=== PATIENT | female | born 1930 | race Caucasian/White ===

== ENCOUNTER 2017-01-18 14:59 | Inpatient (IN) | payer MEDICARE, OTHER ==
[~2017-01-18] VITALS: Ht 157.5 cm; Wt 79.3 kg
[~2017-01-18 14:59] MED LIST: BISA5TAB6 PO; D-ME473S2 PO; DOCU-144 PO; FAMO20TA18 PO; FLUT16SP17 NASAL; FURO-110 PO; GABA300C16 PO; HYDR-3498 PO; IBUP400T22 PO; LINA290C PO; LORA10TA3 PO; MONT10TA24 PO; NA P133E3 PR; Promethazine/Codeine Syp PO; ZOLP5TAB PO
[2017-01-18] MEDS ORDERED: ALBUTEROL 0.083% (NEB) 2.5 MG/3 ML AMP HHN STA (23:34)
[2017-01-19] VITALS (8 sets, daily range): BP systolic 102–131; BP diastolic 52–60; PULSE 97–127; RESP 20–24; TEMP 100.2; Ht 157.5 cm; Wt 79.3 kg
[2017-01-19] MEDS ORDERED: IPRATROPIUM (NEB) 0.5 MG/2.5 ML AMP INH ONE
[2017-01-19 00:19] LABS: ADD SCAN DIFF NO
[2017-01-19 00:20] LABS: ABNORMAL IP MESSAGE 1; BASOPHILS % 0.2 % (0.0-2.0); EOSINOPHILS # 0.2 10^3/ul (0.0-0.5); EOSINOPHILS % 3.2 % (0.0-7.0); HEMATOCRIT 32.6 % (37.0-47.0); HEMOGLOBIN 10.9 g/dl (12.0-16.0); LYMPHOCYTES # 0.4 10^3/ul (0.8-2.9); LYMPHOCYTES % 8.1 % (15.0-51.0); MEAN CORPUSCULAR HGB CONC 33.4 g/dl (32.0-37.0); MEAN CORPUSCULAR VOLUME 92.6 fl (82.0-101.0); MEAN PLATELET VOLUME 9.1 fl (7.4-10.4); MONOCYTE # 0.4 10^3/ul (0.3-0.9); MONOCYTES % 9.4 % (0.0-11.0); NEUTROPHIL # 3.7 10^3/ul (1.6-7.5); NEUTROPHILS % 78.5 % (39.0-77.0); PLATELET COUNT 210 10^3/UL (140-415); RED BLOOD COUNT 3.52 10^6/ul (4.20-5.40); RED CELL DISTRIBUTION WIDTH 16.6 % (11.5-14.5); WHITE BLOOD COUNT 4.7 10^3/ul (4.8-10.8)
[2017-01-19 00:52] LABS: B-TYPE NATRIURETIC PEPTIDE 1000 PG/ML (0-450)
[2017-01-19 01:02] LABS: TROPONIN-I < 0.012 ng/ml (0.00-0.12)
--- NOTE | 2017-01-19 01:02 | RADRPT ---
PROCEDURE: Portable chest x-ray. CLINICAL INDICATION: Shortness of breath. TECHNIQUE: Portable AP view of the chest. COMPARISON: 09/16/2016. FINDINGS: There are prominent interstitial lung markings, increased since the prior examination. No pulmonary edema or conolidation is identified. The cardiac silhouette is enlarged. There are aortic calcifica tions. No pleural effusion is seen. There is no pneumothorax. IMPRESSION: 1. Prominent interstitial lung markings, increased since the prior examination. These are nonspecif ic but could represent interstitial edema or a viral chest infection, possibly superimposed upon chr onic lung changes. 2. Enlarged cardiac silhouette and aortic atherosclerosis. RPTAT: HTAR .Jasen Zhu MD, MD Date Time Electronically viewed and signed by .Jasen Zhu MD, on 01/19/2017 01:01 .R/
[2017-01-19] MEDS ORDERED: HYDROCODONE/HOMATROPINE 5ML CUP PO ONE (03:00)
--- NOTE | 2017-01-19 04:06 | ERA ---
ER Documentation Chief Complaint Date/Time DATE: 01/19/17 TIME: 04:04 Chief Complaint bib family for cough HPI This is an 86-year-old female brought in by family for cough. She has been coughing a lot over the past 2-3 days. No nausea no vomiting no chills. No other current complaints. Cough has been mildly productive with whitish sputum. Denies any other current problems. No chest pain. No other current problems ROS All systems reviewed and are negative except as per history of present illness. Medications Home Meds Active Scripts Zolpidem Tartrate (Ambien [place]) 5 Mg Tablet, 2.5 MG PO QHS Y for SLEEP for 10 Days, TAB Prov:LEILA SPARKS MD 10/01/16 [Promethazine/Codeine Syp] 5 ML SYRUP No Conflict Check, 10 ML PO Q6 Y for cough for 7 Days Prov:LEILA SPARKS MD 10/01/16 Na Phos,M-B/Na Phos,Di-Ba ([place] Ready To Use Enema) 133 Ml Enema, 133 ML [place] DAILY Y for CONSTIPATION for 7 Days, ENEMA Prov:LEILA SPARKS MD 10/01/16 Hydrocodone Bit-Acetaminophen (Hydrocodone Bit-APAP) 5-325MG Tablet, 1 TAB PO Q6H Y for MODERATE PAIN LEVEL 4-6 for 14 Days, TAB Prov:LEILA SPARKS MD 10/01/16 Ibuprofen* (Ibuprofen*) 400 Mg Tablet, 400 MG PO Q6H Y for FEver for 10 Days, TAB Prov:LEILA SPARKS MD 10/01/16 Famotidine* (Famotidine*) 20 Mg Tablet, 20 MG PO DAILY for 10 Days, TAB Prov:LEILA SPARKS MD 10/01/16 Docusate Sodium* (Colace*) 100 Mg Capsule, 100 MG PO Q12H Y for CONSTIPATION for 10 Days, CAP Prov:LEILA SPARKS MD 10/01/16 Bisacodyl* (Bisacodyl*) 5 Mg Tablet.dr, 5 MG PO DAILY Y for CONSTIPATION for 10 Days Prov:LEILA SPARKS MD 10/01/16 Reported Medications Fluticasone Propionate* (Fluticasone Propionate* Nasal) 50 Mcg/[place] - 16 Gm [place].susp, 1 SPRAY NASAL BID, #1 BOTTLE TO EACH NOSTRIL 09/16/16 Dextromethorphan Hb-Promethazine Hcl* (Promethazine DM* Syrup) 473 Ml Syrup, 5 ML PO Q6 Y for COUGH, ML 09/16/16 Loratadine* (Loratadine*) 10 Mg Tablet, 10 MG PO DAILY, #30 TAB 09/16/16 Linaclotide (LINZESS) 290 Mcg Capsule, 290 MCG PO DAILY, #30 CAP 04/22/16 Montelukast Sodium* (Montelukast Sodium*) 10 Mg Tablet, 10 MG PO QHS, #30 TAB 04/22/16 Furosemide* (Lasix*) 20 Mg Tablet, 20 MG PO BID, TAB 11/07/14 Gabapentin* (Gabapentin*) 300 Mg Capsule, 300 MG PO TID, CAP 11/07/14 Allergies Allergies: Coded Allergies: No Known Allergy (Unverified , 09/16/16) PMhx/Soc History of Surgery: No Anesthesia Reaction: No Hx 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 Disorder: No Hx Respiratory Disorders: Yes (LUNG DIEASE,PNEUMONIA, BRONCHITIS) Hx Cardiac Disorders: Yes (HTN) Hx Psychiatric Problems: No Hx Miscellaneous Medical Probl: Yes (DM, HTN, bronchitis, CHF, chronic anemia. ) Hx Alcohol Use: No Hx Substance Use: No Hx Tobacco Use: No Physical Exam Vitals Vital Signs Date Time Temp Pulse Resp B/P Pulse Ox O2 Delivery O2 Flow Rate FiO2 01/19/17 01:18 Nasal Cannula 2.0 01/19/17 01:00 125 23 126/60 97 Nasal Cannula 2.0 01/19/17 00:18 Nasal Cannula 2 01/19/17 00:00 111 35 116/70 100 Nasal Cannula 2.0 01/18/17 23:54 96 2.0 01/18/17 23:54 113 35 96 Nasal Cannula 2.0 01/18/17 23:45 22 129/101 96 Nasal Cannula 2.0 01/18/17 20:14 101.6 01/18/17 15:00 99.4 106 18 142/87 95 Physical Exam Const: [] Head: Atraumatic Eyes: Normal Conjunctiva ENT: Normal External Ears, Nose and Mouth. Neck: Full range of motion..~ No meningismus. Resp: Clear to auscultation bilaterally Cardio: Regular rate and rhythm, no murmurs Abd: Soft, non tender, non distended. Normal bowel sounds Skin: No petechiae or rashes Back: No midline or flank tenderness Ext: No cyanosis, or edema Neur: Awake and alert Psych: Normal Mood and Affect Result Diagram: 01/19/17 0005 Results 24 hrs Laboratory Tests Test 01/19/17 00:05 01/19/17 01:50 White Blood Count 4.710^3/ul Red Blood Count 3.5210^6/ul Hemoglobin 10.9g/dl Hematocrit 32.6% Mean Corpuscular Volume 92.6fl Mean Corpuscular Hemoglobin 31.0pg Mean Corpuscular Hemoglobin Concent 33.4g/dl Red Cell Distribution Width 16.6% Platelet Count 40595^3/UL Mean Platelet Volume 9.1fl Neutrophils % 78.5% Lymphocytes % 8.1% Monocytes % 9.4% Eosinophils % 3.2% Basophils % 0.2% Nucleated Red Blood Cells % 0.0/100WBC Neutrophils # 3.710^3/ul Lymphocytes # 0.410^3/ul Monocytes # 0.410^3/ul Eosinophils # 0.210^3/ul Basophils # 0.010^3/ul Nucleated Red Blood Cells # 0.010^3/ul Lactic Acid Level 1.2mmol/L 0.9mmol/L Troponin I < 0.012ng/ml B-Type Natriuretic Peptide 1000PG/ML Current Medications Medications (Trade) Dose Ordered Sig/Fina Route PRN Reason Start Time Stop Time Status Last Admin Dose Admin Albuterol (Proventil 0.083% (Neb)) 5 mg ONCE STAT HHN 01/18/17 23:34 01/18/17 23:35 DC 01/18/17 23:53 Ipratropium [place] (Atrovent 0.02% (Neb)) 0.5 mg ONCE ONCE INH 01/19/17 00:00 01/19/17 00:01 DC 01/18/17 23:54 Hydrocodone Bit/ Homatropine Methylb (Hycodan Liquid) 10 ml ONCE ONCE PO 01/19/17 03:00 01/19/17 03:01 DC 01/19/17 02:42 Procedures/MDM EKG: Rate/Rhythm: [Normal Sinus Rhythm] QRS, ST, T-waves: [No changes consistent w/ acute ischemia] Impression: [No evidence of ischemia or arrhythmia] Chest X-ray 1V Interpreted by me: Soft Tissue: No acute abnormalities Bones: No acute abnormalities Mediastinum/Cardiac Silhouette/Lungs: Increased interstitial fluid markings. Impression: CHF Patient's heart failure symptoms is concerning for acute decompensation and will require inpatient workup and monitoring. Further w/u for ischemia, arrhythmia, PE or dissection will be deferred to the inpatient team. Accepting Care Team: Current data and ongoing care discussed. Time: 3 AM Primary Provider: Dr. Sparks Consulting: [XOXOX[place]] Outstanding Data: none Departure Diagnosis: Primary Impression: CHF (congestive heart failure) Qualified Code: I50.9 - Congestive heart failure, unspecified congestive heart failure chronicity, unspecified congestive heart failure type Condition: Serious RICCO COX Jan 19, 2017 04:05
[2017-01-19] MEDS ORDERED: BENZONATATE 100 MG CAP PO ONE (07:30)
--- NOTE | 2017-01-19 11:50 | QN ---
Documentation Comment Observation Note: Time: 4 hours Family Hx: Negative for diabetes Evaluation: Multiple exams showed improving symptoms and no evidence of clinical decompensation. CRISTINA CERON MD Jan 19, 2017 11:50
[2017-01-19] MEDS ORDERED: DOCUSATE SODIUM 100 MG CAP PO PRN (15:30)
[2017-01-19] MEDS ORDERED: HYDROCODONE/APAP (5/325) TAB PO PRN (15:30)
[2017-01-19] MEDS ORDERED: ZOLPIDEM 5 MG TAB PO PRN (15:30)
[2017-01-19] MEDS ORDERED: NA PHOSPHATE/BIPHOS 133 ML ENEMA PR PRN (15:30)
[2017-01-19] MEDS: FUROSEMIDE 40 MG INJ IV SCH (16:44)
[2017-01-19] MEDS: CEFTRIAXONE 1 GM/50 ML (PMX) 50 ML IVPB SCH (17:00)
--- NOTE | 2017-01-19 18:25 | CONS ---
DATE OF ADMISSION: 01/19/2017 DATE OF CONSULTATION: 01/19/2017 TYPE OF CONSULTATION: Cardiology REASON FOR EVALUATION: Shortness of breath, tachycardia, cough. HISTORY OF PRESENT ILLNESS: Ms. Anastacia Carrasco is an 86-year-old woman with history of hypertension, dyslipidemia, history of bladder cancer, history of urinary tract infection, history of prior admis sions last in 09/2016, who comes to the hospital now for evaluation of shortness of breath with prod uctive cough. The patient is likely suffering with bronchitis. She also shows some signs of heart failure and I have been asked to see patient in consultation for further risk stratification. The p atient does not elicit any chest pain at this moment. It does not appear that she ruled in for acut e myocardial infarction. The patient is in sinus rhythm now . She has a productive cough and likely pneumonia. At this point, conservative therapy is indicated. We are going to optimize her f luid status as necessary. Based on her chest x-ray, she has increased heart failure. We will fluid restrict and continue diuresis. ALLERGIES: NO KNOWN DRUG ALLERGIES. SOCIAL HISTORY: The patient does not smoke, does not drink, does not use any drugs. FAMILY HISTORY: Negative for sudden cardiac or premature coronary artery disease. MEDICATIONS: The patient is on: 1. Pepcid 20 mg once daily. 2. Loratadine. 3. Gabapentin. 4. Montelukast. 5. Bisacodyl. 6. Docusate sodium. 7. . 8. Lasix 40 mg IV. REVIEW OF SYSTEMS: CONSTITUTIONAL: No fevers, no chills. Shortness of breath. HEENT: No changes in vision or hearing. CARDIAC: Tachycardia as reported, congestive heart failure. RESPIRATORY: Shortness of breath, acute on chronic. GASTROINTESTINAL: No nausea, vomiting, diarrhea, constipation. GENITOURINARY: No dysuria, hematuria. NEUROLOGIC: No focal deficits. HEMATOLOGIC: Easy bruising. PSYCHIATRIC: No history of psychiatric disease. PHYSICAL EXAMINATION: VITAL SIGNS: Temperature was 100.2 on admission, now 98.2, heart rate is 97, blood pressure 102/52. GENERAL: She is a well-nourished woman in no acute distress, alert and oriented x3, speaking Spanis h, aware of her condition. HEAD: Normocephalic, atraumatic. Eyes anicteric. NECK: Supple. JVD 6 to 7 cm. There is no lymphadenopathy, no thyromegaly. HEART: Regular with soft holosystolic murmur mid chest. The patient PMI is minimally nondisplaced. There is no S3. LUNGS: Coarse at the bases. There is no wheezing. ABDOMEN: Distended, bowel sounds are present. There is no hepatosplenomegaly. GENITOURINARY: Grossly intact. EXTREMITIES: No clubbing or cyanosis. There is trace edema. DIAGNOSTIC DATA: No ECG is available for my review now, and we will order an EKG shortly. The devante ent appears to be in sinus tachycardia on evaluation LABORATORY DATA: White blood cell count 4.7, hemoglobin is 10.9, platelets 217. Her INR is 1.0. Creatinine is 0.7. Troponin is negative at 0.015. ASSESSMENT AND PLAN: 1. Shortness of breath, likely multifactorial with combination of pneumonia/bronchitis and congesti ve heart failure exacerbation. Continue gentle diuresis now. We will fluid restrict. The patient is on IV Lasix. We will also add a small dose of beta elvis to see if she can tolerate it. 2. Cough. The patient has a productive cough. Continue antibiotics per primary team. 3. Chest pain. The patient did not rule in for ischemia, troponins are negative. No further cardi ac risk stratification is warranted at this point. 4. History of hypertension. Continue to optimize, status appears to be fairly euvolemic. 5. History of diabetes. Continue diabetic stabilization and care. 6. Coronary artery disease, no chest pain now, ruled out for acute myocardial infarction at this po int with several sets of troponins. I would like to thank, Dr. Lilly, for referring this patient for my evaluation. Dictated By: AURELIANO ORTEGA MD ML/NTS Conf#: [id number] DID#: [id number]
[2017-01-19] MEDS: ALBUTEROL/IPRATROPIUM (NEB) 3 ML AMP HHN SCH (20:35)
--- NOTE | 2017-01-19 20:57 | QN ---
Documentation Comment [id number] LEILA SPARKS MD Jan 19, 2017 20:57
[2017-01-19] MEDS: FLUTICASONE 0.05% 16 GM NAS SPRAY NASAL SCH (21:00)
[2017-01-19] MEDS: MONTELUKAST 10 MG TAB PO SCH (21:11)
[2017-01-19] MEDS: GABAPENTIN 300 MG CAP PO SCH (21:11)
[2017-01-19] MEDS: METHYLPREDNISOLONE 125 MG INJ IV SCH (21:12)
--- NOTE | 2017-01-19 21:43 | HP ---
DATE OF ADMISSION: 01/19/2017 HISTORY OF PRESENT ILLNESS: The patient is an 86-year-old female who is a resident of [facility], recently discharged from this hospital with diagnosis of systemic inflammatory response syndrome, community-acquired pneumonia, hypertension, dyslipidemia, congestive heart failure, UTI, hematuria , anemia of chronic disease, bladder tumor, status post cystoscopy and removal of bladder tumor. The patient also has underlying CKD and anemia, undergoing outpatient radiation treatment. The patient in the past, presented to this hospital with shortness of breath and is being admitted for further management. PAST MEDICAL HISTORY: Pneumonia, hypertension, dyslipidemia, CHF, UTI, hematuria, anemia of chronic disease. Bladder tumor, status post cystoscopy and removal of bladder tumor. CKD and anemia. ALLERGY HISTORY: NEGATIVE. FAMILY HISTORY: Negative. SOCIAL HISTORY: Negative. MEDICATION HISTORY: The patient listed as: 1. Hydrocodone. 2. Bisacodyl. 3. Docusate sodium. 4. Pepcid. 5. Fluticasone. 6. Furosemide. 7. Gabapentin. 8. Ibuprofen. 9. Linzess. 10. Loratadine. 11. Singulair. 12. Neutra-Phos. 13. Promethazine. 14. Ambien. REVIEW OF SYSTEMS: HEENT: Unremarkable. RESPIRATORY: Short of breath, cough. CARDIOVASCULAR: No chest pain, no palpitation ____. ABDOMEN: No dyspepsia. EXTREMITIES: No swelling. PHYSICAL EXAMINATION: GENERAL: The patient is awake, alert, mildly short of breath. VITAL SIGNS: Pulse 110, blood pressure 122/58. HEAD: Atraumatic, normocephalic. EYES: Pupils equal, reactive to light. NECK: Supple. No JVD. LUNGS: Rhonchi and crepitation noted bilaterally, decreased in both bases. CARDIOVASCULAR: S1, S2 normal. Systolic murmur noted. ABDOMEN: Soft, nontender. Bowel sounds plus. No palpable mass. EXTREMITIES: No cyanosis, clubbing, edema. CENTRAL NERVOUS SYSTEM: The patient is awake, alert. No deficit. LABORATORY DATA: WBC 4.7, hematocrit 32.6, platelet count of 210. Troponin is negative. BNP 1000. IMAGING: The patient has a chest x-ray, shows patient has prominent interstitial lung markings increased since the prior examination, is nonspecific but could represent interstitial edema or a viral infection. Enlarged cardiac silhouette and aortic atherosclerosis. IMPRESSION: 1. Incomplete database. 2. Short of breath. 3. The patient has acute exacerbation of possible bronchitis. 4. Rule out pneumonia. 4. Rule out underlying pulmonary edema. 5. Rule out ischemic heart disease. 6. Chronic kidney disease history. 7. Hypertension. 8. History of bladder tumor and surgery. PLAN: At this point is to continue home medication, oxygen, bronchodilator, antibiotic. Cardiology consultation. The patient was seen by Dr. Lares. The patient's EKG is not available for review at this point. On the monitor, the patient has sinus rhythm. Cardiology workup will be left up to landfill grader. Dictated By: LEILA SPARKS MD BS/LEONARD Conf#: [id number] DID#: [id number] MTDD
[2017-01-20] VITALS (12 sets, daily range): BP systolic 100–136; BP diastolic 52–69; PULSE 76–102; RESP 18–21
[2017-01-20] MEDS: ALBUTEROL/IPRATROPIUM (NEB) 3 ML AMP HHN SCH ×4 (01:56→20:11)
[2017-01-20] MEDS: PROMETHAZINE/DM (CUP) PO PRN ×3 (04:48→21:46)
[2017-01-20] MEDS: METHYLPREDNISOLONE 125 MG INJ IV SCH ×3 (06:11→21:03)
[2017-01-20 08:25] LABS: ADD SCAN DIFF NO
[2017-01-20 08:39] LABS: ABNORMAL IP MESSAGE 1; HEMATOCRIT 31.8 % (37.0-47.0); HEMOGLOBIN 10.6 g/dl (12.0-16.0); MEAN CORPUSCULAR HEMOGLOBIN 30.8 pg (29.0-33.0); MEAN CORPUSCULAR HGB CONC 33.3 g/dl (32.0-37.0); MEAN CORPUSCULAR VOLUME 92.4 fl (82.0-101.0); PLATELET COUNT 208 10^3/UL (140-415); RED BLOOD COUNT 3.44 10^6/ul (4.20-5.40); RED CELL DISTRIBUTION WIDTH 15.9 % (11.5-14.5); WHITE BLOOD COUNT 3.5 10^3/ul (4.8-10.8)
[2017-01-20] MEDS: FUROSEMIDE 40 MG INJ IV SCH (08:42)
[2017-01-20] MEDS: FAMOTIDINE 20 MG TAB PO SCH (08:43)
[2017-01-20] MEDS: LORATADINE 10 MG TAB PO SCH (08:43)
[2017-01-20] MEDS: GABAPENTIN 300 MG CAP PO SCH ×3 (08:43→21:03)
[2017-01-20] MEDS: FLUTICASONE 0.05% 16 GM NAS SPRAY NASAL SCH ×2 (08:43→21:06)
[2017-01-20 08:59] LABS: ALBUMIN 3.3 g/dl (3.3-4.9)
[2017-01-20 09:02] LABS: ALBUMIN/GLOBULIN RATIO 1.13; BILIRUBIN,INDIRECT 0.1 mg/dl (0-1.1); BILIRUBIN,TOTAL 0.1 mg/dl (0.2-1.3); CREATININE 0.77 mg/dl (0.44-1.00); TOTAL PROTEIN 6.2 g/dl (6.1-8.1)
[2017-01-20 09:03] LABS: CALCIUM 8.4 mg/dl (8.4-10.2)
--- NOTE | 2017-01-20 10:27 | CONS ---
Date/Time of Note Date/Time of Note DATE: 01/20/17 TIME: 10:23 Assessment/Plan Assessment/Plan Chief Complaint/Hosp Course The patient is an 86 year old woman with bladder cancer s/p TURBT 09/29/16, receiving chemoradiation with 5FU/mitomycin (completed) with radiation (ongoing) , now admitted for SOB/cough. - Appreciate cardiology/medicine recs, continue antibiotics, steroids, gentle diuresis for pneumonia/bronchitis, CHF exacerbation - Radiation on hold for now per Dr. Cummings given acute CHF exacerbation/ pulmonary complaints - Per Dr. Cummings, would like to see response first prior to proceeding with further radiation with dose escalation. Per patient, she had seen Dr. Morfin on Wednesday, will f/u results. Problems: Consultation Date/Type/Reason Admit Date/Time Jan 19, 2017 at 09:44 Date of Consultation: Jan 20, 2017 Type of Consultation: Oncology Reason for Consultation Bladder cancer Hx of Present Illness The patient is an 86 year old female with DM, CHF, HTN who had presented with hematuria s/p cystoscopy and TURBT 09/29/16 consistent with high grade invasive urothelial carcinoma, receiving chemoradiation with 5FU/mitomycin (begun 12/14/16 ) with 20% dose reduction due to age (completed 01/05/17), currently receiving radiation. The patient has had a worsening cough. Outpatient CXR 12/25/16 had shown chronic obstructive pulmonary disease with chronic type changes int he left lower lobe. Prior CT chest had shown pulmonary fibrosis from 09/2016. Most recent CXR 01/18/17 during this hospitalization demonstrates prominent interstitial lung markings, interstitial edema vs. viral infection possibly superimposed on chronic lung changes. She states that she had a fever two days ago and had worsening cough and new onset SOB. +orthopnea. She currently states that her shortness of breath has improved. Past Medical History CHF, DM, HTN, bladder cancer Family History Significant Family History: no pertinent family hx Social History Alcohol Use: none Smoking Status: Never smoker Exam/Review of Systems Vital Signs Vitals Vital Signs Date Time Temp Pulse Resp B/P Pulse Ox O2 Delivery O2 Flow Rate FiO2 01/20/17 10:08 Nasal Cannula 2.0 01/20/17 08:24 72 18 97 01/20/17 07:49 97.4 112/69 Intake and Output 4/401/19/17 01/20/17 15:00 23:00 07:00 Intake Total 750 ml Balance 750 ml Exam Constitutional: alert, oriented Head: atraumatic, normocephalic Neck: supple Respiratory: wheezing Cardiovascular: regular rate and rhythm Gastrointestinal: non-tender, soft Musculoskeletal: swelling 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: LOCKSTITCH WAISTLINE JOINER II-XII intact Results Result Diagram: 01/20/17 0715 01/20/17 0715 Results 24 hrs Laboratory Tests Test 01/19/17 14:05 01/19/17 19:20 01/20/17 00:42 01/20/17 07:15 Troponin I 0.015 0.011 0.017 0.014 White Blood Count 3.5 #L Red Blood Count 3.44 L Hemoglobin 10.6 L Hematocrit 31.8 L Mean Corpuscular Volume 92.4 Mean Corpuscular Hemoglobin 30.8 Mean Corpuscular Hemoglobin Concent 33.3 Red Cell Distribution Width 15.9 H Platelet Count 208 Mean Platelet Volume 9.0 Neutrophils % Lymphocytes % Monocytes % Eosinophils % Neutrophils # Lymphocytes # Monocytes # Eosinophils # Sodium Level 131 L Potassium Level 5.0 Chloride Level 96 L Carbon Dioxide Level 26 Anion Gap 14 Blood Urea Nitrogen 19 Creatinine 0.77 Glucose Level 190 Calcium Level 8.4 Total Bilirubin 0.1 L Direct Bilirubin 0.00 Indirect Bilirubin 0.1 Aspartate Amino Transf (AST/SGOT) 31 Alanine Aminotransferase (ALT/SGPT) 27 Alkaline Phosphatase 91 Total Protein 6.2 Albumin 3.3 Globulin 2.90 Albumin/Globulin Ratio 1.13 Medications Medications Current Medications Furosemide (Lasix) 40 mg DAILY IV Last administered on 01/20/17 08:42; Admin Dose 40 MG; Start 01/19/17 at 12:00 Bisacodyl (Dulcolax) 5 mg DAILY PRN PO CONSTIPATION; Start 01/19/17 at 15:30 Promethazine HCl/ Dextromethorphan (Phenergan-Dm) 5 ml Q6H PRN PO COUGH Last administered on 01/20/17 04:48; Admin Dose 5 ML; Start 01/19/17 at 15:30 Docusate Sodium (Colace) 100 mg Q12H PRN PO CONSTIPATION; Start 01/19/17 at 15: 30 Famotidine (Pepcid) 20 mg DAILY PO Last administered on 01/20/17 08:43; Admin Dose 20 MG; Start 01/20/17 at 09:00 Fluticasone Propionate (Flonase 0.05% Nasal) 1 spray BID NASAL Last administered on 01/20/17 08:43; Admin Dose 1 SPRAY; Start 01/19/17 at 21:00 Gabapentin (Neurontin) 300 mg TID PO Last administered on 01/20/17 08:43; Admin Dose 300 MG; Start 01/19/17 at 21:00 Acetaminophen/ Hydrocodone Bitart ([place] (5/325)) 1 tab Q6H PRN PO MODERATE PAIN LEVEL 4-6; Start 01/19/17 at 15:30 Loratadine (Claritin) 10 mg DAILY PO Last administered on 01/20/17 08:43; Admin Dose 10 MG; Start 01/20/17 at 09:00 Montelukast Sodium (Singulair) 10 mg QHS PO Last administered on 01/19/17 21:11 ; Admin Dose 10 MG; Start 01/19/17 at 21:00 Sodium Biphosphate/ Sodium Phosphate (Fleet Enema) 133 ml DAILY PRN [place] CONSTIPATION; Start 01/19/17 at 15:30 Zolpidem Tartrate (Ambien) 2.5 mg QHS PRN PO SLEEP Last administered on 23:49; Admin Dose 2.5 MG; Start 01/19/17 at 15:30 Carvedilol 6.25 mg 6.25 mg BID PO Last administered on 01/20/17 08:42; Admin Dose 6.25 MG; Start 01/19/17 at 21:00 Ceftriaxone Sodium (Rocephin) 50 ml @ 100 mls/hr Q24H IVPB Last administered on 01/19/17 17:00; Admin Dose 100 MLS/HR; Start 01/19/17 at 17:00 Methylprednisolone Sodium Succinate (Solu-Medrol) 60 mg Q8 IV Last administered on 01/20/17 06:11; Admin Dose 60 MG; Start 01/19/17 at 22:00 TOLILLIANA MD Jan 20, 2017 10:27
--- NOTE | 2017-01-20 13:35 | CONS ---
Date/Time of Note Date/Time of Note DATE: 01/20/17 TIME: 13:27 Assessment/Plan Assessment/Plan Chief Complaint/Hosp Course IMp: 1.CHF 2.HTN 3.cad 4. Hyponatremia Recc: -Tele -serial ecg's -Continue coreg -Continue steroids/abx's/bronchodilators -Gentle lasix diuresis Problems: Consultation Date/Type/Reason Admit Date/Time Jan 19, 2017 at 09:44 Initial Consult Date 01/20/17 Type of Consultation: Cardiology Reason for Consultation CHF Referring Provider: LEILA SPARKS MD Exam/Review of Systems Vital Signs Vitals Vital Signs Date Time Temp Pulse Resp B/P Pulse Ox O2 Delivery O2 Flow Rate FiO2 01/20/17 12:10 83 01/20/17 11:43 97.5 18 100/52 95 01/20/17 10:08 Nasal Cannula 2.0 Intake and Output 01/19/17 01/19/17 01/20/17 15:00 23:00 07:00 Intake Total 750 ml Balance 750 ml Exam Review of Systems: CONSTITUTIONAL: No fevers, chills. PULMONARY: No sob CARDIOVASCULAR: No chest pain/palpitations GASTROINTESTINAL: No nausea/vomiting. GENITOURINARY: No hematuria/dysuria. MUSCULOSKELETAL: No myagias/arthalgias. PSYCHIATRIC: The patient denies depression. NEUROLOGIC: No weakness Constitutional: alert Psych: no complaints Head: normocephalic ENMT: mucosa pink and moist Neck: jvd (9 cm water), supple Respiratory: diminished breath sounds Cardiovascular: regular rate and rhythm Gastrointestinal: non-tender, soft Musculoskeletal: muscle tone (normal) Extremities: edema (none) 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: other (No focal deficits) Results Result Diagram: 01/20/17 0715 01/20/17 0715 Results 24 hrs Laboratory Tests Test 01/19/17 14:05 01/19/17 19:20 01/20/17 00:42 01/20/17 07:15 Troponin I 0.015 0.011 0.017 0.014 White Blood Count 3.5 #L Red Blood Count 3.44 L Hemoglobin 10.6 L Hematocrit 31.8 L Mean Corpuscular Volume 92.4 Mean Corpuscular Hemoglobin 30.8 Mean Corpuscular Hemoglobin Concent 33.3 Red Cell Distribution Width 15.9 H Platelet Count 208 Mean Platelet Volume 9.0 Neutrophils % Lymphocytes % Monocytes % Eosinophils % Neutrophils # Lymphocytes # Monocytes # Eosinophils # Sodium Level 131 L Potassium Level 5.0 Chloride Level 96 L Carbon Dioxide Level 26 Anion Gap 14 Blood Urea Nitrogen 19 Creatinine 0.77 Glucose Level 190 Calcium Level 8.4 Total Bilirubin 0.1 L Direct Bilirubin 0.00 Indirect Bilirubin 0.1 Aspartate Amino Transf (AST/SGOT) 31 Alanine Aminotransferase (ALT/SGPT) 27 Alkaline Phosphatase 91 Total Protein 6.2 Albumin 3.3 Globulin 2.90 Albumin/Globulin Ratio 1.13 Medications Medications Current Medications Furosemide (Lasix) 40 mg DAILY IV Last administered on 01/20/17 08:42; Admin Dose 40 MG; Start 01/19/17 at 12:00 Bisacodyl (Dulcolax) 5 mg DAILY PRN PO CONSTIPATION; Start 01/19/17 at 15:30 Promethazine HCl/ Dextromethorphan (Phenergan-Dm) 5 ml Q6H PRN PO COUGH Last administered on 01/20/17 12:36; Admin Dose 5 ML; Start 01/19/17 at 15:30 Docusate Sodium (Colace) 100 mg Q12H PRN PO CONSTIPATION; Start 01/19/17 at 15: 30 Famotidine (Pepcid) 20 mg DAILY PO Last administered on 01/20/17 08:43; Admin Dose 20 MG; Start 01/20/17 at 09:00 Fluticasone Propionate (Flonase 0.05% Nasal) 1 spray BID NASAL Last administered on 01/20/17 08:43; Admin Dose 1 SPRAY; Start 01/19/17 at 21:00 Gabapentin (Neurontin) 300 mg TID PO Last administered on 01/20/17 12:36; Admin Dose 300 MG; Start 01/19/17 at 21:00 Acetaminophen/ Hydrocodone Bitart ([place] (5/325)) 1 tab Q6H PRN PO MODERATE PAIN LEVEL 4-6; Start 01/19/17 at 15:30 Loratadine (Claritin) 10 mg DAILY PO Last administered on 01/20/17 08:43; Admin Dose 10 MG; Start 01/20/17 at 09:00 Montelukast Sodium (Singulair) 10 mg QHS PO Last administered on 01/19/17 21:11 ; Admin Dose 10 MG; Start 01/19/17 at 21:00 Sodium Biphosphate/ Sodium Phosphate (Fleet Enema) 133 ml DAILY PRN [place] CONSTIPATION; Start 01/19/17 at 15:30 Zolpidem Tartrate (Ambien) 2.5 mg QHS PRN PO SLEEP Last administered on 23:49; Admin Dose 2.5 MG; Start 01/19/17 at 15:30 Carvedilol 6.25 mg 6.25 mg BID PO Last administered on 01/20/17 08:42; Admin Dose 6.25 MG; Start 01/19/17 at 21:00 Ceftriaxone Sodium (Rocephin) 50 ml @ 100 mls/hr Q24H IVPB Last administered on 01/19/17 17:00; Admin Dose 100 MLS/HR; Start 01/19/17 at 17:00 Methylprednisolone Sodium Succinate (Solu-Medrol) 60 mg Q8 IV Last administered on 01/20/17 06:11; Admin Dose 60 MG; Start 01/19/17 at 22:00 THOMAS DERAS Jan 20, 2017 13:35
[2017-01-20 14:07] LABS: LYMPHOCYTES # 0.1 10^3/ul (0.8-2.9); NEUTROPHIL # 2.9 10^3/ul (1.6-7.5)
[2017-01-20] MEDS: CEFTRIAXONE 1 GM/50 ML (PMX) 50 ML IVPB SCH (16:05)
--- NOTE | 2017-01-20 19:51 | PN ---
Date/Time of Note Date/Time of Note DATE: 01/20/17 TIME: 19:50 Assessment/Plan VTE Prophylaxis VTE Prophylaxis Intervention: other Lines/Catheters IV [facility] Type [facility]from [facility] Urinary Cath still in place: No Assessment/Plan Chief Complaint/Hosp Course IMPRESSION: 1. Incomplete database. 2. Short of breath. 3. The patient has acute exacerbation of possible bronchitis. 4. Rule out pneumonia. 4. Rule out underlying pulmonary edema. 5. Rule out ischemic heart disease. 6. Chronic kidney disease history. 7. Hypertension. 8. History of bladder tumor and surgery. plan oncology to see Problems: Subjective 24 Hr Interval Summary Respiratory: shortness of breath (better) Exam/Review of Systems Vital Signs Vitals Vital Signs Date Time Temp Pulse Resp B/P Pulse Ox O2 Delivery O2 Flow Rate FiO2 01/20/17 19:41 97.7 77 20 136/63 98 01/20/17 18:00 2.0 01/20/17 14:12 Nasal Cannula Intake and Output 01/19/17 01/19/17 01/20/17 15:00 23:00 07:00 Intake Total 750 ml Balance 750 ml Exam Respiratory: clear to auscultation Cardiovascular: regular rate and rhythm Gastrointestinal: soft Musculoskeletal: nl extremities to inspection Extremities: normal pulses Results Result Diagram: 01/20/17 0715 01/20/17 0715 Results 24 hrs Laboratory Tests Test 01/20/17 00:42 01/20/17 07:15 01/20/17 12:35 01/20/17 17:45 Troponin I 0.017 0.014 < 0.012 < 0.012 White Blood Count 3.5 #L Red Blood Count 3.44 L Hemoglobin 10.6 L Hematocrit 31.8 L Mean Corpuscular Volume 92.4 Mean Corpuscular Hemoglobin 30.8 Mean Corpuscular Hemoglobin Concent 33.3 Red Cell Distribution Width 15.9 H Platelet Count 208 Mean Platelet Volume 9.0 Neutrophils % 84.0 H Band Neutrophils % 11.0 H Lymphocytes % 3.0 L Monocytes % 1.0 Eosinophils % Myelocytes % 1.0 H Neutrophils # 2.9 Lymphocytes # 0.1 L Monocytes # 0.0 L Eosinophils # Myelocytes # 0.0 Differential Comment MANUAL DIFF Giant Platelets OCCASIONAL Sodium Level 131 L Potassium Level 5.0 Chloride Level 96 L Carbon Dioxide Level 26 Anion Gap 14 Blood Urea Nitrogen 19 Creatinine 0.77 Glucose Level 190 Calcium Level 8.4 Total Bilirubin 0.1 L Direct Bilirubin 0.00 Indirect Bilirubin 0.1 Aspartate Amino Transf (AST/SGOT) 31 Alanine Aminotransferase (ALT/SGPT) 27 Alkaline Phosphatase 91 Total Protein 6.2 Albumin 3.3 Globulin 2.90 Albumin/Globulin Ratio 1.13 Medications Medications Current Medications Bisacodyl (Dulcolax) 5 mg DAILY PRN PO CONSTIPATION; Start 01/19/17 at 15:30 Promethazine HCl/ Dextromethorphan (Phenergan-Dm) 5 ml Q6H PRN PO COUGH Last administered on 01/20/17 12:36; Admin Dose 5 ML; Start 01/19/17 at 15:30 Docusate Sodium (Colace) 100 mg Q12H PRN PO CONSTIPATION; Start 01/19/17 at 15: 30 Famotidine (Pepcid) 20 mg DAILY PO Last administered on 01/20/17 08:43; Admin Dose 20 MG; Start 01/20/17 at 09:00 Fluticasone Propionate (Flonase 0.05% Nasal) 1 spray BID NASAL Last administered on 01/20/17 08:43; Admin Dose 1 SPRAY; Start 01/19/17 at 21:00 Gabapentin (Neurontin) 300 mg TID PO Last administered on 01/20/17 12:36; Admin Dose 300 MG; Start 01/19/17 at 21:00 Acetaminophen/ Hydrocodone Bitart ([place] (5/325)) 1 tab Q6H PRN PO MODERATE PAIN LEVEL 4-6; Start 01/19/17 at 15:30 Loratadine (Claritin) 10 mg DAILY PO Last administered on 01/20/17 08:43; Admin Dose 10 MG; Start 01/20/17 at 09:00 Montelukast Sodium (Singulair) 10 mg QHS PO Last administered on 01/19/17 21:11 ; Admin Dose 10 MG; Start 01/19/17 at 21:00 Sodium Biphosphate/ Sodium Phosphate (Fleet Enema) 133 ml DAILY PRN [place] CONSTIPATION; Start 01/19/17 at 15:30 Zolpidem Tartrate (Ambien) 2.5 mg QHS PRN PO SLEEP Last administered on 23:49; Admin Dose 2.5 MG; Start 01/19/17 at 15:30 Carvedilol 6.25 mg 6.25 mg BID PO Last administered on 01/20/17 08:42; Admin Dose 6.25 MG; Start 01/19/17 at 21:00 Ceftriaxone Sodium (Rocephin) 50 ml @ 100 mls/hr Q24H IVPB Last administered on 01/20/17 16:05; Admin Dose 100 MLS/HR; Start 01/19/17 at 17:00 Methylprednisolone Sodium Succinate (Solu-Medrol) 60 mg Q8 IV Last administered on 01/20/17 14:24; Admin Dose 60 MG; Start 01/19/17 at 22:00 Furosemide (Lasix) 20 mg DAILY IV ; Start 01/21/17 at 09:00 LEILA SPARKS MD Jan 20, 2017 19:50
[2017-01-20] MEDS: MONTELUKAST 10 MG TAB PO SCH (21:04)
[2017-01-21] VITALS (12 sets, daily range): BP systolic 114–153; BP diastolic 56–71; PULSE 73–88; RESP 18–20
[2017-01-21] MEDS: ALBUTEROL/IPRATROPIUM (NEB) 3 ML AMP HHN SCH ×4 (02:12→20:25)
[2017-01-21] MEDS: PROMETHAZINE/DM (CUP) PO PRN ×3 (06:26→21:18)
[2017-01-21] MEDS: METHYLPREDNISOLONE 125 MG INJ IV SCH ×3 (06:26→21:18)
[2017-01-21] MEDS: FLUTICASONE 0.05% 16 GM NAS SPRAY NASAL SCH ×2 (08:44→21:13)
[2017-01-21] MEDS: FAMOTIDINE 20 MG TAB PO SCH (08:44)
[2017-01-21] MEDS: LORATADINE 10 MG TAB PO SCH (08:44)
[2017-01-21] MEDS: GABAPENTIN 300 MG CAP PO SCH ×3 (08:44→21:13)
[2017-01-21] MEDS: FUROSEMIDE 20 MG INJ IV SCH (08:45)
[2017-01-21] MEDS: BISACODYL (EC) 5 MG TAB PO PRN (08:55)
--- NOTE | 2017-01-21 12:29 | CONS ---
Date/Time of Note Date/Time of Note DATE: 01/21/17 TIME: 12:25 Assessment/Plan Assessment/Plan Chief Complaint/Hosp Course IMp: 1.CHF-diastolic acute on chronic 2.HTN 3.cad 4. Hyponatremia 5. H/O Bladder ca Recc: -Tele -serial ecg's -Change coreg to B1 selective BB to prevent possible bronchospasm -Continue steroids/abx's/bronchodilators -Gentle lasix diuresis -ongoing onc eval Problems: Consultation Date/Type/Reason Admit Date/Time Jan 19, 2017 at 09:44 Initial Consult Date 01/20/17 Type of Consultation: Cardiology Reason for Consultation CHF Referring Provider: LEILA SPARKS MD Exam/Review of Systems Vital Signs Vitals Vital Signs Date Time Temp Pulse Resp B/P Pulse Ox O2 Delivery O2 Flow Rate FiO2 01/21/17 12:21 82 01/21/17 11:38 98.4 20 128/71 94 01/21/17 08:45 Nasal Cannula 2.0 Intake and Output 01/20/17 01/20/17 01/21/17 15:00 23:00 07:00 Intake Total 900 ml Output Total 550 ml Balance 350 ml Exam Review of Systems: CONSTITUTIONAL: No fevers, chills. PULMONARY: Positive cough CARDIOVASCULAR: No chest pain/palpitations GASTROINTESTINAL: No nausea/vomiting. GENITOURINARY: No hematuria/dysuria. MUSCULOSKELETAL: No myagias/arthalgias. PSYCHIATRIC: The patient denies depression. NEUROLOGIC: No weakness Constitutional: alert Psych: no complaints Head: normocephalic ENMT: mucosa pink and moist Neck: jvd (8 cm water), supple Respiratory: diminished breath sounds (at bases/B) Cardiovascular: regular rate and rhythm Gastrointestinal: non-tender, soft Musculoskeletal: muscle tone (normal) Extremities: edema (none) 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: other (No focal deficits) Results Result Diagram: 01/20/17 0715 01/20/17 0715 Results 24 hrs Laboratory Tests Test 01/20/17 12:35 01/20/17 17:45 Troponin I < 0.012 < 0.012 Medications Medications Current Medications Bisacodyl (Dulcolax) 5 mg DAILY PRN PO CONSTIPATION Last administered on t 08:55; Admin Dose 5 MG; Start 01/19/17 at 15:30 Promethazine HCl/ Dextromethorphan (Phenergan-Dm) 5 ml Q6H PRN PO COUGH Last administered on 01/21/17 06:26; Admin Dose 5 ML; Start 01/19/17 at 15:30 Docusate Sodium (Colace) 100 mg Q12H PRN PO CONSTIPATION; Start 01/19/17 at 15: 30 Famotidine (Pepcid) 20 mg DAILY PO Last administered on 01/21/17 08:44; Admin Dose 20 MG; Start 01/20/17 at 09:00 Fluticasone Propionate (Flonase 0.05% Nasal) 1 spray BID NASAL Last administered on 01/21/17 08:44; Admin Dose 1 SPRAY; Start 01/19/17 at 21:00 Gabapentin (Neurontin) 300 mg TID PO Last administered on 01/21/17 08:44; Admin Dose 300 MG; Start 01/19/17 at 21:00 Acetaminophen/ Hydrocodone Bitart ([place] (5/325)) 1 tab Q6H PRN PO MODERATE PAIN LEVEL 4-6; Start 01/19/17 at 15:30 Loratadine (Claritin) 10 mg DAILY PO Last administered on 01/21/17 08:44; Admin Dose 10 MG; Start 01/20/17 at 09:00 Montelukast Sodium (Singulair) 10 mg QHS PO Last administered on 01/20/17 21:04 ; Admin Dose 10 MG; Start 01/19/17 at 21:00 Sodium Biphosphate/ Sodium Phosphate (Fleet Enema) 133 ml DAILY PRN [place] CONSTIPATION; Start 01/19/17 at 15:30 Zolpidem Tartrate (Ambien) 2.5 mg QHS PRN PO SLEEP Last administered on 23:49; Admin Dose 2.5 MG; Start 01/19/17 at 15:30 Carvedilol 6.25 mg 6.25 mg BID PO Last administered on 01/21/17 08:44; Admin Dose 6.25 MG; Start 01/19/17 at 21:00 Ceftriaxone Sodium (Rocephin) 50 ml @ 100 mls/hr Q24H IVPB Last administered on 01/20/17 16:05; Admin Dose 100 MLS/HR; Start 4/4/17 at 17:00 Methylprednisolone Sodium Succinate (Solu-Medrol) 60 mg Q8 IV Last administered on 01/21/17 06:26; Admin Dose 60 MG; Start 01/19/17 at 22:00 Furosemide (Lasix) 20 mg DAILY IV Last administered on 01/21/17 08:45; Admin Dose 20 MG; Start 01/21/17 at 09:00 THOMAS DERAS Jan 21, 2017 12:29
--- NOTE | 2017-01-21 13:04 | CONS ---
Date/Time of Note Date/Time of Note DATE: 01/21/17 TIME: 13:03 Assessment/Plan Assessment/Plan Chief Complaint/Hosp Course The patient is an 86 year old woman with bladder cancer s/p TURBT 09/29/16, receiving chemoradiation with 5FU/mitomycin (completed) with radiation (ongoing) , now admitted for SOB/cough. - Appreciate cardiology/medicine recs, continue antibiotics, steroids, gentle diuresis for pneumonia/bronchitis, CHF exacerbation - Radiation on hold for now per Dr. Cummings given acute CHF exacerbation/ pulmonary complaints - Per Dr. Cummings, would like to see response first prior to proceeding with further radiation with dose escalation. Per patient, she had seen Dr. Morfin on Wednesday, will f/u results. Problems: Consultation Date/Type/Reason Admit Date/Time Jan 19, 2017 at 09:44 Initial Consult Date 01/20/17 Type of Consultation: Oncology Referring Provider: LEILA SPARKS MD 24 HR Interval Summary Free Text/Dictation Patient doing well, states still has a cough but overall improved and SOB has improved. 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 Results Result Diagram: 01/20/17 0715 01/20/17 0715 Results 24 hrs Laboratory Tests Test 01/20/17 17:45 Troponin I < 0.012 Medications Medications Current Medications Bisacodyl (Dulcolax) 5 mg DAILY PRN PO CONSTIPATION Last administered on t 08:55; Admin Dose 5 MG; Start 01/19/17 at 15:30 Promethazine HCl/ Dextromethorphan (Phenergan-Dm) 5 ml Q6H PRN PO COUGH Last administered on 01/21/17 06:26; Admin Dose 5 ML; Start 01/19/17 at 15:30 Docusate Sodium (Colace) 100 mg Q12H PRN PO CONSTIPATION; Start 01/19/17 at 15: 30 Famotidine (Pepcid) 20 mg DAILY PO Last administered on 01/21/17 08:44; Admin Dose 20 MG; Start 01/20/17 at 09:00 Fluticasone Propionate (Flonase 0.05% Nasal) 1 spray BID NASAL Last administered on 01/21/17 08:44; Admin Dose 1 SPRAY; Start 01/19/17 at 21:00 Gabapentin (Neurontin) 300 mg TID PO Last administered on 01/21/17 08:44; Admin Dose 300 MG; Start 01/19/17 at 21:00 Acetaminophen/ Hydrocodone Bitart ([place] (5/325)) 1 tab Q6H PRN PO MODERATE PAIN LEVEL 4-6; Start 01/19/17 at 15:30 Loratadine (Claritin) 10 mg DAILY PO Last administered on 01/21/17 08:44; Admin Dose 10 MG; Start 01/20/17 at 09:00 Montelukast Sodium (Singulair) 10 mg QHS PO Last administered on 01/20/17 21:04 ; Admin Dose 10 MG; Start 01/19/17 at 21:00 Sodium Biphosphate/ Sodium Phosphate (Fleet Enema) 133 ml DAILY PRN [place] CONSTIPATION; Start 01/19/17 at 15:30 Zolpidem Tartrate 2.5 mg 2.5 mg QHS PRN PO SLEEP Last administered on 01/19/17 23:49; Admin Dose 2.5 MG; Start 01/19/17 at 15:30 Ceftriaxone Sodium (Rocephin) 50 ml @ 100 mls/hr Q24H IVPB Last administered on 01/20/17 16:05; Admin Dose 100 MLS/HR; Start 01/19/17 at 17:00 Methylprednisolone Sodium Succinate (Solu-Medrol) 60 mg Q8 IV Last administered on 01/21/17 06:26; Admin Dose 60 MG; Start 01/19/17 at 22:00 Furosemide (Lasix) 20 mg DAILY IV Last administered on 01/21/17 08:45; Admin Dose 20 MG; Start 01/21/17 at 09:00 Metoprolol Tartrate (Lopressor) 25 mg BID PO ; Start 01/21/17 at 21:00 LILLIANA DSOUZA MD Jan 21, 2017 13:04
[2017-01-21] MEDS: HYDROCODONE/HOMATROPINE 5ML CUP PO PRN (18:00)
[2017-01-21] MEDS: CEFTRIAXONE 1 GM/50 ML (PMX) 50 ML IVPB SCH (18:00)
--- NOTE | 2017-01-21 20:14 | CONS ---
DATE OF ADMISSION: 01/21/2017 DATE OF CONSULTATION: 01/21/2017 HISTORY OF PRESENT ILLNESS: An 86-year-old female, who is known to have a history of bladder cancer , high-grade with muscle invasion that was diagnosed in 09/2016. The patient then received chemothe rapy and is still getting radiation therapy. The chemotherapy was 5-FU and mitomycin. She did have radiation, but still has about [address] Cummings has talked with me, and the plan was to continue the patient on the radiation for the remaining 2 weeks, and then in about a month I will do a cystoscopy on her. She wanted to see if there is any response at the present; however, l ooking inside the bladder now, the bladder is noted to be all red, and then we have to do a biopsy, and that means the patient has to have anesthesia. So it was decided to continue the patient on the radiation therapy; however, the patient the following day, came and presented to the emergency room because of shortness of breath, and was admitted with question of pneumonia. The patient presently is comfortable, and she denies having any pain. Her main concern is that she has been urinating fr equently, she cannot hold her urine, and she has been using diapers and urinating in the diapers. H owever, the urine is clear. PAST MEDICAL HISTORY: Well delineated on the prior consultation. PHYSICAL EXAMINATION GENERAL: The patient weighs about 79 kilograms. She is 62 inches tall. VITAL SIGNS: Her temperature is 97.5, the blood pressure 114/56, pulse is 79, respirations 20. ABDOMEN: A little obese, and there is no abdominal mass palpable, and no tenderness. PELVIC: Reveals some redness in the area, and also she does have vaginal atrophy. LABORATORY DATA: Her CBC shows a white count of 3.5, hemoglobin 10.6, hematocrit 31.8. BUN is 19, creatinine 0.77. Sodium 131, potassium 5, chloride 96, CO2 26. IMPRESSION: The patient has a high-grade bladder tumor with invasion into the muscle, but because o f her age of 86, discussion has been made, and she received chemotherapy, and also was receiving rad iation therapy. She was admitted to the hospital because of shortness of breath and a question of a pulmonary infiltrate. Therefore, the recommendation at the present would be to make sure that ther e is no lung mets, and therefore, I will order a CT scan of the chest. Also have the nurses do a st raight catheterization on her, and send the urine for culture and sensitivity as well as for cytolog y. Dictated By: FLORIN PATEL/LEONARD Conf#: [id number] DID#: [id number]
[2017-01-21] MEDS: MONTELUKAST 10 MG TAB PO SCH (21:12)
[2017-01-21] MEDS: METOPROLOL 25 MG TAB PO SCH (21:14)
--- NOTE | 2017-01-21 21:23 | PN ---
Date/Time of Note Date/Time of Note DATE: 01/21/17 TIME: 21:22 Assessment/Plan VTE Prophylaxis VTE Prophylaxis Intervention: other Lines/Catheters IV [facility] Type (from [facility]): Sal[facility] Lock Urinary Cath still in place: No Assessment/Plan Chief Complaint/Hosp Course IMPRESSION: 1. Incomplete database. 2. Short of breath. 3. The patient has acute exacerbation of possible bronchitis. 4. Rule out pneumonia. 4. Rule out underlying pulmonary edema. 5. Rule out ischemic heart disease. 6. Chronic kidney disease history. 7. Hypertension. 8. History of bladder tumor and surgery. plan oncology to see [facility] dr hammond to see Problems: Subjective 24 Hr Interval Summary Subjective hx not possible: other (sob less) Exam/Review of Systems Vital Signs Vitals Vital Signs Date Time Temp Pulse Resp B/P Pulse Ox O2 Delivery O2 Flow Rate FiO2 01/21/17 20:26 64 18 99 Nasal Cannula 2.0 01/21/17 19:35 98.2 132/65 Intake and Output 01/20/17 01/20/17 01/21/17 15:00 23:00 07:00 Intake Total 900 ml Output Total 550 ml Balance 350 ml Exam Neck: supple Respiratory: clear to auscultation, diminished breath sounds Cardiovascular: regular rate and rhythm Gastrointestinal: soft Musculoskeletal: nl extremities to inspection Results Result Diagram: 01/20/17 0715 01/20/17 0715 Medications Medications Current Medications Bisacodyl (Dulcolax) 5 mg DAILY PRN PO CONSTIPATION Last administered on 08:55; Admin Dose 5 MG; Start 01/19/17 at 15:30 Promethazine HCl/ Dextromethorphan (Phenergan-Dm) 5 ml Q6H PRN PO COUGH Last administered on 01/21/17 21:18; Admin Dose 5 ML; Start 01/19/17 at 15:30 Docusate Sodium (Colace) 100 mg Q12H PRN PO CONSTIPATION; Start 01/19/17 at 15: 30 Famotidine (Pepcid) 20 mg DAILY PO Last administered on 01/21/17 08:44; Admin Dose 20 MG; Start 01/20/17 at 09:00 Fluticasone Propionate (Flonase 0.05% Nasal) 1 spray BID NASAL Last administered on 01/21/17 21:13; Admin Dose 1 SPRAY; Start 01/19/17 at 21:00 Gabapentin (Neurontin) 300 mg TID PO Last administered on 01/21/17 21:13; Admin Dose 300 MG; Start 01/19/17 at 21:00 Acetaminophen/ Hydrocodone Bitart ([place] (5/325)) 1 tab Q6H PRN PO MODERATE PAIN LEVEL 4-6; Start 01/19/17 at 15:30 Loratadine (Claritin) 10 mg DAILY PO Last administered on 01/21/17 08:44; Admin Dose 10 MG; Start 01/20/17 at 09:00 Montelukast Sodium (Singulair) 10 mg QHS PO Last administered on 01/21/17 21:12 ; Admin Dose 10 MG; Start 01/19/17 at 21:00 Sodium Biphosphate/ Sodium Phosphate (Fleet Enema) 133 ml DAILY PRN [place] CONSTIPATION; Start 01/19/17 at 15:30 Zolpidem Tartrate 2.5 mg 2.5 mg QHS PRN PO SLEEP Last administered on 01/19/17 23:49; Admin Dose 2.5 MG; Start 01/19/17 at 15:30 Ceftriaxone Sodium (Rocephin) 50 ml @ 100 mls/hr Q24H IVPB Last administered on 01/21/17 18:00; Admin Dose 100 MLS/HR; Start 01/19/17 at 17:00 Methylprednisolone Sodium Succinate (Solu-Medrol) 60 mg Q8 IV Last administered on 01/21/17 21:18; Admin Dose 60 MG; Start 01/19/17 at 22:00 Furosemide (Lasix) 20 mg DAILY IV Last administered on 01/21/17 08:45; Admin Dose 20 MG; Start 01/21/17 at 09:00 Metoprolol Tartrate (Lopressor) 25 mg BID PO Last administered on 01/21/17 21: 14; Admin Dose 25 MG; Start 01/21/17 at 21:00 Hydrocodone Bit/ Homatropine Methylb (Hycodan Liquid) 5 ml TID PRN PO COUGH Last administered on 01/21/17 18:00; Admin Dose 5 ML; Start 01/21/17 at 15:00 LEILA SPARKS MD Jan 21, 2017 21:22
[2017-01-22] VITALS (11 sets, daily range): BP systolic 110–142; BP diastolic 54–72; PULSE 57–70; RESP 18–20
[2017-01-22] MEDS: ALBUTEROL/IPRATROPIUM (NEB) 3 ML AMP HHN SCH ×4 (02:28→19:35)
[2017-01-22] MEDS: METHYLPREDNISOLONE 125 MG INJ IV SCH ×3 (06:19→21:36)
[2017-01-22 07:11] LABS: ADD SCAN DIFF NO
[2017-01-22 07:15] LABS: ABNORMAL IP MESSAGE 1; BASOPHILS % 0.2 % (0.0-2.0); HEMATOCRIT 31.4 % (37.0-47.0); HEMOGLOBIN 10.2 g/dl (12.0-16.0); LYMPHOCYTES # 0.2 10^3/ul (0.8-2.9); LYMPHOCYTES % 3.6 % (15.0-51.0); MEAN CORPUSCULAR HGB CONC 32.5 g/dl (32.0-37.0); MEAN CORPUSCULAR VOLUME 92.4 fl (82.0-101.0); MEAN PLATELET VOLUME 9.5 fl (7.4-10.4); MONOCYTE # 0.3 10^3/ul (0.3-0.9); MONOCYTES % 4.6 % (0.0-11.0); NEUTROPHIL # 5.3 10^3/ul (1.6-7.5); NEUTROPHILS % 90.7 % (39.0-77.0); PLATELET COUNT 228 10^3/UL (140-415); RED CELL DISTRIBUTION WIDTH 15.6 % (11.5-14.5); WHITE BLOOD COUNT 5.9 10^3/ul (4.8-10.8)
[2017-01-22 07:49] LABS: ALBUMIN 3.2 g/dl (3.3-4.9); ALBUMIN/GLOBULIN RATIO 1.03; CALCIUM 8.5 mg/dl (8.4-10.2); CREATININE 0.99 mg/dl (0.44-1.00); POTASSIUM 4.6 mmol/L (3.5-5.1); TOTAL PROTEIN 6.3 g/dl (6.1-8.1)
[2017-01-22] MEDS: GABAPENTIN 300 MG CAP PO SCH ×3 (08:14→21:35)
[2017-01-22] MEDS: LORATADINE 10 MG TAB PO SCH (08:14)
[2017-01-22] MEDS: METOPROLOL 25 MG TAB PO SCH ×2 (08:15→21:35)
[2017-01-22] MEDS: FAMOTIDINE 20 MG TAB PO SCH (08:15)
[2017-01-22] MEDS: FUROSEMIDE 20 MG INJ IV SCH (08:15)
[2017-01-22] MEDS: FLUTICASONE 0.05% 16 GM NAS SPRAY NASAL SCH ×2 (08:16→21:35)
[2017-01-22] MEDS: HYDROCODONE/HOMATROPINE 5ML CUP PO PRN ×3 (08:20→22:36)
[2017-01-22] MEDS: BISACODYL (EC) 5 MG TAB PO PRN (08:27)
--- NOTE | 2017-01-22 11:57 | CONS ---
Date/Time of Note Date/Time of Note DATE: 01/22/17 TIME: 11:54 Assessment/Plan Assessment/Plan Chief Complaint/Hosp Course The patient is an 86 year old woman with bladder cancer s/p TURBT 09/29/16, receiving chemoradiation with 5FU/mitomycin (completed) with radiation (ongoing) , now admitted for SOB/cough. - Appreciate cardiology/medicine recs, continue antibiotics, steroids, gentle diuresis for pneumonia/bronchitis, CHF exacerbation - Plan for CT chest to r/o lung mets - Radiation on hold for now per Dr. Cummings given acute CHF exacerbation/ pulmonary complaints - if pulmonary symptoms improved, plan to restart radiation on Wednesday per Dr. Cummings. Please arrange for transport to radiation on Wednesday if patient still in house. - Patient seen by Dr. Morfin on 01/18/17, plan to finish two more weeks of radiation with plan for cystocopy in one month on 03/03/17 - Increase in BUN/Cr noted, management per primary team Problems: Consultation Date/Type/Reason Admit Date/Time Jan 21, 2017 at 18:47 Initial Consult Date 01/20/17 Type of Consultation: Oncology Referring Provider: LEILA SPARKS MD 24 HR Interval Summary Free Text/Dictation The patient states that her breathing is better, still has a cough, denies chest pain. Exam/Review of Systems Vital Signs Vitals Vital Signs Date Time Temp Pulse Resp B/P Pulse Ox O2 Delivery O2 Flow Rate FiO2 01/22/17 11:35 97.9 76 20 110/54 96 01/22/17 08:08 Nasal Cannula 2.0 Intake and Output 01/21/17 01/21/17 01/22/17 15:00 23:00 07:00 Intake Total 770 ml 480 ml Balance 770 ml 480 ml Exam Constitutional: alert, oriented Head: atraumatic, normocephalic Neck: supple Respiratory: bibasilar crackles Cardiovascular: regular rate and rhythm Gastrointestinal: non-tender, soft Musculoskeletal: swelling 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: BUSINESS SYSTEMS CONSULTANT II-XII intact Results Result Diagram: 01/22/17 0611 01/22/17 0611 Results 24 hrs Laboratory Tests Test 01/22/17 06:11 White Blood Count 5.9 # Red Blood Count 3.40 L Hemoglobin 10.2 L Hematocrit 31.4 L Mean Corpuscular Volume 92.4 Mean Corpuscular Hemoglobin 30.0 Mean Corpuscular Hemoglobin Concent 32.5 Red Cell Distribution Width 15.6 H Platelet Count 228 Mean Platelet Volume 9.5 Neutrophils % 90.7 H Lymphocytes % 3.6 L Monocytes % 4.6 Eosinophils % 0.0 Basophils % 0.2 Nucleated Red Blood Cells % 0.0 Neutrophils # 5.3 Lymphocytes # 0.2 L Monocytes # 0.3 Eosinophils # 0.0 Basophils # 0.0 Nucleated Red Blood Cells # 0.0 Sodium Level 129 L Potassium Level 4.6 Chloride Level 94 L Carbon Dioxide Level 27 Anion Gap 13 Blood Urea Nitrogen 42 #H Creatinine 0.99 Glucose Level 167 Calcium Level 8.5 Total Bilirubin 0.0 L Direct Bilirubin 0.00 Indirect Bilirubin 0.0 Aspartate Amino Transf (AST/SGOT) 23 Alanine Aminotransferase (ALT/SGPT) 30 Alkaline Phosphatase 80 Total Protein 6.3 Albumin 3.2 L Globulin 3.10 Albumin/Globulin Ratio 1.03 Medications Medications Current Medications Bisacodyl (Dulcolax) 5 mg DAILY PRN PO CONSTIPATION Last administered on 08:27; Admin Dose 5 MG; Start 01/19/17 at 15:30 Promethazine HCl/ Dextromethorphan (Phenergan-Dm) 5 ml Q6H PRN PO COUGH Last administered on 01/21/17 21:18; Admin Dose 5 ML; Start 01/19/17 at 15:30 Docusate Sodium (Colace) 100 mg Q12H PRN PO CONSTIPATION; Start 01/19/17 at 15: 30 Famotidine (Pepcid) 20 mg DAILY PO Last administered on 01/22/17 08:15; Admin Dose 20 MG; Start 01/20/17 at 09:00 Fluticasone Propionate (Flonase 0.05% Nasal) 1 spray BID NASAL Last administered on 01/22/17 08:16; Admin Dose 1 SPRAY; Start 01/19/17 at 21:00 Gabapentin (Neurontin) 300 mg TID PO Last administered on 01/22/17 08:14; Admin Dose 300 MG; Start 01/19/17 at 21:00 Acetaminophen/ Hydrocodone Bitart ([place] (5/325)) 1 tab Q6H PRN PO MODERATE PAIN LEVEL 4-6; Start 01/19/17 at 15:30 Loratadine (Claritin) 10 mg DAILY PO Last administered on 01/22/17 08:14; Admin Dose 10 MG; Start 01/20/17 at 09:00 Montelukast Sodium (Singulair) 10 mg QHS PO Last administered on 01/21/17 21:12 ; Admin Dose 10 MG; Start 01/19/17 at 21:00 Sodium Biphosphate/ Sodium Phosphate (Fleet Enema) [address] CONSTIPATION; Start 01/19/17 at 15:30 Zolpidem Tartrate 2.5 mg 2.5 mg QHS PRN PO SLEEP Last administered on 01/19/17 23:49; Admin Dose 2.5 MG; Start 01/19/17 at 15:30 Ceftriaxone Sodium (Rocephin) 50 ml @ 100 mls/hr Q24H IVPB Last administered on 01/21/17 18:00; Admin Dose 100 MLS/HR; Start 01/19/17 at 17:00 Methylprednisolone Sodium Succinate (Solu-Medrol) 60 mg Q8 IV Last administered on 01/22/17 06:19; Admin Dose 60 MG; Start 01/19/17 at 22:00 Furosemide (Lasix) 20 mg DAILY IV Last administered on 01/22/17 08:15; Admin Dose 20 MG; Start 01/21/17 at 09:00 Metoprolol Tartrate (Lopressor) 25 mg BID PO Last administered on 01/22/17 08: 15; Admin Dose 25 MG; Start 01/21/17 at 21:00 Hydrocodone Bit/ Homatropine Methylb (Hycodan Liquid) 5 ml TID PRN PO COUGH Last administered on 01/22/17 08:20; Admin Dose 5 ML; Start 01/21/17 at 15:00 LILLIANA DSOUZA MD Jan 22, 2017 11:57
--- NOTE | 2017-01-22 13:27 | CONS ---
Date/Time of Note Date/Time of Note DATE: 01/22/17 TIME: 13:23 Assessment/Plan Assessment/Plan Chief Complaint/Hosp Course IMp: 1.CHF-diastolic acute on chronic 2.HTN 3.cad 4. Hyponatremia 5. H/O Bladder ca Recc: -Tele -serial ecg's -Continue BB -Continue steroids/abx's/bronchodilators -Gentle lasix diuresis -ongoing onc eval Problems: Consultation Date/Type/Reason Admit Date/Time Jan 21, 2017 at 18:47 Initial Consult Date 01/20/17 Type of Consultation: Cardiology Reason for Consultation CHF Referring Provider: LEILA SPARKS MD Exam/Review of Systems Vital Signs Vitals Vital Signs Date Time Temp Pulse Resp B/P Pulse Ox O2 Delivery O2 Flow Rate FiO2 01/22/17 12:32 57 01/22/17 11:35 97.9 20 110/54 96 01/22/17 08:08 Nasal Cannula 2.0 Intake and Output 01/21/17 01/21/17 01/22/17 15:00 23:00 07:00 Intake Total 770 ml 480 ml Balance 770 ml 480 ml Exam Review of Systems: CONSTITUTIONAL: No fevers, chills. PULMONARY: positive cough CARDIOVASCULAR: No chest pain/palpitations GASTROINTESTINAL: No nausea/vomiting. GENITOURINARY: No hematuria/dysuria. MUSCULOSKELETAL: No myagias/arthalgias. PSYCHIATRIC: The patient denies depression. NEUROLOGIC: No weakness Constitutional: alert, oriented Psych: no complaints Head: normocephalic ENMT: mucosa pink and moist Neck: jvd (8-9 cm water), supple Respiratory: diminished breath sounds (at bases/B) Cardiovascular: regular rate and rhythm Gastrointestinal: non-tender, soft Musculoskeletal: muscle tone Extremities: normal pulses 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: other (No focal deficits) Results Result Diagram: 01/22/17 0611 01/22/17 0611 Results 24 hrs Laboratory Tests Test 01/22/17 06:11 White Blood Count 5.9 # Red Blood Count 3.40 L Hemoglobin 10.2 L Hematocrit 31.4 L Mean Corpuscular Volume 92.4 Mean Corpuscular Hemoglobin 30.0 Mean Corpuscular Hemoglobin Concent 32.5 Red Cell Distribution Width 15.6 H Platelet Count 228 Mean Platelet Volume 9.5 Neutrophils % 90.7 H Lymphocytes % 3.6 L Monocytes % 4.6 Eosinophils % 0.0 Basophils % 0.2 Nucleated Red Blood Cells % 0.0 Neutrophils # 5.3 Lymphocytes # 0.2 L Monocytes # 0.3 Eosinophils # 0.0 Basophils # 0.0 Nucleated Red Blood Cells # 0.0 Sodium Level 129 L Potassium Level 4.6 Chloride Level 94 L Carbon Dioxide Level 27 Anion Gap 13 Blood Urea Nitrogen 42 #H Creatinine 0.99 Glucose Level 167 Calcium Level 8.5 Total Bilirubin 0.0 L Direct Bilirubin 0.00 Indirect Bilirubin 0.0 Aspartate Amino Transf (AST/SGOT) 23 Alanine Aminotransferase (ALT/SGPT) 30 Alkaline Phosphatase 80 Total Protein 6.3 Albumin 3.2 L Globulin 3.10 Albumin/Globulin Ratio 1.03 Medications Medications Current Medications Bisacodyl (Dulcolax) 5 mg DAILY PRN PO CONSTIPATION Last administered on 08:27; Admin Dose 5 MG; Start 01/19/17 at 15:30 Promethazine HCl/ Dextromethorphan (Phenergan-Dm) 5 ml Q6H PRN PO COUGH Last administered on 01/21/17 21:18; Admin Dose 5 ML; Start 01/19/17 at 15:30 Docusate Sodium (Colace) 100 mg Q12H PRN PO CONSTIPATION; Start 01/19/17 at 15: 30 Famotidine (Pepcid) 20 mg DAILY PO Last administered on 01/22/17 08:15; Admin Dose 20 MG; Start 01/20/17 at 09:00 Fluticasone Propionate (Flonase 0.05% Nasal) 1 spray BID NASAL Last administered on 01/22/17 08:16; Admin Dose 1 SPRAY; Start 01/19/17 at 21:00 Gabapentin (Neurontin) 300 mg TID PO Last administered on 01/22/17 08:14; Admin Dose 300 MG; Start 01/19/17 at 21:00 Acetaminophen/ Hydrocodone Bitart ([place] (5/325)) 1 tab Q6H PRN PO MODERATE PAIN LEVEL 4-6; Start 01/19/17 at 15:30 Loratadine (Claritin) 10 mg DAILY PO Last administered on 01/22/17 08:14; Admin Dose 10 MG; Start 01/20/17 at 09:00 Montelukast Sodium (Singulair) 10 mg QHS PO Last administered on 01/21/17 21:12 ; Admin Dose 10 MG; Start 01/19/17 at 21:00 Sodium Biphosphate/ Sodium Phosphate (Fleet Enema) 133 ml DAILY PRN [place] CONSTIPATION; Start 01/19/17 at 15:30 Zolpidem Tartrate 2.5 mg 2.5 mg QHS PRN PO SLEEP Last administered on 01/19/17 23:49; Admin Dose 2.5 MG; Start 01/19/17 at 15:30 Ceftriaxone Sodium (Rocephin) 50 ml @ 100 mls/hr Q24H IVPB Last administered on 01/21/17 18:00; Admin Dose 100 MLS/HR; Start 01/19/17 at 17:00 Methylprednisolone Sodium Succinate (Solu-Medrol) 60 mg Q8 IV Last administered on 01/22/17 06:19; Admin Dose 60 MG; Start 01/19/17 at 22:00 Furosemide (Lasix) 20 mg DAILY IV Last administered on 01/22/17 08:15; Admin Dose 20 MG; Start 01/21/17 at 09:00 Metoprolol Tartrate (Lopressor) 25 mg BID PO Last administered on 01/22/17 08: 15; Admin Dose 25 MG; Start 01/21/17 at 21:00 Hydrocodone Bit/ Homatropine Methylb (Hycodan Liquid) 5 ml TID PRN PO COUGH Last administered on 01/22/17 08:20; Admin Dose 5 ML; Start 01/21/17 at 15:00 THOMAS DERAS Jan 22, 2017 13:27
--- NOTE | 2017-01-22 15:29 | RADRPT ---
Vent Rate: 77 bpm RR Interval: 0 msec IN Interval: 142 msec QRS Duration: 78 msec QT Interval: 408 msec QTC Interval: 461 msec P-R-T [place]: 40 - 65 - 71 degrees Normal sinus rhythm with sinus arrhythmia Cannot rule out Anterior infarct , age undetermined Abnormal ECG Electronically Signed By: Harshal Villalba [id number]
--- NOTE | 2017-01-22 15:39 | RADRPT ---
PROCEDURE: CT Chest. CLINICAL INDICATION: Dyspnea and shortness of breath history of bladder cancer TECHNIQUE: CT scan of the chest without contrast was performed on the [place] volumetric [address] banner without contrast. Coronal and sagittal reformatted images were obtained from the axial source images. The CTDI vol is 15.08 mGy and the DLP is 531.95 mGy-cm. COMPARISON: CT chest from 09/22/2016 FINDINGS: Diffuse pulmonary fibrotic changes are seen with a peripheral and lower lobe predominance. [employer] tao in the bilateral lower lobes is seen. Diffuse traction bronchiectasis is seen. Irregular air space disease in the medial right lower lobe is seen. Compared to the prior examination, decreased air space disease in the bilateral lower lobes is seen. Aortic and coronary vascular calcifications are seen. The thoracic esophagus is mildly fluid-filled. The mediastinum and hilum are otherwise u nremarkable without evidence for mass or lymphadenopathy. The heart size is normal without evidence for pericardial thickening or effusion. The axillary regions, subpectoral regions, and supraclavic ular regions are all unremarkable. A right renal cyst is seen once again. Imaging obtained through t he upper abdomen reveals no acute abnormality. Diffuse osteopenia is seen. Degenerative spondylosis of the thoracic spine is seen. Bridging syndesmophytes are seen with relative preservation of the disk space. No osteolytic or osteoblastic lesion is detected. IMPRESSION: 1. Diffuse pulmonary fibrotic changes again seen which has not changed significantly. 2. Decrease bilateral lower lobe air space disease with residual medial right lower lobe air space disease. RPTAT: HPNM Physician [place] Date Time Electronically viewed and signed by Gerardo Hamlin Physician on 01/22/2017 15:39 /
[2017-01-22] MEDS: CEFTRIAXONE 1 GM/50 ML (PMX) 50 ML IVPB SCH (16:17)
--- NOTE | 2017-01-22 17:08 | RADRPT ---
PROCEDURE: XR Chest. CLINICAL INDICATION: Cough. TECHNIQUE: Two views. Frontal and lateral. COMPARISON: 01/19/2017. FINDINGS: There is interstitial disease bilaterally consistent with pulmonary edema, improved. There is no fo acosta airspace disease. The heart is enlarged. There is calcification in the aorta consistent with atherosclerosis. There are small bilateral pleural effusions. There is no pneumothorax. IMPRESSION: 1. Improved pulmonary edema. 2. Cardiomegaly and atherosclerosis. 3. Small bilateral pleural effusions. RPTAT: QQ .Tim Costa MD, MD Date Time Electronically viewed and signed by .Tim Costa MD, MD on 01/22/2017 17:07 .R/
[2017-01-22] MEDS: MONTELUKAST 10 MG TAB PO SCH (21:36)
[2017-01-23] VITALS (11 sets, daily range): BP systolic 105–134; BP diastolic 53–72; PULSE 67–88; RESP 18
--- NOTE | 2017-01-23 00:29 | PN ---
Date/Time of Note Date/Time of Note DATE: 01/23/17 TIME: 00:28 Assessment/Plan VTE Prophylaxis VTE Prophylaxis Intervention: other Lines/Catheters [facility]from [facility] Saline Lock Urinary Cath still in place: No Assessment/Plan Chief Complaint/Hosp Course IMPRESSION: 1. Incomplete database. 2. Short of breath. 3. The patient has acute exacerbation of possible bronchitis. 4. Rule out pneumonia. 4. Rule out underlying pulmonary edema. 5. Rule out ischemic heart disease. 6. Chronic kidney disease history. 7. Hypertension. 8. History of bladder tumor and surgery. plan oncology to see [facility] dr hammond to see Problems: Subjective 24 Hr Interval Summary Respiratory: shortness of breath (better) Gastrointestinal: no complaints Exam/Review of Systems Vital Signs Vitals Vital Signs Date Time Temp Pulse Resp B/P Pulse Ox O2 Delivery O2 Flow Rate FiO2 01/23/17 00:21 67 01/22/17 20:00 97.9 18 142/64 98 01/22/17 20:00 Nasal Cannula 2.0 Intake and Output 01/22/17 01/22/17 01/23/17 15:00 23:00 07:00 Intake Total 770 ml Balance 770 ml Exam Respiratory: diminished breath sounds Cardiovascular: regular rate and rhythm Gastrointestinal: soft Musculoskeletal: nl extremities to inspection Results Result Diagram: 01/22/17 0611 01/22/17 0611 Results 24 hrs Laboratory Tests Test 01/22/17 06:11 White Blood Count 5.9 # Red Blood Count 3.40 L Hemoglobin 10.2 L Hematocrit 31.4 L Mean Corpuscular Volume 92.4 Mean Corpuscular Hemoglobin 30.0 Mean Corpuscular Hemoglobin Concent 32.5 Red Cell Distribution Width 15.6 H Platelet Count 228 Mean Platelet Volume 9.5 Neutrophils % 90.7 H Lymphocytes % 3.6 L Monocytes % 4.6 Eosinophils % 0.0 Basophils % 0.2 Nucleated Red Blood Cells % 0.0 Neutrophils # 5.3 Lymphocytes # 0.2 L Monocytes # 0.3 Eosinophils # 0.0 Basophils # 0.0 Nucleated Red Blood Cells # 0.0 Sodium Level 129 L Potassium Level 4.6 Chloride Level 94 L Carbon Dioxide Level 27 Anion Gap 13 Blood Urea Nitrogen 42 #H Creatinine 0.99 Glucose Level 167 Calcium Level 8.5 Total Bilirubin 0.0 L Direct Bilirubin 0.00 Indirect Bilirubin 0.0 Aspartate Amino Transf (AST/SGOT) 23 Alanine Aminotransferase (ALT/SGPT) 30 Alkaline Phosphatase 80 Total Protein 6.3 Albumin 3.2 L Globulin 3.10 Albumin/Globulin Ratio 1.03 Medications Medications Current Medications Bisacodyl (Dulcolax) 5 mg DAILY PRN PO CONSTIPATION Last administered on 08:27; Admin Dose 5 MG; Start 01/19/17 at 15:30 Promethazine HCl/ Dextromethorphan (Phenergan-Dm) 5 ml Q6H PRN PO COUGH Last administered on 01/21/17 21:18; Admin Dose 5 ML; Start 01/19/17 at 15:30 Docusate Sodium (Colace) 100 mg Q12H PRN PO CONSTIPATION Last administered on 14:05; Admin Dose 100 MG; Start 01/19/17 at 15:30 Famotidine (Pepcid) 20 mg DAILY PO Last administered on 01/22/17 08:15; Admin Dose 20 MG; Start 01/20/17 at 09:00 Fluticasone Propionate (Flonase 0.05% Nasal) 1 spray BID NASAL Last administered on 01/22/17 21:35; Admin Dose 1 SPRAY; Start 01/19/17 at 21:00 Gabapentin (Neurontin) 300 mg TID PO Last administered on 01/22/17 21:35; Admin Dose 300 MG; Start 01/19/17 at 21:00 Acetaminophen/ Hydrocodone Bitart ([place] (5/325)) 1 tab Q6H PRN PO MODERATE PAIN LEVEL 4-6; Start 01/19/17 at 15:30 Loratadine (Claritin) 10 mg DAILY PO Last administered on 01/22/17 08:14; Admin Dose 10 MG; Start 01/20/17 at 09:00 Montelukast Sodium (Singulair) 10 mg QHS PO Last administered on 01/22/17 21:36 ; Admin Dose 10 MG; Start 01/19/17 at 21:00 Sodium Biphosphate/ Sodium Phosphate (Fleet Enema) 133 ml DAILY PRN [place] CONSTIPATION; Start 01/19/17 at 15:30 Zolpidem Tartrate 2.5 mg 2.5 mg QHS PRN PO SLEEP Last administered on 01/19/17 23:49; Admin Dose 2.5 MG; Start 01/19/17 at 15:30 Ceftriaxone Sodium (Rocephin) 50 ml @ 100 mls/hr Q24H IVPB Last administered on 01/22/17 16:17; Admin Dose 100 MLS/HR; Start 01/19/17 at 17:00 Methylprednisolone Sodium Succinate (Solu-Medrol) 60 mg Q8 IV Last administered on 01/22/17 21:36; Admin Dose 60 MG; Start 01/19/17 at 22:00 Furosemide (Lasix) 20 mg DAILY IV Last administered on 01/22/17 08:15; Admin Dose 20 MG; Start 01/21/17 at 09:00 Metoprolol Tartrate (Lopressor) 25 mg BID PO Last administered on 01/22/17 21: 35; Admin Dose 25 MG; Start 01/21/17 at 21:00 Hydrocodone Bit/ Homatropine Methylb (Hycodan Liquid) 5 ml TID PRN PO COUGH Last administered on 01/22/17 22:36; Admin Dose 5 ML; Start 01/21/17 at 15:00 LEILA SPARKS MD Jan 23, 2017 00:29
[2017-01-23] MEDS: ALBUTEROL/IPRATROPIUM (NEB) 3 ML AMP HHN SCH ×4 (01:49→19:12)
--- NOTE | 2017-01-23 04:46 | PN ---
DATE: 01/22/2017 SUBJECTIVE: The patient does have a history of invasive bladder tumor for which she has been gettin g radiation therapy. The patient was admitted to the hospital because of dyspnea and she reports to day that she is feeling better. She is breathing better and she does have urinary incontinence and she does urinate in diapers. OBJECTIVE: VITAL SIGNS: Temperature is 97.8, the blood pressure 122/65, the pulse is 67, respirations 20. ABDOMEN: Soft. There is no abdominal mass palpable and there is no tenderness. The patient is incontinent. The patient did have a CT scan of the chest to rule out any metastasis to the lungs and basically that showed no evidence of metastasis to the lungs. She does have diffus e pulmonary fibrotic changes again seen which has not changed from before. She does have decreased bilateral lower lobe airspace disease with residual medial right lower lobe airspace disease. The p atient is voiding and her urine is clear. IMPRESSION: Bladder tumor. The patient does have difficulty with breathing, but she is getting bett er. She has been on radiation therapy. The recommendation is that as soon as she is discharged fro m the hospital, she should go ahead and continue the radiation therapy. I do not think she is at thi s present time a candidate for the surgery. Dictated By: FLORIN PATEL/LEONARD Conf#: [id number] DID#: [id number]
[2017-01-23] MEDS: METHYLPREDNISOLONE 125 MG INJ IV SCH ×3 (06:02→22:18)
--- NOTE | 2017-01-23 08:23 | CONS ---
Date/Time of Note Date/Time of Note DATE: 01/23/17 TIME: 08:22 Assessment/Plan Assessment/Plan Chief Complaint/Hosp Course The patient is an 86 year old woman with bladder cancer s/p TURBT 09/29/16, receiving chemoradiation with 5FU/mitomycin (completed) with radiation (ongoing) , now admitted for SOB/cough. - Appreciate cardiology/medicine recs, continue antibiotics, steroids, gentle diuresis for pneumonia/bronchitis, CHF exacerbation - CT chest 01/22/17 showed 1. Diffuse pulmonary fibrotic changes again seen which has not changed significantly. 2. Decrease bilateral lower lobe air space disease with residual medial right lower lobe air space disease. - Radiation on hold for now per Dr. Cummings given acute CHF exacerbation/ pulmonary complaints - if pulmonary symptoms improved, plan to restart radiation on Wednesday per Dr. Cummings. Please arrange for transport to radiation on Wednesday if patient still in house. - Patient seen by Dr. Morfin on 01/18/17, plan to finish two more weeks of radiation with plan for cystocopy in one month on 03/03/17 - Patient should follow-up with me upon discharge Problems: Consultation Date/Type/Reason Admit Date/Time Jan 21, 2017 at 18:47 Initial Consult Date 01/20/17 Type of Consultation: Oncology Referring Provider: LEILA SPARKS MD 24 HR Interval Summary Free Text/Dictation Patient doing well, states cough and SOB much better. She states that she was told she is going home today. 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 Results Result Diagram: 01/22/17 0611 01/22/17 0611 Medications Medications Current Medications Bisacodyl (Dulcolax) 5 mg DAILY PRN PO CONSTIPATION Last administered on 08:27; Admin Dose 5 MG; Start 01/19/17 at 15:30 Promethazine HCl/ Dextromethorphan (Phenergan-Dm) 5 ml Q6H PRN PO COUGH Last administered on 01/21/17 21:18; Admin Dose 5 ML; Start 01/19/17 at 15:30 Docusate Sodium (Colace) 100 mg Q12H PRN PO CONSTIPATION Last administered on 14:05; Admin Dose 100 MG; Start 01/19/17 at 15:30 Famotidine (Pepcid) 20 mg DAILY PO Last administered on 01/22/17 08:15; Admin Dose 20 MG; Start 01/20/17 at 09:00 Fluticasone Propionate (Flonase 0.05% Nasal) 1 spray BID NASAL Last administered on 01/22/17 21:35; Admin Dose 1 SPRAY; Start 01/19/17 at 21:00 Gabapentin (Neurontin) 300 mg TID PO Last administered on 01/22/17 21:35; Admin Dose 300 MG; Start 01/19/17 at 21:00 Acetaminophen/ Hydrocodone Bitart ([place] (5/325)) 1 tab Q6H PRN PO MODERATE PAIN LEVEL 4-6; Start 01/19/17 at 15:30 Loratadine (Claritin) 10 mg DAILY PO Last administered on 01/22/17 08:14; Admin Dose 10 MG; Start 01/20/17 at 09:00 Montelukast Sodium (Singulair) 10 mg QHS PO Last administered on 01/22/17 21:36 ; Admin Dose 10 MG; Start 01/19/17 at 21:00 Sodium Biphosphate/ Sodium Phosphate (Fleet Enema) 133 ml DAILY PRN [place] CONSTIPATION; Start 01/19/17 at 15:30 Zolpidem Tartrate 2.5 mg 2.5 mg QHS PRN PO SLEEP Last administered on 01/19/17 23:49; Admin Dose 2.5 MG; Start 01/19/17 at 15:30 Ceftriaxone Sodium (Rocephin) 50 ml @ 100 mls/hr Q24H IVPB Last administered on 01/22/17 16:17; Admin Dose 100 MLS/HR; Start 01/19/17 at 17:00 Methylprednisolone Sodium Succinate (Solu-Medrol) 60 mg Q8 IV Last administered on 01/23/17 06:02; Admin Dose 60 MG; Start 01/19/17 at 22:00 Furosemide (Lasix) 20 mg DAILY IV Last administered on 01/22/17 08:15; Admin Dose 20 MG; Start 01/21/17 at 09:00 Metoprolol Tartrate (Lopressor) 25 mg BID PO Last administered on 01/22/17 21: 35; Admin Dose 25 MG; Start 01/21/17 at 21:00 Hydrocodone Bit/ Homatropine Methylb (Hycodan Liquid) 5 ml TID PRN PO COUGH Last administered on 01/22/17 22:36; Admin Dose 5 ML; Start 01/21/17 at 15:00 LILLIANA DSOUZA MD Jan 23, 2017 08:23
[2017-01-23] MEDS: METOPROLOL 25 MG TAB PO SCH ×2 (09:35→20:51)
[2017-01-23] MEDS: LORATADINE 10 MG TAB PO SCH (09:35)
[2017-01-23] MEDS: GABAPENTIN 300 MG CAP PO SCH ×3 (09:35→20:50)
[2017-01-23] MEDS: FAMOTIDINE 20 MG TAB PO SCH (09:35)
[2017-01-23] MEDS: FUROSEMIDE 20 MG INJ IV SCH (09:35)
[2017-01-23] MEDS: FLUTICASONE 0.05% 16 GM NAS SPRAY NASAL SCH ×2 (09:36→20:45)
--- NOTE | 2017-01-23 15:35 | PN ---
DATE: 01/23/2017 SUBJECTIVE: Difficulty breathing. The patient is complaining about a bout of cough and the patient states that she is voiding. There is no dysuria and no hematuria. OBJECTIVE: VITAL SIGNS: Temperature is 98.1, respirations 18, blood pressure 105/53, pulse is 78. ABDOMEN: Soft. There is no abdominal mass palpable and there is no tenderness. LABORATORY DATA: CBC shows a white count of 5.9, hemoglobin 10.2, hematocrit 31.4. The BUN is 42, creatinine 0.99. Sodium 129, potassium 4.6, chloride 94, CO2 27. Urine culture, no growth after 24 hours. IMPRESSION: The patient does have pulmonary fibrosis and she is having a cough, and the patient de la garza s have a history of bladder tumor invading into the muscle and she has been getting radiation treatm ent. The plan was to continue her radiation; however, she developed difficulty breathing and cough a nd that is why she came into the hospital. RECOMMENDATION: Once her medical condition stabilizes, then she could be discharged back to the [facility] home and undergo the remaining sessions of radiation therapy. Dictated By: FLORIN PATEL/LEONARD Conf#: [id number] DID#: [id number]
[2017-01-23] MEDS: CEFTRIAXONE 1 GM/50 ML (PMX) 50 ML IVPB SCH (16:52)
--- NOTE | 2017-01-23 16:58 | PDOCDIS ---
Discharge Instructions CONDITION Patient Condition: Stable ACTIVITY: Activity Restrictions: Slowly Increase Activity FOLLOW UP/APPOINTMENTS Appointments f/u dr hammond 1 wk see to 1 wk LEILA SPARKS MD Jan 23, 2017 16:58
[2017-01-23] MEDS: MONTELUKAST 10 MG TAB PO SCH (20:50)
[2017-01-23] MEDS: PROMETHAZINE/DM (CUP) PO PRN (20:51)
--- NOTE | 2017-01-23 22:12 | PN ---
Date/Time of Note Date/Time of Note DATE: 01/23/17 TIME: 22:10 Assessment/Plan VTE Prophylaxis VTE Prophylaxis Intervention: other Lines/Catheters [facility] Saline Lock Urinary Cath still in place: No Assessment/Plan Chief Complaint/Hosp Course IMPRESSION: 1. Incomplete database. 2. Short of breath.better 3. The patient has acute exacerbation of possible bronchitis.better 4. Rule out pneumonia. 4. Rule out underlying pulmonary edema.better 5. Rule out ischemic heart disease. 6. Chronic kidney disease history. 7. Hypertension. 8. History of bladder tumor and surgery. 9 hyponatremia posssiadh plan snf ck lytes Problems: Subjective 24 Hr Interval Summary Respiratory: No shortness of breath Cardiovascular: no complaints Gastrointestinal: no complaints Exam/Review of Systems Vital Signs Vitals Vital Signs Date Time Temp Pulse Resp B/P Pulse Ox O2 Delivery O2 Flow Rate FiO2 01/23/17 20:20 88 01/23/17 20:00 Nasal Cannula 2.0 01/23/17 19:12 98 01/23/17 19:12 18 01/23/17 15:15 98.3 120/72 01/23/17 09:12 21 Intake and Output 01/22/17 01/22/17 01/23/17 15:00 23:00 07:00 Intake Total 770 ml 500 ml Balance 770 ml 500 ml Exam Neck: supple Respiratory: clear to auscultation Cardiovascular: regular rate and rhythm Gastrointestinal: soft Musculoskeletal: nl extremities to inspection Extremities: normal pulses Results Result Diagram: 01/22/17 0611 01/22/17 0611 Medications Medications Current Medications Bisacodyl (Dulcolax) 5 mg DAILY PRN PO CONSTIPATION Last administered on 08:27; Admin Dose 5 MG; Start 01/19/17 at 15:30 Promethazine HCl/ Dextromethorphan (Phenergan-Dm) 5 ml Q6H PRN PO COUGH Last administered on 01/23/17 20:51; Admin Dose 5 ML; Start 01/19/17 at 15:30 Docusate Sodium (Colace) 100 mg Q12H PRN PO CONSTIPATION Last administered on 14:05; Admin Dose 100 MG; Start 01/19/17 at 15:30 Famotidine (Pepcid) 20 mg DAILY PO Last administered on 01/23/17 09:35; Admin Dose 20 MG; Start 01/20/17 at 09:00 Fluticasone Propionate (Flonase 0.05% Nasal) 1 spray BID NASAL Last administered on 01/23/17 20:45; Admin Dose 1 SPRAY; Start 01/19/17 at 21:00 Gabapentin (Neurontin) 300 mg TID PO Last administered on 01/23/17 20:50; Admin Dose 300 MG; Start 01/19/17 at 21:00 Acetaminophen/ Hydrocodone Bitart ([place] (5/325)) 1 tab Q6H PRN PO MODERATE PAIN LEVEL 4-6; Start 01/19/17 at 15:30 Loratadine (Claritin) 10 mg DAILY PO Last administered on 01/23/17 09:35; Admin Dose 10 MG; Start 01/20/17 at 09:00 Montelukast Sodium (Singulair) 10 mg QHS PO Last administered on 01/23/17 20:50 ; Admin Dose 10 MG; Start 01/19/17 at 21:00 Sodium Biphosphate/ Sodium Phosphate (Fleet Enema) 133 ml DAILY PRN [place] CONSTIPATION; Start 01/19/17 at 15:30 Zolpidem Tartrate 2.5 mg 2.5 mg QHS PRN PO SLEEP Last administered on 01/19/17 23:49; Admin Dose 2.5 MG; Start 01/19/17 at 15:30 Ceftriaxone Sodium (Rocephin) 50 ml @ 100 mls/hr Q24H IVPB Last administered on 01/23/17 16:52; Admin Dose 100 MLS/HR; Start 01/19/17 at 17:00 Methylprednisolone Sodium Succinate (Solu-Medrol) 60 mg Q8 IV Last administered on 01/23/17 14:38; Admin Dose 60 MG; Start 01/19/17 at 22:00 Furosemide (Lasix) 20 mg DAILY IV Last administered on 01/23/17 09:35; Admin Dose 20 MG; Start 01/21/17 at 09:00 Metoprolol Tartrate (Lopressor) 25 mg BID PO Last administered on 01/23/17 20: 51; Admin Dose 25 MG; Start 01/21/17 at 21:00 Hydrocodone Bit/ Homatropine Methylb (Hycodan Liquid) 5 ml TID PRN PO COUGH Last administered on 01/22/17t 22:36; Admin Dose 5 ML; Start 01/21/17 at 15:00 LEILA SPARKS MD Jan 23, 2017 22:12
[2017-01-24] VITALS (8 sets, daily range): BP systolic 120–129; BP diastolic 58–62; PULSE 58–75; RESP 18–20
[2017-01-24] MEDS: ALBUTEROL/IPRATROPIUM (NEB) 3 ML AMP HHN SCH ×3 (01:10→14:43)
[2017-01-24] MEDS: METHYLPREDNISOLONE 125 MG INJ IV SCH (05:58)
[2017-01-24 07:33] LABS: POTASSIUM 4.7 mmol/L (3.5-5.1)
[2017-01-24 07:35] LABS: CREATININE 0.93 mg/dl (0.44-1.00)
[2017-01-24 07:36] LABS: CALCIUM 8.9 mg/dl (8.4-10.2)
[2017-01-24] MEDS: METOPROLOL 25 MG TAB PO SCH (09:04)
[2017-01-24] MEDS: LORATADINE 10 MG TAB PO SCH (09:04)
[2017-01-24] MEDS: FUROSEMIDE 20 MG INJ IV SCH (09:04)
[2017-01-24] MEDS: GABAPENTIN 300 MG CAP PO SCH ×2 (09:04→12:55)
[2017-01-24] MEDS: FAMOTIDINE 20 MG TAB PO SCH (09:04)
[2017-01-24] MEDS: FLUTICASONE 0.05% 16 GM NAS SPRAY NASAL SCH (09:05)
[2017-01-24] MEDS: BISACODYL (EC) 5 MG TAB PO PRN (09:15)
--- NOTE | 2017-01-24 13:25 | CONS ---
Date/Time of Note Date/Time of Note DATE: 01/24/17 TIME: 13:23 Assessment/Plan Assessment/Plan Chief Complaint/Hosp Course IMp: 1.CHF-diastolic acute on chronic 2.HTN 3.cad 4. Hyponatremia-improved 5. H/O Bladder ca 6.Pulmonary fibrosis by CT Recc: -Tele -Continue BB -Continue steroids/abx's/bronchodilators -Continue gentle lasix diuresis daily Problems: Consultation Date/Type/Reason Admit Date/Time Jan 21, 2017 at 18:47 Initial Consult Date 01/20/17 Type of Consultation: Cardiology Reason for Consultation CHF Referring Provider: LEILA SPARKS MD Exam/Review of Systems Vital Signs Vitals Vital Signs Date Time Temp Pulse Resp B/P Pulse Ox O2 Delivery O2 Flow Rate FiO2 01/24/17 12:10 69 01/24/17 11:34 98.1 20 120/62 95 01/24/17 09:01 Nasal Cannula 2.0 01/23/17 09:12 21 Intake and Output 01/23/17 01/23/17 01/24/17 15:00 23:00 07:00 Intake Total 1000 ml 870 ml Balance 1000 ml 870 ml Exam Review of Systems: CONSTITUTIONAL: No fevers, chills. PULMONARY: mild sob/cough CARDIOVASCULAR: No chest pain/palpitations GASTROINTESTINAL: No nausea/vomiting. GENITOURINARY: No hematuria/dysuria. MUSCULOSKELETAL: No myagias/arthalgias. PSYCHIATRIC: The patient denies depression. NEUROLOGIC: No weakness Constitutional: alert, oriented Psych: no complaints Head: normocephalic ENMT: mucosa pink and moist Neck: jvd (9 cm water), supple Respiratory: diminished breath sounds (at bases/B) Cardiovascular: regular rate and rhythm Gastrointestinal: non-tender, soft Musculoskeletal: muscle tone (normal) Extremities: edema (none) 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: other (No focal deficits) Results Result Diagram: 01/22/17 0611 01/24/17 0640 Results 24 hrs Laboratory Tests Test 01/24/17 06:40 Sodium Level 137 Potassium Level 4.7 Chloride Level 97 Carbon Dioxide Level 29 Anion Gap 16 Blood Urea Nitrogen 45 H Creatinine 0.93 Glucose Level 189 Calcium Level 8.9 Medications Medications Current Medications Bisacodyl (Dulcolax) 5 mg DAILY PRN PO CONSTIPATION Last administered on t 09:15; Admin Dose 5 MG; Start 01/19/17 at 15:30 Promethazine HCl/ Dextromethorphan (Phenergan-Dm) 5 ml Q6H PRN PO COUGH Last administered on 01/23/17 20:51; Admin Dose 5 ML; Start 01/19/17 at 15:30 Docusate Sodium (Colace) 100 mg Q12H PRN PO CONSTIPATION Last administered on 14:05; Admin Dose 100 MG; Start 01/19/17 at 15:30 Famotidine (Pepcid) 20 mg DAILY PO Last administered on 01/24/17 09:04; Admin Dose 20 MG; Start 01/20/17 at 09:00 Fluticasone Propionate (Flonase 0.05% Nasal) 1 spray BID NASAL Last administered on 01/24/17 09:05; Admin Dose 1 SPRAY; Start 01/19/17 at 21:00 Gabapentin (Neurontin) 300 mg TID PO Last administered on 01/24/17 12:55; Admin Dose 300 MG; Start 01/19/17 at 21:00 Acetaminophen/ Hydrocodone Bitart ([place] (5/325)) 1 tab Q6H PRN PO MODERATE PAIN LEVEL 4-6; Start 01/19/17 at 15:30 Loratadine (Claritin) 10 mg DAILY PO Last administered on 01/24/17 09:04; Admin Dose 10 MG; Start 01/20/17 at 09:00 Montelukast Sodium (Singulair) 10 mg QHS PO Last administered on 01/23/17 20:50 ; Admin Dose 10 MG; Start 01/19/17 at 21:00 Sodium Biphosphate/ Sodium Phosphate (Fleet Enema) 133 ml DAILY PRN [place] CONSTIPATION; Start 01/19/17 at 15:30 Zolpidem Tartrate 2.5 mg 2.5 mg QHS PRN PO SLEEP Last administered on 01/19/17 23:49; Admin Dose 2.5 MG; Start 01/19/17 at 15:30 Ceftriaxone Sodium (Rocephin) 50 ml @ 100 mls/hr Q24H IVPB Last administered on 01/23/17 16:52; Admin Dose 100 MLS/HR; Start 01/19/17 at 17:00 Methylprednisolone Sodium Succinate (Solu-Medrol) 60 mg Q8 IV Last administered on 01/24/17 05:58; Admin Dose 60 MG; Start 01/19/17 at 22:00 Furosemide (Lasix) 20 mg DAILY IV Last administered on 01/24/17 09:04; Admin Dose 20 MG; Start 01/21/17 at 09:00 Metoprolol Tartrate (Lopressor) 25 mg BID PO Last administered on 01/24/17 09: 04; Admin Dose 25 MG; Start 01/21/17 at 21:00 Hydrocodone Bit/ Homatropine Methylb (Hycodan Liquid) 5 ml TID PRN PO COUGH Last administered on 01/22/17 22:36; Admin Dose 5 ML; Start 01/21/17 at 15:00 THOMAS DERAS Jan 24, 2017 13:25
--- NOTE | 2017-01-28 13:18 | QN ---
Documentation Comment [id number] LEILA SPARKS MD Jan 28, 2017 13:18
--- NOTE | 2017-01-28 16:36 | DS ---
DATE OF ADMISSION: 01/21/2017 DATE OF DISCHARGE: 01/24/2017 The patient was admitted with diagnosis of shortness of breath. The patient has shortness of breath , acute exacerbation of bronchitis, rule out pneumonia, rule out pulmonary edema, rule out ischemic heart disease, CKD, hypertension, history of bladder tumor and surgery on radiation treatment. The patient was seen by Dr. Sara Melissa in consultation, as well as Dr. Poole in consultation and eir impression: The patient has history of diabetes, CHF, hypertension, history of hematuria, statu s post cystoscopy and TURBT 09/29/2016, consistent with high-grade invasive urothelial carcinoma. She was getting chemoradiation with 5-FU, mitomycin with 20% dosage reduction due to age, currently receiving radiation. Patient was also seen by Dr. Morfin in consultation. Patient had a CT of the chest shows diffuse pulmonary fibrotic changes again seen, decreased bilateral lower lobe airspace disease as well as ____median right lower lobe airspace disease. The patient's respiratory status was improved. The patient will have further workup as an outpatient. DISCHARGE DIAGNOSES: 1. Bronchitis. 2. Pulmonary fibrosis. 3. Chronic kidney disease. 4. Hypertension. 5. History of bladder tumor, status post transurethral resection of bladder tumor and chemoradiatio n. 6. Hyponatremia. 7. Pulmonary fibrosis. 8. Coronary artery disease. 9. Hypertension. 10. Congestive heart failure, diastolic and chronic. DISCHARGE MEDICATIONS AND DISCHARGE INSTRUCTIONS: Please look at attached transfer sheet to SNF. Dictated By: LEILA FISHER/NTS Conf#: [id number] DID#: [id number]
== END 2017-01-24 15:20 | DRG 202 ==
LOC: E/R 14:59 → TEL 01-19 09:44 → OBSVTOIN 01-21 18:47
PROVIDERS: ADMIT Internal Medicine Nephrology; ATTEND Internal Medicine Nephrology
DX: J20.9 Acute bronchitis, unspecified (principal); I50.33 Acute on chronic diastolic (congestive) heart failure; E11.22 Type 2 diabetes mellitus with diabetic chronic kidney disease; E87.1 Hypo-osmolality and hyponatremia; J84.10 Pulmonary fibrosis, unspecified; I13.0 Hypertensive heart and chronic kidney disease with heart failure and stage 1 through stage 4 chronic kidney disease, or unspecified chronic kidney disease; J42 Unspecified chronic bronchitis; I25.10 Atherosclerotic heart disease of native coronary artery without angina pectoris; C67.9 Malignant neoplasm of bladder, unspecified; Z98.890 Other specified postprocedural states; N18.9 Chronic kidney disease, unspecified
CPT/HCPCS: 36415; 71010; 71020; 71250; 80048; 80053; 83605; 83880; 84484; 85025; 87040; 87081; 87086; 88104; 93005; 94640; 94664; 99217; G0378; J1940; J0696; J2930

== ENCOUNTER 2017-02-04 12:11 | Inpatient (IN) | payer MEDICARE, OTHER ==
[~2017-02-04] VITALS: Ht 157.5 cm; Wt 89.9 kg
[~2017-02-04 12:11] MED LIST changes: -Promethazine/Codeine Syp PO
[2017-02-04 14:13] LABS: ADD SCAN DIFF NO
[2017-02-04 14:18] LABS: INR 0.99; PROTIME 13.1 Sec (12.2-14.2)
[2017-02-04 14:21] LABS: POTASSIUM 4.2 mmol/L (3.5-5.1)
[2017-02-04 14:23] LABS: BILIRUBIN,INDIRECT 0.2 mg/dl (0-1.1); BILIRUBIN,TOTAL 0.2 mg/dl (0.2-1.3); CALCIUM 8.2 mg/dl (8.4-10.2); CREATININE 0.99 mg/dl (0.44-1.00)
[2017-02-04 14:35] LABS: TROPONIN-I 0.038 ng/ml (0.00-0.12)
--- NOTE | 2017-02-04 14:43 | RADRPT ---
PROCEDURE: XR Chest. CLINICAL INDICATION: Abdominal Pain TECHNIQUE: Single frontal view of the chest was obtained. COMPARISON: Chest x-ray from 01/22/2017 FINDINGS: There is mild cardiomegaly with increased prominence of interstitial markings, likely due to worseni ng congestive changes on a background of chronic and / or senescent changes. No definite focal infiltrates are identified. There is no significant pleural effusion or pneumothorax. There is decreased osseous mineralization. IMPRESSION: Increased prominence of interstitial markings, likely due to worsening congestive changes on a backg round of chronic and / or senescent changes. No definite focal infiltrates or effusions. Osseous demineralization. RPTAT: EE Physician Brian Date Time Electronically viewed and signed by Ruperto Anne Physician on 02/04/2017 14:43 /
[2017-02-04 15:12] LABS: ADD UMIC NO; URINE BILIRUBIN (Dip) NEGATIVE (NEGATIVE); URINE BLOOD (Dip) NEGATIVE (NEGATIVE); URINE COLOR LT. YELLOW (YELLOW); URINE GLUCOSE (Dip) NEGATIVE (NEGATIVE); URINE KETONES (Dip) NEGATIVE (NEGATIVE); URINE LEUKOCYTE ESTERASE (Dip) NEGATIVE (NEGATIVE); URINE NITRITE (Dip) NEGATIVE (NEGATIVE); URINE TOTAL PROTEIN (Dip) NEGATIVE (NEGATIVE); URINE UROBILINOGEN (Dip) 0.2 E.U./dL (0.1-1.0)
[2017-02-04] MEDS ORDERED: FUROSEMIDE 40 MG INJ IV ONE (15:30)
--- NOTE | 2017-02-04 15:30 | RADRPT ---
PROCEDURE: US Lower extremity Venous. CLINICAL INDICATION: Bilateral lower extremity swelling , shortness of breath TECHNIQUE: Multiple sonographic images of the bilateral lower extremity deep venous system was obt ained utilizing grayscale, color-flow, compressive sonography and doppler imaging with augmentation. The images were reviewed on a PACS workstation. COMPARISON: None. FINDINGS: There is normal compressibility and flow within the bilateral common femoral, femoral , posterior ti bial and popliteal veins. RPTAT: AA IMPRESSION: No sonographic evidence for deep venous thrombosis. .Sae Brown MD, MD Date Time Electronically viewed and signed by .Sae Brown MD, on 02/04/2017 15:30 .S/
--- NOTE | 2017-02-04 16:14 | ERA ---
ER Documentation Chief Complaint Date/Time DATE: 02/04/17 TIME: 16:11 Chief Complaint increased bilateral lower leg swelling x 1 week and sob x 4 days HPI 86-year-old woman referred here by PMD for 4 days of bilateral lower extremity edema and to rule out DVT. Son who is at the bedside states she has had orthopnea and increasing exertional dyspnea as well. She has a long history of pulmonary fibrosis, recent pneumonia, and bladder carcinoma. She denies fevers or chills, no loss of consciousness, no chest pain, no vomiting or diarrhea. ROS All systems reviewed and are negative except as per history of present illness. Medications Home Meds Active Scripts Zolpidem Tartrate (Ambien [place]) 5 Mg Tablet, 2.5 MG PO QHS Y for SLEEP for 10 Days, TAB Prov:LEILA SPARKS MD 10/01/16 Na Phos,M-B/Na Phos,Di-Ba ([place] Ready To Use Enema) 133 Ml Enema, 133 ML [place] DAILY Y for CONSTIPATION for 7 Days, ENEMA Prov:LEILA SPARKS MD 10/01/16 Hydrocodone Bit-Acetaminophen (Hydrocodone Bit-APAP) 5-325MG Tablet, 1 TAB PO Q6H Y for MODERATE PAIN LEVEL 4-6 for 14 Days, TAB Prov:LEILA SPARKS MD 10/01/16 Ibuprofen* (Ibuprofen*) 400 Mg Tablet, 400 MG PO Q6H Y for FEver for 10 Days, TAB Prov:LEILA SPARKS MD 10/01/16 Famotidine* (Famotidine*) 20 Mg Tablet, 20 MG PO DAILY for 10 Days, TAB Prov:LEILA SPARKS MD 10/01/16 Docusate Sodium* (Colace*) 100 Mg Capsule, 100 MG PO Q12H Y for CONSTIPATION for 10 Days, CAP Prov:LEILA SPARKS MD 10/01/16 Bisacodyl* (Bisacodyl*) 5 Mg Tablet.dr, 5 MG PO DAILY Y for CONSTIPATION for 10 Days Prov:LEILA SPARKS MD 10/01/16 Reported Medications Fluticasone Propionate* (Fluticasone Propionate* Nasal) 50 Mcg/Edgar - 16 Gm Edgar.susp, 1 SPRAY NASAL BID, #1 BOTTLE TO EACH NOSTRIL 09/16/16 Dextromethorphan Hb-Promethazine Hcl* (Promethazine DM* Syrup) 473 Ml Syrup, 5 ML PO Q6 Y for COUGH, ML 09/16/16 Loratadine* (Loratadine*) 10 Mg Tablet, 10 MG PO DAILY, #30 TAB 09/16/16 Linaclotide (LINZESS) 290 Mcg Capsule, 290 MCG PO DAILY, #30 CAP 04/22/16 Montelukast Sodium* (Montelukast Sodium*) 10 Mg Tablet, 10 MG PO QHS, #30 TAB 04/22/16 Furosemide* (Lasix*) 20 Mg Tablet, 20 MG PO BID, TAB 11/07/14 Gabapentin* (Gabapentin*) 300 Mg Capsule, 300 MG PO TID, CAP 11/07/14 Allergies Allergies: Coded Allergies: No Known Allergy (Unverified , 02/04/17) PMhx/Soc Pulmonary fibrosis, chronic kidney disease, bladder carcinoma, congestive heart failure, hypertension, coronary artery disease History of Surgery: No Anesthesia Reaction: No Hx 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 Disorder: No Hx Respiratory Disorders: Yes Hx Cardiac Disorders: Yes (htn, hyper lipids) Hx Psychiatric Problems: No Hx Miscellaneous Medical Probl: No Hx Alcohol Use: No Hx Substance Use: No Hx Tobacco Use: No Smoking Status: Never smoker FmHx Family History: diabetes Physical Exam Vitals Vital Signs Date Time Temp Pulse Resp B/P Pulse Ox O2 Delivery O2 Flow Rate FiO2 02/04/17 12:13 97.6 88 131/68 88 Physical Exam GENERAL: Well-developed, well-nourished, dyspneic, afebrile HEENT: Moist mucous membranes, pink conjunctiva, no cervical spine tenderness or step-off deformities, no goiter, no jaundice or icterus, extraocular movements intact without pain. No submandibular induration, and no pharyngeal erythema NEURO: Alert and oriented 3, cranial nerves II through XII intact bilaterally, pupils equal round reactive to light, no focal deficits or facial asymmetry, sensation intact distally Strength 5/5 in upper and lower extremities bilaterally CARDIAC: Regular rate and rhythm, no murmurs rubs or gallops LUNGS: Bibasilar crackles, no wheezing or stridor ABDOMEN: Soft nontender, no guarding, no rigidity, no rebound, no psoas sign no obturator sign. Normoactive bowel sounds SKIN: Warm and dry to touch, no abrasions, contusions, or hematomas, no lacerations, no ecchymosis, no target lesions, and without ulcers EXTREMITIES: No clubbing cyanosis, 3+ pitting edema in the lower extremities bilaterally, calves are bilaterally symmetrical, no Homans sign, no popliteal cord sign. Distal pulses equal and bilateral PSYCH: Normal affect without agitation or irritability Result Diagram: 02/04/17 1400 02/04/17 1400 Results 24 hrs Laboratory Tests Test 02/04/17 14:00 02/04/17 14:30 White Blood Count 4.510^3/ul Red Blood Count 3.1010^6/ul Hemoglobin 9.7g/dl Hematocrit 28.9% Mean Corpuscular Volume 93.2fl Mean Corpuscular Hemoglobin 31.3pg Mean Corpuscular Hemoglobin Concent 33.6g/dl Red Cell Distribution Width 17.6% Platelet Count 67414^3/UL Mean Platelet Volume 9.4fl Prothrombin Time 13.1Sec Prothrombin Time Ratio 1.0 INR International Normalized Ratio 0.99 Sodium Level 128mmol/L Potassium Level 4.2mmol/L Chloride Level 91mmol/L Carbon Dioxide Level 27mmol/L Anion Gap 14 Blood Urea Nitrogen 26mg/dl Creatinine 0.99mg/dl Glucose Level 149mg/dl Calcium Level 8.2mg/dl Total Bilirubin 0.2mg/dl Direct Bilirubin 0.00mg/dl Indirect Bilirubin 0.2mg/dl Aspartate Amino Transf (AST/SGOT) 22IU/L Alanine Aminotransferase (ALT/SGPT) 19IU/L Alkaline Phosphatase 64IU/L Troponin I 0.038ng/ml B-Type Natriuretic Peptide 2980PG/ML Total Protein 6.0g/dl Albumin 3.0g/dl Globulin 3.00g/dl Albumin/Globulin Ratio 1.00 Lipase 23U/L Urine Color LT. YELLOW Urine Clarity CLEAR Urine pH 5.5 Urine Specific [place] <=1.005 Urine Ketones NEGATIVE Urine Nitrite NEGATIVE Urine Bilirubin NEGATIVE Urine Urobilinogen 0.2 E.U./dL Urine Leukocyte Esterase NEGATIVE Urine Hemoglobin NEGATIVE Urine Glucose NEGATIVE% Urine Total Protein NEGATIVE Current Medications Medications (Trade) Dose Ordered Sig/Fina Route PRN Reason Start Time Stop Time Status Last Admin Dose Admin Furosemide (Lasix) 60 mg ONCE ONCE IV 02/04/17 15:30 02/04/17 15:31 DC Procedures/MDM IV line was established patient was placed on cardiac exercise specialist rhythm strip revealed a sinus rhythm at about 80 bpm with upright P and T waves. Patient was afebrile. EKG performed, read by me: 80 bpm, normal sinus rhythm, normal axis, no acute ST segment changes, narrow QRS complex, with good R-wave progression in precordial leads. One view chest x-ray performed, read by me revealed cardiomegaly and bilateral pulmonary edema, no acute infiltrates, no pneumothorax. Color Doppler ultrasound of the lower extremities was performed no acute deep vein thrombosis was noted. CBC revealed leukopenia at 4.5, hematocrit 29, electrolytes revealed dehydration at 26/1, as well as hyponatremia at 128. Liver function tests were unremarkable, urine analysis was negative for infection, coagulation profile was normal. BNP elevated consistent with decompensated heart failure. I administered furosemide 60 mg IV 1. Patient will be admitted to telemetry setting for continued medical management and cardiology consultation. Departure Diagnosis: Primary Impression: Peripheral edema Additional Impressions: CHF (congestive heart failure) Qualified Code: I50.21 - Acute systolic congestive heart failure Acute hyponatremia Condition: MYRIAM Hays MD Feb 04, 2017 16:14
[2017-02-04 16:19] LABS: HEMATOCRIT 28.9 % (37.0-47.0); HEMOGLOBIN 9.7 g/dl (12.0-16.0); MEAN CORPUSCULAR HEMOGLOBIN 31.3 pg (29.0-33.0); MEAN CORPUSCULAR HGB CONC 33.6 g/dl (32.0-37.0); MEAN CORPUSCULAR VOLUME 93.2 fl (82.0-101.0); PLATELET COUNT 182 10^3/UL (140-440); RED CELL DISTRIBUTION WIDTH 17.6 % (11.5-14.5); WHITE BLOOD COUNT 4.5 10^3/ul (4.8-10.8)
[2017-02-04 16:20] LABS: MEAN PLATELET VOLUME 9.4 fl (7.4-10.4)
[2017-02-04] MEDS ORDERED: ALBUTEROL 0.5% (NEB) 2.5 MG/0.5 ML AMP ONE (18:01)
[2017-02-04] MEDS ORDERED: ALBUTEROL 0.083% (NEB) 2.5 MG/3 ML AMP HHN STA (18:05)
[2017-02-04] MEDS ORDERED: ENALAPRILAT 1.25 MG INJ IV ONE (18:30)
[2017-02-04] MEDS ORDERED: ASPIRIN 325 MG TAB PO ONE (18:30)
[2017-02-04] MEDS ORDERED: NITROGLYCERIN (SL) 0.4 MG TAB SL ONE (18:30)
[2017-02-04] MEDS ORDERED: DOCUSATE SODIUM 100 MG CAP PO PRN (19:00)
[2017-02-04] MEDS ORDERED: METHYLPREDNISOLONE 125 MG INJ IV ONE (19:00)
[2017-02-04] MEDS ORDERED: BISACODYL (EC) 5 MG TAB PO PRN (19:00)
[2017-02-04] MEDS ORDERED: NA PHOSPHATE/BIPHOS 133 ML ENEMA PR PRN (19:00)
[2017-02-04] MEDS ORDERED: ZOLPIDEM 5 MG TAB PO PRN (19:00)
[2017-02-04] MEDS ORDERED: HYDROCODONE/APAP (5/325) TAB PO PRN (19:00)
[2017-02-04] MEDS ORDERED: IBUPROFEN 400 MG TAB PO PRN (19:00)
--- NOTE | 2017-02-04 19:27 | QN ---
Documentation Comment [id number] LEILA SPARKS MD Feb 04, 2017 19:27
[2017-02-04 20:07] VITALS: TEMP 98.9
[2017-02-04 21:00] VITALS: BP 119/56; RESP 18
[2017-02-04] MEDS ORDERED: FUROSEMIDE 20 MG TAB PO SCH (21:00)
[2017-02-04 21:30] VITALS: BP 118/61; PULSE 103; RESP 22
[2017-02-04 21:34] VITALS: PULSE 102
[2017-02-04] MEDS: FLUTICASONE 0.05% 16 GM NAS SPRAY NASAL SCH (22:56)
[2017-02-04] MEDS: GABAPENTIN 300 MG CAP PO SCH (22:56)
[2017-02-04] MEDS: MONTELUKAST 10 MG TAB PO SCH (22:57)
--- NOTE | 2017-02-04 23:26 | HP ---
DATE OF ADMISSION: 02/04/2017 HISTORY OF PRESENT ILLNESS: The patient is an 86-year-old female recently discharged from this hospital with a diagnosis of bronchitis, pulmonary fibrosis , CKD, hypertension, history of bladder tumor, status post transurethral resection of bladder tumor and chemoradiation, hyponatremia, pulmonary fibrosis , CAD, hypertension, congestive heart failure, diastolic, acute and chronic CHF. The patient presented now with short of breath, seen in Dr. guallpa office and sent here for further management. The patient previously had a CT of the chest, shows diffuse pulmonary fibrotic changes, again seen decreased bilateral lower lobe airspace disease. PAST MEDICAL HISTORY: As mentioned above, history of bladder tumor, status post surgery, pulmonary fibrosis, history of chemoradiation, hypertension, CHF, anemia, history of pneumonia. ALLERGY HISTORY: NEGATIVE. FAMILY HISTORY: Negative. SOCIAL HISTORY: Negative. MEDICATION HISTORY: 1. Hydrocodone. 2. Bisacodyl. 3. Docusate sodium. 4. Pepcid. 5. Fluticasone 6. Lasix. 7. Gabapentin. 8. Ibuprofen. 9. Linzess. 10. Loratadine. 11. Singulair. 12. Promethazine 13. Ambien. REVIEW OF SYSTEMS: HEENT: Unremarkable. RESPIRATORY: Short of breath, cough. CARDIOVASCULAR: No chest pain, palpitation. ABDOMEN: On and off dyspepsia. No hematemesis or melena. EXTREMITIES: Unremarkable. CENTRAL NERVOUS SYSTEM: Unremarkable. PHYSICAL EXAMINATION: GENERAL: The patient is awake, alert, short of breath. VITAL SIGNS: Pulse 87, blood pressure _. HEAD: Atraumatic, normocephalic. Pupils equal, reactive to light. NECK: Supple. No JVD. LUNGS: Rhonchi and some wheezes noted. CARDIOVASCULAR: S1, S2 normal. ABDOMEN: Soft, nontender. Bowel sounds present. No palpable mass. EXTREMITIES: No cyanosis, clubbing. Edema positive. LABORATORY DATA: WBC 4.5, hematocrit 28.9, platelet count of 182. Sodium 120, potassium 4.2, BNP 2980. The patient's ultrasound of the lower extremity shows no DVT. IMPRESSION: 1. The patient has short of breath. 2. Lower extremity edema. 3. Underlying chronic congestive heart failure. 4. Underlying possible bronchospasm and pulmonary fibrosis exacerbation, hypertension, hyponatremia, anemia, bladder tumor, status post chemoradiation. PLAN: Give this patient low salt diet and diuretics. Continue home medications , Solu-Medrol, bronchodilator. Orders were done. Dictated By: LEILA SPARKS MD BS/LEONARD Conf#: [id number] DID#: [id number]
[2017-02-04 23:41] VITALS: Ht 157.5 cm; Wt 89.9 kg
[2017-02-05] VITALS (11 sets, daily range): BP systolic 104–139; BP diastolic 56–63; PULSE 78–103; RESP 15–19
[2017-02-05] MEDS ORDERED: IPRATROPIUM (NEB) 0.5 MG/2.5 ML AMP HHN PRN (01:00)
[2017-02-05] MEDS ORDERED: ALBUTEROL 0.083% (NEB) 2.5 MG/3 ML AMP HHN PRN (01:00)
[2017-02-05] MEDS: ALBUTEROL 0.083% (NEB) 2.5 MG/3 ML AMP HHN SCH ×4 (01:36→20:08)
[2017-02-05] MEDS: PROMETHAZINE/DM (CUP) PO PRN ×3 (02:12→20:53)
[2017-02-05] MEDS: PANTOPRAZOLE (EC) 40 MG TAB PO SCH (05:47)
[2017-02-05] MEDS: FUROSEMIDE 40 MG INJ IV SCH (05:47)
[2017-02-05] MEDS: IPRATROPIUM (NEB) 0.5 MG/2.5 ML AMP HHN SCH ×3 (07:17→20:08)
[2017-02-05 07:51] LABS: ADD SCAN DIFF NO
[2017-02-05 07:54] LABS: ABNORMAL IP MESSAGE 1; HEMATOCRIT 30.8 % (37.0-47.0); HEMOGLOBIN 10.1 g/dl (12.0-16.0); MEAN CORPUSCULAR HEMOGLOBIN 30.1 pg (29.0-33.0); MEAN CORPUSCULAR HGB CONC 32.8 g/dl (32.0-37.0); MEAN CORPUSCULAR VOLUME 91.9 fl (82.0-101.0); MEAN PLATELET VOLUME 9.7 fl (7.4-10.4); PLATELET COUNT 184 10^3/UL (140-415); RED BLOOD COUNT 3.35 10^6/ul (4.20-5.40); WHITE BLOOD COUNT 3.9 10^3/ul (4.8-10.8)
[2017-02-05 08:06] LABS: ALBUMIN 3.1 g/dl (3.3-4.9)
[2017-02-05 08:07] LABS: POTASSIUM 4.1 mmol/L (3.5-5.1)
[2017-02-05 08:09] LABS: ALBUMIN/GLOBULIN RATIO 0.96; BILIRUBIN,INDIRECT 0.1 mg/dl (0-1.1); BILIRUBIN,TOTAL 0.1 mg/dl (0.2-1.3); CREATININE 0.91 mg/dl (0.44-1.00); TOTAL PROTEIN 6.3 g/dl (6.1-8.1)
[2017-02-05 08:10] LABS: CALCIUM 8.5 mg/dl (8.4-10.2)
[2017-02-05] MEDS: FLUTICASONE 0.05% 16 GM NAS SPRAY NASAL SCH ×2 (09:29→20:53)
[2017-02-05] MEDS: METHYLPREDNISOLONE 125 MG INJ IV SCH ×2 (09:29→20:53)
[2017-02-05] MEDS: ENOXAPARIN 40 MG/0.4 ML SYG SC SCH (09:30)
[2017-02-05] MEDS: FAMOTIDINE 20 MG TAB PO SCH (09:31)
[2017-02-05] MEDS: GABAPENTIN 300 MG CAP PO SCH ×3 (09:31→20:53)
[2017-02-05 10:50] LABS: LYMPHOCYTES # 0.2 10^3/ul (0.8-2.9); NEUTROPHIL # 3.6 10^3/ul (1.6-7.5)
[2017-02-05] MEDS: LORATADINE 10 MG TAB PO SCH (11:29)
--- NOTE | 2017-02-05 12:03 | PN ---
Date/Time of Note Date/Time of Note DATE: 02/05/17 TIME: 12:00 Assessment/Plan VTE Prophylaxis VTE Prophylaxis Intervention: ambulation Lines/Catheters IV [facility] Urinary Cath still in place: No Assessment/Plan Chief Complaint/Hosp Course 1.The patient has short of breath. 2. Lower extremity edema. 3. Underlying chronic congestive heart failure. 4. Underlying possible bronchospasm and pulmonary fibrosis exacerbation, hypertension, hyponatremia, anemia, bladder tumor, status post chemoradiation. Problems: Assessment/Plan 1. Supplemental oxygen 2. Breathing treatment Subjective 24 Hr Interval Summary Constitutional: no complaints Eyes: no complaints ENT: no complaints Respiratory: shortness of breath Cardiovascular: no complaints Gastrointestinal: no complaints Genitourinary: no complaints Musculoskeletal: restricted range of motion Exam/Review of Systems Vital Signs Vitals Vital Signs Date Time Temp Pulse Resp B/P Pulse Ox O2 Delivery O2 Flow Rate FiO2 02/05/17 11:33 98.1 86 18 139/63 93 02/05/17 08:55 Nasal Cannula 2.0 Intake and Output 02/04/17 02/04/17 02/05/17 15:00 23:00 07:00 Intake Total 400 ml Balance 400 ml Exam Constitutional: alert, oriented, well developed Head: atraumatic, normocephalic Eyes: EOMI, nl conjunctiva ENMT: nl external ears & nose Neck: supple Respiratory: diminished breath sounds Cardiovascular: edema Gastrointestinal: soft Genitourinary - Female: nl external genitalia Extremities: normal pulses Results Result Diagram: 02/05/17 0620 02/05/17 0620 Results 24 hrs Laboratory Tests Test 02/04/17 14:00 02/04/17 14:30 02/05/17 06:20 White Blood Count 4.5 #L 3.9 L Red Blood Count 3.10 L 3.35 L Hemoglobin 9.7 L 10.1 L Hematocrit 28.9 L 30.8 L Mean Corpuscular Volume 93.2 91.9 Mean Corpuscular Hemoglobin 31.3 30.1 Mean Corpuscular Hemoglobin Concent 33.6 32.8 Red Cell Distribution Width 17.6 H 18.0 H Platelet Count 182 # 184 Mean Platelet Volume 9.4 9.7 Prothrombin Time 13.1 Prothrombin Time Ratio 1.0 INR International Normalized Ratio 0.99 Sodium Level 128 L 135 Potassium Level 4.2 4.1 Chloride Level 91 L 96 L Carbon Dioxide Level 27 28 Anion Gap 14 15 Blood Urea Nitrogen 26 H 24 H Creatinine 0.99 0.91 Glucose Level 149 286 #H Calcium Level 8.2 L 8.5 Total Bilirubin 0.2 0.1 L Direct Bilirubin 0.00 0.00 Indirect Bilirubin 0.2 0.1 Aspartate Amino Transf (AST/SGOT) 22 21 Alanine Aminotransferase (ALT/SGPT) 19 23 Alkaline Phosphatase 64 74 Troponin I 0.038 B-Type Natriuretic Peptide 2980 H Total Protein 6.0 L 6.3 Albumin 3.0 L 3.1 L Globulin 3.00 3.20 Albumin/Globulin Ratio 1.00 0.96 Lipase 23 Urine Color LT. YELLOW Urine Clarity CLEAR Urine pH 5.5 Urine Specific [place] <=1.005 L Urine Ketones NEGATIVE Urine Nitrite NEGATIVE Urine Bilirubin NEGATIVE Urine Urobilinogen 0.2 E.U./dL Urine Leukocyte Esterase NEGATIVE Urine Hemoglobin NEGATIVE Urine Glucose NEGATIVE Urine Total Protein NEGATIVE Neutrophils % 93.0 H Lymphocytes % 5.0 L Monocytes % 1.0 Eosinophils % 1.0 Neutrophils # 3.6 Lymphocytes # 0.2 L Monocytes # 0.0 L Eosinophils # 0.0 Differential Comment MANUAL DIFF Large Platelets OCCASIONAL Medications Medications Current Medications Bisacodyl (Dulcolax) 5 mg DAILY PRN PO CONSTIPATION; Start 02/04/17 at 19:00 Promethazine HCl/ Dextromethorphan (Phenergan-Dm) 5 ml Q6 PRN PO COUGH Last administered on 02/05/17 02:12; Admin Dose 5 ML; Start 02/04/17 at 19:00 Docusate Sodium (Colace) 100 mg Q12H PRN PO CONSTIPATION; Start 02/04/17 at 19: 00 Famotidine (Pepcid) 20 mg DAILY PO Last administered on 02/05/17 09:31; Admin Dose 20 MG; Start 02/05/17 at 09:00 Fluticasone Propionate (Flonase 0.05% Nasal) 1 spray BID NASAL Last administered on 02/05/17 09:29; Admin Dose 1 SPRAY; Start 02/04/17 at 21:00 Furosemide (Lasix) 20 mg BID PO ; Start 02/04/17 at 21:00; Status Future Hold Gabapentin (Neurontin) 300 mg TID PO Last administered on 02/05/17 09:31; Admin Dose 300 MG; Start 02/04/17 at 21:00 Acetaminophen/ Hydrocodone Bitart ([place] (5/325)) 1 tab Q6H PRN PO MODERATE PAIN LEVEL 4-6; Start 02/04/17 at 19:00 Ibuprofen (Motrin) 400 mg Q6H PRN PO FEver; Start 02/04/17 at 19:00 Loratadine (Claritin) 10 mg DAILY PO Last administered on 02/05/17 11:29; Admin Dose 10 MG; Start 02/05/17 at 09:00 Montelukast Sodium (Singulair) 10 mg QHS PO Last administered on 02/04/17 22: 57; Admin Dose 10 MG; Start 02/04/17 at 21:00 Sodium Biphosphate/ Sodium Phosphate (Fleet Enema) 133 ml DAILY PRN [place] CONSTIPATION; Start 02/04/17 at 19:00 Zolpidem Tartrate (Ambien) 2.5 mg QHS PRN PO SLEEP; Start 02/04/17 at 19:00 Pantoprazole (Protonix Tab) 40 mg DAILY@06 PO Last administered on 02/05/17 05 :47; Admin Dose 40 MG; Start 02/05/17 at 06:00 Furosemide (Lasix) 40 mg DAILY@06 IV Last administered on 02/05/17 05:47; Admin Dose 40 MG; Start 02/05/17 at 06:00 Methylprednisolone Sodium Succinate (Solu-Medrol) 60 mg BID IV Last administered on 02/05/17 09:29; Admin Dose 60 MG; Start 02/05/17 at 09:00 Enoxaparin Sodium (Lovenox) 40 mg DAILY SC Last administered on 02/05/17 09:30 ; Admin Dose 40 MG; Start 02/05/17 at 09:00 JIM ESTRADA Feb 05, 2017 12:03
[2017-02-05] MEDS: MONTELUKAST 10 MG TAB PO SCH (20:53)
[2017-02-06] VITALS (14 sets, daily range): BP systolic 90–145; BP diastolic 53–78; PULSE 92–182; RESP 17–18
[2017-02-06] MEDS: ALBUTEROL 0.083% (NEB) 2.5 MG/3 ML AMP HHN SCH ×4 (02:54→19:44)
[2017-02-06] MEDS: PANTOPRAZOLE (EC) 40 MG TAB PO SCH (05:44)
[2017-02-06] MEDS: PROMETHAZINE/DM (CUP) PO PRN ×3 (05:45→21:31)
[2017-02-06] MEDS: FUROSEMIDE 40 MG INJ IV SCH (05:45)
[2017-02-06 07:35] LABS: ADD SCAN DIFF NO
[2017-02-06 07:49] LABS: ABNORMAL IP MESSAGE 1; HEMATOCRIT 28.2 % (37.0-47.0); HEMOGLOBIN 9.4 g/dl (12.0-16.0); LYMPHOCYTES # 0.2 10^3/ul (0.8-2.9); LYMPHOCYTES % 3.2 % (15.0-51.0); MEAN CORPUSCULAR HEMOGLOBIN 30.8 pg (29.0-33.0); MEAN CORPUSCULAR HGB CONC 33.3 g/dl (32.0-37.0); MEAN CORPUSCULAR VOLUME 92.5 fl (82.0-101.0); MEAN PLATELET VOLUME 9.8 fl (7.4-10.4); MONOCYTE # 0.2 10^3/ul (0.3-0.9); MONOCYTES % 2.8 % (0.0-11.0); NEUTROPHIL # 6.6 10^3/ul (1.6-7.5); NEUTROPHILS % 92.9 % (39.0-77.0); PLATELET COUNT 201 10^3/UL (140-415); RED BLOOD COUNT 3.05 10^6/ul (4.20-5.40); RED CELL DISTRIBUTION WIDTH 17.7 % (11.5-14.5); WHITE BLOOD COUNT 7.1 10^3/ul (4.8-10.8)
[2017-02-06 08:04] LABS: CALCIUM 8.5 mg/dl (8.4-10.2); CREATININE 1.01 mg/dl (0.44-1.00); POTASSIUM 4.1 mmol/L (3.5-5.1)
[2017-02-06] MEDS: FLUTICASONE 0.05% 16 GM NAS SPRAY NASAL SCH ×2 (09:16→20:41)
[2017-02-06] MEDS: METHYLPREDNISOLONE 125 MG INJ IV SCH ×2 (09:17→20:42)
[2017-02-06] MEDS: GABAPENTIN 300 MG CAP PO SCH ×3 (09:17→20:41)
[2017-02-06] MEDS: LORATADINE 10 MG TAB PO SCH (09:17)
[2017-02-06] MEDS: FAMOTIDINE 20 MG TAB PO SCH (09:17)
[2017-02-06] MEDS: ENOXAPARIN 40 MG/0.4 ML SYG SC SCH (09:18)
[2017-02-06] MEDS: IPRATROPIUM (NEB) 0.5 MG/2.5 ML AMP HHN SCH ×3 (09:34→19:44)
--- NOTE | 2017-02-06 13:23 | PN ---
Date/Time of Note Date/Time of Note DATE: 02/06/17 TIME: 13:20 Assessment/Plan VTE Prophylaxis VTE Prophylaxis Intervention: ambulation Lines/Catheters IV C[facility]ter Type (from [facility]): Saline Lock Urinary Cath still in place: No Assessment/Plan Chief Complaint/Hosp Course 1.The patient has short of breath. 2. Lower extremity edema. 3. Underlying chronic congestive heart failure. 4. Underlying possible bronchospasm and pulmonary fibrosis exacerbation, hypertension, hyponatremia, anemia, bladder tumor, status post chemoradiation. Problems: Assessment/Plan 1. Tele consult dr Lares, called 2. Continue tele 3. Magnesium ordered Subjective 24 Hr Interval Summary Constitutional: no complaints Eyes: no complaints ENT: no complaints Respiratory: no complaints Cardiovascular: no complaints Exam/Review of Systems Vital Signs Vitals Vital Signs Date Time Temp Pulse Resp B/P Pulse Ox O2 Delivery O2 Flow Rate FiO2 02/06/17 12:00 106 02/06/17 11:45 98.3 18 118/59 91 02/06/17 09:36 Nasal Cannula 2.0 Intake and Output 02/05/17 02/05/17 02/06/17 15:00 23:00 07:00 Intake Total 950 ml 550 ml Balance 950 ml 550 ml Exam Constitutional: alert, oriented Head: normocephalic ENMT: nl external ears & nose Respiratory: clear to auscultation, diminished breath sounds Cardiovascular: irregular rhythm, murmurs/extra sounds Gastrointestinal: soft Results Result Diagram: 02/06/17 0445 02/06/17 0445 Results 24 hrs Laboratory Tests Test 02/06/17 04:45 White Blood Count 7.1 # Red Blood Count 3.05 L Hemoglobin 9.4 L Hematocrit 28.2 L Mean Corpuscular Volume 92.5 Mean Corpuscular Hemoglobin 30.8 Mean Corpuscular Hemoglobin Concent 33.3 Red Cell Distribution Width 17.7 H Platelet Count 201 Mean Platelet Volume 9.8 Neutrophils % 92.9 H Lymphocytes % 3.2 L Monocytes % 2.8 Eosinophils % 0.0 Basophils % 0.0 Nucleated Red Blood Cells % 0.0 Neutrophils # 6.6 Lymphocytes # 0.2 L Monocytes # 0.2 L Eosinophils # 0.0 Basophils # 0.0 Nucleated Red Blood Cells # 0.0 Sodium Level 132 L Potassium Level 4.1 Chloride Level 98 Carbon Dioxide Level 28 Anion Gap 10 # Blood Urea Nitrogen 39 #H Creatinine 1.01 H Glucose Level 273 H Calcium Level 8.5 Medications Medications Current Medications Bisacodyl (Dulcolax) 5 mg DAILY PRN PO CONSTIPATION; Start 02/04/17 at 19:00 Promethazine HCl/ Dextromethorphan (Phenergan-Dm) 5 ml Q6 PRN PO COUGH Last administered on 02/06/17 12:37; Admin Dose 5 ML; Start 02/04/17 at 19:00 Docusate Sodium (Colace) 100 mg Q12H PRN PO CONSTIPATION; Start 02/04/17 at 19: 00 Famotidine (Pepcid) 20 mg DAILY PO Last administered on 02/06/17 09:17; Admin Dose 20 MG; Start 02/05/17 at 09:00 Fluticasone Propionate (Flonase 0.05% Nasal) 1 spray BID NASAL Last administered on 02/06/17 09:16; Admin Dose 1 SPRAY; Start 02/04/17 at 21:00 Furosemide (Lasix) 20 mg BID PO ; Start 02/04/17 at 21:00; Status Future Hold Gabapentin (Neurontin) 300 mg TID PO Last administered on 02/06/17 12:37; Admin Dose 300 MG; Start 02/04/17 at 21:00 Acetaminophen/ Hydrocodone Bitart ([place] (5/325)) 1 tab Q6H PRN PO MODERATE PAIN LEVEL 4-6 Last administered on 02/06/17 05:44; Admin Dose 1 TAB; Start at 19:00 Ibuprofen (Motrin) 400 mg Q6H PRN PO FEver; Start 02/04/17 at 19:00 Loratadine (Claritin) 10 mg DAILY PO Last administered on 02/06/17 09:17; Admin Dose 10 MG; Start 02/05/17 at 09:00 Montelukast Sodium (Singulair) 10 mg QHS PO Last administered on 02/05/17 20: 53; Admin Dose 10 MG; Start 02/04/17 at 21:00 Sodium Biphosphate/ Sodium Phosphate (Fleet Enema) 133 ml DAILY PRN [place] CONSTIPATION; Start 02/04/17 at 19:00 Zolpidem Tartrate (Ambien) 2.5 mg QHS PRN PO SLEEP; Start 02/04/17 at 19:00 Pantoprazole (Protonix Tab) 40 mg DAILY@06 PO Last administered on 02/06/17 05 :44; Admin Dose 40 MG; Start 02/05/17 at 06:00 Furosemide (Lasix) 40 mg DAILY@06 IV Last administered on 02/06/17 05:45; Admin Dose 40 MG; Start 02/05/17 at 06:00 Methylprednisolone Sodium Succinate (Solu-Medrol) 60 mg BID IV Last administered on 02/06/17 09:17; Admin Dose 60 MG; Start 02/05/17 at 09:00 Enoxaparin Sodium (Lovenox) 40 mg DAILY SC Last administered on 02/06/17 09:18 ; Admin Dose 40 MG; Start 02/05/17 at 09:00 JIM ESTRADA Feb 06, 2017 13:23
--- NOTE | 2017-02-06 16:20 | CONS ---
DATE OF ADMISSION: 02/04/2017 DATE OF CONSULTATION: 02/06/2017 REASON FOR EVALUATION: Tachycardia. REFERRING PHYSICIAN: Dr. Rodolfo Lilly. HISTORY OF PRESENT ILLNESS: Ms. Danilo Hua is an 86-year-old woman ____ history of dyslipidemia, history of bladder cancer, history of recurrent urinary tract infection, history of tachy bradyarrh ythmias, who comes to the hospital now for evaluation of weakness and shortness of breath. On telem etry, the patient had several episodes of SVT and I have been asked to see the patient in consultati on. Based on my evaluation, the patient likely with episodes of atrial fibrillation fairly paroxysm al and mostly well tolerated. The patient's main complaint is shortness of breath at this point. F or now, I think conservative care is indicated. We will see if patient can tolerate a larger dose o f beta elvis. We will continue to keep the patient euvolemic and provide recommendation to her ca re as more information of her condition becomes available. PAST MEDICAL HISTORY: 1. Hypertension. 2. Dyslipidemia. 3. History of bladder cancer. 4. History of urinary tract infection. 5. History of heart failure with preserved ejection fraction. ALLERGIES: NO KNOWN DRUG ALLERGIES. SOCIAL HISTORY: The patient does not smoke, does not drink, does not use any drugs. FAMILY HISTORY: Negative for sudden cardiac or premature coronary artery disease. MEDICATIONS: Medications here include: 1. Famotidine. 2. Loratadine. 3. Lovenox subq for DVT prophylaxis. 4. Lasix 40 mg p.o. twice a day. 5. Albuterol. 6. Atrovent. 7. Fluconazole. 8. Ibuprofen. 9. Zolpidem titrate. REVIEW OF SYSTEMS: CONSTITUTIONAL: No fevers, no chills described. HEENT: No changes in vision. CHEST: No chest pain reported. RESPIRATORY: Shortness of breath, chronic. GASTROINTESTINAL: No nausea, vomiting, constipation. GENITOURINARY: No dysuria, hematuria. NEUROLOGIC: No focal neurologic deficits. PSYCHIATRIC: History of anxiety. PHYSICAL EXAMINATION: VITAL SIGNS: Temperature 98.3, ____heart rate is 106, blood pressure 118/59. GENERAL: She is an obese woman in no acute distress, alert and oriented x2 to 3, speaking mostly Sp amira. HEAD: Normocephalic, atraumatic. Eyes anicteric. HEART: Regular with occasional irregularities. PMI is minimally displaced. There is no S3. LUNGS: Coarse at bases. ABDOMEN: Distended, bowel sounds are present. There is no hepatosplenomegaly. GENITOURINARY: Grossly intact. EXTREMITIES: No cyanosis, edema. SKIN: Does not show any discoloration. NEUROLOGICAL: She is able to move her extremities. LABORATORY DATA: White blood cell count 7.1, hemoglobin 9.4, platelets 201. INR is 1.0. Sodium 13 2, potassium 4.1. Her BUN is 39, creatinine 1.1. Troponin is negative at 0.038. ASSESSMENT AND PLAN: 1. Tachyarrythmia. The patient's tachyarrhythmia, likely atrial tachycardia. This is in the setti ng of albuterol use as well as some underlying heart failure. I do not appreciate recent 2D echo re port. We are going to obtain a 2D echo now and also add a small dose of beta elvis to see if she can tolerate it. The patient also known to be on aspirin regimen ____ 2. History of congestive heart failure, acute on chronic. Continue diuresis. Based on recent re cords, it is probably diastolic. Will review 2D echo. 3. Shortness of breath likely with multifactorial ____CHF likely ____to diuresis. 4. Hypertension. Blood pressure currently well controlled. Continue medical optimization. 5. ____. Continue antibiotics per primary team. 6. History of dementia. Continue dementia treatment with primary care. I would like to thank Dr. Lilly for referring this patient for my evaluation. Dictated By: AURELIANO GIBSON/LEONARD Conf#: [id number] DID#: [id number]
[2017-02-06] MEDS: MONTELUKAST 10 MG TAB PO SCH (20:41)
[2017-02-07] VITALS (12 sets, daily range): BP systolic 103–144; BP diastolic 51–80; PULSE 77–98; RESP 18
[2017-02-07] MEDS: ALBUTEROL 0.083% (NEB) 2.5 MG/3 ML AMP HHN SCH ×4 (02:29→19:27)
[2017-02-07] MEDS: PROMETHAZINE/DM (CUP) PO PRN ×3 (05:57→20:48)
[2017-02-07] MEDS: FUROSEMIDE 40 MG INJ IV SCH (05:59)
[2017-02-07] MEDS: PANTOPRAZOLE (EC) 40 MG TAB PO SCH (05:59)
[2017-02-07] MEDS: IPRATROPIUM (NEB) 0.5 MG/2.5 ML AMP HHN SCH ×3 (07:25→19:27)
[2017-02-07] MEDS: METHYLPREDNISOLONE 125 MG INJ IV SCH ×2 (09:34→20:52)
[2017-02-07] MEDS: LORATADINE 10 MG TAB PO SCH (09:35)
[2017-02-07] MEDS: FAMOTIDINE 20 MG TAB PO SCH (09:35)
[2017-02-07] MEDS: GABAPENTIN 300 MG CAP PO SCH ×3 (09:35→20:48)
[2017-02-07] MEDS: ENOXAPARIN 40 MG/0.4 ML SYG SC SCH (09:37)
[2017-02-07] MEDS: FLUTICASONE 0.05% 16 GM NAS SPRAY NASAL SCH ×2 (09:37→20:48)
--- NOTE | 2017-02-07 16:11 | CONS ---
Date/Time of Note Date/Time of Note DATE: 02/07/17 TIME: 16:08 Assessment/Plan Assessment/Plan Additional Assessment/Plan 1. Tachyarrythmia - likely atrial tachycardia. This is in the setting of albuterol use as well as some underlying heart failure. I do not appreciate recent 2D echo report. We are going to obtain a 2D echo now and also add a small dose of beta elvis. BETTER NOW. 2. History of congestive heart failure, acute on chronic. Continue diuresis. Based on recent records, it is probably diastolic. Will review 2D echo. Stable fluid status. 3. Shortness of breath likely with multifactorial - will keep euvolemic. 4. Hypertension. Blood pressure currently well controlled. Continue medical optimization. 5. UTI - Continue antibiotics per primary team. 6. History of dementia. Continue dementia treatment with primary care. Consultation Date/Type/Reason Admit Date/Time Feb 04, 2017 at 16:02 Initial Consult Date 24 HR Interval Summary Free Text/Dictation NO acute events - BP much better now - con't med rx - tachy-arrhythmia controlled. ROS: No fever, no chills, no nausea, no vomiting, no diarrhea/constipation No recent weight changes No chest pain, no PND, no orthopnea No dizziness, blurred vision No thirst, no heat or cold intolerance Exam/Review of Systems Vital Signs Vitals Vital Signs Date Time Temp Pulse Resp B/P Pulse Ox O2 Delivery O2 Flow Rate FiO2 02/07/17 15:25 98.7 89 18 117/57 95 02/07/17 14:33 Nasal Cannula 2.0 21 Intake and Output 02/06/17 02/06/17 02/07/17 15:00 23:00 07:00 Intake Total 1050 ml Balance 1050 ml Exam General: WN/WD/NAD, AOx 2-3 HEENT: Unicetric/atraumatic/EOMI (follow commands) NECK: JVD elevated, no thyromegaly Lymph: no lymphadenopathy HEART: regular with no S3, II/ systolic murmur at apex LUNGS: Coarse sounds ABD: soft, NT, ND, +BS : Intact Neuro: non focal SKIN: chronic changes EXT: trace edema Results Result Diagram: 02/06/1744402/06/17444 Medications Medications Current Medications Bisacodyl (Dulcolax) 5 mg DAILY PRN PO CONSTIPATION; Start 02/04/17 at 19:00 Promethazine HCl/ Dextromethorphan (Phenergan-Dm) 5 ml Q6 PRN PO COUGH Last administered on 02/07/17 13:50; Admin Dose 5 ML; Start 02/04/17 at 19:00 Docusate Sodium (Colace) 100 mg Q12H PRN PO CONSTIPATION; Start 02/04/17 at 19: 00 Famotidine (Pepcid) 20 mg DAILY PO Last administered on 02/07/17 09:35; Admin Dose 20 MG; Start 02/05/17 at 09:00 Fluticasone Propionate (Flonase 0.05% Nasal) 1 spray BID NASAL Last administered on 02/07/17 09:37; Admin Dose 1 SPRAY; Start 02/04/17 at 21:00 Furosemide (Lasix) 20 mg BID PO ; Start 02/04/17 at 21:00; Status Future Hold Gabapentin (Neurontin) 300 mg TID PO Last administered on 02/07/17 13:50; Admin Dose 300 MG; Start 02/04/17 at 21:00 Acetaminophen/ Hydrocodone Bitart ([place] (5/325)) 1 tab Q6H PRN PO MODERATE PAIN LEVEL 4-6 Last administered on 02/06/17 05:44; Admin Dose 1 TAB; Start at 19:00 Ibuprofen (Motrin) 400 mg Q6H PRN PO FEver; Start 02/04/17 at 19:00 Loratadine (Claritin) 10 mg DAILY PO Last administered on 02/07/17 09:35; Admin Dose 10 MG; Start 02/05/17 at 09:00 Montelukast Sodium (Singulair) 10 mg QHS PO Last administered on 02/06/17 20: 41; Admin Dose 10 MG; Start 02/04/17 at 21:00 Sodium Biphosphate/ Sodium Phosphate (Fleet Enema) 133 ml DAILY PRN [place] CONSTIPATION; Start 02/04/17 at 19:00 Zolpidem Tartrate (Ambien) 2.5 mg QHS PRN PO SLEEP; Start 02/04/17 at 19:00 Pantoprazole (Protonix Tab) 40 mg DAILY@06 PO Last administered on 02/07/17 05 :59; Admin Dose 40 MG; Start 02/05/17 at 06:00 Furosemide (Lasix) 40 mg DAILY@06 IV Last administered on 02/07/17 05:59; Admin Dose 40 MG; Start 02/05/17 at 06:00 Methylprednisolone Sodium Succinate (Solu-Medrol) 60 mg BID IV Last administered on 02/07/17 09:34; Admin Dose 60 MG; Start 02/05/17 at 09:00 Enoxaparin Sodium (Lovenox) 40 mg DAILY SC Last administered on 02/07/17 09:37 ; Admin Dose 40 MG; Start 02/05/17 at 09:00 Carvedilol (Coreg) 12.5 mg BID PO Last administered on 02/06/17 20:41; Admin Dose 12.5 MG; Start 02/06/17 at 21:00 AURELIANO ORTEGA MD Feb 07, 2017 16:11
--- NOTE | 2017-02-07 18:16 | PN ---
Date/Time of Note Date/Time of Note DATE: 02/07/17 TIME: 18:14 Assessment/Plan VTE Prophylaxis VTE Prophylaxis Intervention: other Lines/Catheters IV [facility] Type (from [facility] Saline Lock Urinary Cath still in place: No Assessment/Plan Chief Complaint/Hosp Course copd chf azotemia ashd bladder ca plan continue same ck labs Problems: Subjective 24 Hr Interval Summary Respiratory: shortness of breath (positive) Cardiovascular: no complaints Exam/Review of Systems Vital Signs Vitals Vital Signs Date Time Temp Pulse Resp B/P Pulse Ox O2 Delivery O2 Flow Rate FiO2 02/07/17 16:13 85 02/07/17 15:25 98.7 18 117/57 95 02/07/17 14:33 Nasal Cannula 2.0 21 Intake and Output 02/06/17 02/06/17 02/07/17 15:00 23:00 07:00 Intake Total 1050 ml Balance 1050 ml Exam Respiratory: diminished breath sounds Cardiovascular: regular rate and rhythm Gastrointestinal: bowel sounds (+), soft Musculoskeletal: nl extremities to inspection Results Result Diagram: 02/06/17 0445 02/06/17 0445 Medications Medications Current Medications Bisacodyl (Dulcolax) 5 mg DAILY PRN PO CONSTIPATION; Start 02/04/17 at 19:00 Promethazine HCl/ Dextromethorphan (Phenergan-Dm) 5 ml Q6 PRN PO COUGH Last administered on 02/07/17 13:50; Admin Dose 5 ML; Start 02/04/17 at 19:00 Docusate Sodium (Colace) 100 mg Q12H PRN PO CONSTIPATION; Start 02/04/17 at 19: 00 Famotidine (Pepcid) 20 mg DAILY PO Last administered on 02/07/17 09:35; Admin Dose 20 MG; Start 02/05/17 at 09:00 Fluticasone Propionate (Flonase 0.05% Nasal) 1 spray BID NASAL Last administered on 02/07/17 09:37; Admin Dose 1 SPRAY; Start 02/04/17 at 21:00 Furosemide (Lasix) 20 mg BID PO ; Start 02/04/17 at 21:00; Status Future Hold Gabapentin (Neurontin) 300 mg TID PO Last administered on 02/07/17 13:50; Admin Dose 300 MG; Start 02/04/17 at 21:00 Acetaminophen/ Hydrocodone Bitart ([place] (5/325)) 1 tab Q6H PRN PO MODERATE PAIN LEVEL 4-6 Last administered on 02/06/17 05:44; Admin Dose 1 TAB; Start at 19:00 Ibuprofen (Motrin) 400 mg Q6H PRN PO FEver; Start 02/04/17 at 19:00 Loratadine (Claritin) 10 mg DAILY PO Last administered on 02/07/17 09:35; Admin Dose 10 MG; Start 02/05/17 at 09:00 Montelukast Sodium (Singulair) 10 mg QHS PO Last administered on 02/06/17 20: 41; Admin Dose 10 MG; Start 02/04/17 at 21:00 Sodium Biphosphate/ Sodium Phosphate (Fleet Enema) 133 ml DAILY PRN [place] CONSTIPATION; Start 02/04/17 at 19:00 Zolpidem Tartrate (Ambien) 2.5 mg QHS PRN PO SLEEP; Start 02/04/17 at 19:00 Pantoprazole (Protonix Tab) 40 mg DAILY@06 PO Last administered on 02/07/17 05 :59; Admin Dose 40 MG; Start 02/05/17 at 06:00 Furosemide (Lasix) 40 mg DAILY@06 IV Last administered on 02/07/17 05:59; Admin Dose 40 MG; Start 02/05/17 at 06:00 Methylprednisolone Sodium Succinate (Solu-Medrol) 60 mg BID IV Last administered on 02/07/17 09:34; Admin Dose 60 MG; Start 02/05/17 at 09:00 Enoxaparin Sodium (Lovenox) 40 mg DAILY SC Last administered on 02/07/17 09:37 ; Admin Dose 40 MG; Start 02/05/17 at 09:00 Carvedilol (Coreg) 12.5 mg BID PO Last administered on 02/06/17 20:41; Admin Dose 12.5 MG; Start 02/06/17 at 21:00 LEILA SPARKS MD Feb 07, 2017 18:16
[2017-02-07] MEDS: MONTELUKAST 10 MG TAB PO SCH (20:48)
[2017-02-08] VITALS (12 sets, daily range): BP systolic 113–132; BP diastolic 54–68; PULSE 69–86; RESP 18–20
[2017-02-08] MEDS: ALBUTEROL 0.083% (NEB) 2.5 MG/3 ML AMP HHN SCH ×4 (02:49→20:31)
[2017-02-08] MEDS: PROMETHAZINE/DM (CUP) PO PRN ×2 (02:56→14:12)
[2017-02-08] MEDS: FUROSEMIDE 40 MG INJ IV SCH (06:58)
[2017-02-08] MEDS: PANTOPRAZOLE (EC) 40 MG TAB PO SCH (06:58)
[2017-02-08] MEDS: IPRATROPIUM (NEB) 0.5 MG/2.5 ML AMP HHN SCH ×3 (07:06→20:31)
[2017-02-08] MEDS: METHYLPREDNISOLONE 125 MG INJ IV SCH ×2 (08:36→20:46)
[2017-02-08] MEDS: LORATADINE 10 MG TAB PO SCH (08:37)
[2017-02-08] MEDS: GABAPENTIN 300 MG CAP PO SCH ×3 (08:37→20:47)
[2017-02-08] MEDS: FLUTICASONE 0.05% 16 GM NAS SPRAY NASAL SCH ×2 (08:37→20:47)
[2017-02-08] MEDS: FAMOTIDINE 20 MG TAB PO SCH (08:38)
[2017-02-08] MEDS: ENOXAPARIN 40 MG/0.4 ML SYG SC SCH (08:39)
[2017-02-08 08:46] LABS: POTASSIUM 4.3 mmol/L (3.5-5.1)
[2017-02-08 08:48] LABS: CREATININE 0.99 mg/dl (0.44-1.00)
[2017-02-08 08:49] LABS: CALCIUM 8.9 mg/dl (8.4-10.2)
--- NOTE | 2017-02-08 15:42 | CONS ---
Date/Time of Note Date/Time of Note DATE: 02/08/17 TIME: 15:42 Assessment/Plan Assessment/Plan Chief Complaint/Hosp Course The patient is an 86 year old woman with bladder cancer s/p TURBT 09/29/16, receiving chemoradiation with 5FU/mitomycin (completed) with radiation, recently admitted for pneumonia/bronchitis, CHF exacerbation, now readmitted with CHF/COPD exacerbation on solumedrol, bronchodilator, diuretics - Continue treatment for CHF/COPD, patient clinically improved. Unlikely to be related to bladder cancer. - CT chest 01/22/17 showed 1. Diffuse pulmonary fibrotic changes again seen which has not changed significantly. 2. Decrease bilateral lower lobe air space disease with residual medial right lower lobe air space disease. - 02/04/17 LE dopplers negative for DVT, LE edema likely 2/2 CHF exacerbation - Patient seen by Dr. Morfin on 01/18/17, plan for cystoscopy on 03/03/17 to evaluate response to chemoradiation - Would recommend outpatient follow-up with pulmonary and cardiology - Patient should follow-up with me upon discharge Problems: Consultation Date/Type/Reason Admit Date/Time Feb 04, 2017 at 16:02 Date of Consultation: Feb 08, 2017 Type of Consultation: Oncology Reason for Consultation Bladder cancer Hx of Present Illness The patient is an 86 year old female with DM, CHF, HTN who had presented with hematuria s/p cystoscopy and TURBT 09/29/16 consistent with high grade invasive urothelial carcinoma, receiving chemoradiation with 5FU/mitomycin (begun 12/14/16 ) with 20% dose reduction due to age (completed 01/05/17), with concurrent radiation. The patient has had a worsening cough. Outpatient CXR 12/25/16 had shown chronic obstructive pulmonary disease with chronic type changes int he left lower lobe. Prior CT chest had shown pulmonary fibrosis from 09/2016. Most recent CXR 01/18/17 during this hospitalization demonstrates prominent interstitial lung markings, interstitial edema vs. viral infection possibly superimposed on chronic lung changes. Patient recently admitted for CHF, pneumonia/bronchitis, now readmitted for SOB. She currently states that her shortness of breath has improved somewhat but still has difficulty breathing. Constitutional: no complaints Eyes: no complaints ENT: no complaints Respiratory: shortness of breath (positive) Cardiovascular: no complaints Gastrointestinal: no complaints Genitourinary: no complaints Musculoskeletal: restricted range of motion Past Medical History CHF, DM, HTN, bladder cancer Family History Significant Family History: no pertinent family hx Social History Alcohol Use: none Smoking Status: Never smoker Exam/Review of Systems Vital Signs Vitals Vital Signs Date Time Temp Pulse Resp B/P Pulse Ox O2 Delivery O2 Flow Rate FiO2 02/08/17 15:28 97.6 73 20 113/54 98 02/08/17 14:20 Nasal Cannula 2.0 02/07/17 14:33 21 Intake and Output 02/07/17 02/07/17 02/08/17 15:00 23:00 07:00 Intake Total 980 ml 220 ml Balance 980 ml 220 ml Exam Constitutional: alert, oriented Head: atraumatic, normocephalic Neck: supple Respiratory: bibasilar crackles Cardiovascular: regular rate and rhythm Gastrointestinal: non-tender, soft Musculoskeletal: swelling 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: [employer]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-XII 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 Constitutional: alert, oriented Psych: no complaints Head: normocephalic Eyes: nl conjunctiva Respiratory: crackles/rales Cardiovascular: regular rate and rhythm Gastrointestinal: non-tender, soft Musculoskeletal: nl extremities to inspection 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: PUBL[employer]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-XII intact Results Result Diagram: 02/06/17 0445 02/08/17 0629 Results 24 hrs Laboratory Tests Test 02/08/17 06:29 Sodium Level 136 Potassium Level 4.3 Chloride Level 96 L Carbon Dioxide Level 29 Anion Gap 15 Blood Urea Nitrogen 54 H Creatinine 0.99 Glucose Level 210 Calcium Level 8.9 Medications Medications Current Medications Bisacodyl (Dulcolax) 5 mg DAILY PRN PO CONSTIPATION; Start 02/04/17 at 19:00 Promethazine HCl/ Dextromethorphan (Phenergan-Dm) 5 ml Q6 PRN PO COUGH Last administered on 02/08/17 14:12; Admin Dose 5 ML; Start 02/04/17 at 19:00 Docusate Sodium (Colace) 100 mg Q12H PRN PO CONSTIPATION; Start 02/04/17 at 19: 00 Famotidine (Pepcid) 20 mg DAILY PO Last administered on 02/08/17 08:38; Admin Dose 20 MG; Start 02/05/17 at 09:00 Fluticasone Propionate (Flonase 0.05% Nasal) 1 spray BID NASAL Last administered on 02/08/17 08:37; Admin Dose 1 SPRAY; Start 02/04/17 at 21:00 Furosemide (Lasix) 20 mg BID PO ; Start 02/04/17 at 21:00; Status Future Hold Gabapentin (Neurontin) 300 mg TID PO Last administered on 02/08/17 12:57; Admin Dose 300 MG; Start 02/04/17 at 21:00 Acetaminophen/ Hydrocodone Bitart ([place] (5/325)) 1 tab Q6H PRN PO MODERATE PAIN LEVEL 4-6 Last administered on 02/06/17 05:44; Admin Dose 1 TAB; Start at 19:00 Ibuprofen (Motrin) 400 mg Q6H PRN PO FEver; Start 02/04/17 at 19:00 Loratadine (Claritin) 10 mg DAILY PO Last administered on 02/08/17 08:37; Admin Dose 10 MG; Start 02/05/17 at 09:00 Montelukast Sodium (Singulair) 10 mg QHS PO Last administered on 02/07/17 20: 48; Admin Dose 10 MG; Start 02/04/17 at 21:00 Sodium Biphosphate/ Sodium Phosphate (Fleet Enema) 133 ml DAILY PRN [place] CONSTIPATION; Start 02/04/17 at 19:00 Zolpidem Tartrate (Ambien) 2.5 mg QHS PRN PO SLEEP; Start 02/04/17 at 19:00 Pantoprazole (Protonix Tab) 40 mg DAILY@06 PO Last administered on 02/08/17 06 :58; Admin Dose 40 MG; Start 02/05/17 at 06:00 Furosemide (Lasix) 40 mg DAILY@06 IV Last administered on 02/08/17 06:58; Admin Dose 40 MG; Start 02/05/17 at 06:00 Methylprednisolone Sodium Succinate (Solu-Medrol) 60 mg BID IV Last administered on 02/08/17 08:36; Admin Dose 60 MG; Start 02/05/17 at 09:00 Enoxaparin Sodium (Lovenox) 40 mg DAILY SC Last administered on 02/08/17 08:39 ; Admin Dose 40 MG; Start 02/05/17 at 09:00 Carvedilol (Coreg) 12.5 mg BID PO Last administered on 02/08/17 08:38; Admin Dose 12.5 MG; Start 02/06/17 at 21:00 TOLILLIANA MD Feb 08, 2017 15:42
--- NOTE | 2017-02-08 16:16 | PN ---
Date/Time of Note Date/Time of Note DATE: 02/08/17 TIME: 16:15 Assessment/Plan VTE Prophylaxis VTE Prophylaxis Intervention: other Lines/Catheters IV Catheter Type (from [facility]): Saline Lock Urinary Cath still in place: No Assessment/Plan Chief Complaint/Hosp Course copd exacerbation chf better azotemia ashd bladder ca plan continue same ck labs ck xr chest Problems: Subjective 24 Hr Interval Summary Subjective hx not possible: other (sob better) Exam/Review of Systems Vital Signs Vitals Vital Signs Date Time Temp Pulse Resp B/P Pulse Ox O2 Delivery O2 Flow Rate FiO2 02/08/17 16:03 85 02/08/17 15:28 97.6 20 113/54 98 02/08/17 14:20 Nasal Cannula 2.0 02/07/17 14:33 21 Intake and Output 02/07/17 02/07/17 02/08/17 15:00 23:00 07:00 Intake Total 980 ml 220 ml Balance 980 ml 220 ml Exam Respiratory: diminished breath sounds Cardiovascular: regular rate and rhythm Gastrointestinal: soft Musculoskeletal: nl extremities to inspection Extremities: normal pulses Results Result Diagram: 02/06/17 0445 02/08/17 0629 Results 24 hrs Laboratory Tests Test 02/08/17 06:29 Sodium Level 136 Potassium Level 4.3 Chloride Level 96 L Carbon Dioxide Level 29 Anion Gap 15 Blood Urea Nitrogen 54 H Creatinine 0.99 Glucose Level 210 Calcium Level 8.9 Medications Medications Current Medications Bisacodyl (Dulcolax) 5 mg DAILY PRN PO CONSTIPATION; Start 02/04/17 at 19:00 Promethazine HCl/ Dextromethorphan (Phenergan-Dm) 5 ml Q6 PRN PO COUGH Last administered on 02/08/17 14:12; Admin Dose 5 ML; Start 02/04/17 at 19:00 Docusate Sodium (Colace) 100 mg Q12H PRN PO CONSTIPATION; Start 02/04/17 at 19: 00 Famotidine (Pepcid) 20 mg DAILY PO Last administered on 02/08/17 08:38; Admin Dose 20 MG; Start 02/05/17 at 09:00 Fluticasone Propionate (Flonase 0.05% Nasal) 1 spray BID NASAL Last administered on 02/08/17 08:37; Admin Dose 1 SPRAY; Start 02/04/17 at 21:00 Furosemide (Lasix) 20 mg BID PO ; Start 02/04/17 at 21:00; Status Future Hold Gabapentin (Neurontin) 300 mg TID PO Last administered on 02/08/17 12:57; Admin Dose 300 MG; Start 02/04/17 at 21:00 Acetaminophen/ Hydrocodone Bitart ([place] (5/325)) 1 tab Q6H PRN PO MODERATE PAIN LEVEL 4-6 Last administered on 02/06/17 05:44; Admin Dose 1 TAB; Start at 19:00 Ibuprofen (Motrin) 400 mg Q6H PRN PO FEver; Start 02/04/17 at 19:00 Loratadine (Claritin) 10 mg DAILY PO Last administered on 02/08/17 08:37; Admin Dose 10 MG; Start 02/05/17 at 09:00 Montelukast Sodium (Singulair) 10 mg QHS PO Last administered on 02/07/17 20: 48; Admin Dose 10 MG; Start 02/04/17 at 21:00 Sodium Biphosphate/ Sodium Phosphate (Fleet Enema) 133 ml DAILY PRN [place] CONSTIPATION; Start 02/04/17 at 19:00 Zolpidem Tartrate (Ambien) 2.5 mg QHS PRN PO SLEEP; Start 02/04/17 at 19:00 Pantoprazole (Protonix Tab) 40 mg DAILY@06 PO Last administered on 02/08/17 06 :58; Admin Dose 40 MG; Start 02/05/17 at 06:00 Furosemide (Lasix) 40 mg DAILY@06 IV Last administered on 02/08/17 06:58; Admin Dose 40 MG; Start 02/05/17 at 06:00 Methylprednisolone Sodium Succinate (Solu-Medrol) 60 mg BID IV Last administered on 02/08/17 08:36; Admin Dose 60 MG; Start 02/05/17 at 09:00 Enoxaparin Sodium (Lovenox) 40 mg DAILY SC Last administered on 02/08/17 08:39 ; Admin Dose 40 MG; Start 02/05/17 at 09:00 Carvedilol (Coreg) 12.5 mg BID PO Last administered on 02/08/17 08:38; Admin Dose 12.5 MG; Start 02/06/17 at 21:00 LEILA SPARKS MD Feb 08, 2017 16:16
--- NOTE | 2017-02-08 18:06 | RADRPT ---
PROCEDURE: XR left shoulder. CLINICAL INDICATION: f/u TECHNIQUE: AP, Internal and Y views of the left shoulder were performed. COMPARISON: No comparison study is available. FINDINGS: There is narrowing of the subacromial joint and glenohumeral joints. There are degenerative spurs a round the right AC and right glenohumeral joints. There are patchy infiltrates in the right lung. No acute fracture or dislocation is evident. IMPRESSION: 1. Chronic right rotator cuff tear. 2. 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 3. Interstitial and alveolar infiltrates in the right lung. 4. Spondylosis of the thoracic spine. RPTAT:AAJJ Physician [place] Date Time Electronically viewed and signed by Foster Fung Physician on 02/08/2017 18:06 JM/
--- NOTE | 2017-02-08 18:40 | CONS ---
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 2.CHF-diastolic by prior echo 10/02 acute on chronic 3.sob 4.HTN 5.Cough 7.Pulmonary fibrosis Recc: -Tele -serial eecg's -check TSH -complete elizabeth -continue lasix -Continue BB but change to B1 selective BB to decrease chance of bronchspasm -Continue steroids/bronchodilators -Follow volume status closely Problems: Consultation Date/Type/Reason Admit Date/Time Feb 04, 2017 at 16:02 Initial Consult Date 02/08/17 Type of Consultation: Cardiology Reason for Consultation sob/CHF/SVT Referring Provider: LEILA SPARKS Exam/Review of Systems Vital Signs Vitals Vital Signs Date Time Temp Pulse Resp B/P Pulse Ox O2 Delivery O2 Flow Rate FiO2 02/08/17 16:03 85 02/08/17 15:28 97.6 20 113/54 98 02/08/17 14:20 Nasal Cannula 2.0 02/07/17 14:33 21 Intake and Output 02/07/17 02/07/17 02/08/17 15:00 23:00 07:00 Intake Total 980 ml 220 ml Balance 980 ml 220 ml Exam Review of Systems: CONSTITUTIONAL: No fevers, chills. PULMONARY: ongoing sob CARDIOVASCULAR: No chest pain/palpitations GASTROINTESTINAL: No nausea/vomiting. GENITOURINARY: No hematuria/dysuria. MUSCULOSKELETAL: No myagias/arthalgias. PSYCHIATRIC: The patient denies depression. NEUROLOGIC: No weakness Constitutional: alert Psych: no complaints Head: normocephalic ENMT: mucosa pink and moist Neck: jvd (9 cm water), supple Respiratory: diminished breath sounds Cardiovascular: regular rate and rhythm Gastrointestinal: non-tender, soft Musculoskeletal: muscle tone (normal) Extremities: edema (none) 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: other (No focal deficits) Results Result Diagram: 02/06/17 0445 02/08/17 0629 Results 24 hrs Laboratory Tests Test 02/08/17 06:29 Sodium Level 136 Potassium Level 4.3 Chloride Level 96 L Carbon Dioxide Level 29 Anion Gap 15 Blood Urea Nitrogen 54 H Creatinine 0.99 Glucose Level 210 Calcium Level 8.9 Medications Medications Current Medications Bisacodyl (Dulcolax) 5 mg DAILY PRN PO CONSTIPATION; Start 02/04/17 at 19:00 Promethazine HCl/ Dextromethorphan (Phenergan-Dm) 5 ml Q6 PRN PO COUGH Last administered on 02/08/17 14:12; Admin Dose 5 ML; Start 02/04/17 at 19:00 Docusate Sodium (Colace) 100 mg Q12H PRN PO CONSTIPATION; Start 02/04/17 at 19: 00 Famotidine (Pepcid) 20 mg DAILY PO Last administered on 02/08/17 08:38; Admin Dose 20 MG; Start 02/05/17 at 09:00 Fluticasone Propionate (Flonase 0.05% Nasal) 1 spray BID NASAL Last administered on 02/08/17 08:37; Admin Dose 1 SPRAY; Start 02/04/17 at 21:00 Furosemide (Lasix) 20 mg BID PO ; Start 02/04/17 at 21:00; Status Future Hold Gabapentin (Neurontin) 300 mg TID PO Last administered on 02/08/17 12:57; Admin Dose 300 MG; Start 02/04/17 at 21:00 Acetaminophen/ Hydrocodone Bitart ([place] (5/325)) 1 tab Q6H PRN PO MODERATE PAIN LEVEL 4-6 Last administered on 02/06/17 05:44; Admin Dose 1 TAB; Start at 19:00 Ibuprofen (Motrin) 400 mg Q6H PRN PO FEver; Start 02/04/17 at 19:00 Loratadine (Claritin) 10 mg DAILY PO Last administered on 02/08/17 08:37; Admin Dose 10 MG; Start 02/05/17 at 09:00 Montelukast Sodium (Singulair) 10 mg QHS PO Last administered on 02/07/17 20: 48; Admin Dose 10 MG; Start 02/04/17 at 21:00 Sodium Biphosphate/ Sodium Phosphate (Fleet Enema) 133 ml DAILY PRN [place] CONSTIPATION; Start 02/04/17 at 19:00 Zolpidem Tartrate (Ambien) 2.5 mg QHS PRN PO SLEEP; Start 02/04/17 at 19:00 Pantoprazole (Protonix Tab) 40 mg DAILY@06 PO Last administered on 02/08/17 06 :58; Admin Dose 40 MG; Start 02/05/17 at 06:00 Furosemide (Lasix) 40 mg DAILY@06 IV Last administered on 02/08/17 06:58; Admin Dose 40 MG; Start 02/05/17 at 06:00 Methylprednisolone Sodium Succinate (Solu-Medrol) 60 mg BID IV Last administered on 02/08/17 08:36; Admin Dose 60 MG; Start 02/05/17 at 09:00 Enoxaparin Sodium (Lovenox) 40 mg DAILY SC Last administered on 02/08/17 08:39 ; Admin Dose 40 MG; Start 02/05/17 at 09:00 Carvedilol (Coreg) 12.5 mg BID PO Last administered on 02/08/17 08:38; Admin Dose 12.5 MG; Start 02/06/17 at 21:00 THOMAS DERAS Feb 08, 2017 18:40
--- NOTE | 2017-02-08 19:08 | RADRPT ---
Echocardiogram Report Patient Name: PEDRO LAU Gender: Female Date: 1930 Study Date: 07-Feb-2017 [facility] Specialists: [facility] Location: 5536 Ref. Physician: AURELIANO ORTEGA Quality: Good Procedures: Transthoracic echocardiogram with complete 2D, M-Mode, and doppler examination. Indications: Shortness of breath. 2D/M Mode Doppler Measurement Value Normal Ranges Measurement Value Normal Ranges LVIDd 2D 3.9 3.5 - 5.6 cm AV Peak [place] 1.5 m/sec LVIDs 2D 2.9 2.1 - 4.1 cm AV Peak PG 8.8 mmHg LVPWd 2D 1.0 0.6 - 1.1 cm LVOT Peak [place] 1.1 m/sec IVSd 2D 1.1 0.6 - 1.1 cm LVOT Peak PG 5.2 mmHg AoR Diam 2D 2.8 2.0 - 3.7 cm MV E Peak [place] 1.1 m/sec EDV 2D 64.4 cm3 MV A Peak [place] 1.2 m/sec ESV 2D 24.7 cm3 MV E/A 0.9 MV Decel Time 262 msec MV Decel [place] 4 MV E/A 0.9 TR Peak [place] 3.1 m/sec TR Peak PG 39.9 mmHg Findings Left Ventricle: Normal left ventricular systolic function. Normal left ventricular cavity size. Normal left ventricular wall thickness. Ejection fraction is visually estimated at 5560 %. Tissue Doppler/Mitral Doppler indices are consistent with impaired relaxation (Stage I diastolic dysfunction). Right Ventricle: Normal right ventricular size. Normal right ventricular systolic function. Left Atrium: The left atrium is normal in size. Right Atrium: The right atrium is normal in size. Mitral Valve: Mild mitral annular calcification. Mild mitral valve regurgitation. Aortic Valve: No significant aortic stenosis or insufficiency. Aortic cusps appear mildly calcified. Tricuspid Valve: Estimated peak PA systolic pressure 52 mmHg. There is mild tricuspid regurgitation. Pulmonic Valve: There is trace pulmonic regurgitation. Pericardium: Normal pericardium with no significant pericardial effusion. Aorta: Normal aortic root. IVC: Normal size and normal respiratory collapse consistent with normal right atrial pressure. Conclusions 1.Normal left ventricular systolic function. Normal left ventricular cavity size. Normal left ventricular wall thickness. Ejection fraction is visually estimated at 55-60 %. Tissue Doppler/Mitral Doppler indices are consistent with impaired relaxation (Stage I diastolic dysfunction). 2.Mild mitral valve regurgitation. 3.Estimated peak PA systolic pressure 52 mmHg. 4.There is mild tricuspid regurgitation. Electronically Signed By: Henok Poole 08-Feb-2017 19:08:30 -0700 Patient Name: PEDRO LAU Study Date: 07-Feb-2017 [id number]
[2017-02-08] MEDS: MONTELUKAST 10 MG TAB PO SCH (20:48)
[2017-02-08] MEDS: METOPROLOL 50 MG TAB PO SCH (20:54)
[2017-02-09] VITALS (13 sets, daily range): BP systolic 105–150; BP diastolic 55–86; PULSE 64–84; RESP 18–21
[2017-02-09] MEDS: ALBUTEROL 0.083% (NEB) 2.5 MG/3 ML AMP HHN SCH ×4 (01:34→20:14)
[2017-02-09] MEDS: FUROSEMIDE 40 MG INJ IV SCH (05:57)
[2017-02-09] MEDS: PANTOPRAZOLE (EC) 40 MG TAB PO SCH (05:57)
[2017-02-09 06:52] LABS: CHOL/HDL RATIO 2.3 RATIO
[2017-02-09] MEDS: IPRATROPIUM (NEB) 0.5 MG/2.5 ML AMP HHN SCH ×3 (08:00→20:14)
[2017-02-09] MEDS: FLUTICASONE 0.05% 16 GM NAS SPRAY NASAL SCH ×2 (08:46→21:27)
[2017-02-09] MEDS: METHYLPREDNISOLONE 125 MG INJ IV SCH (08:46)
[2017-02-09] MEDS: FAMOTIDINE 20 MG TAB PO SCH (08:47)
[2017-02-09] MEDS: GABAPENTIN 300 MG CAP PO SCH ×3 (08:47→21:26)
[2017-02-09] MEDS: METOPROLOL 50 MG TAB PO SCH ×2 (08:47→21:32)
[2017-02-09] MEDS: ENOXAPARIN 40 MG/0.4 ML SYG SC SCH (08:48)
[2017-02-09] MEDS: LORATADINE 10 MG TAB PO SCH (08:48)
--- NOTE | 2017-02-09 14:13 | CONS ---
Date/Time of Note Date/Time of Note DATE: 02/09/17 TIME: 14:12 Assessment/Plan Assessment/Plan Additional Assessment/Plan 1. Tachyarrythmia - likely atrial tachycardia. This is in the setting of albuterol use as well as some underlying heart failure. I do not appreciate recent 2D echo report. We are going to obtain a 2D echo now and also add a small dose of beta elvis. BETTER NOW. IN SINUS. 2. History of congestive heart failure, acute on chronic. Continue diuresis. Based on recent records, it is probably diastolic. Stable fluid status. 3. Shortness of breath likely with multifactorial - will keep euvolemic. 4. Hypertension. Blood pressure currently well controlled. Continue medical optimization. 5. UTI - Continue antibiotics per primary team. 6. History of dementia. Continue dementia treatment with primary care. Consultation Date/Type/Reason Admit Date/Time Feb 04, 2017 at 16:02 Type of Consultation: Cardiology Referring Provider: LEILA SPARKS MD 24 HR Interval Summary Free Text/Dictation NO acute change - in sinus now, will maintain rhythm. ROS: No fever, no chills, no nausea, no vomiting, no diarrhea/constipation No recent weight changes No chest pain, no PND, no orthopnea No dizziness, blurred vision No thirst, no heat or cold intolerance Exam/Review of Systems Vital Signs Vitals Vital Signs Date Time Temp Pulse Resp B/P Pulse Ox O2 Delivery O2 Flow Rate FiO2 02/09/17 12:10 98.0 65 20 133/64 98 02/09/17 08:55 Nasal Cannula 2.0 02/07/17 14:33 21 Intake and Output 02/08/17 02/08/17 02/09/17 15:00 23:00 07:00 Intake Total 1200 ml 100 ml Balance 1200 ml 100 ml Exam General: WN/WD/NAD, AOx 1-2 confused HEENT: Unicetric/atraumatic/EOMI (does not follow commands) NECK: JVD elevated, no thyromegaly Lymph: no lymphadenopathy HEART: regular with no S3, II/ systolic murmur at apex LUNGS: Coarse sounds ABD: soft, NT, ND, +BS : Intact Neuro: non focal SKIN: chronic changes EXT: trace edema Results Result Diagram: 02/06/17 0445 02/08/17 0629 Results 24 hrs Laboratory Tests Test 02/09/17 00:15 02/09/17 05:48 Troponin I < 0.012 < 0.012 Triglycerides Level 112 Cholesterol Level 129 LDL Cholesterol, Calculated 52 HDL Cholesterol 55 Cholesterol/HDL Ratio 2.3 Medications Medications Current Medications Bisacodyl (Dulcolax) 5 mg DAILY PRN PO CONSTIPATION; Start 02/04/17 at 19:00 Promethazine HCl/ Dextromethorphan (Phenergan-Dm) 5 ml Q6 PRN PO COUGH Last administered on 02/08/17 14:12; Admin Dose 5 ML; Start 02/04/17 at 19:00 Docusate Sodium (Colace) 100 mg Q12H PRN PO CONSTIPATION; Start 02/04/17 at 19: 00 Famotidine (Pepcid) 20 mg DAILY PO Last administered on 02/09/17 08:47; Admin Dose 20 MG; Start 02/05/17 at 09:00 Fluticasone Propionate (Flonase 0.05% Nasal) 1 spray BID NASAL Last administered on 02/09/17 08:46; Admin Dose 1 SPRAY; Start 02/04/17 at 21:00 Furosemide (Lasix) 20 mg BID PO ; Start 02/04/17 at 21:00; Status Future Hold Gabapentin (Neurontin) 300 mg TID PO Last administered on 02/09/17 12:44; Admin Dose 300 MG; Start 02/04/17 at 21:00 Acetaminophen/ Hydrocodone Bitart ([place] (5/325)) 1 tab Q6H PRN PO MODERATE PAIN LEVEL 4-6 Last administered on 02/06/17 05:44; Admin Dose 1 TAB; Start at 19:00 Ibuprofen (Motrin) 400 mg Q6H PRN PO FEver; Start 02/04/17 at 19:00 Loratadine (Claritin) 10 mg DAILY PO Last administered on 02/09/17 08:48; Admin Dose 10 MG; Start 02/05/17 at 09:00 Montelukast Sodium (Singulair) 10 mg QHS PO Last administered on 02/08/17 20: 48; Admin Dose 10 MG; Start 02/04/17 at 21:00 Sodium Biphosphate/ Sodium Phosphate (Fleet Enema) 133 ml DAILY PRN [place] CONSTIPATION; Start 02/04/17 at 19:00 Zolpidem Tartrate (Ambien) 2.5 mg QHS PRN PO SLEEP; Start 02/04/17 at 19:00 Pantoprazole (Protonix Tab) 40 mg DAILY@06 PO Last administered on 02/09/17 05 :57; Admin Dose 40 MG; Start 02/05/17 at 06:00 Furosemide (Lasix) 40 mg DAILY@06 IV Last administered on 02/09/17 05:57; Admin Dose 40 MG; Start 02/05/17 at 06:00 Methylprednisolone Sodium Succinate (Solu-Medrol) 60 mg BID IV Last administered on 02/09/17 08:46; Admin Dose 60 MG; Start 02/05/17 at 09:00 Enoxaparin Sodium (Lovenox) 40 mg DAILY SC Last administered on 02/09/17 08:48 ; Admin Dose 40 MG; Start 02/05/17 at 09:00 Metoprolol Tartrate (Lopressor) 50 mg BID PO Last administered on 02/09/17 08: 47; Admin Dose 50 MG; Start 02/08/17 at 21:00 AURELIANO ORTEGA MD Feb 09, 2017 14:13
--- NOTE | 2017-02-09 15:41 | CONS ---
Date/Time of Note Date/Time of Note DATE: 02/09/17 TIME: 15:39 Assessment/Plan Assessment/Plan Chief Complaint/Hosp Course The patient is an 86 year old woman with bladder cancer s/p TURBT 09/29/16, receiving chemoradiation with 5FU/mitomycin (completed) with radiation, recently admitted for pneumonia/bronchitis, CHF exacerbation, now readmitted with CHF/COPD exacerbation on solumedrol, bronchodilator, diuretics - Continue treatment for CHF/COPD, patient clinically improved. Unlikely to be related to bladder cancer. - CT chest 01/22/17 showed 1. Diffuse pulmonary fibrotic changes again seen which has not changed significantly. 2. Decrease bilateral lower lobe air space disease with residual medial right lower lobe air space disease. - 02/04/17 LE dopplers negative for DVT, LE edema likely 2/2 CHF exacerbation - Patient seen by Dr. Morfin on 01/18/17, plan for cystoscopy on 03/03/17 to evaluate response to chemoradiation - TSH noted to be low at 0.219, appreciate primary team recs - Would recommend outpatient follow-up with pulmonary and cardiology (Dr. Poole) - Patient should follow-up with me upon discharge Problems: Consultation Date/Type/Reason Admit Date/Time Feb 04, 2017 at 16:02 Initial Consult Date 02/08/17 Type of Consultation: Oncology Referring Provider: LEILA SPARKS MD 24 HR Interval Summary Free Text/Dictation Patient states that breathing is much better. Exam/Review of Systems Vital Signs Vitals Vital Signs Date Time Temp Pulse Resp B/P Pulse Ox O2 Delivery O2 Flow Rate FiO2 02/09/17 14:43 80 20 95 Nasal Cannula 2.0 02/09/17 12:10 98.0 133/64 02/07/17 14:33 21 Intake and Output 02/08/17 02/08/17 02/09/17 14:59 22:59 06:59 Intake Total 1200 ml 100 ml Balance 1200 ml 100 ml Exam Constitutional: alert, oriented Psych: no complaints Head: normocephalic Eyes: nl conjunctiva Respiratory: clear to auscultation bilaterally Cardiovascular: regular rate and rhythm Gastrointestinal: non-tender, soft Musculoskeletal: nl extremities to inspection 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: WORK FROM HOME II-XII intact Results Result Diagram: 02/06/17 0445 02/08/17 0629 Results 24 hrs Laboratory Tests Test 02/09/17 00:15 02/09/17 05:48 Troponin I < 0.012 < 0.012 Triglycerides Level 112 Cholesterol Level 129 LDL Cholesterol, Calculated 52 HDL Cholesterol 55 Cholesterol/HDL Ratio 2.3 Medications Medications Current Medications Bisacodyl (Dulcolax) 5 mg DAILY PRN PO CONSTIPATION; Start 02/04/17 at 19:00 Promethazine HCl/ Dextromethorphan (Phenergan-Dm) 5 ml Q6 PRN PO COUGH Last administered on 02/08/17 14:12; Admin Dose 5 ML; Start 02/04/17 at 19:00 Docusate Sodium (Colace) 100 mg Q12H PRN PO CONSTIPATION; Start 02/04/17 at 19: 00 Famotidine (Pepcid) 20 mg DAILY PO Last administered on 02/09/17 08:47; Admin Dose 20 MG; Start 02/05/17 at 09:00 Fluticasone Propionate (Flonase 0.05% Nasal) 1 spray BID NASAL Last administered on 02/09/17 08:46; Admin Dose 1 SPRAY; Start 02/04/17 at 21:00 Furosemide (Lasix) 20 mg BID PO ; Start 02/04/17 at 21:00; Status Future Hold Gabapentin (Neurontin) 300 mg TID PO Last administered on 02/09/17 12:44; Admin Dose 300 MG; Start 02/04/17 at 21:00 Acetaminophen/ Hydrocodone Bitart ([place] (5/325)) 1 tab Q6H PRN PO MODERATE PAIN LEVEL 4-6 Last administered on 02/06/17 05:44; Admin Dose 1 TAB; Start at 19:00 Ibuprofen (Motrin) 400 mg Q6H PRN PO FEver; Start 02/04/17 at 19:00 Loratadine (Claritin) 10 mg DAILY PO Last administered on 02/09/17 08:48; Admin Dose 10 MG; Start 02/05/17 at 09:00 Montelukast Sodium (Singulair) 10 mg QHS PO Last administered on 02/08/17 20: 48; Admin Dose 10 MG; Start 02/04/17 at 21:00 Sodium Biphosphate/ Sodium Phosphate (Fleet Enema) 133 ml DAILY PRN [place] CONSTIPATION; Start 02/04/17 at 19:00 Zolpidem Tartrate (Ambien) 2.5 mg QHS PRN PO SLEEP; Start 02/04/17 at 19:00 Pantoprazole (Protonix Tab) 40 mg DAILY@06 PO Last administered on 02/09/17 05 :57; Admin Dose 40 MG; Start 02/05/17 at 06:00 Furosemide (Lasix) 40 mg DAILY@06 IV Last administered on 02/09/17 05:57; Admin Dose 40 MG; Start 02/05/17 at 06:00 Methylprednisolone Sodium Succinate (Solu-Medrol) 60 mg BID IV Last administered on 02/09/17 08:46; Admin Dose 60 MG; Start 02/05/17 at 09:00 Enoxaparin Sodium (Lovenox) 40 mg DAILY SC Last administered on 02/09/17 08:48 ; Admin Dose 40 MG; Start 02/05/17 at 09:00 Metoprolol Tartrate (Lopressor) 50 mg BID PO Last administered on 02/09/17 08: 47; Admin Dose 50 MG; Start 02/08/17 at 21:00 LILLIANA DSOUZA MD Feb 09, 2017 15:41
--- NOTE | 2017-02-09 19:17 | PDOCDIS ---
Discharge Instructions CONDITION Patient Condition: Stable HOME CARE INSTRUCTIONS: Special Diet: PUREED/2 GM SODIUM ACTIVITY: Activity Restrictions: Slowly Increase Activity Rest between Activity Activity Restrictions Comment: TOLERATED FOLLOW UP/APPOINTMENTS Appointments F/O DR TO [address] RUBIO [address] SPARKS 1 WK LEILA SPARKS MD Feb 09, 2017 19:17
--- NOTE | 2017-02-09 19:21 | PN ---
Date/Time of Note Date/Time of Note DATE: 02/09/17 TIME: 19:20 Assessment/Plan VTE Prophylaxis VTE Prophylaxis Intervention: other Lines/Catheters [facility] Saline Lock Urinary Cath still in place: No Assessment/Plan Chief Complaint/Hosp Course copd exacerbation chf better azotemia ashd bladder ca LOW TSH ON STEROID plan continue same ck labs ck xr chest Problems: Subjective 24 Hr Interval Summary Respiratory: shortness of breath (BETTER) Exam/Review of Systems Vital Signs Vitals Vital Signs Date Time Temp Pulse Resp B/P Pulse Ox O2 Delivery O2 Flow Rate FiO2 02/09/17 19:15 Nasal Cannula 2.0 02/09/17 16:11 67 02/09/17 15:43 97.7 20 105/55 98 02/07/17 14:33 21 Intake and Output 02/08/17 02/08/17 02/09/17 15:00 23:00 07:00 Intake Total 1200 ml 100 ml Balance 1200 ml 100 ml Exam Respiratory: clear to auscultation Cardiovascular: regular rate and rhythm Gastrointestinal: soft Musculoskeletal: nl extremities to inspection Extremities: normal pulses Results Result Diagram: 02/06/17 0445 02/08/17 0629 Results 24 hrs Laboratory Tests Test 02/09/17 00:15 02/09/17 05:48 Troponin I < 0.012 < 0.012 Triglycerides Level 112 Cholesterol Level 129 LDL Cholesterol, Calculated 52 HDL Cholesterol 55 Cholesterol/HDL Ratio 2.3 Medications Medications Current Medications Bisacodyl (Dulcolax) 5 mg DAILY PRN PO CONSTIPATION; Start 02/04/17 at 19:00 Promethazine HCl/ Dextromethorphan (Phenergan-Dm) 5 ml Q6 PRN PO COUGH Last administered on 02/08/17 14:12; Admin Dose 5 ML; Start 02/04/17 at 19:00 Docusate Sodium (Colace) 100 mg Q12H PRN PO CONSTIPATION; Start 02/04/17 at 19: 00 Famotidine (Pepcid) 20 mg DAILY PO Last administered on 02/09/17 08:47; Admin Dose 20 MG; Start 02/05/17 at 09:00 Fluticasone Propionate (Flonase 0.05% Nasal) 1 spray BID NASAL Last administered on 02/09/17 08:46; Admin Dose 1 SPRAY; Start 02/04/17 at 21:00 Furosemide (Lasix) 20 mg BID PO ; Start 02/04/17 at 21:00; Status Future Hold Gabapentin (Neurontin) 300 mg TID PO Last administered on 02/09/17 12:44; Admin Dose 300 MG; Start 02/04/17 at 21:00 Acetaminophen/ Hydrocodone Bitart ([place] (5/325)) 1 tab Q6H PRN PO MODERATE PAIN LEVEL 4-6 Last administered on 02/06/17 05:44; Admin Dose 1 TAB; Start at 19:00 Ibuprofen (Motrin) 400 mg Q6H PRN PO FEver; Start 02/04/17 at 19:00 Loratadine (Claritin) 10 mg DAILY PO Last administered on 02/09/17 08:48; Admin Dose 10 MG; Start 02/05/17 at 09:00 Montelukast Sodium (Singulair) 10 mg QHS PO Last administered on 02/08/17 20: 48; Admin Dose 10 MG; Start 02/04/17 at 21:00 Sodium Biphosphate/ Sodium Phosphate (Fleet Enema) 133 ml DAILY PRN [place] CONSTIPATION; Start 02/04/17 at 19:00 Zolpidem Tartrate (Ambien) 2.5 mg QHS PRN PO SLEEP; Start 02/04/17 at 19:00 Pantoprazole (Protonix Tab) 40 mg DAILY@06 PO Last administered on 02/09/17 05 :57; Admin Dose 40 MG; Start 02/05/17 at 06:00 Furosemide (Lasix) 40 mg DAILY@06 IV Last administered on 02/09/17 05:57; Admin Dose 40 MG; Start 02/05/17 at 06:00 Methylprednisolone Sodium Succinate (Solu-Medrol) 60 mg BID IV Last administered on 02/09/17 08:46; Admin Dose 60 MG; Start 02/05/17 at 09:00 Enoxaparin Sodium (Lovenox) 40 mg DAILY SC Last administered on 02/09/17 08:48 ; Admin Dose 40 MG; Start 02/05/17 at 09:00 Metoprolol Tartrate (Lopressor) 50 mg BID PO Last administered on 02/09/17 08: 47; Admin Dose 50 MG; Start 4/24/17 at 21:00 LEILA SPARKS MD Feb 09, 2017 19:21
[2017-02-09] MEDS ORDERED: METHYLPREDNISOLONE (MEDROL) DOSE PACK PO SCH (19:30)
[2017-02-09 20:54] LABS: FREE T3 2.48 pg/ml (2.77-5.27)
[2017-02-09] MEDS ORDERED: METHYLPREDNISOLONE 4 MG TAB PO SCH (21:00)
[2017-02-09 21:09] LABS: TRIIODOTHYRONINE 0.65 ng/ml (0.97-1.69)
[2017-02-09] MEDS: MONTELUKAST 10 MG TAB PO SCH (21:31)
[2017-02-09] MEDS: PROMETHAZINE/DM (CUP) PO PRN (21:31)
[2017-02-10] VITALS (8 sets, daily range): BP systolic 116–149; BP diastolic 57–74; PULSE 64–79; RESP 16–18
[2017-02-10] MEDS: ALBUTEROL 0.083% (NEB) 2.5 MG/3 ML AMP HHN SCH (02:45)
[2017-02-10] MEDS: PANTOPRAZOLE (EC) 40 MG TAB PO SCH (04:59)
[2017-02-10] MEDS: FUROSEMIDE 40 MG INJ IV SCH (04:59)
[2017-02-10] MEDS ORDERED: METHYLPREDNISOLONE 4 MG TAB PO SCH ×4 (07:30→21:00)
[2017-02-10] MEDS: GABAPENTIN 300 MG CAP PO SCH ×2 (08:40→12:52)
[2017-02-10] MEDS: FAMOTIDINE 20 MG TAB PO SCH (08:40)
[2017-02-10] MEDS: LORATADINE 10 MG TAB PO SCH (08:40)
[2017-02-10] MEDS: METOPROLOL 50 MG TAB PO SCH (08:40)
[2017-02-10] MEDS: FLUTICASONE 0.05% 16 GM NAS SPRAY NASAL SCH (08:41)
[2017-02-10] MEDS: ENOXAPARIN 40 MG/0.4 ML SYG SC SCH (08:43)
[2017-02-10] MEDS: PROMETHAZINE/DM (CUP) PO PRN (10:56)
--- NOTE | 2017-02-10 12:27 | CONS ---
Date/Time of Note Date/Time of Note DATE: 02/10/17 TIME: 12: Assessment/Plan Assessment/Plan Chief Complaint/Hosp Course The patient is an 86 year old woman with bladder cancer s/p TURBT 09/29/16, receiving chemoradiation with 5FU/mitomycin (completed) with radiation, recently admitted for pneumonia/bronchitis, CHF exacerbation, now readmitted with CHF/COPD exacerbation on solumedrol, bronchodilator, diuretics - Continue treatment for CHF/COPD, patient clinically improved. Unlikely to be related to bladder cancer. - CT chest 01/22/17 showed 1. Diffuse pulmonary fibrotic changes again seen which has not changed significantly. 2. Decrease bilateral lower lobe air space disease with residual medial right lower lobe air space disease. - 02/04/17 LE dopplers negative for DVT, LE edema likely 2/2 CHF exacerbation - Patient seen by Dr. Morfin on 01/18/17, plan for cystoscopy on 03/03/17 to evaluate response to chemoradiation - TSH noted to be low at 0.219, steroids may be suppressing TSH. Free T4 normal at 0.90. Appreciate primary team recs - Would recommend outpatient follow-up with pulmonary and cardiology (Dr. Poole) - Patient should follow-up with me upon discharge Problems: Consultation Date/Type/Reason Admit Date/Time Feb 04, 2017 at 16:02 Initial Consult Date 02/08/17 Type of Consultation: Oncology Referring Provider: LEILA SPARKS MD 24 HR Interval Summary Free Text/Dictation Patient states breathing is better. Being discharged to SNF today. Exam/Review of Systems Vital Signs Vitals Vital Signs Date Time Temp Pulse Resp B/P Pulse Ox O2 Delivery O2 Flow Rate FiO2 02/10/17 12:11 79 02/10/17 11:51 98.8 17 116/59 90 02/10/17 08:00 Nasal Cannula 2.0 02/07/17 14:33 21 Intake and Output 02/09/17 02/09/17 02/10/17 15:00 23:00 07:00 Intake Total 1200 ml 220 ml Balance 1200 ml 220 ml Exam Constitutional: alert, oriented Psych: no complaints Head: normocephalic Eyes: nl conjunctiva Respiratory: clear to auscultation bilaterally, faint wheezing Cardiovascular: regular rate and rhythm Gastrointestinal: non-tender, soft Musculoskeletal: nl extremities to inspection 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: INTELLECTUAL PROPERTY PARALEGAL II-XII intact Results Result Diagram: 02/06/17 0445 02/08/17 0629 Results 24 hrs Laboratory Tests Test 02/09/17 19:41 Free Thyroxine 0.90 Thyroxine (T4) 5.2 L Free Triiodothyronine (T3) pg/mL 2.48 L Total Triiodothyronine 0.65 L Medications Medications Current Medications Bisacodyl (Dulcolax) 5 mg DAILY PRN PO CONSTIPATION; Start 02/04/17 at 19:00 Promethazine HCl/ Dextromethorphan (Phenergan-Dm) 5 ml Q6 PRN PO COUGH Last administered on 02/10/17 10:56; Admin Dose 5 ML; Start 02/04/17 at 19:00 Docusate Sodium (Colace) 100 mg Q12H PRN PO CONSTIPATION; Start 02/04/17 at 19: 00 Famotidine (Pepcid) 20 mg DAILY PO Last administered on 02/10/17 08:40; Admin Dose 20 MG; Start 02/05/17 at 09:00 Fluticasone Propionate (Flonase 0.05% Nasal) 1 spray BID NASAL Last administered on 02/10/17 08:41; Admin Dose 1 SPRAY; Start 02/04/17 at 21:00 Furosemide (Lasix) 20 mg BID PO ; Start 02/04/17 at 21:00; Status Future Hold Gabapentin (Neurontin) 300 mg TID PO Last administered on 02/10/17 08:40; Admin Dose 300 MG; Start 02/04/17 at 21:00 Acetaminophen/ Hydrocodone Bitart ([place] (5/325)) 1 tab Q6H PRN PO MODERATE PAIN LEVEL 4-6 Last administered on 02/06/17 05:44; Admin Dose 1 TAB; Start at 19:00 Ibuprofen (Motrin) 400 mg Q6H PRN PO FEver; Start 02/04/17 at 19:00 Loratadine (Claritin) 10 mg DAILY PO Last administered on 02/10/17 08:40; Admin Dose 10 MG; Start 02/05/17 at 09:00 Montelukast Sodium (Singulair) 10 mg QHS PO Last administered on 02/09/17 21: 31; Admin Dose 10 MG; Start 02/04/17 at 21:00 Sodium Biphosphate/ Sodium Phosphate (Fleet Enema) 133 ml DAILY PRN [place] CONSTIPATION; Start 02/04/17 at 19:00 Zolpidem Tartrate (Ambien) 2.5 mg QHS PRN PO SLEEP; Start 02/04/17 at 19:00 Pantoprazole (Protonix Tab) 40 mg DAILY@06 PO Last administered on 02/10/17 04 :59; Admin Dose 40 MG; Start 02/05/17 at 06:00 Furosemide (Lasix) 40 mg DAILY@06 IV Last administered on 02/10/17 04:59; Admin Dose 40 MG; Start 02/05/17 at 06:00 Enoxaparin Sodium (Lovenox) 40 mg DAILY SC Last administered on 02/10/17 08:43 ; Admin Dose 40 MG; Start 02/05/17 at 09:00 Metoprolol Tartrate (Lopressor) 50 mg BID PO Last administered on 02/10/17 08: 40; Admin Dose 50 MG; Start 02/08/17 at 21:00 Methylprednisolone (Medrol) 8 mg HS PO ; Start 02/10/17 at 21:00; Stop 02/10/17 at 21:01 Methylprednisolone (Medrol) 4 mg HS PO ; Start 02/11/17 at 21:00; Stop 02/13/17 at 21:01 TOLILLIANA MD Feb 10, 2017 12:27
[2017-02-11] MEDS ORDERED: METHYLPREDNISOLONE 4 MG TAB PO SCH (21:00)
== END 2017-02-10 14:23 | DRG 291 ==
LOC: E/R 12:11 → MS4 16:02
PROVIDERS: ADMIT Internal Medicine Nephrology; ATTEND Internal Medicine Nephrology
DX: I13.0 Hypertensive heart and chronic kidney disease with heart failure and stage 1 through stage 4 chronic kidney disease, or unspecified chronic kidney disease (principal); I50.33 Acute on chronic diastolic (congestive) heart failure; E86.0 Dehydration; J44.1 Chronic obstructive pulmonary disease with (acute) exacerbation; E87.1 Hypo-osmolality and hyponatremia; F03.90 Unspecified dementia, unspecified severity, without behavioral disturbance, psychotic disturbance, mood disturbance, and anxiety; C67.9 Malignant neoplasm of bladder, unspecified; I47.1 Supraventricular tachycardia; N18.9 Chronic kidney disease, unspecified; I25.10 Atherosclerotic heart disease of native coronary artery without angina pectoris; E78.5 Hyperlipidemia, unspecified
CPT/HCPCS: 36415; 71010; 80048; 80053; 80061; 81003; 83690; 83735; 83880; 84436; 84439; 84443; 84480; 84481; 84484; 85025; 85610; 87081; 93005; 93306; 93970; 94640; 94644; 94664; 96374; 96375; J1650; J1940; J2930; J7509

== ENCOUNTER 2017-03-11 13:03 | Inpatient (IN) | payer MEDICARE, OTHER ==
[~2017-03-11] VITALS: Ht 157.5 cm; Wt 75.2 kg
[2017-03-11] MEDS ORDERED: FUROSEMIDE 40 MG INJ IV STA (13:17)
[2017-03-11] MEDS ORDERED: ASPIRIN 81 MG TAB PO STA (13:17)
[2017-03-11 13:30] LABS: ADD SCAN DIFF NO
[2017-03-11 13:32] LABS: BASOPHILS % 0.1 % (0.0-2.0); EOSINOPHILS % 0.1 % (0.0-7.0); HEMOGLOBIN 10.9 g/dl (12.0-16.0); LYMPHOCYTES # 0.8 10^3/ul (0.8-2.9); MEAN CORPUSCULAR HEMOGLOBIN 31.1 pg (29.0-33.0); MEAN CORPUSCULAR HGB CONC 32.1 g/dl (32.0-37.0); MEAN CORPUSCULAR VOLUME 96.9 fl (82.0-101.0); MONOCYTE # 0.3 10^3/ul (0.3-0.9); MONOCYTES % 2.8 % (0.0-11.0); NEUTROPHILS % 86.6 % (39.0-77.0); PLATELET COUNT 208 10^3/UL (140-415); RED BLOOD COUNT 3.51 10^6/ul (4.20-5.40); RED CELL DISTRIBUTION WIDTH 18.1 % (11.5-14.5); WHITE BLOOD COUNT 10.3 10^3/ul (4.8-10.8)
[2017-03-11 13:47] LABS: INR 0.89; PARTIAL THROMBOPLASTIN TIME 22.6 Sec (25.0-35.0); PT RATIO 0.9
[2017-03-11 13:53] LABS: CREATININE 1.42 mg/dl (0.44-1.00)
[2017-03-11 13:54] LABS: CALCIUM 9.9 mg/dl (8.4-10.2)
--- NOTE | 2017-03-11 13:55 | RADRPT ---
PROCEDURE: XR Chest. CLINICAL INDICATION: Chest pain TECHNIQUE: Chest AP portable. COMPARISON: 02/04/2017 FINDINGS: The mediastinal structures are unremarkable. There is calcification of the thoracic aorta (consiste nt with atherosclerosis). There is mild cardiomegaly. There is mild pulmonary venous hypertension. No consolidation is identified. The pleural spaces are unremarkable. There are senescent changes of the axial skeleton. IMPRESSION: Mild cardiomegaly. Mild pulmonary venous hypertension. No infiltrates identified RPTAT: HGDB .Ruddy Hyman MD, MD Date Time Electronically viewed and signed by .Ruddy Hyman MD, on 03/11/2017 13:55 .B/
[2017-03-11 14:01] LABS: POTASSIUM 6.4 mmol/L (3.5-5.1)
[2017-03-11] MEDS ORDERED: NA BICARBONATE 8.4% 50 ML SYG IV STA (14:05)
[2017-03-11] MEDS ORDERED: INSULIN REGULAR 10 ML INJ IV STA (14:05)
[2017-03-11] MEDS ORDERED: ALBUTEROL 0.5% (NEB) 2.5 MG/0.5 ML AMP INH STA (14:05)
[2017-03-11] MEDS ORDERED: NA POLYST SULFON 15 GM/60 ML BTL PO STA (14:05)
[2017-03-11 14:06] LABS: TROPONIN-I 0.018 ng/ml (0.00-0.12)
[2017-03-11] MEDS ORDERED: INSULIN REGULAR, HUMAN 100 UNIT/1 ML 3ML VIAL IV STA (14:17)
[2017-03-11] MEDS ORDERED: DEXTROSE 50% 50 ML SYRINGE IV PRN ×3 (14:30→21:15)
[2017-03-11] MEDS ORDERED: ACETAMINOPHEN 325 MG TAB PO PRN ×2 (15:00→18:30)
[2017-03-11] MEDS ORDERED: ONDANSETRON 4 MG INJ IV PRN ×2 (15:00→18:30)
[2017-03-11] MEDS ORDERED: SOD CHLORIDE 0.9% 1,000 ML IV STA (16:20)
--- NOTE | 2017-03-11 16:33 | ERA ---
ER Documentation Chief Complaint Date/Time DATE: 03/11/17 TIME: 16:32 Chief Complaint SOB ON 2L VIA NC WORSENING TODAY INTERMITTENT CHEST WALL PAIN X3DAYS HPI Patient is a an 86-year-old female with coronary disease, CHF, and diabetes who presents with shortness of breath. The patient was sent by Dr. Melissa for admission. The patient has had chest pain for the past 3 days. The patient has shortness of breath with minimal exertion like walking 2 steps. The patient feels dizzy. The patient has cough but no fever. Primary doctor is Dr. Sparks. Upon review of old medical records the patient has multiple visits to the ER with admissions. ROS All systems reviewed and are negative except as per history of present illness. Medications Home Meds Active Scripts Zolpidem Tartrate (Ambien [place]) 5 Mg Tablet, 2.5 MG PO QHS Y for SLEEP for 10 Days, TAB Prov:LEILA SPARKS MD 10/01/16 Na Phos,M-B/Na Phos,Di-Ba ([place] Ready To Use Enema) 133 Ml Enema, 133 ML [place] DAILY Y for CONSTIPATION for 7 Days, ENEMA Prov:LEILA SPARKS MD 10/01/16 Hydrocodone Bit-Acetaminophen (Hydrocodone Bit-APAP) 5-325MG Tablet, 1 TAB PO Q6H Y for MODERATE PAIN LEVEL 4-6 for 14 Days, TAB Prov:LEILA SPARKS MD 10/01/16 Ibuprofen* (Ibuprofen*) 400 Mg Tablet, 400 MG PO Q6H Y for FEver for 10 Days, TAB Prov:LEILA SPARKS MD 10/01/16 Famotidine* (Famotidine*) 20 Mg Tablet, 20 MG PO DAILY for 10 Days, TAB Prov:LEILA SPARKS MD 10/01/16 Docusate Sodium* (Colace*) 100 Mg Capsule, 100 MG PO Q12H Y for CONSTIPATION for 10 Days, CAP Prov:LEILA SPARKS MD 10/01/16 Bisacodyl* (Bisacodyl*) 5 Mg Tablet.dr, 5 MG PO DAILY Y for CONSTIPATION for 10 Days Prov:LEILA SPARKS MD 10/01/16 Reported Medications Fluticasone Propionate* (Fluticasone Propionate* Nasal) 50 Mcg/[place] - 16 Gm [place].susp, 1 SPRAY NASAL BID, #1 BOTTLE TO EACH NOSTRIL 09/16/16 Dextromethorphan Hb-Promethazine Hcl* (Promethazine DM* Syrup) 473 Ml Syrup, 5 ML PO Q6 Y for COUGH, ML 09/16/16 Loratadine* (Loratadine*) 10 Mg Tablet, 10 MG PO DAILY, #30 TAB 09/16/16 Linaclotide (LINZESS) 290 Mcg Capsule, 290 MCG PO DAILY, #30 CAP 04/22/16 Montelukast Sodium* (Montelukast Sodium*) 10 Mg Tablet, 10 MG PO QHS, #30 TAB 04/22/16 Furosemide* (Lasix*) 20 Mg Tablet, 20 MG PO BID, TAB 11/07/14 Gabapentin* (Gabapentin*) 300 Mg Capsule, 300 MG PO TID, CAP 11/07/14 Allergies Allergies: Coded Allergies: No Known Allergy (Unverified , 03/11/17) PMhx/Soc History of Surgery: Yes (09/2016) Anesthesia Reaction: No Hx 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 Disorder: No Hx Respiratory Disorders: Yes (bronchitis) Hx Cardiac Disorders: Yes (bradycardia) Hx Psychiatric Problems: No Hx Miscellaneous Medical Probl: No Hx Alcohol Use: No Hx Substance Use: No Hx Tobacco Use: No Smoking Status: Never smoker FmHx Family History: No diabetes Physical Exam Vitals Vital Signs Date Time Temp Pulse Resp B/P Pulse Ox O2 Delivery O2 Flow Rate FiO2 03/11/17 14:36 72 20 100 Nasal Cannula 2.0 03/11/17 14:29 83 20 85/67 99 Nasal Cannula 03/11/17 13:15 Nasal Cannula 2 03/11/17 13:05 97.5 59 20 92/60 99 Physical Exam Const: Mild distress Head: Atraumatic Eyes: Normal Conjunctiva ENT: Normal External Ears, Nose and Mouth. Neck: Full range of motion..~ No meningismus. Resp: Crackles bilaterally Cardio: Regular rate and rhythm, no murmurs Abd: Soft, non tender, non distended. Normal bowel sounds Skin: Pale Back: No midline or flank tenderness Ext: No cyanosis, or edema Neur: Awake and alert Psych: Normal Mood and Affect Result Diagram: 03/11/17 1325 03/11/17 1325 Results 24 hrs Laboratory Tests Test 03/11/17 13:25 03/11/17 14:18 White Blood Count 10.310^3/ul Red Blood Count 3.5110^6/ul Hemoglobin 10.9g/dl Hematocrit 34.0% Mean Corpuscular Volume 96.9fl Mean Corpuscular Hemoglobin 31.1pg Mean Corpuscular Hemoglobin Concent 32.1g/dl Red Cell Distribution Width 18.1% Platelet Count 59385^3/UL Mean Platelet Volume 9.0fl Neutrophils % 86.6% Lymphocytes % 8.0% Monocytes % 2.8% Eosinophils % 0.1% Basophils % 0.1% Nucleated Red Blood Cells % 0.0/100WBC Neutrophils # 9.010^3/ul Lymphocytes # 0.810^3/ul Monocytes # 0.310^3/ul Eosinophils # 0.010^3/ul Basophils # 0.010^3/ul Nucleated Red Blood Cells # 0.010^3/ul Prothrombin Time 12.0Sec Prothrombin Time Ratio 0.9 INR International Normalized Ratio 0.89 Activated Partial Thromboplast Time 22.6Sec Sodium Level 130mmol/L Potassium Level 6.4mmol/L Chloride Level 89mmol/L Carbon Dioxide Level 33mmol/L Anion Gap 14 Blood Urea Nitrogen 61mg/dl Creatinine 1.42mg/dl Glucose Level 156mg/dl Calcium Level 9.9mg/dl Troponin I 0.018ng/ml Bedside Glucose 184mg/dL Current Medications Medications (Trade) Dose Ordered Sig/Fina Route PRN Reason Start Time Stop Time Status Last Admin Dose Admin Aspirin (Aspirin) 162 mg ONCE STAT PO 03/11/17 13:17 03/11/17 13:18 DC 03/11/17 13:25 Furosemide (Lasix) 40 mg ONCE STAT IV 03/11/17 13:17 03/11/17 13:18 DC 03/11/17 13:28 Sodium Polystyrene Sulfonate (Kayexalate) 30 gm ONCE STAT PO 03/11/17 14:05 03/11/17 14:06 DC 03/11/17 14:19 Albuterol (Proventil 0.5% (Neb)) 15 mg ONCE STAT INH 03/11/17 14:05 03/11/17 14:06 DC 03/11/17 14:35 Sodium Bicarbonate (Na Bicarb 8.4% Syg) 50 ml ONCE STAT IV 03/11/17 14:05 03/11/17 14:06 DC 03/11/17 14:19 Insulin Human Regular (Novolin-R) 10 unit ONCE STAT IV 03/11/17 14:05 03/11/17 14:06 DC Dextrose (D50w Syringe) ONCE PRN IV POC BLOOD GLUCOSE <250 MG/DL 03/11/17 14:30 03/11/17 14:19 Insulin Human Regular (Humulin R) 10 unit ONCE STAT IV 03/11/17 14:17 03/11/17 14:18 DC 03/11/17 14:27 Ondansetron HCl (Zofran Inj) 4 mg ER BRIDGE PRN IV NAUSEA AND/OR VOMITING 03/11/17 15:00 03/12/17 14:59 Acetaminophen 650 mg 650 mg ER BRIDGE PRN PO MILD PAIN/FEVER 03/11/17 15:00 03/12/17 14:59 Sodium Chloride (NS) 1,000 ml @ 1,000 mls/hr Q1H STAT IV 03/11/17 16:20 03/11/17 17:19 Procedures/MDM EKG #1 read by me: Rate/Rhythm: Couplets at a normal rate Intervals: Normal Impression: Couplets without ischemia EKG #2 read by me: Rate/Rhythm: Regular rate and rhythm at a normal rate Intervals: Normal Impression: No evidence of ischemia or arrhythmia PROCEDURE: XR Chest. CLINICAL INDICATION: Chest pain TECHNIQUE: Chest AP portable. COMPARISON: 02/04/2017 FINDINGS: The mediastinal structures are unremarkable. There is calcification of the thoracic aorta (consistent with atherosclerosis). There is mild cardiomegaly. There is mild pulmonary venous hypertension. No consolidation is identified. The pleural spaces are unremarkable. There are senescent changes of the axial skeleton. IMPRESSION: Mild cardiomegaly. Mild pulmonary venous hypertension. No infiltrates identified RPTAT: HGDB .Ruddy Hyman MD, MD Date Time Electronically viewed and signed by .Ruddy Hyman MD, on 03/11/2017 13:55 Patient is an 86-year-old female presents with shortness of breath. I believe she likely has pulmonary edema as she has had this in the past. The patient was given Lasix. She was found to have acute hyperkalemia as well with a potassium of 6.4 and she was treated with insulin, glucose, Kayexalate, bicarbonate, and albuterol. The patient will be admitted to a telemetry bed under the care of Dr. Sparks. The patient did drop her blood pressure transiently and was given 1 L of normal saline for fluid resuscitation. The patient is a poor prognosis given her age and comorbidities. Critical Care: Time: 35 minutes excluding all billable procedures. Treatments/Evaluations: Close monitoring and treatment of unstable vital signs, cardiorespiratory, and neurologic status, while maintaining tight balance of fluid, respiratory, and cardiac interventions. Departure Diagnosis: Primary Impression: Shortness of breath Additional Impressions: CHF (congestive heart failure) Qualified Code: I50.9 - Acute congestive heart failure, unspecified congestive heart failure type Hyperkalemia Anemia Qualified Code: D64.9 - Anemia, unspecified type Renal failure Condition: Serious CRISTINA CERON MD March 11, 2017 16:33
[2017-03-11] MEDS ORDERED: NA PHOSPHATE/BIPHOS 133 ML ENEMA PR PRN (18:00)
[2017-03-11] MEDS ORDERED: HYDROCODONE/APAP (5/325) TAB PO PRN (18:00)
[2017-03-11] MEDS ORDERED: ZOLPIDEM 5 MG TAB PO PRN (18:00)
--- NOTE | 2017-03-11 18:26 | QN ---
Documentation Comment [id number] LEILA SPARKS MD March 11, 2017 18:26
[2017-03-11] MEDS ORDERED: DOCUSATE SODIUM 100 MG CAP PO PRN (18:30)
[2017-03-11] MEDS ORDERED: MAGNESIUM HYDROXIDE 30ML CUP PO PRN (18:30)
[2017-03-11] MEDS ORDERED: NACL 0.9% 3 ML SYG IV SCH (18:30)
[2017-03-11 19:13] VITALS: BP 108/52; PULSE 72; RESP 18
[2017-03-11 19:20] VITALS: BP 108/52; RESP 18
[2017-03-11 19:29] VITALS: Ht 157.5 cm; Wt 75.2 kg
[2017-03-11 20:18] LABS: POTASSIUM 3.9 mmol/L (3.5-5.1)
[2017-03-11 20:21] LABS: CREATININE 1.26 mg/dl (0.44-1.00)
[2017-03-11 20:22] LABS: CALCIUM 9.2 mg/dl (8.4-10.2)
[2017-03-11 20:24] LABS: CREATINE KINASE < 20 IU/L (23-200)
[2017-03-11 20:33] VITALS: PULSE 75
[2017-03-11 20:36] LABS: CK-MB 0.41 ng/ml (0.0-2.4); TROPONIN-I 0.015 ng/ml (0.00-0.12)
[2017-03-11] MEDS: FLUTICASONE 0.05% 16 GM NAS SPRAY NASAL SCH (21:00)
[2017-03-11] MEDS ORDERED: GLUCAGON 1 MG INJ IM PRN (21:15)
[2017-03-11] MEDS ORDERED: GLUCOSE GEL 15 GRAM TUBE PO PRN ×2 (21:15)
[2017-03-11] MEDS ORDERED: GLUCOSE GEL 15 GRAM TUBE BUCCAL PRN (21:15)
[2017-03-11] MEDS: ALBUTEROL/IPRATROPIUM (NEB) 3 ML AMP HHN SCH (21:22)
[2017-03-11] MEDS: MONTELUKAST 10 MG TAB PO SCH (22:00)
[2017-03-11] MEDS: GABAPENTIN 300 MG CAP PO SCH (22:21)
[2017-03-11] MEDS: SOD CHLORIDE 0.9% 1,000 ML IV SCH (22:21)
[2017-03-11] MEDS: METHYLPREDNISOLONE 40 MG INJ IV SCH (22:22)
[2017-03-11] MEDS: INSULIN ASPART [NOVOLOG] 3 ML PEN SC SCH (22:33)
[2017-03-11] MEDS: INSULIN GLARGINE [LANtus] 3 ML PEN SC SCH (23:56)
[2017-03-12] VITALS (12 sets, daily range): BP systolic 101–135; BP diastolic 50–61; PULSE 76–94; RESP 15–18
[2017-03-12 01:12] LABS: CREATINE KINASE < 20 IU/L (23-200)
[2017-03-12 01:21] LABS: CK-MB 0.37 ng/ml (0.0-2.4); TROPONIN-I 0.015 ng/ml (0.00-0.12)
[2017-03-12] MEDS: ALBUTEROL/IPRATROPIUM (NEB) 3 ML AMP HHN SCH ×4 (01:37→20:00)
[2017-03-12] MEDS: ACCU-CHEK XX SCH (02:00)
[2017-03-12] MEDS ORDERED: ACCU-CHEK XX SCH (02:00)
[2017-03-12] MEDS ORDERED: PANTOPRAZOLE 40 MG INJ IV SCH (06:00)
[2017-03-12] MEDS: FUROSEMIDE 20 MG TAB PO SCH ×2 (06:03→17:30)
--- NOTE | 2017-03-12 07:34 | HP ---
DATE OF ADMISSION: 03/11/2017 HISTORY OF PRESENT ILLNESS: The patient is an 86-year-old female with history of bladder cancer, un derwent radiation treatment. The patient was discharged from this hospital previously with a diagno sis of COPD exacerbation, congestive heart failure, azotemia, atherosclerotic heart disease, bladder cancer, recently was also at [facility] with a similar diagnosis, sent home to a skilled nursing and now presents with low blood pressure, short of breath, cough and swelling of the face, pos sibly steroid induced. The patient was seen by Dr. Ruiz To and sent here for further managemen t. PAST MEDICAL HISTORY: Positive for history of bladder cancer, status post TURBT, history of chemora diation with 5-FU and mitomycin. The patient has a history of pneumonia, bronchitis, CHF, COPD. Th e patient has diffuse pulmonary fibrotic changes in the lungs. The patient's other diagnoses includ es the patient has anemia. The patient's other diagnoses include the patient has ejection fraction 55% to 60%, mild mitral wall regurgitation. The patient has pulmonary hypertension, a history of SV T, history of diastolic congestive heart failure, pulmonary fibrosis. ALLERGY HISTORY: NEGATIVE. FAMILY HISTORY: Negative. SOCIAL HISTORY: Negative. MEDICATION HISTORY: The patient is on: 1. Hydrocodone. 2. Bisacodyl. 3. Docusate sodium. 4. Pepcid. 5. Fluticasone. 6. Lasix. 7. Gabapentin. 8. Ibuprofen. 9. Linzess. 10. Loratadine. 11. Singulair. 12. Promethazine. 13. ____. 14. Ambien. REVIEW OF SYSTEMS: HEENT: Unremarkable. RESPIRATORY: Short of breath, cough. CARDIOVASCULAR: No chest pain, palpitation. ABDOMEN: Dyspepsia. EXTREMITIES: No swelling. CENTRAL NERVOUS SYSTEM: Unremarkable. PHYSICAL EXAMINATION: GENERAL: The patient is an anasarcic looking female with fernandez facies. VITAL SIGNS: Pulse 82, blood pressure of 80/58, repeat ____. HEAD: Atraumatic, normocephalic. Pupils are equal, reactive. The patient ____ icterus. NECK: Supple. LUNGS: Clear anteriorly with a few rhonchi at bases. CARDIOVASCULAR: S1, S2 are normal. ABDOMEN: Soft, nontender. Bowel sounds present. No palpable masses. EXTREMITIES: There is no cyanosis, clubbing, or edema. CENTRAL NERVOUS SYSTEM: The patient is awake and alert with no focal deficit. LABORATORY DATA: WBC 10.3, hematocrit 34, platelet count of 208. Sodium 130, potassium 6.4, BUN 61 , creatinine 1.42. IMPRESSION: 1. The patient has chronic obstructive pulmonary disease exacerbation. 2. Hyperkalemia. 3. Prerenal azotemia. 4. Underlying chronic kidney disease. 5. Hypotension, asymptomatic. 6. Fernandez facies. 7. The patient has diastolic heart failure history. 8. Incomplete database. 9. ____. 10. Mild pulmonary venous hypertension. PLAN: At this point is to continue home medication. Hold BP medication for low blood pressure. Br onchodilator. The patient will have gentle IV fluids if needed. Steroid will be continued. Orders were done. Dictated By: LEILA SPARKS MD BS/NTS Conf#: [id number] DID#: [id number] CC: LEILA SPARKS MD;*EndCC*
[2017-03-12] MEDS: GABAPENTIN 300 MG CAP PO SCH ×3 (09:17→21:22)
[2017-03-12] MEDS: FAMOTIDINE 20 MG TAB PO SCH (09:17)
[2017-03-12] MEDS: METHYLPREDNISOLONE 40 MG INJ IV SCH ×2 (09:17→21:22)
[2017-03-12] MEDS: LORATADINE 10 MG TAB PO SCH (09:17)
[2017-03-12] MEDS: INSULIN ASPART [NOVOLOG] 3 ML PEN SC SCH ×7 (09:22→21:00)
[2017-03-12] MEDS: ENOXAPARIN 30 MG/0.3 ML SYG SC SCH (09:22)
[2017-03-12] MEDS: FLUTICASONE 0.05% 16 GM NAS SPRAY NASAL SCH ×3 (12:00→21:23)
[2017-03-12 12:03] LABS: ADD SCAN DIFF NO
[2017-03-12 12:14] LABS: ABNORMAL IP MESSAGE 1; BASOPHILS % 0.1 % (0.0-2.0); EOSINOPHILS % 0.1 % (0.0-7.0); HEMATOCRIT 29.4 % (37.0-47.0); HEMOGLOBIN 9.6 g/dl (12.0-16.0); LYMPHOCYTES # 0.3 10^3/ul (0.8-2.9); LYMPHOCYTES % 4.5 % (15.0-51.0); MEAN CORPUSCULAR HEMOGLOBIN 31.9 pg (29.0-33.0); MEAN CORPUSCULAR HGB CONC 32.7 g/dl (32.0-37.0); MEAN CORPUSCULAR VOLUME 97.7 fl (82.0-101.0); MEAN PLATELET VOLUME 9.5 fl (7.4-10.4); MONOCYTE # 0.2 10^3/ul (0.3-0.9); NEUTROPHIL # 6.9 10^3/ul (1.6-7.5); NEUTROPHILS % 90.7 % (39.0-77.0); PLATELET COUNT 189 10^3/UL (140-415); RED BLOOD COUNT 3.01 10^6/ul (4.20-5.40); RED CELL DISTRIBUTION WIDTH 18.5 % (11.5-14.5); WHITE BLOOD COUNT 7.6 10^3/ul (4.8-10.8)
--- NOTE | 2017-03-12 12:31 | PN ---
Date/Time of Note Date/Time of Note DATE: 03/12/17 TIME: 12:30 Assessment/Plan VTE Prophylaxis VTE Prophylaxis Intervention: SCD's Lines/Catheters IV Catheter Type (from [facility] [place]): Saline Lock Urinary Cath still in place: No Assessment/Plan Chief Complaint/Hosp Course 1. COPD. 2. Hyperkalemia. 3. Prerenal azotemia. 4. Underlying chronic kidney disease. 5. Hypotension, asymptomatic. 6. Fernandez facies. 7. The patient has diastolic heart failure history. 8. Incomplete database. 9. ____. 10. Mild pulmonary venous hypertension Problems: Assessment/Plan 1. Continue breathing treatment 2. Dr Poole to consult, called 3. Continue diuretics Subjective 24 Hr Interval Summary Constitutional: requiring O2 Eyes: no complaints ENT: no complaints Respiratory: shortness of breath Cardiovascular: edema, lightheadedness, palpitations Gastrointestinal: no complaints Genitourinary: no complaints Musculoskeletal: no complaints Exam/Review of Systems Vital Signs Vitals Vital Signs Date Time Temp Pulse Resp B/P Pulse Ox O2 Delivery O2 Flow Rate FiO2 03/12/17 12:18 85 03/12/17 11:16 98.2 18 106/61 97 03/12/17 08:08 Nasal Cannula 3.0 Intake and Output 03/11/17 03/11/17 03/12/17 15:00 23:00 07:00 Intake Total 240 ml Balance 240 ml Exam Constitutional: alert, oriented Head: normocephalic Eyes: nl conjunctiva ENMT: nl external ears & nose Neck: supple Respiratory: diminished breath sounds, labored breathing Cardiovascular: regular rate and rhythm Gastrointestinal: soft Genitourinary - Female: nl external genitalia Musculoskeletal: nl extremities to inspection Extremities: edema Results Result Diagram: 03/12/17 1136 03/11/171955 Results 24 hrs Laboratory Tests Test 03/11/17 13:25 03/11/17 14:18 03/11/17 19:46 03/11/17 19:56 White Blood Count 10.3 # Red Blood Count 3.51 L Hemoglobin 10.9 L Hematocrit 34.0 #L Mean Corpuscular Volume 96.9 Mean Corpuscular Hemoglobin 31.1 Mean Corpuscular Hemoglobin Concent 32.1 Red Cell Distribution Width 18.1 H Platelet Count 208 Mean Platelet Volume 9.0 Neutrophils % 86.6 H Lymphocytes % 8.0 L Monocytes % 2.8 Eosinophils % 0.1 Basophils % 0.1 Nucleated Red Blood Cells % 0.0 Neutrophils # 9.0 H Lymphocytes # 0.8 Monocytes # 0.3 Eosinophils # 0.0 Basophils # 0.0 Nucleated Red Blood Cells # 0.0 Prothrombin Time 12.0 L Prothrombin Time Ratio 0.9 INR International Normalized Ratio 0.89 Activated Partial Thromboplast Time 22.6 L Sodium Level 130 L 134 L Potassium Level 6.4 *H 3.9 # Chloride Level 89 L 89 L Carbon Dioxide Level 33 H 33 H Anion Gap 14 16 Blood Urea Nitrogen 61 H 56 H Creatinine 1.42 H 1.26 H Glucose Level 156 253 H Calcium Level 9.9 9.2 Troponin I 0.018 0.015 Bedside Glucose 184 244 H Creatine Kinase < 20 L Creatine Kinase Index Creatinine Kinase MB (Mass) 0.41 Test 03/11/17 22:24 03/12/17 00:25 03/12/17 02:21 03/12/17 08:36 Bedside Glucose 318 H 184 244 H Creatine Kinase < 20 L Creatine Kinase Index Creatinine Kinase MB (Mass) 0.37 Troponin I 0.015 Test 03/12/17 11:36 White Blood Count 7.6 # Red Blood Count 3.01 L Hemoglobin 9.6 L Hematocrit 29.4 L Mean Corpuscular Volume 97.7 Mean Corpuscular Hemoglobin 31.9 Mean Corpuscular Hemoglobin Concent 32.7 Red Cell Distribution Width 18.5 H Platelet Count 189 Mean Platelet Volume 9.5 Neutrophils % 90.7 H Lymphocytes % 4.5 L Monocytes % 3.0 Eosinophils % 0.1 Basophils % 0.1 Nucleated Red Blood Cells % 0.0 Neutrophils # 6.9 Lymphocytes # 0.3 L Monocytes # 0.2 L Eosinophils # 0.0 Basophils # 0.0 Nucleated Red Blood Cells # 0.0 Medications Medications Current Medications Dextrose (D50w Syringe) ONCE PRN IV POC BLOOD GLUCOSE <250 MG/DL Last administered on 03/11/17t 14:19; Admin Dose 50 ML; Start 03/11/17 at 14:30 Bisacodyl (Dulcolax) 5 mg DAILY PRN PO CONSTIPATION; Start 03/11/17 at 18:00 Promethazine HCl/ Dextromethorphan (Phenergan-Dm) 5 ml Q6H PRN PO COUGH; Start 03/11/17 at 18:00 Docusate Sodium (Colace) 100 mg Q12H PRN PO CONSTIPATION; Start 03/11/17 at 18: 00 Famotidine (Pepcid) 20 mg DAILY PO Last administered on 03/12/17 09:17; Admin Dose 20 MG; Start 03/12/17 at 09:00 Fluticasone Propionate (Flonase 0.05% Nasal) 1 spray BID NASAL ; Start 03/11/17 at 21:00 Gabapentin (Neurontin) 300 mg TID PO Last administered on 03/12/17 09:17; Admin Dose 300 MG; Start 03/11/17 at 22:00 Acetaminophen/ Hydrocodone Bitart ([place] (5/325)) 1 tab Q6H PRN PO MODERATE PAIN LEVEL 4-6; Start 03/11/17 at 18:00 Loratadine (Claritin) 10 mg DAILY PO Last administered on 03/12/17 09:17; Admin Dose 10 MG; Start 03/12/17 at 09:00 Montelukast Sodium (Singulair) 10 mg QHS PO ; Start 03/11/17 at 22:00 Sodium Biphosphate/ Sodium Phosphate (Fleet Enema) 133 ml DAILY PRN [place] CONSTIPATION; Start 03/11/17 at 18:00 Zolpidem Tartrate 2.5 mg 2.5 mg QHS PRN PO SLEEP; Start 03/11/17 at 18:00 Sodium Chloride (NS) 1,000 ml @ 30 mls/hr Q24H IV Last administered on 22:21; Admin Dose 30 MLS/HR; Start 03/11/17 at 22:00 Ondansetron HCl (Zofran Inj) 4 mg Q6H PRN IV NAUSEA AND/OR VOMITING; Start at 18:30 Acetaminophen (Tylenol Tab) 650 mg Q6H PRN PO PAIN LEVEL 1-3 OR FEVER; Start at 18:30 Magnesium Hydroxide (Milk Of Mag) 30 ml DAILY PRN PO CONSTIPATION; Start at 18:30 Pantoprazole (Protonix Iv) 40 mg DAILY@06 IV Last administered on 03/12/17 06: 03; Admin Dose 40 MG; Start 03/12/17 at 06:00 Enoxaparin Sodium (Lovenox) 30 mg DAILY SC Last administered on 03/12/17 09:22 ; Admin Dose 30 MG; Start 03/12/17 at 09:00 Methylprednisolone Sodium Succinate (Solu-Medrol) 20 mg BID IV Last administered on 03/12/17 09:17; Admin Dose 20 MG; Start 03/11/17 at 21:00 Diagnostic Test (Pha) (Accu-Chek) 1 ea 02 XX ; Start 03/12/17 at 02:00 Miscellaneous Information 1 ea NOTE XX ; Start 03/11/17 at 21:15 Glucose (Glutose) 15 gm Q15M PRN PO DECREASED GLUCOSE; Start 03/11/17 at 21:15 Glucose (Glutose) 22.5 gm Q15M PRN PO DECREASED GLUCOSE; Start 03/11/17 at 21: 15 Dextrose (D50w Syringe) 25 ml Q15M PRN IV DECREASED GLUCOSE; Start 03/11/17 at 21:15 Dextrose (D50w Syringe) 50 ml Q15M PRN IV DECREASED GLUCOSE; Start 03/11/17 at 21:15 Glucagon (Glucagen) 1 mg Q15M PRN IM DECREASED GLUCOSE; Start 03/11/17 at 21:15 Glucose (Glutose) 15 gm Q15M PRN BUCCAL DECREASED GLUCOSE; Start 03/11/17 at 21 :15 Insulin Glargine (Lantus) 20 unit DAILY@20 SC Last administered on 03/11/17 23 :56; Admin Dose 20 UNIT; Start 03/11/17 at 23:00 JIM ESTRADA March 12, 2017 12:31
[2017-03-12 12:39] LABS: ALBUMIN 3.1 g/dl (3.3-4.9); ALBUMIN/GLOBULIN RATIO 1.14; CALCIUM 8.8 mg/dl (8.4-10.2); CREATININE 1.01 mg/dl (0.44-1.00); POTASSIUM 4.5 mmol/L (3.5-5.1); TOTAL PROTEIN 5.8 g/dl (6.1-8.1)
--- NOTE | 2017-03-12 16:23 | CONS ---
Date/Time of Note Date/Time of Note DATE: 03/12/17 TIME: 16:22 Assessment/Plan Assessment/Plan Chief Complaint/Hosp Course The patient is an 86 year old woman with bladder cancer s/p TURBT 09/29/16, status post chemoradiation with 5FU/mitomycin with radiation completed 02/03/17, recently admitted for pneumonia/bronchitis/CHF exacerbation, as well as CHF/ COPD exacerbation, now readmitted with CHF/COPD exacerbation - Continue treatment for CHF/COPD, with diuretics, steroids, breathing treatments per primary team. Awaiting cardiology recs. Unlikely to be related to bladder cancer. - CT chest 01/22/17 showed 1. Diffuse pulmonary fibrotic changes again seen which has not changed significantly. 2. Decrease bilateral lower lobe air space disease with residual medial right lower lobe air space disease. - 02/04/17 LE dopplers negative for DVT, LE edema likely 2/2 CHF exacerbation - She was supposed to have a cystoscopy performed by Dr. Morfin on 03/03/17 to evaluate response to chemoradiation, however cystoscopy was deferred by Dr. Morfin because the patient was on oxygen and he was worried about procedural complications due to her respiratory status. Per Dr. Morfin, if patient's respiratory status is improved next week after discharged, he can perform cystoscopy. Please ensure follow-up with Dr. Morfin upon discharge. - Patient needs to follow-up with Dr. Gillis (radiation oncology) upon discharge - Patient needs outpatient follow-up with pulmonary and cardiology upon discharge. She has repeatedly admitted from my clinic for complaints unrelated to her bladder cancer and her respiratory status has impaired her ability to obtain a cystoscopy by Dr. Morfin to evaluate response to treatment. - Patient should follow-up with me upon discharge Problems: Consultation Date/Type/Reason Admit Date/Time March 11, 2017 at 14:48 Date of Consultation: March 12, 2017 Type of Consultation: Oncology Reason for Consultation Bladder cancer Hx of Present Illness The patient is an 86 year old female with DM, CHF, HTN who had presented with hematuria s/p cystoscopy and TURBT 09/29/16 consistent with high grade invasive urothelial carcinoma, status post chemoradiation with 5FU/mitomycin (begun ) with 20% dose reduction due to age (12/14/7-01/05/17), with concurrent radiation completed 02/03/17. Outpatient CXR 12/25/16 had shown chronic obstructive pulmonary disease with chronic type changes int he left lower lobe. Prior CT chest had shown pulmonary fibrosis from 09/2016. The patient has had multiple recent admissions for pneumonia, bronchitis, CHF and COPD exacerbations, most most recently 02/04/17. CXR 03/11/17 demonstrates mild pulmonary venous hypertension. When I saw her in clinic on 03/11/17, she was reporting increased shortness of breath on oxygen, significantly worse than before, with BP 83/54. I sent her to the ER for admission. She was supposed to have follow-up with cardiology but has not been seen by a firer retort as an outpatient. As for her bladder cancer, she was supposed to have a cystoscopy performed by Dr. Morfin on 03/03/17 to evaluate response to chemoradiation, however cystoscopy was deferred by Dr. Morfin because the patient was on oxygen and he was worried about procedural complications due to her respiratory status. The patient states that since admission, her breathing is slightly improved. Past Medical History CHF, DM, HTN, bladder cancer Family History Significant Family History: no pertinent family hx Social History Alcohol Use: none Smoking Status: Never smoker Constitutional: requiring O2 Eyes: no complaints ENT: no complaints Respiratory: shortness of breath Cardiovascular: edema, lightheadedness, palpitations Gastrointestinal: no complaints Genitourinary: no complaints Musculoskeletal: no complaints Social History Smoking Status: Never smoker Exam/Review of Systems Vital Signs Vitals Vital Signs Date Time Temp Pulse Resp B/P Pulse Ox O2 Delivery O2 Flow Rate FiO2 03/12/17 15:25 98.0 98 16 113/59 95 03/12/17 14:26 3.0 03/12/17 14:26 Nasal Cannula Intake and Output 03/11/17 03/11/17 03/12/17 15:00 23:00 07:00 Intake Total 240 ml Balance 240 ml Exam Constitutional: alert, oriented Head: normocephalic Eyes: nl conjunctiva ENMT: nl external ears & nose Neck: supple Respiratory: diminished breath sounds, labored breathing Cardiovascular: regular rate and rhythm Gastrointestinal: soft Genitourinary - Female: nl external genitalia Musculoskeletal: nl extremities to inspection Extremities: edema Results Result Diagram: 03/12/17 1136 03/12/17 1136 Results 24 hrs Laboratory Tests Test 03/11/17 19:46 03/11/17 19:56 03/11/17 22:24 03/12/17 00:25 Bedside Glucose 244 H 318 H Sodium Level 134 L Potassium Level 3.9 # Chloride Level 89 L Carbon Dioxide Level 33 H Anion Gap 16 Blood Urea Nitrogen 56 H Creatinine 1.26 H Glucose Level 253 H Calcium Level 9.2 Creatine Kinase < 20 L < 20 L Creatine Kinase Index Creatinine Kinase MB (Mass) 0.41 0.37 Troponin I 0.015 0.015 Test 03/12/17 02:21 03/12/17 08:36 03/12/17 11:36 03/12/17 13:04 Bedside Glucose 184 244 H 196 White Blood Count 7.6 # Red Blood Count 3.01 L Hemoglobin 9.6 L Hematocrit 29.4 L Mean Corpuscular Volume 97.7 Mean Corpuscular Hemoglobin 31.9 Mean Corpuscular Hemoglobin Concent 32.7 Red Cell Distribution Width 18.5 H Platelet Count 189 Mean Platelet Volume 9.5 Neutrophils % 90.7 H Lymphocytes % 4.5 L Monocytes % 3.0 Eosinophils % 0.1 Basophils % 0.1 Nucleated Red Blood Cells % 0.0 Neutrophils # 6.9 Lymphocytes # 0.3 L Monocytes # 0.2 L Eosinophils # 0.0 Basophils # 0.0 Nucleated Red Blood Cells # 0.0 Sodium Level 134 L Potassium Level 4.5 Chloride Level 91 L Carbon Dioxide Level 36 H Anion Gap 12 Blood Urea Nitrogen 47 H Creatinine 1.01 H Glucose Level 208 Calcium Level 8.8 Total Bilirubin 0.0 L Direct Bilirubin 0.00 Indirect Bilirubin 0.0 Aspartate Amino Transf (AST/SGOT) 18 Alanine Aminotransferase (ALT/SGPT) 33 Alkaline Phosphatase 53 Total Protein 5.8 L Albumin 3.1 L Globulin 2.70 Albumin/Globulin Ratio 1.14 Medications Medications Current Medications Dextrose (D50w Syringe) ONCE PRN IV POC BLOOD GLUCOSE <250 MG/DL Last administered on 03/11/17t 14:19; Admin Dose 50 ML; Start 03/11/17 at 14:30 Bisacodyl (Dulcolax) 5 mg DAILY PRN PO CONSTIPATION; Start 03/11/17 at 18:00 Promethazine HCl/ Dextromethorphan (Phenergan-Dm) 5 ml Q6H PRN PO COUGH; Start 03/11/17 at 18:00 Docusate Sodium (Colace) 100 mg Q12H PRN PO CONSTIPATION; Start 03/11/17 at 18: 00 Famotidine (Pepcid) 20 mg DAILY PO Last administered on 03/12/17 09:17; Admin Dose 20 MG; Start 03/12/17 at 09:00 Fluticasone Propionate (Flonase 0.05% Nasal) 1 spray BID NASAL ; Start 03/11/17 at 21:00 Gabapentin (Neurontin) 300 mg TID PO Last administered on 03/12/17 13:07; Admin Dose 300 MG; Start 03/11/17 at 22:00 Acetaminophen/ Hydrocodone Bitart ([place] (5/325)) 1 tab Q6H PRN PO MODERATE PAIN LEVEL 4-6; Start 03/11/17 at 18:00 Loratadine (Claritin) 10 mg DAILY PO Last administered on 03/12/17 09:17; Admin Dose 10 MG; Start 03/12/17 at 09:00 Montelukast Sodium (Singulair) 10 mg QHS PO ; Start 03/11/17 at 22:00 Sodium Biphosphate/ Sodium Phosphate (Fleet Enema) 133 ml DAILY PRN [place] CONSTIPATION; Start 03/11/17 at 18:00 Zolpidem Tartrate 2.5 mg 2.5 mg QHS PRN PO SLEEP; Start 03/11/17 at 18:00 Sodium Chloride (NS) 1,000 ml @ 30 mls/hr Q24H IV Last administered on 22:21; Admin Dose 30 MLS/HR; Start 03/11/17 at 22:00 Ondansetron HCl (Zofran Inj) 4 mg Q6H PRN IV NAUSEA AND/OR VOMITING; Start at 18:30 Acetaminophen (Tylenol Tab) 650 mg Q6H PRN PO PAIN LEVEL 1-3 OR FEVER; Start at 18:30 Magnesium Hydroxide (Milk Of Mag) 30 ml DAILY PRN PO CONSTIPATION; Start at 18:30 Enoxaparin Sodium (Lovenox) 30 mg DAILY SC Last administered on 03/12/17 09:22 ; Admin Dose 30 MG; Start 03/12/17 at 09:00 Methylprednisolone Sodium Succinate (Solu-Medrol) 20 mg BID IV Last administered on 03/12/17 09:17; Admin Dose 20 MG; Start 03/11/17 at 21:00 Diagnostic Test (Pha) (Accu-Chek) 1 ea 02 XX ; Start 03/12/17 at 02:00 Miscellaneous Information 1 ea NOTE XX ; Start 03/11/17 at 21:15 Glucose (Glutose) 15 gm Q15M PRN PO DECREASED GLUCOSE; Start 03/11/17 at 21:15 Glucose (Glutose) 22.5 gm Q15M PRN PO DECREASED GLUCOSE; Start 03/11/17 at 21: 15 Dextrose (D50w Syringe) 25 ml Q15M PRN IV DECREASED GLUCOSE; Start 03/11/17 at 21:15 Dextrose (D50w Syringe) 50 ml Q15M PRN IV DECREASED GLUCOSE; Start 03/11/17 at 21:15 Glucagon (Glucagen) 1 mg Q15M PRN IM DECREASED GLUCOSE; Start 03/11/17 at 21:15 Glucose (Glutose) 15 gm Q15M PRN BUCCAL DECREASED GLUCOSE; Start 03/11/17 at 21 :15 Insulin Glargine (Lantus) 20 unit DAILY@20 SC Last administered on 03/11/17 23 :56; Admin Dose 20 UNIT; Start 03/11/17 at 23:00 LILLIANA DSOUZA MD March 12, 2017 16:23
--- NOTE | 2017-03-12 17:05 | CONS ---
DATE OF ADMISSION: 03/11/2017 DATE OF CONSULTATION: 03/12/2017 REASON FOR CONSULTATION: Congestive heart failure. REQUESTING PHYSICIAN: Rodolfo Sparks MD HISTORY OF PRESENT ILLNESS: Ms. 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 Upon arrival, temper ature 97.5, blood pressure initially 92/60, pulse 59, respiratory rate 20, saturating 99%. [facility] ent's labs revealed a white blood cell count of 10.3, hemoglobin 10.9, platelet count of 208. Sodiu m 130, potassium 6.4, creatinine 1.42, BUN of 61. Troponin negative. INR of 0.89. The patient und erwent a chest x-ray, revealing mild cardiomegaly and mild pulmonary venous hypertension. [facility] revealed normal sinus rhythm, rate of 71, normal axis, inferior Q's, with non specific ST and T-wave abnormalities diffusely. The patient subsequently was admitted to the floor and since admit to the floor denies chest pain, but has ongoing shortness of breath. PAST MEDICAL HISTORY: As above in the HPI. MEDICATIONS CURRENTLY IN HOSPITAL: 1. Pepcid 20 mg daily. 2. Claritin 10 mg daily. 3. Lovenox 10 mg subcutaneous daily. 4. Insulin sliding scale. 5. Lasix 20 mg p.o. b.i.d. 6. Lantus. 7. Neurontin. 8. Singulair. 9. Flonase. 10. Solu-Medrol 20 mg IV b.i.d. 11. Insulin sliding scale. 12. DuoNeb. ALLERGIES: NO KNOWN DRUG ALLERGIES. SOCIAL HISTORY: No tobacco, ETOH or illicit drug use. FAMILY HISTORY: No history of sudden cardiac or early CAD. REVIEW OF SYSTEMS: As above in the HPI. CONSTITUTIONAL: No fevers or chills. PULMONARY: Shortness of breath. CARDIOVASCULAR: No current chest pain. Positive congestive heart failure. GASTROINTESTINAL: No vomiting. GENITOURINARY: No hematuria. MUSCULOSKELETAL: Degenerative joint disease. PSYCHIATRIC: The patient denies depression. NEUROLOGIC: No documented history of CVA. ENDOCRINE: No documented history of thyroid disease. Positive for diabetes mellitus. PHYSICAL EXAMINATION: VITAL SIGNS: Temperature of 98, blood pressure 113/59, pulse 98, respirations 16, saturating 95%. GENERAL: The patient is alert, awake, complaining of shortness of breath. NECK: JVP approximately 9 cm of water. CHEST: Upper airway has transmitted rhonchorous sounds. Mildly decreased breath sounds at the base s bilaterally. HEART: Regular rate and rhythm. Normal S1. Increased S2. A I/ systolic murmur, nondisplaced PMI . ABDOMEN: Positive bowel sounds, soft. EXTREMITIES: No pitting edema. 1+ pulses bilaterally, posterior tibial. LABORATORY: As above in the HPI, with most recent from today: Sodium 134, potassium of 4.5, creatin ine 1.0, BUN of 47. Troponin negative times a total of 3. White cell count 7.6, hemoglobin 9.6, pl atelet count of 189. IMAGING STUDIES: As above in the HPI. No further imaging studies for my review at this time. ECG: As above in the HPI. No further electrocardiograms for my review at this time. IMPRESSION: 1. Congestive heart failure. By most recent echo in January 2017 would be diastolic, acute on chroni c. 2. Hypertension. Acute on chronic. 3. Hypotension. Improving. 4. Shortness of breath, likely multifactorial, with contribution of heart failure, as well as a his tory of pulmonary fibrosis. 5. Facial swelling. 6. Diabetes mellitus, with hyperglycemia. 7. Hyponatremia. 8. Renal failure. Improving. 9. Anemia. RECOMMENDATIONS: 1. At this time, would maintain the patient on telemetry monitoring to follow rhythm and rates clos raza. 2. Would check serial EKGs to assess for significant ongoing changes, and EKG in the morning. EKG f or complaints of chest pain or changes in rhythm. 3. Follow the patient's blood pressure closely off of antihypertensives at this time and continue t he patient's gentle Lasix diuresis, following strict I's and O's and creatinine to diuresis cl osely. 4. Continue the patient's current steroids at this time, bronchodilators and follow closely for any recurrent SVTs, and if found to have those, would likely switch to alternative bronchodilators such as Xopenex. 5. Continue the patient's Lantus and adjust insulin therapy as necessary. 6. Follow up all culture data. Thank you for allowing me to take part in the care of this patient. I will continue to follow along very closely with you, with further recommendations to be made as the patient progresses through [facility] inpatient hospital clinical course. Dictated By: THOMAS FRYE/LEONARD Conf#: [id number] DID#: [id number] CC: RODOLFO SPARKS MD;*EndCC*
[2017-03-12] MEDS: MONTELUKAST 10 MG TAB PO SCH (21:22)
[2017-03-12] MEDS: INSULIN GLARGINE [LANtus] 3 ML PEN SC SCH (21:33)
[2017-03-12] MEDS: SOD CHLORIDE 0.9% 1,000 ML IV SCH (22:45)
[2017-03-13] VITALS (13 sets, daily range): BP systolic 101–129; BP diastolic 51–69; PULSE 68–174; RESP 17–19
[2017-03-13] MEDS: ACCU-CHEK XX SCH (02:00)
[2017-03-13] MEDS: ALBUTEROL/IPRATROPIUM (NEB) 3 ML AMP HHN SCH ×4 (02:00→19:36)
[2017-03-13] MEDS: FUROSEMIDE 20 MG TAB PO SCH ×2 (06:10→18:12)
[2017-03-13 08:18] LABS: ADD SCAN DIFF NO
[2017-03-13 08:20] LABS: ABNORMAL IP MESSAGE 1; BASOPHILS % 0.2 % (0.0-2.0); HEMATOCRIT 28.2 % (37.0-47.0); HEMOGLOBIN 8.9 g/dl (12.0-16.0); LYMPHOCYTES # 0.5 10^3/ul (0.8-2.9); LYMPHOCYTES % 7.6 % (15.0-51.0); MEAN CORPUSCULAR HEMOGLOBIN 30.7 pg (29.0-33.0); MEAN CORPUSCULAR HGB CONC 31.6 g/dl (32.0-37.0); MEAN CORPUSCULAR VOLUME 97.2 fl (82.0-101.0); MEAN PLATELET VOLUME 9.4 fl (7.4-10.4); MONOCYTE # 0.3 10^3/ul (0.3-0.9); MONOCYTES % 5.5 % (0.0-11.0); NEUTROPHIL # 5.2 10^3/ul (1.6-7.5); NEUTROPHILS % 84.3 % (39.0-77.0); PLATELET COUNT 174 10^3/UL (140-415); RED CELL DISTRIBUTION WIDTH 18.6 % (11.5-14.5); WHITE BLOOD COUNT 6.2 10^3/ul (4.8-10.8)
[2017-03-13] MEDS: LORATADINE 10 MG TAB PO SCH (08:30)
[2017-03-13] MEDS: METHYLPREDNISOLONE 40 MG INJ IV SCH ×2 (08:30→20:01)
[2017-03-13] MEDS: FAMOTIDINE 20 MG TAB PO SCH (08:30)
[2017-03-13] MEDS: GABAPENTIN 300 MG CAP PO SCH ×3 (08:30→20:01)
[2017-03-13] MEDS: ENOXAPARIN 30 MG/0.3 ML SYG SC SCH (08:31)
[2017-03-13] MEDS: INSULIN ASPART [NOVOLOG] 3 ML PEN SC SCH ×7 (08:39→20:20)
[2017-03-13 08:45] LABS: CHOL/HDL RATIO 1.8 RATIO
[2017-03-13] MEDS: FLUTICASONE 0.05% 16 GM NAS SPRAY NASAL SCH ×2 (09:00→20:02)
--- NOTE | 2017-03-13 10:38 | RADRPT ---
Vent Rate: 60 bpm RR Interval: 0 msec OH Interval: 132 msec QRS Duration: 82 msec QT Interval: 400 msec QTC Interval: 400 msec P-R-T Gilchrist: 41 - 58 - 49 degrees Sinus rhythm with marked sinus arrhythmia Otherwise normal ECG Electronically Signed By: Alsysa Cui [id number]
--- NOTE | 2017-03-13 12:14 | PN ---
Date/Time of Note Date/Time of Note DATE: 03/13/17 TIME: 12:12 Assessment/Plan VTE Prophylaxis VTE Prophylaxis Intervention: SCD's Lines/Catheters IV [facility] Peripheral IV Urinary Cath still in place: No Assessment/Plan Chief Complaint/Hosp Course 1. COPD., better 2. Hyperkalemia. 3. Prerenal azotemia. 4. Underlying chronic kidney disease. 5. Hypotension, asymptomatic. 6. Fernandez facies. 7. The patient has diastolic heart failure history. 8. Mild pulmonary venous hypertension Problems: Assessment/Plan 1. PT evaluation for mobility 2. Continue oxygen treatment Subjective 24 Hr Interval Summary Constitutional: improved, no complaints Eyes: no complaints ENT: no complaints Cardiovascular: lightheadedness Genitourinary: no complaints Exam/Review of Systems Vital Signs Vitals Vital Signs Date Time Temp Pulse Resp B/P Pulse Ox O2 Delivery O2 Flow Rate FiO2 03/13/17 12:10 82 03/13/17 11:34 97.9 19 101/51 98 03/13/17 08:07 Nasal Cannula 3.0 Intake and Output 03/12/17 03/12/17 03/13/17 15:00 23:00 07:00 Intake Total 900 ml 320 ml Balance 900 ml 320 ml Exam Constitutional: alert, obese Psych: no complaints Head: atraumatic, normocephalic ENMT: nl external ears & nose Neck: supple Respiratory: diminished breath sounds Cardiovascular: regular rate and rhythm Gastrointestinal: soft Results Result Diagram: 03/13/17 0745 03/12/17 1136 Results 24 hrs Laboratory Tests Test 03/12/17 13:04 03/12/17 17:29 03/12/17 21:20 03/13/17 07:45 Bedside Glucose 196 192 118 White Blood Count 6.2 Red Blood Count 2.90 L Hemoglobin 8.9 L Hematocrit 28.2 L Mean Corpuscular Volume 97.2 Mean Corpuscular Hemoglobin 30.7 Mean Corpuscular Hemoglobin Concent 31.6 L Red Cell Distribution Width 18.6 H Platelet Count 174 Mean Platelet Volume 9.4 Neutrophils % 84.3 H Lymphocytes % 7.6 L Monocytes % 5.5 Eosinophils % 0.0 Basophils % 0.2 Nucleated Red Blood Cells % 0.0 Neutrophils # 5.2 Lymphocytes # 0.5 L Monocytes # 0.3 Eosinophils # 0.0 Basophils # 0.0 Nucleated Red Blood Cells # 0.0 Triglycerides Level 75 Cholesterol Level 163 LDL Cholesterol, Calculated 58 HDL Cholesterol 90 Cholesterol/HDL Ratio 1.8 Test 03/13/17 07:54 Bedside Glucose 172 Medications Medications Current Medications Dextrose (D50w Syringe) ONCE PRN IV POC BLOOD GLUCOSE <250 MG/DL Last administered on 03/11/17 14:19; Admin Dose 50 ML; Start 03/11/17 at 14:30 Bisacodyl (Dulcolax) 5 mg DAILY PRN PO CONSTIPATION; Start 03/11/17 at 18:00 Promethazine HCl/ Dextromethorphan (Phenergan-Dm) 5 ml Q6H PRN PO COUGH; Start 03/11/17 at 18:00 Docusate Sodium (Colace) 100 mg Q12H PRN PO CONSTIPATION; Start 03/11/17 at 18: 00 Famotidine (Pepcid) 20 mg DAILY PO Last administered on 03/13/17 08:30; Admin Dose 20 MG; Start 03/12/17 at 09:00 Fluticasone Propionate (Flonase 0.05% Nasal) 1 spray BID NASAL ; Start 03/11/17 at 21:00 Gabapentin (Neurontin) 300 mg TID PO Last administered on 03/13/17 08:30; Admin Dose 300 MG; Start 03/11/17 at 22:00 Acetaminophen/ Hydrocodone Bitart ([place] (5/325)) 1 tab Q6H PRN PO MODERATE PAIN LEVEL 4-6; Start 03/11/17 at 18:00 Loratadine (Claritin) 10 mg DAILY PO Last administered on 03/13/17 08:30; Admin Dose 10 MG; Start 03/12/17 at 09:00 Montelukast Sodium (Singulair) 10 mg QHS PO Last administered on 03/12/17 21: 22; Admin Dose 10 MG; Start 03/11/17 at 22:00 Sodium Biphosphate/ Sodium Phosphate (Fleet Enema) 133 ml DAILY PRN [place] CONSTIPATION; Start 03/11/17 at 18:00 Zolpidem Tartrate 2.5 mg 2.5 mg QHS PRN PO SLEEP; Start 03/11/17 at 18:00 Sodium Chloride (NS) 1,000 ml @ 30 mls/hr Q24H IV Last administered on 22:45; Admin Dose 30 MLS/HR; Start 03/11/17 at 22:00 Ondansetron HCl (Zofran Inj) 4 mg Q6H PRN IV NAUSEA AND/OR VOMITING; Start at 18:30 Acetaminophen (Tylenol Tab) 650 mg Q6H PRN PO PAIN LEVEL 1-3 OR FEVER; Start at 18:30 Magnesium Hydroxide (Milk Of Mag) 30 ml DAILY PRN PO CONSTIPATION; Start at 18:30 Enoxaparin Sodium (Lovenox) 30 mg DAILY SC Last administered on 03/13/17 08:31 ; Admin Dose 30 MG; Start 03/12/17 at 09:00 Methylprednisolone Sodium Succinate (Solu-Medrol) 20 mg BID IV Last administered on 03/13/17 08:30; Admin Dose 20 MG; Start 03/11/17 at 21:00 Diagnostic Test (Pha) (Accu-Chek) 1 ea 02 XX ; Start 03/12/17 at 02:00 Miscellaneous Information 1 ea NOTE XX ; Start 03/11/17 at 21:15 Glucose (Glutose) 15 gm Q15M PRN PO DECREASED GLUCOSE; Start 03/11/17 at 21:15 Glucose (Glutose) 22.5 gm Q15M PRN PO DECREASED GLUCOSE; Start 03/11/17 at 21: 15 Dextrose (D50w Syringe) 25 ml Q15M PRN IV DECREASED GLUCOSE; Start 03/11/17 at 21:15 Dextrose (D50w Syringe) 50 ml Q15M PRN IV DECREASED GLUCOSE; Start 03/11/17 at 21:15 Glucagon (Glucagen) 1 mg Q15M PRN IM DECREASED GLUCOSE; Start 03/11/17 at 21:15 Glucose (Glutose) 15 gm Q15M PRN BUCCAL DECREASED GLUCOSE; Start 03/11/17 at 21 :15 Insulin Glargine (Lantus) 20 unit DAILY@20 SC Last administered on 03/12/17 21 :33; Admin Dose 20 UNIT; Start 03/11/17 at 23:00 JIM ESTRADA March 13, 2017 12:14
[2017-03-13] MEDS ORDERED: hydrALAzine 20 MG INJ IV PRN (14:30)
[2017-03-13] MEDS ORDERED: MAGNESIUM SULFATE 2 GM/50 ML 50 ML IVPB ONE (15:30)
--- NOTE | 2017-03-13 15:51 | CONS ---
Date/Time of Note Date/Time of Note DATE: 03/13/17 TIME: 15:46 Assessment/Plan Assessment/Plan Additional Assessment/Plan Acute exacerbation of congestive heart failure Hypertension Hyperlipidemia Diabetes Dementia SVT likely atrial tachycardia or AVNR Hemodynamically stable CXR shows mild congestion Restrict fluids 1500cc/ 24 hours Continue Lasix Started low dose Metoprolol Started Lipitor Continue Insulin Continue GI and DVT Prophylaix Consultation Date/Type/Reason Admit Date/Time March 11, 2017 at 14:48 Constitutional: improved, no complaints Eyes: no complaints ENT: no complaints Respiratory: shortness of breath Cardiovascular: lightheadedness Gastrointestinal: no complaints Genitourinary: no complaints Musculoskeletal: no complaints Psychological: no complaints Social History Smoking Status: Never smoker Exam/Review of Systems Vital Signs Vitals Vital Signs Date Time Temp Pulse Resp B/P Pulse Ox O2 Delivery O2 Flow Rate FiO2 03/13/17 13:23 72 18 95 Nasal Cannula 3.0 03/13/17 11:34 97.9 101/51 Intake and Output 03/12/17 03/12/17 03/13/17 15:00 23:00 07:00 Intake Total 900 ml 320 ml Balance 900 ml 320 ml Exam Constitutional: alert, oriented, well developed Head: atraumatic, normocephalic Neck: non-tender, supple Respiratory: diminished breath sounds Cardiovascular: regular rate and rhythm Gastrointestinal: nl liver, spleen, non-tender, soft Extremities: edema, normal pulses Results Result Diagram: 03/13/17 0745 03/12/17 1136 Results 24 hrs Laboratory Tests Test 03/12/17 17:29 03/12/17 21:20 03/13/17 07:45 03/13/17 07:54 Bedside Glucose 192 118 172 White Blood Count 6.2 Red Blood Count 2.90 L Hemoglobin 8.9 L Hematocrit 28.2 L Mean Corpuscular Volume 97.2 Mean Corpuscular Hemoglobin 30.7 Mean Corpuscular Hemoglobin Concent 31.6 L Red Cell Distribution Width 18.6 H Platelet Count 174 Mean Platelet Volume 9.4 Neutrophils % 84.3 H Lymphocytes % 7.6 L Monocytes % 5.5 Eosinophils % 0.0 Basophils % 0.2 Nucleated Red Blood Cells % 0.0 Neutrophils # 5.2 Lymphocytes # 0.5 L Monocytes # 0.3 Eosinophils # 0.0 Basophils # 0.0 Nucleated Red Blood Cells # 0.0 Triglycerides Level 75 Cholesterol Level 163 LDL Cholesterol, Calculated 58 HDL Cholesterol 90 Cholesterol/HDL Ratio 1.8 Test 03/13/17 12:36 Bedside Glucose 222 H Medications Medications Current Medications Dextrose (D50w Syringe) ONCE PRN IV POC BLOOD GLUCOSE <250 MG/DL Last administered on 03/11/17 14:19; Admin Dose 50 ML; Start 03/11/17 at 14:30 Bisacodyl (Dulcolax) 5 mg DAILY PRN PO CONSTIPATION; Start 03/11/17 at 18:00 Promethazine HCl/ Dextromethorphan (Phenergan-Dm) 5 ml Q6H PRN PO COUGH; Start 03/11/17 at 18:00 Docusate Sodium (Colace) 100 mg Q12H PRN PO CONSTIPATION; Start 03/11/17 at 18: 00 Famotidine (Pepcid) 20 mg DAILY PO Last administered on 03/13/17 08:30; Admin Dose 20 MG; Start 03/12/17 at 09:00 Fluticasone Propionate (Flonase 0.05% Nasal) 1 spray BID NASAL Last administered on 03/13/17 09:00; Admin Dose 1 SPRAY; Start 03/11/17 at 21:00 Gabapentin (Neurontin) 300 mg TID PO Last administered on 03/13/17 14:33; Admin Dose 300 MG; Start 03/11/17 at 22:00 Acetaminophen/ Hydrocodone Bitart ([place] (5/325)) 1 tab Q6H PRN PO MODERATE PAIN LEVEL 4-6; Start 03/11/17 at 18:00 Loratadine (Claritin) 10 mg DAILY PO Last administered on 03/13/17 08:30; Admin Dose 10 MG; Start 03/12/17 at 09:00 Montelukast Sodium (Singulair) 10 mg QHS PO Last administered on 03/12/17 21: 22; Admin Dose 10 MG; Start 03/11/17 at 22:00 Sodium Biphosphate/ Sodium Phosphate (Fleet Enema) 133 ml DAILY PRN [place] CONSTIPATION; Start 03/11/17 at 18:00 Zolpidem Tartrate 2.5 mg 2.5 mg QHS PRN PO SLEEP; Start 03/11/17 at 18:00 Sodium Chloride (NS) 1,000 ml @ 30 mls/hr Q24H IV Last administered on 22:45; Admin Dose 30 MLS/HR; Start 03/11/17 at 22:00 Ondansetron HCl (Zofran Inj) 4 mg Q6H PRN IV NAUSEA AND/OR VOMITING; Start at 18:30 Acetaminophen (Tylenol Tab) 650 mg Q6H PRN PO PAIN LEVEL 1-3 OR FEVER; Start at 18:30 Magnesium Hydroxide (Milk Of Mag) 30 ml DAILY PRN PO CONSTIPATION; Start at 18:30 Enoxaparin Sodium (Lovenox) 30 mg DAILY SC Last administered on 03/13/17 08:31 ; Admin Dose 30 MG; Start 03/12/17 at 09:00 Methylprednisolone Sodium Succinate (Solu-Medrol) 20 mg BID IV Last administered on 03/13/17 08:30; Admin Dose 20 MG; Start 03/11/17 at 21:00 Diagnostic Test (Pha) (Accu-Chek) 1 ea 02 XX ; Start 03/12/17 at 02:00 Miscellaneous Information 1 ea NOTE XX ; Start 03/11/17 at 21:15 Glucose (Glutose) 15 gm Q15M PRN PO DECREASED GLUCOSE; Start 03/11/17 at 21:15 Glucose (Glutose) 22.5 gm Q15M PRN PO DECREASED GLUCOSE; Start 03/11/17 at 21: 15 Dextrose (D50w Syringe) 25 ml Q15M PRN IV DECREASED GLUCOSE; Start 03/11/17 at 21:15 Dextrose (D50w Syringe) 50 ml Q15M PRN IV DECREASED GLUCOSE; Start 03/11/17 at 21:15 Glucagon (Glucagen) 1 mg Q15M PRN IM DECREASED GLUCOSE; Start 03/11/17 at 21:15 Glucose (Glutose) 15 gm Q15M PRN BUCCAL DECREASED GLUCOSE; Start 03/11/17 at 21 :15 Insulin Glargine 20 unit 20 unit DAILY@20 SC Last administered on 03/12/17 21: 33; Admin Dose 20 UNIT; Start 03/11/17 at 23:00 Magnesium Sulfate 50 ml @ 25 mls/hr ONCE ONCE IVPB ; Start 03/13/17 at 15:30; Stop 03/13/17 at 17:29 Potassium Chloride (KCl 40 MEQ/250 ML NS) 250 ml @ 62.5 mls/hr ONCE ONCE IVPB ; Start 03/13/17 at 16:00; Stop 03/13/17 at 19:59 RODERICK CHERRY M.D. March 13, 2017 15:51
[2017-03-13 15:57] LABS: ADD SCAN DIFF NO
[2017-03-13 15:59] LABS: ABNORMAL IP MESSAGE 1; BASOPHILS % 0.1 % (0.0-2.0); HEMATOCRIT 27.3 % (37.0-47.0); HEMOGLOBIN 8.8 g/dl (12.0-16.0); LYMPHOCYTES # 0.4 10^3/ul (0.8-2.9); LYMPHOCYTES % 6.3 % (15.0-51.0); MEAN CORPUSCULAR HEMOGLOBIN 31.8 pg (29.0-33.0); MEAN CORPUSCULAR HGB CONC 32.2 g/dl (32.0-37.0); MEAN CORPUSCULAR VOLUME 98.6 fl (82.0-101.0); MEAN PLATELET VOLUME 8.8 fl (7.4-10.4); MONOCYTE # 0.3 10^3/ul (0.3-0.9); MONOCYTES % 4.8 % (0.0-11.0); NEUTROPHIL # 5.8 10^3/ul (1.6-7.5); NEUTROPHILS % 86.3 % (39.0-77.0); PLATELET COUNT 158 10^3/UL (140-415); RED BLOOD COUNT 2.77 10^6/ul (4.20-5.40); RED CELL DISTRIBUTION WIDTH 18.6 % (11.5-14.5); WHITE BLOOD COUNT 6.7 10^3/ul (4.8-10.8)
[2017-03-13] MEDS ORDERED: POTASSIUM CHLORIDE 250 ML IVPB ONE (16:00)
[2017-03-13] MEDS: MONTELUKAST 10 MG TAB PO SCH (20:02)
[2017-03-13] MEDS: INSULIN GLARGINE [LANtus] 3 ML PEN SC SCH (20:08)
[2017-03-13] MEDS: ATORVASTATIN 20 MG TAB PO SCH (20:15)
[2017-03-13] MEDS: METOPROLOL 25 MG TAB PO SCH (20:15)
[2017-03-13] MEDS: SOD CHLORIDE 0.9% 1,000 ML IV SCH (22:00)
[2017-03-14] VITALS (12 sets, daily range): BP systolic 98–122; BP diastolic 55–65; PULSE 68–92; RESP 16–18
[2017-03-14] MEDS: ALBUTEROL/IPRATROPIUM (NEB) 3 ML AMP HHN SCH ×4 (02:09→19:46)
[2017-03-14] MEDS: ACCU-CHEK XX SCH (02:30)
[2017-03-14] MEDS: FUROSEMIDE 20 MG TAB PO SCH ×2 (05:46→17:24)
[2017-03-14] MEDS: INSULIN ASPART [NOVOLOG] 3 ML PEN SC SCH ×7 (08:00→20:51)
[2017-03-14] MEDS: FAMOTIDINE 20 MG TAB PO SCH (08:32)
[2017-03-14] MEDS: GABAPENTIN 300 MG CAP PO SCH ×3 (08:32→20:48)
[2017-03-14] MEDS: FLUTICASONE 0.05% 16 GM NAS SPRAY NASAL SCH ×2 (08:33→21:35)
[2017-03-14] MEDS: METOPROLOL 25 MG TAB PO SCH ×2 (08:33→20:49)
[2017-03-14] MEDS: METHYLPREDNISOLONE 40 MG INJ IV SCH ×2 (08:33→20:48)
[2017-03-14 08:44] LABS: POTASSIUM 4.9 mmol/L (3.5-5.1)
[2017-03-14] MEDS: ENOXAPARIN 30 MG/0.3 ML SYG SC SCH (08:45)
[2017-03-14 08:46] LABS: CREATININE 0.88 mg/dl (0.44-1.00)
[2017-03-14 08:47] LABS: CALCIUM 8.5 mg/dl (8.4-10.2)
[2017-03-14] MEDS: LORATADINE 10 MG TAB PO SCH (10:47)
--- NOTE | 2017-03-14 14:17 | CONS ---
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 The patient did receive radiation therapy and chemotherapy. She was not able to finish the radiation therapy and she has had recurrent episodes of congestive he art failure and she does have also a COPD exacerbation and the patient was admitted this time for [facility]. She did have the exacerbation of her congestive heart failure. The patient has been voiding an d she does have difficulty holding her urine; therefore, she has been using diapers to control her i ncontinence. The patient was due to have a cystoscopy, but when I saw her she was having difficulty breathing and she is on oxygen all the time and she is becoming more of wheelchair and bed-bound an d not able to walk and has difficulty breathing. Therefore, I did not do the cystoscopy on her and a couple of days later she was admitted to the hospital with congestive heart failure. PAST MEDICAL HISTORY: Again, includes congestive heart failure, diabetes mellitus, hypertension, an d the history of invasive bladder cancer. PAST SURGICAL HISTORY: The transurethral resection of the bladder tumor. SOCIAL HISTORY: Patient has never smoked. She does not drink alcohol and there is certainly no his tory of drug abuse on her. ALLERGIES: SHE HAS NO KNOWN DRUG ALLERGIES. MEDICATIONS: Presently, she is on: 1. Metoprolol. 2. Lipitor. 3. Pepcid. 4. Claritin. 5. Lovenox. 6. Insulin. 7. Lasix. 8. Neurontin. 9. Singulair. 10. Ipratropium bromide. 11. Albuterol. 12. Zofran p.r.n. 13. Milk of Magnesia p.r.n. 14. Dulcolax p.r.n. 15. Tylenol p.r.n. 16. Colace p.r.n. PHYSICAL EXAMINATION GENERAL: Reveals an elderly female. She weighs 75.2 kilograms. She is 62 inches tall. VITAL SIGNS: The temperature is 98.0, respirations 16, blood pressure 98/65, and pulse is 68. ABDOMEN: Obese. There is no abdominal mass palpable. LABORATORY DATA: Her CBC shows a white count of 6.7, hemoglobin 8.8, hematocrit 27.3. BUN is 37, c reatinine 0.88. Electrolytes are normal. The PT is 12.0, INR 0.89. IMPRESSION: History of invasive bladder tumor. The patient has undergone chemotherapy and radiatio n therapy that has not been completed because of her medical condition. PLAN: At the present, is to watch her and if, cardiology-wide, she is better, may consider while sh e is in the hospital to do the cystoscopy here and resect any bladder tumor that may be present into the bladder. I will follow her urological problem with you. I do thank you for allowing me to hel p in her care. Dictated By: FLORIN PATEL/LEONARD Conf#: [id number] DID#: [id number]
--- NOTE | 2017-03-14 14:31 | CONS ---
Date/Time of Note Date/Time of Note DATE: 03/14/17 TIME: 14:29 Assessment/Plan Assessment/Plan Additional Assessment/Plan Acute exacerbation of congestive heart failure Hypertension Hyperlipidemia Diabetes Dementia SVT likely atrial tachycardia or AVNR Hemodynamically stable CXR shows mild congestion Restrict fluids 1500cc/ 24 hours Continue Lasix Continue low dose Metoprolol Continue Lipitor Continue Insulin Continue GI and DVT Prophylaxis Consultation Date/Type/Reason Admit Date/Time March 11, 2017 at 14:48 Initial Consult Date 03/12/17 Type of Consultation: Oncology Exam/Review of Systems Vital Signs Vitals Vital Signs Date Time Temp Pulse Resp B/P Pulse Ox O2 Delivery O2 Flow Rate FiO2 03/14/17 14:08 59 20 99 Nasal Cannula 3.0 03/14/17 11:27 98.0 98/65 Intake and Output 03/13/17 03/13/17 03/14/17 15:00 23:00 07:00 Intake Total 650 ml 470 ml Balance 650 ml 470 ml Exam Constitutional: alert, oriented, well developed Head: atraumatic, normocephalic Neck: non-tender, supple Respiratory: diminished breath sounds Cardiovascular: regular rate and rhythm Gastrointestinal: nl liver, spleen, non-tender, soft Extremities: edema, normal pulses Results Result Diagram: 03/13/17 1550 03/14/17 0626 Results 24 hrs Laboratory Tests Test 03/13/17 15:50 03/13/17 18:00 03/13/17 20:04 03/14/17 06:26 White Blood Count 6.7 Red Blood Count 2.77 L Hemoglobin 8.8 L Hematocrit 27.3 L Mean Corpuscular Volume 98.6 Mean Corpuscular Hemoglobin 31.8 Mean Corpuscular Hemoglobin Concent 32.2 Red Cell Distribution Width 18.6 H Platelet Count 158 Mean Platelet Volume 8.8 Neutrophils % 86.3 H Lymphocytes % 6.3 L Monocytes % 4.8 Eosinophils % 0.0 Basophils % 0.1 Nucleated Red Blood Cells % 0.0 Neutrophils # 5.8 Lymphocytes # 0.4 L Monocytes # 0.3 Eosinophils # 0.0 Basophils # 0.0 Nucleated Red Blood Cells # 0.0 Bedside Glucose 181 179 Sodium Level 139 Potassium Level 4.9 Chloride Level 102 # Carbon Dioxide Level 37 H Anion Gap 5 L Blood Urea Nitrogen 37 H Creatinine 0.88 Glucose Level 146 # Calcium Level 8.5 Magnesium Level 2.3 Test 03/14/17 08:04 03/14/17 12:12 Bedside Glucose 139 239 H Medications Medications Current Medications Dextrose (D50w Syringe) ONCE PRN IV POC BLOOD GLUCOSE <250 MG/DL Last administered on 03/11/17 14:19; Admin Dose 50 ML; Start 03/11/17 at 14:30 Bisacodyl (Dulcolax) 5 mg DAILY PRN PO CONSTIPATION; Start 03/11/17 at 18:00 Promethazine HCl/ Dextromethorphan (Phenergan-Dm) 5 ml Q6H PRN PO COUGH; Start 03/11/17 at 18:00 Docusate Sodium (Colace) 100 mg Q12H PRN PO CONSTIPATION; Start 03/11/17 at 18: 00 Famotidine (Pepcid) 20 mg DAILY PO Last administered on 03/14/17 08:32; Admin Dose 20 MG; Start 03/12/17 at 09:00 Fluticasone Propionate (Flonase 0.05% Nasal) 1 spray BID NASAL Last administered on 03/14/17 08:33; Admin Dose 1 SPRAY; Start 03/11/17 at 21:00 Gabapentin (Neurontin) 300 mg TID PO Last administered on 03/14/17 12:58; Admin Dose 300 MG; Start 03/11/17 at 22:00 Acetaminophen/ Hydrocodone Bitart ([place] (5/325)) 1 tab Q6H PRN PO MODERATE PAIN LEVEL 4-6; Start 03/11/17 at 18:00 Loratadine (Claritin) 10 mg DAILY PO Last administered on 03/14/17 10:47; Admin Dose 10 MG; Start 03/12/17 at 09:00 Montelukast Sodium (Singulair) 10 mg QHS PO Last administered on 03/13/17 20: 02; Admin Dose 10 MG; Start 03/11/17 at 22:00 Sodium Biphosphate/ Sodium Phosphate (Fleet Enema) 133 ml DAILY PRN [place] CONSTIPATION; Start 03/11/17 at 18:00 Zolpidem Tartrate 2.5 mg 2.5 mg QHS PRN PO SLEEP; Start 03/11/17 at 18:00 Sodium Chloride (NS) 1,000 ml @ 30 mls/hr Q24H IV Last administered on 22:00; Admin Dose 30 MLS/HR; Start 03/11/17 at 22:00 Ondansetron HCl (Zofran Inj) 4 mg Q6H PRN IV NAUSEA AND/OR VOMITING; Start at 18:30 Acetaminophen (Tylenol Tab) 650 mg Q6H PRN PO PAIN LEVEL 1-3 OR FEVER; Start at 18:30 Magnesium Hydroxide (Milk Of Mag) 30 ml DAILY PRN PO CONSTIPATION; Start at 18:30 Enoxaparin Sodium (Lovenox) 30 mg DAILY SC Last administered on 03/14/17 08:45 ; Admin Dose 30 MG; Start 03/12/17 at 09:00 Methylprednisolone Sodium Succinate (Solu-Medrol) 20 mg BID IV Last administered on 03/14/17 08:33; Admin Dose 20 MG; Start 03/11/17 at 21:00 Diagnostic Test (Pha) (Accu-Chek) 1 ea 02 XX ; Start 03/12/17 at 02:00 Miscellaneous Information 1 ea NOTE XX ; Start 03/11/17 at 21:15 Glucose (Glutose) 15 gm Q15M PRN PO DECREASED GLUCOSE; Start 03/11/17 at 21:15 Glucose (Glutose) 22.5 gm Q15M PRN PO DECREASED GLUCOSE; Start 03/11/17 at 21: 15 Dextrose (D50w Syringe) 25 ml Q15M PRN IV DECREASED GLUCOSE; Start 03/11/17 at 21:15 Dextrose (D50w Syringe) 50 ml Q15M PRN IV DECREASED GLUCOSE; Start 03/11/17 at 21:15 Glucagon (Glucagen) 1 mg Q15M PRN IM DECREASED GLUCOSE; Start 03/11/17 at 21:15 Glucose (Glutose) 15 gm Q15M PRN BUCCAL DECREASED GLUCOSE; Start 03/11/17 at 21 :15 Insulin Glargine (Lantus) 20 unit DAILY@20 SC Last administered on 03/13/17 20 :08; Admin Dose 20 UNIT; Start 03/11/17 at 23:00 Metoprolol Tartrate (Lopressor) 12.5 mg BID PO Last administered on 03/14/17 08:33; Admin Dose 12.5 MG; Start 03/13/17 at 21:00 Atorvastatin Calcium (Lipitor) 20 mg HS PO Last administered on 03/13/17t 20:15 ; Admin Dose 20 MG; Start 03/13/17 at 21:00 RODERICK CHERRY M.D. March 14, 2017 14:31
--- NOTE | 2017-03-14 17:17 | PN ---
Date/Time of Note Date/Time of Note DATE: 03/14/17 TIME: 17:15 Assessment/Plan VTE Prophylaxis VTE Prophylaxis Intervention: other Lines/Catheters IV [facility] [place] Urinary Cath still in place: No Assessment/Plan Chief Complaint/Hosp Course COPD HTN ASHD HX CA BLADDER PLAN HHN STEROID Problems: Subjective 24 Hr Interval Summary Subjective hx not possible: other (SOB BETTER) Gastrointestinal: no complaints Genitourinary: no complaints Exam/Review of Systems Vital Signs Vitals Vital Signs Date Time Temp Pulse Resp B/P Pulse Ox O2 Delivery O2 Flow Rate FiO2 03/14/17 17:12 3.0 03/14/17 16:10 83 03/14/17 15:35 97.8 16 99/55 99 03/14/17 14:08 Nasal Cannula Intake and Output 03/13/17 03/13/17 03/14/17 15:00 23:00 07:00 Intake Total 650 ml 470 ml Balance 650 ml 470 ml Exam Respiratory: clear to auscultation Cardiovascular: regular rate and rhythm Gastrointestinal: soft Musculoskeletal: nl extremities to inspection Results Result Diagram: 03/13/17 1550 03/14/17 0626 Results 24 hrs Laboratory Tests Test 03/13/17 18:00 03/13/17 20:04 03/14/17 06:26 03/14/17 08:04 Bedside Glucose 181 179 139 Sodium Level 139 Potassium Level 4.9 Chloride Level 102 # Carbon Dioxide Level 37 H Anion Gap 5 L Blood Urea Nitrogen 37 H Creatinine 0.88 Glucose Level 146 # Calcium Level 8.5 Magnesium Level 2.3 Test 03/14/17 12:12 Bedside Glucose 239 H Medications Medications Current Medications Dextrose (D50w Syringe) ONCE PRN IV POC BLOOD GLUCOSE <250 MG/DL Last administered on 03/11/17t 14:19; Admin Dose 50 ML; Start 03/11/17 at 14:30 Bisacodyl (Dulcolax) 5 mg DAILY PRN PO CONSTIPATION; Start 03/11/17 at 18:00 Promethazine HCl/ Dextromethorphan (Phenergan-Dm) 5 ml Q6H PRN PO COUGH; Start 03/11/17 at 18:00 Docusate Sodium (Colace) 100 mg Q12H PRN PO CONSTIPATION; Start 03/11/17 at 18: 00 Famotidine (Pepcid) 20 mg DAILY PO Last administered on 03/14/17 08:32; Admin Dose 20 MG; Start 03/12/17 at 09:00 Fluticasone Propionate (Flonase 0.05% Nasal) 1 spray BID NASAL Last administered on 03/14/17 08:33; Admin Dose 1 SPRAY; Start 03/11/17 at 21:00 Gabapentin (Neurontin) 300 mg TID PO Last administered on 03/14/17 12:58; Admin Dose 300 MG; Start 03/11/17 at 22:00 Acetaminophen/ Hydrocodone Bitart ([place] (5/325)) 1 tab Q6H PRN PO MODERATE PAIN LEVEL 4-6; Start 03/11/17 at 18:00 Loratadine (Claritin) 10 mg DAILY PO Last administered on 03/14/17 10:47; Admin Dose 10 MG; Start 03/12/17 at 09:00 Montelukast Sodium (Singulair) 10 mg QHS PO Last administered on 03/13/17 20: 02; Admin Dose 10 MG; Start 03/11/17 at 22:00 Sodium Biphosphate/ Sodium Phosphate (Fleet Enema) 133 ml DAILY PRN [place] CONSTIPATION; Start 03/11/17 at 18:00 Zolpidem Tartrate 2.5 mg 2.5 mg QHS PRN PO SLEEP; Start 03/11/17 at 18:00 Sodium Chloride (NS) 1,000 ml @ 30 mls/hr Q24H IV Last administered on 22:00; Admin Dose 30 MLS/HR; Start 03/11/17 at 22:00 Ondansetron HCl (Zofran Inj) 4 mg Q6H PRN IV NAUSEA AND/OR VOMITING; Start at 18:30 Acetaminophen (Tylenol Tab) 650 mg Q6H PRN PO PAIN LEVEL 1-3 OR FEVER; Start at 18:30 Magnesium Hydroxide (Milk Of Mag) 30 ml DAILY PRN PO CONSTIPATION; Start at 18:30 Enoxaparin Sodium (Lovenox) 30 mg DAILY SC Last administered on 03/14/17 08:45 ; Admin Dose 30 MG; Start 03/12/17 at 09:00 Methylprednisolone Sodium Succinate (Solu-Medrol) 20 mg BID IV Last administered on 03/14/17 08:33; Admin Dose 20 MG; Start 03/11/17 at 21:00 Diagnostic Test (Pha) (Accu-Chek) 1 ea 02 XX ; Start 03/12/17 at 02:00 Miscellaneous Information 1 ea NOTE XX ; Start 03/11/17 at 21:15 Glucose (Glutose) 15 gm Q15M PRN PO DECREASED GLUCOSE; Start 03/11/17 at 21:15 Glucose (Glutose) 22.5 gm Q15M PRN PO DECREASED GLUCOSE; Start 03/11/17 at 21: 15 Dextrose (D50w Syringe) 25 ml Q15M PRN IV DECREASED GLUCOSE; Start 03/11/17 at 21:15 Dextrose (D50w Syringe) 50 ml Q15M PRN IV DECREASED GLUCOSE; Start 03/11/17 at 21:15 Glucagon (Glucagen) 1 mg Q15M PRN IM DECREASED GLUCOSE; Start 03/11/17 at 21:15 Glucose (Glutose) 15 gm Q15M PRN BUCCAL DECREASED GLUCOSE; Start 03/11/17 at 21 :15 Insulin Glargine (Lantus) 20 unit DAILY@20 SC Last administered on 03/13/17 20 :08; Admin Dose 20 UNIT; Start 03/11/17 at 23:00 Metoprolol Tartrate (Lopressor) 12.5 mg BID PO Last administered on 03/14/17 08:33; Admin Dose 12.5 MG; Start 03/13/17 at 21:00 Atorvastatin Calcium (Lipitor) 20 mg HS PO Last administered on 03/13/17 20:15 ; Admin Dose 20 MG; Start 03/13/17 at 21:00 LEILA SPARKS MD March 14, 2017 17:17
[2017-03-14] MEDS: ATORVASTATIN 20 MG TAB PO SCH (20:49)
[2017-03-14] MEDS: MONTELUKAST 10 MG TAB PO SCH (20:49)
[2017-03-14] MEDS: INSULIN GLARGINE [LANtus] 3 ML PEN SC SCH (20:53)
[2017-03-14] MEDS: SOD CHLORIDE 0.9% 1,000 ML IV SCH (23:30)
[2017-03-15] VITALS (12 sets, daily range): BP systolic 111–126; BP diastolic 56–61; PULSE 68–90; RESP 17–19
[2017-03-15] MEDS: ALBUTEROL/IPRATROPIUM (NEB) 3 ML AMP HHN SCH ×4 (01:29→19:39)
[2017-03-15] MEDS: ACCU-CHEK XX SCH (02:00)
[2017-03-15] MEDS: FUROSEMIDE 20 MG TAB PO SCH ×2 (05:49→17:31)
[2017-03-15] MEDS: INSULIN ASPART [NOVOLOG] 3 ML PEN SC SCH ×8 (08:53→21:26)
[2017-03-15] MEDS: FLUTICASONE 0.05% 16 GM NAS SPRAY NASAL SCH ×2 (09:14→21:00)
[2017-03-15] MEDS: METHYLPREDNISOLONE 40 MG INJ IV SCH ×2 (09:14→21:23)
[2017-03-15] MEDS: LORATADINE 10 MG TAB PO SCH (09:14)
[2017-03-15] MEDS: FAMOTIDINE 20 MG TAB PO SCH (09:14)
[2017-03-15] MEDS: GABAPENTIN 300 MG CAP PO SCH ×3 (09:14→21:22)
[2017-03-15] MEDS: METOPROLOL 25 MG TAB PO SCH ×2 (09:14→21:23)
[2017-03-15] MEDS: ENOXAPARIN 30 MG/0.3 ML SYG SC SCH (09:21)
--- NOTE | 2017-03-15 12:22 | PN ---
Date/Time of Note Date/Time of Note DATE: 03/15/17 TIME: 12:20 Assessment/Plan VTE Prophylaxis VTE Prophylaxis Intervention: ambulation Lines/Catheters IV [facility] (from [facility] Peripheral IV Urinary Cath still in place: No Assessment/Plan Chief Complaint/Hosp Course 1. COPD, better 2. Hyperkalemia. 3. Prerenal azotemia. 4. Underlying chronic kidney disease. 5. Hypotension, asymptomatic. 6. Fernandez facies. 7. The patient has diastolic heart failure history. 8. Mild pulmonary venous hypertension Problems: Assessment/Plan 1. Continue physical therapy 2. Continue br treatments Subjective 24 Hr Interval Summary Constitutional: improved, no complaints ENT: no complaints Respiratory: no complaints Cardiovascular: no complaints Gastrointestinal: no complaints Genitourinary: no complaints Exam/Review of Systems Vital Signs Vitals Vital Signs Date Time Temp Pulse Resp B/P Pulse Ox O2 Delivery O2 Flow Rate FiO2 03/15/17 12:09 68 03/15/17 11:49 98.4 18 125/57 97 03/15/17 08:39 Nasal Cannula 3.0 Intake and Output 03/14/17 03/14/17 03/15/17 15:00 23:00 07:00 Intake Total 720 ml 600 ml Balance 720 ml 600 ml Exam Constitutional: alert, oriented, well developed Psych: nl mood/affect, no complaints Neck: supple Respiratory: clear to auscultation Cardiovascular: regular rate and rhythm Results Result Diagram: 03/13/17 1550 03/14/17 0626 Results 24 hrs Laboratory Tests Test 03/14/17 17:20 03/14/17 20:45 03/15/17 07:46 03/15/17 12:12 Bedside Glucose 148 104 172 83 Medications Medications Current Medications Dextrose (D50w Syringe) ONCE PRN IV POC BLOOD GLUCOSE <250 MG/DL Last administered on 03/11/17t 14:19; Admin Dose 50 ML; Start 03/11/17 at 14:30 Bisacodyl (Dulcolax) 5 mg DAILY PRN PO CONSTIPATION; Start 03/11/17 at 18:00 Promethazine HCl/ Dextromethorphan (Phenergan-Dm) 5 ml Q6H PRN PO COUGH; Start 03/11/17 at 18:00 Docusate Sodium (Colace) 100 mg Q12H PRN PO CONSTIPATION; Start 03/11/17 at 18: 00 Famotidine (Pepcid) 20 mg DAILY PO Last administered on 03/15/17 09:14; Admin Dose 20 MG; Start 03/12/17 at 09:00 Fluticasone Propionate (Flonase 0.05% Nasal) 1 spray BID NASAL Last administered on 03/15/17 09:14; Admin Dose 1 SPRAY; Start 03/11/17 at 21:00 Gabapentin (Neurontin) 300 mg TID PO Last administered on 03/15/17 09:14; Admin Dose 300 MG; Start 03/11/17 at 22:00 Acetaminophen/ Hydrocodone Bitart ([place] (5/325)) 1 tab Q6H PRN PO MODERATE PAIN LEVEL 4-6; Start 03/11/17 at 18:00 Loratadine (Claritin) 10 mg DAILY PO Last administered on 03/15/17 09:14; Admin Dose 10 MG; Start 03/12/17 at 09:00 Montelukast Sodium (Singulair) 10 mg QHS PO Last administered on 03/14/17 20: 49; Admin Dose 10 MG; Start 03/11/17 at 22:00 Sodium Biphosphate/ Sodium Phosphate (Fleet Enema) 133 ml DAILY PRN [place] CONSTIPATION; Start 03/11/17 at 18:00 Zolpidem Tartrate 2.5 mg 2.5 mg QHS PRN PO SLEEP; Start 03/11/17 at 18:00 Sodium Chloride (NS) 1,000 ml @ 30 mls/hr Q24H IV Last administered on 23:30; Admin Dose 30 MLS/HR; Start 03/11/17 at 22:00 Ondansetron HCl (Zofran Inj) 4 mg Q6H PRN IV NAUSEA AND/OR VOMITING; Start at 18:30 Acetaminophen (Tylenol Tab) 650 mg Q6H PRN PO PAIN LEVEL 1-3 OR FEVER; Start at 18:30 Magnesium Hydroxide (Milk Of Mag) 30 ml DAILY PRN PO CONSTIPATION; Start at 18:30 Enoxaparin Sodium (Lovenox) 30 mg DAILY SC Last administered on 03/15/17 09:21 ; Admin Dose 30 MG; Start 03/12/17 at 09:00 Methylprednisolone Sodium Succinate (Solu-Medrol) 20 mg BID IV Last administered on 03/15/17 09:14; Admin Dose 20 MG; Start 03/11/17 at 21:00 Diagnostic Test (Pha) (Accu-Chek) 1 ea 02 XX ; Start 03/12/17 at 02:00 Miscellaneous Information 1 ea NOTE XX ; Start 03/11/17 at 21:15 Glucose (Glutose) 15 gm Q15M PRN PO DECREASED GLUCOSE; Start 03/11/17 at 21:15 Glucose (Glutose) 22.5 gm Q15M PRN PO DECREASED GLUCOSE; Start 03/11/17 at 21: 15 Dextrose (D50w Syringe) 25 ml Q15M PRN IV DECREASED GLUCOSE; Start 03/11/17 at 21:15 Dextrose (D50w Syringe) 50 ml Q15M PRN IV DECREASED GLUCOSE; Start 03/11/17 at 21:15 Glucagon (Glucagen) 1 mg Q15M PRN IM DECREASED GLUCOSE; Start 03/11/17 at 21:15 Glucose (Glutose) 15 gm Q15M PRN BUCCAL DECREASED GLUCOSE; Start 03/11/17 at 21 :15 Insulin Glargine (Lantus) 20 unit DAILY@20 SC Last administered on 03/14/17 20 :53; Admin Dose 20 UNIT; Start 03/11/17 at 23:00 Metoprolol Tartrate (Lopressor) 12.5 mg BID PO Last administered on 03/15/17 09:14; Admin Dose 12.5 MG; Start 03/13/17 at 21:00 Atorvastatin Calcium (Lipitor) 20 mg HS PO Last administered on 03/14/17 20:49 ; Admin Dose 20 MG; Start 03/13/17 at 21:00 JIM ESTRADA March 15, 2017 12:21
--- NOTE | 2017-03-15 12:38 | CONS ---
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 Anemia Hemodynamically stable Restrict fluids 1500cc/ 24 hours Continue Lasix Continue low dose Metoprolol Continue Lipitor Continue Insulin Continue GI and DVT Prophylaxis Monitor hemoglobin closely Consultation Date/Type/Reason Admit Date/Time March 11, 2017 at 14:48 Initial Consult Date 03/12/17 Type of Consultation: Oncology Exam/Review of Systems Vital Signs Vitals Vital Signs Date Time Temp Pulse Resp B/P Pulse Ox O2 Delivery O2 Flow Rate FiO2 03/15/17 12:09 68 03/15/17 11:49 98.4 18 125/57 97 03/15/17 08:39 Nasal Cannula 3.0 Intake and Output 03/14/17 03/14/17 03/15/17 15:00 23:00 07:00 Intake Total 720 ml 600 ml Balance 720 ml 600 ml Exam Constitutional: alert, oriented, well developed Head: atraumatic, normocephalic Neck: non-tender, supple Respiratory: diminished breath sounds Cardiovascular: regular rate and rhythm Gastrointestinal: nl liver, spleen, non-tender, soft Extremities: edema, normal pulses Results Result Diagram: 03/13/17 1550 03/14/17 0626 Results 24 hrs Laboratory Tests Test 03/14/17 17:20 03/14/17 20:45 03/15/17 07:46 03/15/17 12:12 Bedside Glucose 148 104 172 83 Medications Medications Current Medications Dextrose (D50w Syringe) ONCE PRN IV POC BLOOD GLUCOSE <250 MG/DL Last administered on 03/11/17 14:19; Admin Dose 50 ML; Start 03/11/17 at 14:30 Bisacodyl (Dulcolax) 5 mg DAILY PRN PO CONSTIPATION; Start 03/11/17 at 18:00 Promethazine HCl/ Dextromethorphan (Phenergan-Dm) 5 ml Q6H PRN PO COUGH; Start 03/11/17 at 18:00 Docusate Sodium (Colace) 100 mg Q12H PRN PO CONSTIPATION; Start 03/11/17 at 18: 00 Famotidine (Pepcid) 20 mg DAILY PO Last administered on 03/15/17 09:14; Admin Dose 20 MG; Start 03/12/17 at 09:00 Fluticasone Propionate (Flonase 0.05% Nasal) 1 spray BID NASAL Last administered on 03/15/17 09:14; Admin Dose 1 SPRAY; Start 03/11/17 at 21:00 Gabapentin (Neurontin) 300 mg TID PO Last administered on 03/15/17 09:14; Admin Dose 300 MG; Start 03/11/17 at 22:00 Acetaminophen/ Hydrocodone Bitart ([place] (5/325)) 1 tab Q6H PRN PO MODERATE PAIN LEVEL 4-6; Start 03/11/17 at 18:00 Loratadine (Claritin) 10 mg DAILY PO Last administered on 03/15/17 09:14; Admin Dose 10 MG; Start 03/12/17 at 09:00 Montelukast Sodium (Singulair) 10 mg QHS PO Last administered on 03/14/17 20: 49; Admin Dose 10 MG; Start 03/11/17 at 22:00 Sodium Biphosphate/ Sodium Phosphate (Fleet Enema) 133 ml DAILY PRN [place] CONSTIPATION; Start 03/11/17 at 18:00 Zolpidem Tartrate 2.5 mg 2.5 mg QHS PRN PO SLEEP; Start 03/11/17 at 18:00 Sodium Chloride (NS) 1,000 ml @ 30 mls/hr Q24H IV Last administered on 23:30; Admin Dose 30 MLS/HR; Start 03/11/17 at 22:00 Ondansetron HCl (Zofran Inj) 4 mg Q6H PRN IV NAUSEA AND/OR VOMITING; Start at 18:30 Acetaminophen (Tylenol Tab) 650 mg Q6H PRN PO PAIN LEVEL 1-3 OR FEVER; Start at 18:30 Magnesium Hydroxide (Milk Of Mag) 30 ml DAILY PRN PO CONSTIPATION; Start at 18:30 Enoxaparin Sodium (Lovenox) 30 mg DAILY SC Last administered on 03/15/17 09:21 ; Admin Dose 30 MG; Start 03/12/17 at 09:00 Methylprednisolone Sodium Succinate (Solu-Medrol) 20 mg BID IV Last administered on 03/15/17 09:14; Admin Dose 20 MG; Start 03/11/17 at 21:00 Diagnostic Test (Pha) (Accu-Chek) 1 ea 02 XX ; Start 03/12/17 at 02:00 Miscellaneous Information 1 ea NOTE XX ; Start 03/11/17 at 21:15 Glucose (Glutose) 15 gm Q15M PRN PO DECREASED GLUCOSE; Start 03/11/17 at 21:15 Glucose (Glutose) 22.5 gm Q15M PRN PO DECREASED GLUCOSE; Start 03/11/17 at 21: 15 Dextrose (D50w Syringe) 25 ml Q15M PRN IV DECREASED GLUCOSE; Start 03/11/17 at 21:15 Dextrose (D50w Syringe) 50 ml Q15M PRN IV DECREASED GLUCOSE; Start 03/11/17 at 21:15 Glucagon (Glucagen) 1 mg Q15M PRN IM DECREASED GLUCOSE; Start 03/11/17 at 21:15 Glucose (Glutose) 15 gm Q15M PRN BUCCAL DECREASED GLUCOSE; Start 03/11/17 at 21 :15 Insulin Glargine (Lantus) 20 unit DAILY@20 SC Last administered on 03/14/17 20 :53; Admin Dose 20 UNIT; Start 03/11/17 at 23:00 Metoprolol Tartrate (Lopressor) 12.5 mg BID PO Last administered on 03/15/17 09:14; Admin Dose 12.5 MG; Start 03/13/17 at 21:00 Atorvastatin Calcium (Lipitor) 20 mg HS PO Last administered on 03/14/17 20:49 ; Admin Dose 20 MG; Start 03/13/17 at 21:00 RODERICK CHERRY M.D. March 15, 2017 12:38
[2017-03-15] MEDS: MONTELUKAST 10 MG TAB PO SCH (21:22)
[2017-03-15] MEDS: ATORVASTATIN 20 MG TAB PO SCH (21:22)
[2017-03-15] MEDS: INSULIN GLARGINE [LANtus] 3 ML PEN SC SCH (21:25)
[2017-03-15] MEDS: SOD CHLORIDE 0.9% 1,000 ML IV SCH (22:00)
[2017-03-16] VITALS (12 sets, daily range): BP systolic 94–138; BP diastolic 53–65; PULSE 60–114; RESP 17–19
[2017-03-16] MEDS: ACCU-CHEK XX SCH (02:00)
[2017-03-16] MEDS: ALBUTEROL/IPRATROPIUM (NEB) 3 ML AMP HHN SCH ×4 (02:02→19:33)
[2017-03-16] MEDS: FUROSEMIDE 20 MG TAB PO SCH ×2 (06:18→17:20)
[2017-03-16] MEDS: INSULIN ASPART [NOVOLOG] 3 ML PEN SC SCH ×7 (08:00→21:55)
[2017-03-16 08:17] LABS: ADD SCAN DIFF NO
[2017-03-16 08:21] LABS: ABNORMAL IP MESSAGE 1; BASOPHILS % 0.2 % (0.0-2.0); EOSINOPHILS # 0.1 10^3/ul (0.0-0.5); HEMATOCRIT 31.8 % (37.0-47.0); HEMOGLOBIN 9.9 g/dl (12.0-16.0); LYMPHOCYTES # 0.6 10^3/ul (0.8-2.9); MEAN CORPUSCULAR HEMOGLOBIN 30.8 pg (29.0-33.0); MEAN CORPUSCULAR HGB CONC 31.1 g/dl (32.0-37.0); MEAN CORPUSCULAR VOLUME 99.1 fl (82.0-101.0); MEAN PLATELET VOLUME 9.3 fl (7.4-10.4); MONOCYTE # 0.3 10^3/ul (0.3-0.9); MONOCYTES % 6.7 % (0.0-11.0); NEUTROPHIL # 3.4 10^3/ul (1.6-7.5); NEUTROPHILS % 71.6 % (39.0-77.0); NUCLEATED RED BLOOD CELLS% 0.8 /100WBC (0.0-0.0); PLATELET COUNT 173 10^3/UL (140-415); RED BLOOD COUNT 3.21 10^6/ul (4.20-5.40); RED CELL DISTRIBUTION WIDTH 18.8 % (11.5-14.5); WHITE BLOOD COUNT 4.8 10^3/ul (4.8-10.8)
[2017-03-16 08:36] LABS: CREATININE 0.82 mg/dl (0.44-1.00); POTASSIUM 4.7 mmol/L (3.5-5.1)
[2017-03-16] MEDS: FAMOTIDINE 20 MG TAB PO SCH (09:03)
[2017-03-16] MEDS: GABAPENTIN 300 MG CAP PO SCH ×3 (09:03→21:43)
[2017-03-16] MEDS: LORATADINE 10 MG TAB PO SCH (09:03)
[2017-03-16] MEDS: METHYLPREDNISOLONE 40 MG INJ IV SCH ×2 (09:03→21:42)
[2017-03-16] MEDS: METOPROLOL 25 MG TAB PO SCH ×2 (09:04→21:43)
[2017-03-16] MEDS: FLUTICASONE 0.05% 16 GM NAS SPRAY NASAL SCH ×2 (09:06→21:45)
[2017-03-16] MEDS: ENOXAPARIN 30 MG/0.3 ML SYG SC SCH (09:06)
--- NOTE | 2017-03-16 10:21 | CONS ---
Date/Time of Note Date/Time of Note DATE: 03/16/17 TIME: 10:20 Assessment/Plan Assessment/Plan Additional Assessment/Plan 1. Congestive heart failure. By most recent echo in January 2017 would be diastolic, acute on chronic - con't gentle diuresis - better now. 2. Hypertension. Acute on chronic - stable, on meds. 3. Hypotension. Improving 4. Shortness of breath, likely multifactorial, with contribution of heart failure, as well as a history of pulmonary fibrosis - improved now. 5. Facial swelling. 6. Diabetes mellitus, with hyperglycemia - will keep euvolemic. 7. Hyponatremia. 8. Renal failure. Improving - avoid nephrotoxic meds. 9. Anemia. Consultation Date/Type/Reason Admit Date/Time March 11, 2017 at 14:48 Initial Consult Date 03/12/17 Type of Consultation: Oncology 24 HR Interval Summary Free Text/Dictation NO acute events - BP in good range - con't gentle diuresis. ROS: No fever, no chills, no nausea, no vomiting, no diarrhea/constipation No recent weight changes No chest pain, no PND, no orthopnea No dizziness, blurred vision No thirst, no heat or cold intolerance Exam/Review of Systems Vital Signs Vitals Vital Signs Date Time Temp Pulse Resp B/P Pulse Ox O2 Delivery O2 Flow Rate FiO2 03/16/17 08:33 83 18 97 Nasal Cannula 2.0 03/16/17 03:56 98.2 138/60 Intake and Output 03/15/17 03/15/17 03/16/17 15:00 23:00 07:00 Intake Total 1160 ml 300 ml Balance 1160 ml 300 ml Exam General: WN/WD/NAD, AOx 2-3 spaish HEENT: Unicetric/atraumatic/EOMI ( follows commands) NECK: JVD elevated, no thyromegaly Lymph: no lymphadenopathy HEART: regular with no S3, II/ systolic murmur at apex LUNGS: Coarse sounds ABD: soft, NT, ND, +BS : Intact Neuro: non focal SKIN: chronic changes EXT: 1+ edema Results Result Diagram: 03/16/1772303/16/17 0724 Results 24 hrs Laboratory Tests Test 03/15/17 12:12 03/15/17 17:11 03/15/17 17:33 03/15/17 21:19 Bedside Glucose 83 67 L 88 204 Test 03/16/17 02:07 03/16/17 07:24 03/16/17 08:07 Bedside Glucose 118 83 White Blood Count 4.8 # Red Blood Count 3.21 L Hemoglobin 9.9 L Hematocrit 31.8 L Mean Corpuscular Volume 99.1 Mean Corpuscular Hemoglobin 30.8 Mean Corpuscular Hemoglobin Concent 31.1 L Red Cell Distribution Width 18.8 H Platelet Count 173 Mean Platelet Volume 9.3 Neutrophils % 71.6 Lymphocytes % 13.0 L Monocytes % 6.7 Eosinophils % 1.0 Basophils % 0.2 Nucleated Red Blood Cells % 0.8 H Neutrophils # 3.4 Lymphocytes # 0.6 L Monocytes # 0.3 Eosinophils # 0.1 Basophils # 0.0 Nucleated Red Blood Cells # 0.0 Sodium Level 137 Potassium Level 4.7 Chloride Level 99 Carbon Dioxide Level 34 H Anion Gap 9 Blood Urea Nitrogen 34 H Creatinine 0.82 Glucose Level 81 Calcium Level 9.0 Medications Medications Current Medications Dextrose (D50w Syringe) ONCE PRN IV POC BLOOD GLUCOSE <250 MG/DL Last administered on 03/11/17 14:19; Admin Dose 50 ML; Start 03/11/17 at 14:30 Bisacodyl (Dulcolax) 5 mg DAILY PRN PO CONSTIPATION; Start 03/11/17 at 18:00 Promethazine HCl/ Dextromethorphan (Phenergan-Dm) 5 ml Q6H PRN PO COUGH; Start 03/11/17 at 18:00 Docusate Sodium (Colace) 100 mg Q12H PRN PO CONSTIPATION; Start 03/11/17 at 18: 00 Famotidine (Pepcid) 20 mg DAILY PO Last administered on 03/16/17 09:03; Admin Dose 20 MG; Start 03/12/17 at 09:00 Fluticasone Propionate (Flonase 0.05% Nasal) 1 spray BID NASAL Last administered on 03/16/17 09:06; Admin Dose 1 SPRAY; Start 03/11/17 at 21:00 Gabapentin (Neurontin) 300 mg TID PO Last administered on 03/16/17 09:03; Admin Dose 300 MG; Start 03/11/17 at 22:00 Acetaminophen/ Hydrocodone Bitart ([place] (5/325)) 1 tab Q6H PRN PO MODERATE PAIN LEVEL 4-6; Start 03/11/17 at 18:00 Loratadine (Claritin) 10 mg DAILY PO Last administered on 03/16/17 09:03; Admin Dose 10 MG; Start 03/12/17 at 09:00 Montelukast Sodium (Singulair) 10 mg QHS PO Last administered on 03/15/17 21: 22; Admin Dose 10 MG; Start 03/11/17 at 22:00 Sodium Biphosphate/ Sodium Phosphate (Fleet Enema) 133 ml DAILY PRN [place] CONSTIPATION; Start 03/11/17 at 18:00 Zolpidem Tartrate 2.5 mg 2.5 mg QHS PRN PO SLEEP; Start 03/11/17 at 18:00 Sodium Chloride (NS) 1,000 ml @ 30 mls/hr Q24H IV Last administered on 22:00; Admin Dose 30 MLS/HR; Start 03/11/17 at 22:00 Ondansetron HCl (Zofran Inj) 4 mg Q6H PRN IV NAUSEA AND/OR VOMITING; Start at 18:30 Acetaminophen (Tylenol Tab) 650 mg Q6H PRN PO PAIN LEVEL 1-3 OR FEVER; Start at 18:30 Magnesium Hydroxide (Milk Of Mag) 30 ml DAILY PRN PO CONSTIPATION; Start at 18:30 Enoxaparin Sodium (Lovenox) 30 mg DAILY SC Last administered on 03/16/17 09:06 ; Admin Dose 30 MG; Start 03/12/17 at 09:00 Methylprednisolone Sodium Succinate (Solu-Medrol) 20 mg BID IV Last administered on 03/16/17 09:03; Admin Dose 20 MG; Start 03/11/17 at 21:00 Diagnostic Test (Pha) (Accu-Chek) 1 ea 02 XX ; Start 03/12/17 at 02:00 Miscellaneous Information 1 ea NOTE XX ; Start 03/11/17 at 21:15 Glucose (Glutose) 15 gm Q15M PRN PO DECREASED GLUCOSE; Start 03/11/17 at 21:15 Glucose (Glutose) 22.5 gm Q15M PRN PO DECREASED GLUCOSE; Start 03/11/17 at 21: 15 Dextrose (D50w Syringe) 25 ml Q15M PRN IV DECREASED GLUCOSE; Start 03/11/17 at 21:15 Dextrose (D50w Syringe) 50 ml Q15M PRN IV DECREASED GLUCOSE; Start 03/11/17 at 21:15 Glucagon (Glucagen) 1 mg Q15M PRN IM DECREASED GLUCOSE; Start 03/11/17 at 21:15 Glucose (Glutose) 15 gm Q15M PRN BUCCAL DECREASED GLUCOSE; Start 03/11/17 at 21 :15 Insulin Glargine (Lantus) 20 unit DAILY@20 SC Last administered on 03/15/17 21 :25; Admin Dose 20 UNIT; Start 03/11/17 at 23:00 Metoprolol Tartrate (Lopressor) 12.5 mg BID PO Last administered on 03/16/17 09:04; Admin Dose 12.5 MG; Start 03/13/17 at 21:00 Atorvastatin Calcium (Lipitor) 20 mg HS PO Last administered on 03/15/17 21:22 ; Admin Dose 20 MG; Start 03/13/17 at 21:00 AURELIANO ORTEGA MD March 16, 2017 10:21
--- NOTE | 2017-03-16 12:03 | CONS ---
Date/Time of Note Date/Time of Note DATE: 03/16/17 TIME: 11:58 Assessment/Plan Assessment/Plan Chief Complaint/Hosp Course The patient is an 86 year old woman with bladder cancer s/p TURBT 09/29/16, status post chemoradiation with 5FU/mitomycin with radiation completed 02/03/17, recently admitted for pneumonia/bronchitis/CHF exacerbation, as well as CHF/ COPD exacerbation, now readmitted with CHF/COPD exacerbation - Continue treatment for CHF/COPD, with diuretics, steroids, breathing treatments per primary team. Awaiting cardiology recs. Unlikely to be related to bladder cancer. - CT chest 01/22/17 showed 1. Diffuse pulmonary fibrotic changes again seen which has not changed significantly. 2. Decrease bilateral lower lobe air space disease with residual medial right lower lobe air space disease. - 02/04/17 LE dopplers negative for DVT, LE edema likely 2/2 CHF exacerbation - She was supposed to have a cystoscopy performed by Dr. Morfin on 03/03/17 to evaluate response to chemoradiation, however cystoscopy was deferred by Dr. Morfin because the patient was on oxygen and he was worried about procedural complications due to her respiratory status. Per Dr. Morfin, may consider while she is in the hospital to do the cystoscopy here and resect any bladder tumor that may be present into the bladder. - Patient needs to follow-up with Dr. Gillis (radiation oncology) upon discharge - Patient needs outpatient follow-up with pulmonary and cardiology upon discharge. She has repeatedly been admitted from my clinic for complaints unrelated to her bladder cancer and her respiratory status has impaired her ability to obtain a cystoscopy by Dr. Morfin to evaluate response to treatment. - Hgb fairly stable, will check iron panel, ferritin, B12/folate, LDH, retic count with a.m. labs - Patient should follow-up with me upon discharge Problems: Consultation Date/Type/Reason Admit Date/Time March 11, 2017 at 14:48 Initial Consult Date 03/12/17 Type of Consultation: Oncology 24 HR Interval Summary Free Text/Dictation Patient states that her breathing has improved. Exam/Review of Systems Vital Signs Vitals Vital Signs Date Time Temp Pulse Resp B/P Pulse Ox O2 Delivery O2 Flow Rate FiO2 03/16/17 08:33 83 18 97 Nasal Cannula 2.0 03/16/17 03:56 98.2 138/60 Intake and Output 03/15/17 03/15/17 03/16/17 15:00 23:00 07:00 Intake Total 1160 ml 300 ml Balance 1160 ml 300 ml Exam Constitutional: alert, oriented Head: normocephalic Eyes: nl conjunctiva ENMT: nl external ears & nose Neck: supple Respiratory: decreased crackles Cardiovascular: regular rate and rhythm Gastrointestinal: soft Genitourinary - Female: nl external genitalia Musculoskeletal: nl extremities to inspection Extremities: edema Results Result Diagram: 03/16/17 0724 03/16/17 0724 Results 24 hrs Laboratory Tests Test 03/15/17 12:12 03/15/17 17:11 03/15/17 17:33 03/15/17 21:19 Bedside Glucose 83 67 L 88 204 Test 03/16/17 02:07 03/16/17 07:24 03/16/17 08:07 Bedside Glucose 118 83 White Blood Count 4.8 # Red Blood Count 3.21 L Hemoglobin 9.9 L Hematocrit 31.8 L Mean Corpuscular Volume 99.1 Mean Corpuscular Hemoglobin 30.8 Mean Corpuscular Hemoglobin Concent 31.1 L Red Cell Distribution Width 18.8 H Platelet Count 173 Mean Platelet Volume 9.3 Neutrophils % 71.6 Lymphocytes % 13.0 L Monocytes % 6.7 Eosinophils % 1.0 Basophils % 0.2 Nucleated Red Blood Cells % 0.8 H Neutrophils # 3.4 Lymphocytes # 0.6 L Monocytes # 0.3 Eosinophils # 0.1 Basophils # 0.0 Nucleated Red Blood Cells # 0.0 Sodium Level 137 Potassium Level 4.7 Chloride Level 99 Carbon Dioxide Level 34 H Anion Gap 9 Blood Urea Nitrogen 34 H Creatinine 0.82 Glucose Level 81 Calcium Level 9.0 Medications Medications Current Medications Dextrose (D50w Syringe) ONCE PRN IV POC BLOOD GLUCOSE <250 MG/DL Last administered on 03/11/17t 14:19; Admin Dose 50 ML; Start 03/11/17 at 14:30 Bisacodyl (Dulcolax) 5 mg DAILY PRN PO CONSTIPATION; Start 03/11/17 at 18:00 Promethazine HCl/ Dextromethorphan (Phenergan-Dm) 5 ml Q6H PRN PO COUGH; Start 03/11/17 at 18:00 Docusate Sodium (Colace) 100 mg Q12H PRN PO CONSTIPATION; Start 03/11/17 at 18: 00 Famotidine (Pepcid) 20 mg DAILY PO Last administered on 03/16/17 09:03; Admin Dose 20 MG; Start 03/12/17 at 09:00 Fluticasone Propionate (Flonase 0.05% Nasal) 1 spray BID NASAL Last administered on 03/16/17 09:06; Admin Dose 1 SPRAY; Start 03/11/17 at 21:00 Gabapentin (Neurontin) 300 mg TID PO Last administered on 03/16/17 09:03; Admin Dose 300 MG; Start 03/11/17 at 22:00 Acetaminophen/ Hydrocodone Bitart ([place] (5/325)) 1 tab Q6H PRN PO MODERATE PAIN LEVEL 4-6; Start 03/11/17 at 18:00 Loratadine (Claritin) 10 mg DAILY PO Last administered on 03/16/17 09:03; Admin Dose 10 MG; Start 03/12/17 at 09:00 Montelukast Sodium (Singulair) 10 mg QHS PO Last administered on 03/15/17 21: 22; Admin Dose 10 MG; Start 03/11/17 at 22:00 Sodium Biphosphate/ Sodium Phosphate (Fleet Enema) 133 ml DAILY PRN [place] CONSTIPATION; Start 03/11/17 at 18:00 Zolpidem Tartrate 2.5 mg 2.5 mg QHS PRN PO SLEEP; Start 03/11/17 at 18:00 Sodium Chloride (NS) 1,000 ml @ 30 mls/hr Q24H IV Last administered on 22:00; Admin Dose 30 MLS/HR; Start 03/11/17 at 22:00 Ondansetron HCl (Zofran Inj) 4 mg Q6H PRN IV NAUSEA AND/OR VOMITING; Start at 18:30 Acetaminophen (Tylenol Tab) 650 mg Q6H PRN PO PAIN LEVEL 1-3 OR FEVER; Start at 18:30 Magnesium Hydroxide (Milk Of Mag) 30 ml DAILY PRN PO CONSTIPATION; Start at 18:30 Enoxaparin Sodium (Lovenox) 30 mg DAILY SC Last administered on 03/16/17 09:06 ; Admin Dose 30 MG; Start 03/12/17 at 09:00 Methylprednisolone Sodium Succinate (Solu-Medrol) 20 mg BID IV Last administered on 03/16/17 09:03; Admin Dose 20 MG; Start 03/11/17 at 21:00 Diagnostic Test (Pha) (Accu-Chek) 1 ea 02 XX ; Start 03/12/17 at 02:00 Miscellaneous Information 1 ea NOTE XX ; Start 03/11/17 at 21:15 Glucose (Glutose) 15 gm Q15M PRN PO DECREASED GLUCOSE; Start 03/11/17 at 21:15 Glucose (Glutose) 22.5 gm Q15M PRN PO DECREASED GLUCOSE; Start 03/11/17 at 21: 15 Dextrose (D50w Syringe) 25 ml Q15M PRN IV DECREASED GLUCOSE; Start 03/11/17 at 21:15 Dextrose (D50w Syringe) 50 ml Q15M PRN IV DECREASED GLUCOSE; Start 03/11/17 at 21:15 Glucagon (Glucagen) 1 mg Q15M PRN IM DECREASED GLUCOSE; Start 03/11/17 at 21:15 Glucose (Glutose) 15 gm Q15M PRN BUCCAL DECREASED GLUCOSE; Start 03/11/17 at 21 :15 Insulin Glargine (Lantus) 20 unit DAILY@20 SC Last administered on 03/15/17 21 :25; Admin Dose 20 UNIT; Start 03/11/17 at 23:00 Metoprolol Tartrate (Lopressor) 12.5 mg BID PO Last administered on 03/16/17 09:04; Admin Dose 12.5 MG; Start 03/13/17 at 21:00 Atorvastatin Calcium (Lipitor) 20 mg HS PO Last administered on 03/15/17 21:22 ; Admin Dose 20 MG; Start 03/13/17 at 21:00 LILLIANA DSOUZA MD March 16, 2017 12:03
[2017-03-16] MEDS: MONTELUKAST 10 MG TAB PO SCH (21:43)
[2017-03-16] MEDS: ATORVASTATIN 20 MG TAB PO SCH (21:43)
[2017-03-16] MEDS: INSULIN GLARGINE [LANtus] 3 ML PEN SC SCH (22:00)
--- NOTE | 2017-03-16 23:36 | PN ---
Date/Time of Note Date/Time of Note DATE: 03/16/17 TIME: 23:36 Assessment/Plan VTE Prophylaxis VTE Prophylaxis Intervention: other Lines/Catheters IV Catheter Type (from Nrs): Saline Lock Urinary Cath still in place: No Assessment/Plan Chief Complaint/Hosp Course COPD HTN ASHD HX CA BLADDER PLAN HHN STEROID per gu and cardio and dr to Problems: Subjective 24 Hr Interval Summary Respiratory: shortness of breath (better) Gastrointestinal: no complaints Exam/Review of Systems Vital Signs Vitals Vital Signs Date Time Temp Pulse Resp B/P Pulse Ox O2 Delivery O2 Flow Rate FiO2 03/16/17 20:03 97.9 95 17 119/56 98 03/16/17 19:33 Nasal Cannula 2.0 Intake and Output 03/15/17 03/15/17 03/16/17 15:00 23:00 07:00 Intake Total 1160 ml 300 ml Balance 1160 ml 300 ml Exam Cardiovascular: regular rate and rhythm Gastrointestinal: soft Musculoskeletal: nl extremities to inspection Extremities: normal pulses Results Result Diagram: 03/16/17 0724 03/16/17 0724 Results 24 hrs Laboratory Tests Test 03/16/17 02:07 03/16/17 07:24 03/16/17 08:07 03/16/17 12:18 Bedside Glucose 118 83 78 White Blood Count 4.8 # Red Blood Count 3.21 L Hemoglobin 9.9 L Hematocrit 31.8 L Mean Corpuscular Volume 99.1 Mean Corpuscular Hemoglobin 30.8 Mean Corpuscular Hemoglobin Concent 31.1 L Red Cell Distribution Width 18.8 H Platelet Count 173 Mean Platelet Volume 9.3 Neutrophils % 71.6 Lymphocytes % 13.0 L Monocytes % 6.7 Eosinophils % 1.0 Basophils % 0.2 Nucleated Red Blood Cells % 0.8 H Neutrophils # 3.4 Lymphocytes # 0.6 L Monocytes # 0.3 Eosinophils # 0.1 Basophils # 0.0 Nucleated Red Blood Cells # 0.0 Sodium Level 137 Potassium Level 4.7 Chloride Level 99 Carbon Dioxide Level 34 H Anion Gap 9 Blood Urea Nitrogen 34 H Creatinine 0.82 Glucose Level 81 Calcium Level 9.0 Test 03/16/17 17:16 03/16/17 21:52 03/16/17 22:17 Bedside Glucose 247 H 63 L 104 Medications Medications Current Medications Dextrose (D50w Syringe) ONCE PRN IV POC BLOOD GLUCOSE <250 MG/DL Last administered on 03/11/17 14:19; Admin Dose 50 ML; Start 03/11/17 at 14:30 Bisacodyl (Dulcolax) 5 mg DAILY PRN PO CONSTIPATION; Start 03/11/17 at 18:00 Promethazine HCl/ Dextromethorphan (Phenergan-Dm) 5 ml Q6H PRN PO COUGH; Start 03/11/17 at 18:00 Docusate Sodium (Colace) 100 mg Q12H PRN PO CONSTIPATION; Start 03/11/17 at 18: 00 Famotidine (Pepcid) 20 mg DAILY PO Last administered on 03/16/17 09:03; Admin Dose 20 MG; Start 03/12/17 at 09:00 Fluticasone Propionate (Flonase 0.05% Nasal) 1 spray BID NASAL Last administered on 03/16/17 21:45; Admin Dose 1 SPRAY; Start 03/11/17 at 21:00 Gabapentin (Neurontin) 300 mg TID PO Last administered on 03/16/17 21:43; Admin Dose 300 MG; Start 03/11/17 at 22:00 Acetaminophen/ Hydrocodone Bitart ([place] (5/325)) 1 tab Q6H PRN PO MODERATE PAIN LEVEL 4-6; Start 03/11/17 at 18:00 Loratadine (Claritin) 10 mg DAILY PO Last administered on 03/16/17 09:03; Admin Dose 10 MG; Start 03/12/17 at 09:00 Montelukast Sodium (Singulair) 10 mg QHS PO Last administered on 03/16/17 21: 43; Admin Dose 10 MG; Start 03/11/17 at 22:00 Sodium Biphosphate/ Sodium Phosphate (Fleet Enema) 133 ml DAILY PRN [place] CONSTIPATION; Start 03/11/17 at 18:00 Zolpidem Tartrate 2.5 mg 2.5 mg QHS PRN PO SLEEP; Start 03/11/17 at 18:00 Sodium Chloride (NS) 1,000 ml @ 0 mls/hr Q24H IV Last administered on 22:00; Admin Dose 30 MLS/HR; Start 03/11/17 at 22:00 Ondansetron HCl (Zofran Inj) 4 mg Q6H PRN IV NAUSEA AND/OR VOMITING; Start at 18:30 Acetaminophen (Tylenol Tab) 650 mg Q6H PRN PO PAIN LEVEL 1-3 OR FEVER; Start at 18:30 Magnesium Hydroxide (Milk Of Mag) 30 ml DAILY PRN PO CONSTIPATION; Start at 18:30 Enoxaparin Sodium (Lovenox) 30 mg DAILY SC Last administered on 03/16/17 09:06 ; Admin Dose 30 MG; Start 03/12/17 at 09:00 Methylprednisolone Sodium Succinate (Solu-Medrol) 20 mg BID IV Last administered on 03/16/17 21:42; Admin Dose 20 MG; Start 03/11/17 at 21:00 Diagnostic Test (Pha) (Accu-Chek) 1 ea 02 XX ; Start 03/12/17 at 02:00 Miscellaneous Information 1 ea NOTE XX Last administered on 03/16/17 22:18; Admin Dose 1 EA; Start 03/11/17 at 21:15 Glucose (Glutose) 15 gm Q15M PRN PO DECREASED GLUCOSE; Start 03/11/17 at 21:15 Glucose (Glutose) 22.5 gm Q15M PRN PO DECREASED GLUCOSE; Start 03/11/17 at 21: 15 Dextrose (D50w Syringe) 25 ml Q15M PRN IV DECREASED GLUCOSE; Start 03/11/17 at 21:15 Dextrose (D50w Syringe) 50 ml Q15M PRN IV DECREASED GLUCOSE; Start 03/11/17 at 21:15 Glucagon (Glucagen) 1 mg Q15M PRN IM DECREASED GLUCOSE; Start 03/11/17 at 21:15 Glucose (Glutose) 15 gm Q15M PRN BUCCAL DECREASED GLUCOSE; Start 03/11/17 at 21 :15 Insulin Glargine (Lantus) 20 unit DAILY@20 SC Last administered on 03/15/17 21 :25; Admin Dose 20 UNIT; Start 03/11/17 at 23:00 Metoprolol Tartrate (Lopressor) 12.5 mg BID PO Last administered on 03/16/17 21:43; Admin Dose 12.5 MG; Start 03/13/17 at 21:00 Atorvastatin Calcium (Lipitor) 20 mg HS PO Last administered on 03/16/17 21:43 ; Admin Dose 20 MG; Start 03/13/17 at 21:00 LEILA SPARKS MD March 16, 2017 23:36
[2017-03-17] VITALS (12 sets, daily range): BP systolic 109–132; BP diastolic 56–71; PULSE 64–102; RESP 16–20
[2017-03-17] MEDS ORDERED: INSULIN GLARGINE [LANtus] 3 ML PEN SC ONE
[2017-03-17] MEDS: ALBUTEROL/IPRATROPIUM (NEB) 3 ML AMP HHN SCH ×4 (01:31→21:16)
[2017-03-17] MEDS: ACCU-CHEK XX SCH (02:00)
[2017-03-17] MEDS: SOD CHLORIDE 0.9% 1,000 ML IV SCH (04:58)
[2017-03-17] MEDS: FUROSEMIDE 20 MG TAB PO SCH (05:53)
[2017-03-17 08:03] LABS: ADD SCAN DIFF NO
[2017-03-17 08:09] LABS: ABNORMAL IP MESSAGE 1; HEMATOCRIT 30.1 % (37.0-47.0); HEMOGLOBIN 9.3 g/dl (12.0-16.0); MEAN CORPUSCULAR HEMOGLOBIN 30.4 pg (29.0-33.0); MEAN CORPUSCULAR HGB CONC 30.9 g/dl (32.0-37.0); MEAN CORPUSCULAR VOLUME 98.4 fl (82.0-101.0); MEAN PLATELET VOLUME 9.6 fl (7.4-10.4); PLATELET COUNT 169 10^3/UL (140-415); RED BLOOD COUNT 3.06 10^6/ul (4.20-5.40); RED CELL DISTRIBUTION WIDTH 18.9 % (11.5-14.5); RETICULOCYTE COUNT % 2.7 % (0.5-1.5); WHITE BLOOD COUNT 5.8 10^3/ul (4.8-10.8)
[2017-03-17] MEDS: FLUTICASONE 0.05% 16 GM NAS SPRAY NASAL SCH ×2 (08:19→22:21)
[2017-03-17] MEDS: FAMOTIDINE 20 MG TAB PO SCH (08:20)
[2017-03-17] MEDS: LORATADINE 10 MG TAB PO SCH (08:20)
[2017-03-17] MEDS: METHYLPREDNISOLONE 40 MG INJ IV SCH ×2 (08:20→22:20)
[2017-03-17] MEDS: GABAPENTIN 300 MG CAP PO SCH ×3 (08:21→22:21)
[2017-03-17] MEDS: METOPROLOL 25 MG TAB PO SCH (08:22)
[2017-03-17 08:27] LABS: IRON 50 ug/dl (35-150)
[2017-03-17 08:29] LABS: ALANINE AMINOTRANSFERASE 36 IU/L (13-69); ALBUMIN 3.5 g/dl (3.3-4.9); ALBUMIN/GLOBULIN RATIO 1.66; ALKALINE PHOSPHATASE 47 IU/L (42-121); ANION GAP 8 (8-16); ASPARTATE AMINO TRANSFERASE 22 IU/L (15-46); BILIRUBIN,INDIRECT 0.2 mg/dl (0-1.1); BILIRUBIN,TOTAL 0.2 mg/dl (0.2-1.3); BLOOD UREA NITROGEN 35 mg/dl (7-20); CALCIUM 9.1 mg/dl (8.4-10.2); CARBON DIOXIDE 32 mmol/L (21-31); CHLORIDE 99 mmol/L (97-110); CREATININE 0.89 mg/dl (0.44-1.00); GLUCOSE 161 mg/dl (70-220); LACTATE DEHYDROGENASE 517 IU/L (313-618); POTASSIUM 4.6 mmol/L (3.5-5.1); SODIUM 134 mmol/L (135-144); TOTAL PROTEIN 5.6 g/dl (6.1-8.1)
[2017-03-17] MEDS: INSULIN ASPART [NOVOLOG] 3 ML PEN SC SCH ×7 (08:29→22:06)
[2017-03-17] MEDS: ENOXAPARIN 30 MG/0.3 ML SYG SC SCH (08:30)
[2017-03-17 08:37] LABS: TOTAL IRON BINDING CAPACITY 247 ug/dl (241-421)
[2017-03-17 09:31] LABS: FOLATE 5.3 ng/ml (2.8-20.0)
--- NOTE | 2017-03-17 10:50 | PN ---
DATE: 03/17/2017 SUBJECTIVE: History of bladder tumor and the patient has undergone radiation therapy. She has not completed it. HISTORY OF PRESENT ILLNESS: The patient has had recurrence of congestive heart failure and she has a pulmonary problem. She is on oxygen. The patient at the present feels better even though she sta dina that she is coughing a lot of sputum. OBJECTIVE: VITAL SIGNS: Temperature is 97.9, blood pressure 132/64. The respiration is 20 and the pulse is ar ound 70. ABDOMEN: Soft. LABORATORY DATA: Her CBC shows a white count of 5.8, hemoglobin 9.3, hematocrit 30.1. The BUN is 3 5, creatinine 0.89, sodium 134, potassium 4.6, chloride 99, CO2 32. IMPRESSION: History of invasive bladder tumor into the muscle. Patient is 86 years old. She there fore underwent radiation therapy, but did not complete it because of problems with her general condi tion. The patient at the present is also incontinent and she voids into a diaper, but her urine is clear. PLAN: I will try to do a cystoscopy while she is in the hospital if her medical condition is stable and she is not in any congestive heart failure. Dictated By: FLORIN PATEL/LEONARD Conf#: [id number] DID#: [id number]
[2017-03-17] MEDS: DOCUSATE SODIUM 100 MG CAP PO PRN (12:36)
[2017-03-17 13:07] LABS: LYMPHOCYTES # 0.8 10^3/ul (0.8-2.9); MONOCYTE # 0.4 10^3/ul (0.3-0.9); NEUTROPHIL # 4.6 10^3/ul (1.6-7.5)
--- NOTE | 2017-03-17 13:59 | CONS ---
Date/Time of Note Date/Time of Note DATE: 03/17/17 TIME: 13:57 Assessment/Plan Assessment/Plan Chief Complaint/Hosp Course The patient is an 86 year old woman with bladder cancer s/p TURBT 09/29/16, status post chemoradiation with 5FU/mitomycin with radiation completed 02/03/17, recently admitted for pneumonia/bronchitis/CHF exacerbation, as well as CHF/ COPD exacerbation, now readmitted with CHF/COPD exacerbation - Continue treatment for CHF/COPD, with diuretics, steroids, breathing treatments per primary team. Awaiting cardiology recs. Unlikely to be related to bladder cancer. - CT chest 01/22/17 showed 1. Diffuse pulmonary fibrotic changes again seen which has not changed significantly. 2. Decrease bilateral lower lobe air space disease with residual medial right lower lobe air space disease. - 02/04/17 LE dopplers negative for DVT, LE edema likely 2/2 CHF exacerbation - She was supposed to have a cystoscopy performed by Dr. Morfin on 03/03/17 to evaluate response to chemoradiation, however cystoscopy was deferred by Dr. Morfin because the patient was on oxygen and he was worried about procedural complications due to her respiratory status. Per Dr. Morfin, may consider while she is in the hospital to do the cystoscopy here and resect any bladder tumor that may be present into the bladder. - Patient needs to follow-up with Dr. Gillis (radiation oncology) upon discharge - Patient needs outpatient follow-up with pulmonary and cardiology upon discharge. She has repeatedly been admitted from my clinic for complaints unrelated to her bladder cancer and her respiratory status has impaired her ability to obtain a cystoscopy by Dr. Morfin to evaluate response to treatment. - Hgb fairly stable, iron panel consistent with anemia of chronic inflammation with Fe 50, TIBC 247, %20, ferritin 165; Vitamin B12 > 1000, folate 5.3, TSH 0.609, LDH normal at 517, retic 83K which is inappropriately low - Patient should follow-up with me upon discharge Problems: Consultation Date/Type/Reason Admit Date/Time March 11, 2017 at 14:48 Initial Consult Date 03/12/17 Type of Consultation: Oncology 24 HR Interval Summary Free Text/Dictation Patient states that her breathing has improved. Exam/Review of Systems Vital Signs Vitals Vital Signs Date Time Temp Pulse Resp B/P Pulse Ox O2 Delivery O2 Flow Rate FiO2 03/17/17 12:44 64 03/17/17 11:36 98.5 20 115/59 100 03/17/17 08:20 Nasal Cannula 3.0 Intake and Output 03/16/17 03/16/17 03/17/17 15:00 23:00 07:00 Intake Total 950 ml 180 ml Balance 950 ml 180 ml Exam Constitutional: alert, oriented Head: normocephalic Eyes: nl conjunctiva ENMT: nl external ears & nose Neck: supple Respiratory: decreased crackles Cardiovascular: regular rate and rhythm Gastrointestinal: soft Genitourinary - Female: nl external genitalia Musculoskeletal: nl extremities to inspection Extremities: edema Results Result Diagram: 03/17/17 0710 03/17/17 0710 Results 24 hrs Laboratory Tests Test 03/16/17 17:16 03/16/17 21:52 03/16/17 22:17 03/17/17 02:32 Bedside Glucose 247 H 63 L 104 198 Test 03/17/17 07:10 03/17/17 08:19 03/17/17 12:28 03/17/17 12:54 White Blood Count 5.8 # Red Blood Count 3.06 L Hemoglobin 9.3 L Hematocrit 30.1 L Mean Corpuscular Volume 98.4 Mean Corpuscular Hemoglobin 30.4 Mean Corpuscular Hemoglobin Concent 30.9 L Red Cell Distribution Width 18.9 H Platelet Count 169 Mean Platelet Volume 9.6 Neutrophils % 80.0 H Lymphocytes % 13.0 L Monocytes % 7.0 Neutrophils # 4.6 Lymphocytes # 0.8 Monocytes # 0.4 Differential Comment MANUAL DIFF Large Platelets OCCASIONAL Absolute Reticulocyte Count 0.083 Percent Reticulocyte Count 2.7 H Sodium Level 134 L Potassium Level 4.6 Chloride Level 99 Carbon Dioxide Level 32 H Anion Gap 8 Blood Urea Nitrogen 35 H Creatinine 0.89 Glucose Level 161 Calcium Level 9.1 Iron Level 50 Total Iron Binding Capacity 247 Percent Iron Saturation 20 L Ferritin 165.0 Total Bilirubin 0.2 Direct Bilirubin 0.00 Indirect Bilirubin 0.2 Aspartate Amino Transf (AST/SGOT) 22 Alanine Aminotransferase (ALT/SGPT) 36 Alkaline Phosphatase 47 Lactate Dehydrogenase 517 Total Protein 5.6 L Albumin 3.5 Globulin 2.10 Albumin/Globulin Ratio 1.66 Vitamin B12 Level > 1000 H Folate 5.3 Bedside Glucose 145 60 L 100 Medications Medications Current Medications Dextrose (D50w Syringe) ONCE PRN IV POC BLOOD GLUCOSE <250 MG/DL Last administered on 03/11/17 14:19; Admin Dose 50 ML; Start 03/11/17 at 14:30 Bisacodyl (Dulcolax) 5 mg DAILY PRN PO CONSTIPATION; Start 03/11/17 at 18:00 Promethazine HCl/ Dextromethorphan (Phenergan-Dm) 5 ml Q6H PRN PO COUGH; Start 03/11/17 at 18:00 Docusate Sodium (Colace) 100 mg Q12H PRN PO CONSTIPATION Last administered on 12:36; Admin Dose 100 MG; Start 03/11/17 at 18:00 Famotidine (Pepcid) 20 mg DAILY PO Last administered on 03/17/17 08:20; Admin Dose 20 MG; Start 03/12/17 at 09:00 Fluticasone Propionate (Flonase 0.05% Nasal) 1 spray BID NASAL Last administered on 03/17/17 08:19; Admin Dose 1 SPRAY; Start 03/11/17 at 21:00 Gabapentin (Neurontin) 300 mg TID PO Last administered on 03/17/17 12:36; Admin Dose 300 MG; Start 03/11/17 at 22:00 Acetaminophen/ Hydrocodone Bitart ([place] (5/325)) 1 tab Q6H PRN PO MODERATE PAIN LEVEL 4-6; Start 03/11/17 at 18:00 Loratadine (Claritin) 10 mg DAILY PO Last administered on 03/17/17 08:20; Admin Dose 10 MG; Start 03/12/17 at 09:00 Montelukast Sodium (Singulair) 10 mg QHS PO Last administered on 03/16/17 21: 43; Admin Dose 10 MG; Start 03/11/17 at 22:00 Sodium Biphosphate/ Sodium Phosphate (Fleet Enema) 133 ml DAILY PRN [place] CONSTIPATION; Start 03/11/17 at 18:00 Zolpidem Tartrate 2.5 mg 2.5 mg QHS PRN PO SLEEP; Start 03/11/17 at 18:00 Sodium Chloride (NS) 1,000 ml @ 0 mls/hr Q24H IV Last administered on 04:58; Admin Dose 10 MLS/HR; Start 03/11/17 at 22:00 Ondansetron HCl (Zofran Inj) 4 mg Q6H PRN IV NAUSEA AND/OR VOMITING; Start at 18:30 Acetaminophen (Tylenol Tab) 650 mg Q6H PRN PO PAIN LEVEL 1-3 OR FEVER; Start at 18:30 Magnesium Hydroxide (Milk Of Mag) 30 ml DAILY PRN PO CONSTIPATION; Start at 18:30 Enoxaparin Sodium (Lovenox) 30 mg DAILY SC Last administered on 03/17/17 08:30 ; Admin Dose 30 MG; Start 03/12/17 at 09:00 Methylprednisolone Sodium Succinate (Solu-Medrol) 20 mg BID IV Last administered on 03/17/17 08:20; Admin Dose 20 MG; Start 03/11/17 at 21:00 Diagnostic Test (Pha) (Accu-Chek) 1 ea 02 XX Last administered on 03/17/17 02: 00; Admin Dose 1 EA; Start 03/12/17 at 02:00 Miscellaneous Information 1 ea NOTE XX Last administered on 03/16/17 22:18; Admin Dose 1 EA; Start 03/11/17 at 21:15 Glucose (Glutose) 15 gm Q15M PRN PO DECREASED GLUCOSE; Start 03/11/17 at 21:15 Glucose (Glutose) 22.5 gm Q15M PRN PO DECREASED GLUCOSE; Start 03/11/17 at 21: 15 Dextrose (D50w Syringe) 25 ml Q15M PRN IV DECREASED GLUCOSE; Start 03/11/17 at 21:15 Dextrose (D50w Syringe) 50 ml Q15M PRN IV DECREASED GLUCOSE; Start 03/11/17 at 21:15 Glucagon (Glucagen) 1 mg Q15M PRN IM DECREASED GLUCOSE; Start 03/11/17 at 21:15 Glucose (Glutose) 15 gm Q15M PRN BUCCAL DECREASED GLUCOSE; Start 03/11/17 at 21 :15 Metoprolol Tartrate (Lopressor) 12.5 mg BID PO Last administered on 03/17/17 08:22; Admin Dose 12.5 MG; Start 03/13/17 at 21:00 Atorvastatin Calcium (Lipitor) 20 mg HS PO Last administered on 5/30/17at 21:43 ; Admin Dose 20 MG; Start 03/13/17 at 21:00 Insulin Glargine (Lantus) 15 unit DAILY@20 SC ; Start 03/17/17 at 20:00 TOLILLIANA MD March 17, 2017 13:59
--- NOTE | 2017-03-17 16:24 | CONS ---
Date/Time of Note Date/Time of Note DATE: 03/17/17 TIME: 16:20 Assessment/Plan Assessment/Plan Chief Complaint/Hosp Course IMPRESSION: 1. Congestive heart failure. By most recent echo in January 2017 would be diastolic, acute on chronic. 3. Hypotension. Improving.-currently SBP 109 4. Shortness of breath, likely multifactorial, with contribution of heart failure, as well as a history of pulmonary fibrosis. 5. Facial swelling. 6. Diabetes mellitus, with hyperglycemia. 7. Hyponatremia. 8. Renal failure-improved 9. Anemia. 10. H/O bladder ca Recc: -Tele -serial ecg's -Follow BP clsoely and will hold BB/lasix -Check cxr to assess for ongoing CHF -If BP remains stable then patient has no cardiac contarindicatio to proceeding to cystoscopy at moderate risk Problems: Consultation Date/Type/Reason Admit Date/Time March 11, 2017 at 14:48 Initial Consult Date 03/12/17 Type of Consultation: Cardiology Reason for Consultation CHF Referring Provider: LEILA SPARKS Exam/Review of Systems Vital Signs Vitals Vital Signs Date Time Temp Pulse Resp B/P Pulse Ox O2 Delivery O2 Flow Rate FiO2 03/17/17 15:44 97.5 74 20 109/56 98 03/17/17 15:12 3.0 32 03/17/17 15:12 Nasal Cannula Intake and Output 03/16/17 03/16/17 03/17/17 15:00 23:00 07:00 Intake Total 950 ml 180 ml Balance 950 ml 180 ml Exam Review of Systems: CONSTITUTIONAL: No fevers, chills. PULMONARY: No sob CARDIOVASCULAR: No chest pain/palpitations GASTROINTESTINAL: No nausea/vomiting. GENITOURINARY: No hematuria/dysuria. MUSCULOSKELETAL: No myagias/arthalgias. PSYCHIATRIC: The patient denies depression. NEUROLOGIC: lethargic Constitutional: alert Psych: no complaints Head: normocephalic ENMT: mucosa pink and moist Neck: jvd, supple Respiratory: diminished breath sounds (at bases/B) Cardiovascular: regular rate and rhythm Gastrointestinal: non-tender, soft Musculoskeletal: muscle tone (normal) Extremities: edema (none) 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: other (No focal deficits) Results Result Diagram: 03/17/17 0710 03/17/17 0710 Results 24 hrs Laboratory Tests Test 03/16/17 17:16 03/16/17 21:52 03/16/17 22:17 03/17/17 02:32 Bedside Glucose 247 H 63 L 104 198 Test 03/17/17 07:10 03/17/17 08:19 03/17/17 12:28 03/17/17 12:54 White Blood Count 5.8 # Red Blood Count 3.06 L Hemoglobin 9.3 L Hematocrit 30.1 L Mean Corpuscular Volume 98.4 Mean Corpuscular Hemoglobin 30.4 Mean Corpuscular Hemoglobin Concent 30.9 L Red Cell Distribution Width 18.9 H Platelet Count 169 Mean Platelet Volume 9.6 Neutrophils % 80.0 H Lymphocytes % 13.0 L Monocytes % 7.0 Neutrophils # 4.6 Lymphocytes # 0.8 Monocytes # 0.4 Differential Comment MANUAL DIFF Large Platelets OCCASIONAL Absolute Reticulocyte Count 0.083 Percent Reticulocyte Count 2.7 H Sodium Level 134 L Potassium Level 4.6 Chloride Level 99 Carbon Dioxide Level 32 H Anion Gap 8 Blood Urea Nitrogen 35 H Creatinine 0.89 Glucose Level 161 Calcium Level 9.1 Iron Level 50 Total Iron Binding Capacity 247 Percent Iron Saturation 20 L Ferritin 165.0 Total Bilirubin 0.2 Direct Bilirubin 0.00 Indirect Bilirubin 0.2 Aspartate Amino Transf (AST/SGOT) 22 Alanine Aminotransferase (ALT/SGPT) 36 Alkaline Phosphatase 47 Lactate Dehydrogenase 517 Total Protein 5.6 L Albumin 3.5 Globulin 2.10 Albumin/Globulin Ratio 1.66 Vitamin B12 Level > 1000 H Folate 5.3 Bedside Glucose 145 60 L 100 Medications Medications Current Medications Dextrose (D50w Syringe) ONCE PRN IV POC BLOOD GLUCOSE <250 MG/DL Last administered on 03/11/17 14:19; Admin Dose 50 ML; Start 03/11/17 at 14:30 Bisacodyl (Dulcolax) 5 mg DAILY PRN PO CONSTIPATION; Start 03/11/17 at 18:00 Promethazine HCl/ Dextromethorphan (Phenergan-Dm) 5 ml Q6H PRN PO COUGH; Start 03/11/17 at 18:00 Docusate Sodium (Colace) 100 mg Q12H PRN PO CONSTIPATION Last administered on 12:36; Admin Dose 100 MG; Start 03/11/17 at 18:00 Famotidine (Pepcid) 20 mg DAILY PO Last administered on 03/17/17 08:20; Admin Dose 20 MG; Start 03/12/17 at 09:00 Fluticasone Propionate (Flonase 0.05% Nasal) 1 spray BID NASAL Last administered on 03/17/17 08:19; Admin Dose 1 SPRAY; Start 03/11/17 at 21:00 Gabapentin (Neurontin) 300 mg TID PO Last administered on 03/17/17 12:36; Admin Dose 300 MG; Start 03/11/17 at 22:00 Acetaminophen/ Hydrocodone Bitart ([place] (5/325)) 1 tab Q6H PRN PO MODERATE PAIN LEVEL 4-6; Start 03/11/17 at 18:00 Loratadine (Claritin) 10 mg DAILY PO Last administered on 03/17/17 08:20; Admin Dose 10 MG; Start 03/12/17 at 09:00 Montelukast Sodium (Singulair) 10 mg QHS PO Last administered on 03/16/17 21: 43; Admin Dose 10 MG; Start 03/11/17 at 22:00 Sodium Biphosphate/ Sodium Phosphate (Fleet Enema) 133 ml DAILY PRN [place] CONSTIPATION; Start 03/11/17 at 18:00 Zolpidem Tartrate 2.5 mg 2.5 mg QHS PRN PO SLEEP; Start 03/11/17 at 18:00 Sodium Chloride (NS) 1,000 ml @ 0 mls/hr Q24H IV Last administered on 04:58; Admin Dose 10 MLS/HR; Start 03/11/17 at 22:00 Ondansetron HCl (Zofran Inj) 4 mg Q6H PRN IV NAUSEA AND/OR VOMITING; Start at 18:30 Acetaminophen (Tylenol Tab) 650 mg Q6H PRN PO PAIN LEVEL 1-3 OR FEVER; Start at 18:30 Magnesium Hydroxide (Milk Of Mag) 30 ml DAILY PRN PO CONSTIPATION; Start at 18:30 Enoxaparin Sodium (Lovenox) 30 mg DAILY SC Last administered on 03/17/17 08:30 ; Admin Dose 30 MG; Start 03/12/17 at 09:00 Methylprednisolone Sodium Succinate (Solu-Medrol) 20 mg BID IV Last administered on 03/17/17 08:20; Admin Dose 20 MG; Start 03/11/17 at 21:00 Diagnostic Test (Pha) (Accu-Chek) 1 ea 02 XX Last administered on 03/17/17 02: 00; Admin Dose 1 EA; Start 03/12/17 at 02:00 Miscellaneous Information 1 ea NOTE XX Last administered on 03/16/17 22:18; Admin Dose 1 EA; Start 03/11/17 at 21:15 Glucose (Glutose) 15 gm Q15M PRN PO DECREASED GLUCOSE; Start 03/11/17 at 21:15 Glucose (Glutose) 22.5 gm Q15M PRN PO DECREASED GLUCOSE; Start 03/11/17 at 21: 15 Dextrose (D50w Syringe) 25 ml Q15M PRN IV DECREASED GLUCOSE; Start 03/11/17 at 21:15 Dextrose (D50w Syringe) 50 ml Q15M PRN IV DECREASED GLUCOSE; Start 03/11/17 at 21:15 Glucagon (Glucagen) 1 mg Q15M PRN IM DECREASED GLUCOSE; Start 03/11/17 at 21:15 Glucose (Glutose) 15 gm Q15M PRN BUCCAL DECREASED GLUCOSE; Start 03/11/17 at 21 :15 Metoprolol Tartrate (Lopressor) 12.5 mg BID PO Last administered on 03/17/17 08:22; Admin Dose 12.5 MG; Start 03/13/17 at 21:00 Atorvastatin Calcium (Lipitor) 20 mg HS PO Last administered on 03/16/17 21:43 ; Admin Dose 20 MG; Start 03/13/17 at 21:00 Insulin Glargine (Lantus) 15 unit DAILY@20 SC ; Start 03/17/17 at 20:00 THOMAS DERAS March 17, 2017 16:24
--- NOTE | 2017-03-17 17:10 | OPPN ---
Date/Time of Note Date/Time of Note DATE: 03/17/17 TIME: 17:03 Anesthesia Eval and Record Evaluation Age 86 Sex female NPO: 8 hrs Preoperative diagnosis Bladder cancer Planned procedure cystoscope with possible TURBT Past Medical History Cardio: HTN, Dyslipidemia, Arrythmia, CHF (Diastolic) Endo: DM Neuro: Peripheral neuropathy (Upper extremity neuropathy ) Renal: CKD Pulm: COPD, Asthma GI: Obesity (bmi 30.3) Heme: Anemia Surgery & Anesthesia Issues No known issue Meds Anticoagulation: Yes (lovenox) Beta Kyle within 24 hr: Yes Active Scripts Zolpidem Tartrate (Ambien [place]) 5 Mg Tablet, 2.5 MG PO QHS Y for SLEEP for 10 Days, TAB Prov:LEILA SPARKS MD 10/01/16 Na Phos,M-B/Na Phos,Di-Ba ([place] Ready To Use Enema) 133 Ml Enema, 133 ML [place] DAILY Y for CONSTIPATION for 7 Days, ENEMA Prov:LEILA SPARKS MD 10/01/16 Hydrocodone Bit-Acetaminophen (Hydrocodone Bit-APAP) 5-325MG Tablet, 1 TAB PO Q6H Y for MODERATE PAIN LEVEL 4-6 for 14 Days, TAB Prov:LEILA SPARKS MD 10/01/16 Ibuprofen* (Ibuprofen*) 400 Mg Tablet, 400 MG PO Q6H Y for FEver for 10 Days, TAB Prov:LEILA SPARKS MD 10/01/16 Famotidine* (Famotidine*) 20 Mg Tablet, 20 MG PO DAILY for 10 Days, TAB Prov:LEILA SPARKS MD 10/01/16 Docusate Sodium* (Colace*) 100 Mg Capsule, 100 MG PO Q12H Y for CONSTIPATION for 10 Days, CAP Prov:LEILA SPARKS MD 10/01/16 Bisacodyl* (Bisacodyl*) 5 Mg Tablet.dr, 5 MG PO DAILY Y for CONSTIPATION for 10 Days Prov:LEILA SPARKS MD 10/01/16 Reported Medications Fluticasone Propionate* (Fluticasone Propionate* Nasal) 50 Mcg/[place] - 16 Gm [place].susp, 1 SPRAY NASAL BID, #1 BOTTLE TO EACH NOSTRIL 09/16/16 Dextromethorphan Hb-Promethazine Hcl* (Promethazine DM* Syrup) 473 Ml Syrup, 5 ML PO Q6 Y for COUGH, ML 09/16/16 Loratadine* (Loratadine*) 10 Mg Tablet, 10 MG PO DAILY, #30 TAB 09/16/16 Linaclotide (LINZESS) 290 Mcg Capsule, 290 MCG PO DAILY, #30 CAP 04/22/16 Montelukast Sodium* (Montelukast Sodium*) 10 Mg Tablet, 10 MG PO QHS, #30 TAB 04/22/16 Furosemide* (Lasix*) 20 Mg Tablet, 20 MG PO BID, TAB 11/07/14 Gabapentin* (Gabapentin*) 300 Mg Capsule, 300 MG PO TID, CAP 11/07/14 Current Medications Dextrose (D50w Syringe) ONCE PRN IV POC BLOOD GLUCOSE <250 MG/DL Last administered on 03/11/17 14:19; Admin Dose 50 ML; Start 03/11/17 at 14:30 Bisacodyl (Dulcolax) 5 mg DAILY PRN PO CONSTIPATION; Start 03/11/17 at 18:00 Promethazine HCl/ Dextromethorphan (Phenergan-Dm) 5 ml Q6H PRN PO COUGH; Start 03/11/17 at 18:00 Docusate Sodium (Colace) 100 mg Q12H PRN PO CONSTIPATION Last administered on 12:36; Admin Dose 100 MG; Start 03/11/17 at 18:00 Famotidine (Pepcid) 20 mg DAILY PO Last administered on 03/17/17 08:20; Admin Dose 20 MG; Start 03/12/17 at 09:00 Fluticasone Propionate (Flonase 0.05% Nasal) 1 spray BID NASAL Last administered on 03/17/17 08:19; Admin Dose 1 SPRAY; Start 03/11/17 at 21:00 Gabapentin (Neurontin) 300 mg TID PO Last administered on 03/17/17 12:36; Admin Dose 300 MG; Start 03/11/17 at 22:00 Acetaminophen/ Hydrocodone Bitart ([place] (5/325)) 1 tab Q6H PRN PO MODERATE PAIN LEVEL 4-6; Start 03/11/17 at 18:00 Loratadine (Claritin) 10 mg DAILY PO Last administered on 03/17/17 08:20; Admin Dose 10 MG; Start 03/12/17 at 09:00 Montelukast Sodium (Singulair) 10 mg QHS PO Last administered on 03/16/17 21: 43; Admin Dose 10 MG; Start 03/11/17 at 22:00 Sodium Biphosphate/ Sodium Phosphate (Fleet Enema) 133 ml DAILY PRN [place] CONSTIPATION; Start 03/11/17 at 18:00 Zolpidem Tartrate 2.5 mg 2.5 mg QHS PRN PO SLEEP; Start 03/11/17 at 18:00 Sodium Chloride (NS) 1,000 ml @ 0 mls/hr Q24H IV Last administered on 04:58; Admin Dose 10 MLS/HR; Start 03/11/17 at 22:00 Ondansetron HCl (Zofran Inj) 4 mg Q6H PRN IV NAUSEA AND/OR VOMITING; Start at 18:30 Acetaminophen (Tylenol Tab) 650 mg Q6H PRN PO PAIN LEVEL 1-3 OR FEVER; Start at 18:30 Magnesium Hydroxide (Milk Of Mag) 30 ml DAILY PRN PO CONSTIPATION; Start at 18:30 Enoxaparin Sodium (Lovenox) 30 mg DAILY SC Last administered on 03/17/17 08:30 ; Admin Dose 30 MG; Start 03/12/17 at 09:00; Status Future Hold Methylprednisolone Sodium Succinate (Solu-Medrol) 20 mg BID IV Last administered on 03/17/17 08:20; Admin Dose 20 MG; Start 03/11/17 at 21:00 Diagnostic Test (Pha) (Accu-Chek) 1 ea 02 XX Last administered on 03/17/17 02: 00; Admin Dose 1 EA; Start 03/12/17 at 02:00 Miscellaneous Information 1 ea NOTE XX Last administered on 03/16/17 22:18; Admin Dose 1 EA; Start 03/11/17 at 21:15 Glucose (Glutose) 15 gm Q15M PRN PO DECREASED GLUCOSE; Start 03/11/17 at 21:15 Glucose (Glutose) 22.5 gm Q15M PRN PO DECREASED GLUCOSE; Start 03/11/17 at 21: 15 Dextrose (D50w Syringe) 25 ml Q15M PRN IV DECREASED GLUCOSE; Start 03/11/17 at 21:15 Dextrose (D50w Syringe) 50 ml Q15M PRN IV DECREASED GLUCOSE; Start 03/11/17 at 21:15 Glucagon (Glucagen) 1 mg Q15M PRN IM DECREASED GLUCOSE; Start 03/11/17 at 21:15 Glucose (Glutose) 15 gm Q15M PRN BUCCAL DECREASED GLUCOSE; Start 03/11/17 at 21 :15 Metoprolol Tartrate (Lopressor) 12.5 mg BID PO Last administered on 03/17/17 08:22; Admin Dose 12.5 MG; Start 03/13/17 at 21:00; Status Future Hold Atorvastatin Calcium (Lipitor) 20 mg HS PO Last administered on 03/16/17 21:43 ; Admin Dose 20 MG; Start 03/13/17 at 21:00 Insulin Glargine (Lantus) 15 unit DAILY@20 SC ; Start 03/17/17 at 20:00 Allergies Coded Allergies: No Known Allergy (Unverified , 03/11/17) Labs/Studies Reviewed by anesthesiologist Result Diagram: 03/17/17 0710 03/17/17 0710 Laboratory Tests 03/17/17 07:10 Test: N/A (post menopausal ) Studies: ECG (SR with marked sinus arrythmia V rate 60bpm), CXR (mild pulmonary venous HTN, mild cardiomegaly) Pre-procedure Exam Last vitals Vital Signs Date Time Temp Pulse Resp B/P Pulse Ox O2 Delivery O2 Flow Rate FiO2 03/17/17 16:33 78 03/17/17 15:44 97.5 20 109/56 98 03/17/17 15:12 3.0 32 03/17/17 15:12 Nasal Cannula Airway: Adequate mouth opening, Adequate thyromental dist Mallampati Score: Mallampati I Teeth: Abnormal (edentulous) Lung: Normal Heart: Normal ASA Physical Status ASA physical status: 3 Planned Anesthetic General/MAC: ETT, LMA Pre-operative Attestations Prior to commencing anesthesia and surgery, the patient was re-evaluated, there was verification of: *The patient's identity *The results of appropriate recent lab work and preoperative vital signs *The above evaluation not changing prior to induction *Anesthetic plan, risk benefits, alternative and complications discussed with patient/family; questions answered; patient/family understands, accepts and wishes to proceed. PHILIP VENTURA March 17, 2017 17:10
--- NOTE | 2017-03-17 20:01 | PN ---
Date/Time of Note Date/Time of Note DATE: 03/17/17 TIME: 20:00 Assessment/Plan VTE Prophylaxis VTE Prophylaxis Intervention: other Lines/Catheters IV Catheter Type (from Nrs): Saline Lock Urinary Cath still in place: No Assessment/Plan Chief Complaint/Hosp Course COPD HTN ASHD HX CA BLADDER PLAN HHN STEROID per gu and cardio and dr melisa per dr hammond cysto soon Problems: Subjective 24 Hr Interval Summary Respiratory: shortness of breath (better) Cardiovascular: no complaints Exam/Review of Systems Vital Signs Vitals Vital Signs Date Time Temp Pulse Resp B/P Pulse Ox O2 Delivery O2 Flow Rate FiO2 03/17/17 17:07 3.0 32 03/17/17 16:33 78 03/17/17 15:44 97.5 20 109/56 98 03/17/17 15:12 Nasal Cannula Intake and Output 03/16/17 03/16/17 03/17/17 15:00 23:00 07:00 Intake Total 950 ml 180 ml Balance 950 ml 180 ml Exam Respiratory: clear to auscultation Cardiovascular: regular rate and rhythm Gastrointestinal: soft Musculoskeletal: nl extremities to inspection Results Result Diagram: 03/17/17 0710 03/17/17 0710 Results 24 hrs Laboratory Tests Test 03/16/17 21:52 03/16/17 22:17 03/17/17 02:32 03/17/17 07:10 Bedside Glucose 63 L 104 198 White Blood Count 5.8 # Red Blood Count 3.06 L Hemoglobin 9.3 L Hematocrit 30.1 L Mean Corpuscular Volume 98.4 Mean Corpuscular Hemoglobin 30.4 Mean Corpuscular Hemoglobin Concent 30.9 L Red Cell Distribution Width 18.9 H Platelet Count 169 Mean Platelet Volume 9.6 Neutrophils % 80.0 H Lymphocytes % 13.0 L Monocytes % 7.0 Neutrophils # 4.6 Lymphocytes # 0.8 Monocytes # 0.4 Differential Comment MANUAL DIFF Large Platelets OCCASIONAL Absolute Reticulocyte Count 0.083 Percent Reticulocyte Count 2.7 H Sodium Level 134 L Potassium Level 4.6 Chloride Level 99 Carbon Dioxide Level 32 H Anion Gap 8 Blood Urea Nitrogen 35 H Creatinine 0.89 Glucose Level 161 Calcium Level 9.1 Iron Level 50 Total Iron Binding Capacity 247 Percent Iron Saturation 20 L Ferritin 165.0 Total Bilirubin 0.2 Direct Bilirubin 0.00 Indirect Bilirubin 0.2 Aspartate Amino Transf (AST/SGOT) 22 Alanine Aminotransferase (ALT/SGPT) 36 Alkaline Phosphatase 47 Lactate Dehydrogenase 517 Total Protein 5.6 L Albumin 3.5 Globulin 2.10 Albumin/Globulin Ratio 1.66 Vitamin B12 Level > 1000 H Folate 5.3 Test 03/17/17 08:19 03/17/17 12:28 03/17/17 12:54 03/17/17 17:17 Bedside Glucose 145 60 L 100 113 Medications Medications Current Medications Dextrose (D50w Syringe) ONCE PRN IV POC BLOOD GLUCOSE <250 MG/DL Last administered on 03/11/17 14:19; Admin Dose 50 ML; Start 03/11/17 at 14:30 Bisacodyl (Dulcolax) 5 mg DAILY PRN PO CONSTIPATION; Start 03/11/17 at 18:00 Promethazine HCl/ Dextromethorphan (Phenergan-Dm) 5 ml Q6H PRN PO COUGH; Start 03/11/17 at 18:00 Docusate Sodium (Colace) 100 mg Q12H PRN PO CONSTIPATION Last administered on 12:36; Admin Dose 100 MG; Start 03/11/17 at 18:00 Famotidine (Pepcid) 20 mg DAILY PO Last administered on 03/17/17 08:20; Admin Dose 20 MG; Start 03/12/17 at 09:00 Fluticasone Propionate (Flonase 0.05% Nasal) 1 spray BID NASAL Last administered on 03/17/17 08:19; Admin Dose 1 SPRAY; Start 03/11/17 at 21:00 Gabapentin (Neurontin) 300 mg TID PO Last administered on 03/17/17 12:36; Admin Dose 300 MG; Start 03/11/17 at 22:00 Acetaminophen/ Hydrocodone Bitart ([place] (5/325)) 1 tab Q6H PRN PO MODERATE PAIN LEVEL 4-6; Start 03/11/17 at 18:00 Loratadine (Claritin) 10 mg DAILY PO Last administered on 03/17/17 08:20; Admin Dose 10 MG; Start 03/12/17 at 09:00 Montelukast Sodium (Singulair) 10 mg QHS PO Last administered on 03/16/17 21: 43; Admin Dose 10 MG; Start 03/11/17 at 22:00 Sodium Biphosphate/ Sodium Phosphate (Fleet Enema) 133 ml DAILY PRN [place] CONSTIPATION; Start 03/11/17 at 18:00 Zolpidem Tartrate 2.5 mg 2.5 mg QHS PRN PO SLEEP; Start 03/11/17 at 18:00 Sodium Chloride (NS) 1,000 ml @ 0 mls/hr Q24H IV Last administered on 04:58; Admin Dose 10 MLS/HR; Start 03/11/17 at 22:00 Ondansetron HCl (Zofran Inj) 4 mg Q6H PRN IV NAUSEA AND/OR VOMITING; Start at 18:30 Acetaminophen (Tylenol Tab) 650 mg Q6H PRN PO PAIN LEVEL 1-3 OR FEVER; Start at 18:30 Magnesium Hydroxide (Milk Of Mag) 30 ml DAILY PRN PO CONSTIPATION; Start at 18:30 Enoxaparin Sodium (Lovenox) 30 mg DAILY SC Last administered on 03/17/17 08:30 ; Admin Dose 30 MG; Start 03/12/17 at 09:00; Status Future Hold Methylprednisolone Sodium Succinate (Solu-Medrol) 20 mg BID IV Last administered on 03/17/17 08:20; Admin Dose 20 MG; Start 03/11/17 at 21:00 Diagnostic Test (Pha) (Accu-Chek) 1 ea 02 XX Last administered on 03/17/17 02: 00; Admin Dose 1 EA; Start 03/12/17 at 02:00 Miscellaneous Information 1 ea NOTE XX Last administered on 03/16/17 22:18; Admin Dose 1 EA; Start 03/11/17 at 21:15 Glucose (Glutose) 15 gm Q15M PRN PO DECREASED GLUCOSE; Start 03/11/17 at 21:15 Glucose (Glutose) 22.5 gm Q15M PRN PO DECREASED GLUCOSE; Start 03/11/17 at 21: 15 Dextrose (D50w Syringe) 25 ml Q15M PRN IV DECREASED GLUCOSE; Start 03/11/17 at 21:15 Dextrose (D50w Syringe) 50 ml Q15M PRN IV DECREASED GLUCOSE; Start 03/11/17 at 21:15 Glucagon (Glucagen) 1 mg Q15M PRN IM DECREASED GLUCOSE; Start 03/11/17 at 21:15 Glucose (Glutose) 15 gm Q15M PRN BUCCAL DECREASED GLUCOSE; Start 03/11/17 at 21 :15 Metoprolol Tartrate (Lopressor) 12.5 mg BID PO Last administered on 03/17/17 08:22; Admin Dose 12.5 MG; Start 03/13/17 at 21:00; Status Future Hold Atorvastatin Calcium (Lipitor) 20 mg HS PO Last administered on 03/16/17 21:43 ; Admin Dose 20 MG; Start 03/13/17 at 21:00 Insulin Glargine (Lantus) 15 unit DAILY@20 SC ; Start 03/17/17 at 20:00 LEILA SPARKS MD March 17, 2017 20:01
[2017-03-17] MEDS: INSULIN GLARGINE [LANtus] 3 ML PEN SC SCH (22:07)
[2017-03-17] MEDS: ATORVASTATIN 20 MG TAB PO SCH (22:21)
[2017-03-17] MEDS: MONTELUKAST 10 MG TAB PO SCH (22:21)
[2017-03-18] VITALS (33 sets, daily range): BP systolic 113–168; BP diastolic 54–102; PULSE 76–110; RESP 16–18
[2017-03-18] MEDS: ALBUTEROL/IPRATROPIUM (NEB) 3 ML AMP HHN SCH ×4 (01:09→20:52)
[2017-03-18] MEDS: ACCU-CHEK XX SCH ×5 (02:00→21:00)
--- NOTE | 2017-03-18 05:42 | RADRPT ---
PROCEDURE: XR Chest. CLINICAL INDICATION: Congestive heart failure TECHNIQUE: Portable single view of the chest COMPARISON: 01/22/2017 FINDINGS: Again seen is cardiomegaly. There is likely slight aortic calcification. Slight biapical pleural t hickening is seen. Increased interstitial markings of the lungs are again seen bilaterally. There may be a degree of mild pulmonary fibrosis present. No definite focal alveolar infiltrate, pleural effusion, or overt congestive heart failure is evident. Degenerative change of the spine is seen. IMPRESSION: Possible mild pulmonary fibrosis. Cardiomegaly. Aortic atherosclerosis. RPTAT: [facility] Physician Blanca Date Time Electronically viewed and signed by Obdulia Samuels Physician on 03/18/2017 05:41 LE/
[2017-03-18] MEDS: BISACODYL (EC) 5 MG TAB PO PRN ×2 (06:02→17:38)
[2017-03-18] MEDS: DOCUSATE SODIUM 100 MG CAP PO PRN (06:02)
[2017-03-18] MEDS: DEXTROSE 5%-0.45% NACL 1,000 ML IV SCH (06:43)
[2017-03-18] MEDS: PROMETHAZINE/DM (CUP) PO PRN ×2 (06:50→15:39)
[2017-03-18] MEDS ORDERED: CEFAZOLIN 1 GM INJ ONE (07:00)
[2017-03-18] MEDS: GABAPENTIN 300 MG CAP PO SCH ×3 (08:23→22:03)
[2017-03-18] MEDS: LORATADINE 10 MG TAB PO SCH (08:23)
[2017-03-18] MEDS: FAMOTIDINE 20 MG TAB PO SCH (08:24)
[2017-03-18] MEDS: FLUTICASONE 0.05% 16 GM NAS SPRAY NASAL SCH ×2 (08:27→22:02)
[2017-03-18] MEDS: METHYLPREDNISOLONE 40 MG INJ IV SCH ×2 (08:27→22:02)
--- NOTE | 2017-03-18 08:42 | HPN ---
Date/Time of Note Date/Time of Note DATE: 03/18/17 TIME: 08:40 Interval H&P Admission Note Pt. seen H&P reviewed: Systems changes noted below CHF has improved,patient is much better ,breathing better FLORIN RUBIO MD Mar 18, 2017 08:42
[2017-03-18] MEDS ORDERED: GLYCOPYRROLATE 0.4 MG INJ ONE (13:03)
[2017-03-18] MEDS ORDERED: NEOSTIGMINE 3 MG/3 ML SYRINGE ONE (13:03)
[2017-03-18] MEDS ORDERED: PROPOFOL 20 ML ONE (13:03)
[2017-03-18] MEDS ORDERED: LIDOCAINE 2% (SDV) 5 ML INJ ONE (13:03)
[2017-03-18] MEDS ORDERED: SUCCINYLCHOLINE CHLORIDE 100 MG/5 ML SYG IV ONE (13:03)
[2017-03-18] MEDS ORDERED: ROCURONIUM 50 MG INJ ONE (13:03)
--- NOTE | 2017-03-18 13:05 | CONS ---
Date/Time of Note Date/Time of Note DATE: 03/18/17 TIME: 13:04 Assessment/Plan Assessment/Plan Chief Complaint/Hosp Course The patient is an 86 year old woman with bladder cancer s/p TURBT 09/29/16, status post chemoradiation with 5FU/mitomycin with radiation completed 02/03/17, recently admitted for pneumonia/bronchitis/CHF exacerbation, as well as CHF/ COPD exacerbation, now readmitted with CHF/COPD exacerbation - Continue treatment for CHF/COPD, with diuretics, steroids, breathing treatments per primary team. Awaiting cardiology recs. Unlikely to be related to bladder cancer. - CT chest 01/22/17 showed 1. Diffuse pulmonary fibrotic changes again seen which has not changed significantly. 2. Decrease bilateral lower lobe air space disease with residual medial right lower lobe air space disease. - 02/04/17 LE dopplers negative for DVT, LE edema likely 2/2 CHF exacerbation - She was supposed to have a cystoscopy performed by Dr. Morfin on 03/03/17 to evaluate response to chemoradiation, however cystoscopy was deferred by Dr. Morfin because the patient was on oxygen and he was worried about procedural complications due to her respiratory status. Per Dr. Morfin, may consider while she is in the hospital to do the cystoscopy here and resect any bladder tumor that may be present into the bladder - cystoscopy soon per Dr. Salinas. - Patient needs to follow-up with Dr. Gillis (radiation oncology) upon discharge - Patient needs outpatient follow-up with pulmonary and cardiology upon discharge. She has repeatedly been admitted from my clinic for complaints unrelated to her bladder cancer and her respiratory status has impaired her ability to obtain a cystoscopy by Dr. Morfin to evaluate response to treatment. - Hgb fairly stable, iron panel consistent with anemia of chronic inflammation with Fe 50, TIBC 247, %20, ferritin 165; Vitamin B12 > 1000, folate 5.3, TSH 0.609, LDH normal at 517, retic 83K which is inappropriately low - Patient should follow-up with me upon discharge Problems: Consultation Date/Type/Reason Admit Date/Time March 11, 2017 at 14:48 Initial Consult Date 03/12/17 Type of Consultation: Oncology Referring Provider: LEILA SPARKS MD 24 HR Interval Summary Free Text/Dictation Patient states breathing is better. Cystoscopy planned soon, patient NPO. Exam/Review of Systems Vital Signs Vitals Vital Signs Date Time Temp Pulse Resp B/P Pulse Ox O2 Delivery O2 Flow Rate FiO2 03/18/17 11:55 98.1 69 18 113/70 96 03/18/17 08:30 Nasal Cannula 3.0 03/17/17 17:07 32 Intake and Output 03/17/17 03/17/17 03/18/17 15:00 23:00 07:00 Intake Total 500 ml 600 ml Balance 500 ml 600 ml Exam Constitutional: alert, oriented Head: normocephalic Eyes: nl conjunctiva ENMT: nl external ears & nose Neck: supple Respiratory: decreased crackles Cardiovascular: regular rate and rhythm Gastrointestinal: soft Genitourinary - Female: nl external genitalia Musculoskeletal: nl extremities to inspection Extremities: edema Results Result Diagram: 03/17/17 0710 03/17/17 0710 Results 24 hrs Laboratory Tests Test 03/17/17 17:17 03/17/17 21:58 03/18/17 01:57 03/18/17 08:26 Bedside Glucose 113 318 H 110 144 Test 03/18/17 11:36 Bedside Glucose 140 Medications Medications Current Medications Dextrose (D50w Syringe) ONCE PRN IV POC BLOOD GLUCOSE <250 MG/DL Last administered on 03/11/17 14:19; Admin Dose 50 ML; Start 03/11/17 at 14:30 Bisacodyl (Dulcolax) 5 mg DAILY PRN PO CONSTIPATION Last administered on 06:02; Admin Dose 5 MG; Start 03/11/17 at 18:00 Promethazine HCl/ Dextromethorphan (Phenergan-Dm) 5 ml Q6H PRN PO COUGH Last administered on 03/18/17 06:50; Admin Dose 5 ML; Start 03/11/17 at 18:00 Docusate Sodium (Colace) 100 mg Q12H PRN PO CONSTIPATION Last administered on 06:02; Admin Dose 100 MG; Start 03/11/17 at 18:00 Famotidine (Pepcid) 20 mg DAILY PO Last administered on 03/17/17 08:20; Admin Dose 20 MG; Start 03/12/17 at 09:00 Fluticasone Propionate (Flonase 0.05% Nasal) 1 spray BID NASAL Last administered on 03/18/17 08:27; Admin Dose 1 SPRAY; Start 03/11/17 at 21:00 Gabapentin (Neurontin) 300 mg TID PO Last administered on 03/17/17 22:21; Admin Dose 300 MG; Start 03/11/17 at 22:00 Acetaminophen/ Hydrocodone Bitart ([place] (5/325)) 1 tab Q6H PRN PO MODERATE PAIN LEVEL 4-6; Start 03/11/17 at 18:00 Loratadine (Claritin) 10 mg DAILY PO Last administered on 03/17/17 08:20; Admin Dose 10 MG; Start 03/12/17 at 09:00 Montelukast Sodium (Singulair) 10 mg QHS PO Last administered on 03/17/17 22: 21; Admin Dose 10 MG; Start 03/11/17 at 22:00 Sodium Biphosphate/ Sodium Phosphate (Fleet Enema) 133 ml DAILY PRN OR CONSTIPATION; Start 03/11/17 at 18:00 Zolpidem Tartrate (Ambien) 2.5 mg QHS PRN PO SLEEP; Start 03/11/17 at 18:00 Ondansetron HCl (Zofran Inj) 4 mg Q6H PRN IV NAUSEA AND/OR VOMITING; Start at 18:30 Acetaminophen (Tylenol Tab) 650 mg Q6H PRN PO PAIN LEVEL 1-3 OR FEVER; Start at 18:30 Magnesium Hydroxide (Milk Of Mag) 30 ml DAILY PRN PO CONSTIPATION; Start at 18:30 Enoxaparin Sodium (Lovenox) 30 mg DAILY SC Last administered on 03/17/17 08:30 ; Admin Dose 30 MG; Start 03/12/17 at 09:00; Status Future Hold Methylprednisolone Sodium Succinate (Solu-Medrol) 20 mg BID IV Last administered on 03/18/17 08:27; Admin Dose 20 MG; Start 03/11/17 at 21:00 Diagnostic Test (Pha) (Accu-Chek) 1 ea 02 XX Last administered on 03/18/17 02: 00; Admin Dose 1 EA; Start 03/12/17 at 02:00; Status Future Hold Miscellaneous Information 1 ea NOTE XX Last administered on 5/30/17at 22:18; Admin Dose 1 EA; Start 03/11/17 at 21:15 Glucose (Glutose) 15 gm Q15M PRN PO DECREASED GLUCOSE; Start 03/11/17 at 21:15 Glucose (Glutose) 22.5 gm Q15M PRN PO DECREASED GLUCOSE; Start 03/11/17 at 21: 15 Dextrose (D50w Syringe) 25 ml Q15M PRN IV DECREASED GLUCOSE; Start 03/11/17 at 21:15 Dextrose (D50w Syringe) 50 ml Q15M PRN IV DECREASED GLUCOSE; Start 03/11/17 at 21:15 Glucagon (Glucagen) 1 mg Q15M PRN IM DECREASED GLUCOSE; Start 03/11/17 at 21:15 Glucose (Glutose) 15 gm Q15M PRN BUCCAL DECREASED GLUCOSE; Start 03/11/17 at 21 :15 Metoprolol Tartrate (Lopressor) 12.5 mg BID PO Last administered on 03/17/17 08:22; Admin Dose 12.5 MG; Start 03/13/17 at 21:00; Status Future Hold Atorvastatin Calcium (Lipitor) 20 mg HS PO Last administered on 03/17/17 22:21 ; Admin Dose 20 MG; Start 03/13/17 at 21:00 Insulin Glargine 15 unit 15 unit DAILY@20 SC Last administered on 03/17/17 22: 07; Admin Dose 15 UNIT; Start 03/17/17 at 20:00; Status Future Hold Dextrose/Sodium Chloride (D5-1/2ns) 1,000 ml @ 50 mls/hr Q20H IV Last administered on 03/18/17 06:43; Admin Dose 50 MLS/HR; Start 03/18/17 at 07:00 LILLIANA DSOUZA MD Mar 18, 2017 13:05
[2017-03-18] MEDS ORDERED: METOCLOPRAMIDE 10 MG INJ ONE (13:19)
[2017-03-18] MEDS ORDERED: ONDANSETRON 4 MG INJ ONE (13:19)
--- NOTE | 2017-03-18 13:56 | OPR ---
DATE OF OPERATION: 03/18/2017 PREOPERATIVE DIAGNOSIS: History of invasive bladder tumor. Patient has undergone radiation therapy , considering her age, no surgery was considered. She has pulmonary fibrosis as well, and she has h ad congestive heart failure. POSTOPERATIVE DIAGNOSIS: History of invasive bladder tumor. Patient has undergone radiation therap y, considering her age, no surgery was considered. She has pulmonary fibrosis as well, and she has had congestive heart failure. There are 2 areas in the bladder that look like probably radiation cy stitis, but one cannot rule out bladder tumor. PROCEDURE: Cystoscopy and transurethral resection of bladder tumors, one on the right, one on the l eft. TECHNIQUE: The patient was brought to the operating room. General anesthesia was induced. A time- out was done. The patient was identified by her name, date, and the procedure. The patient w as positioned in the lithotomy position and she was given 2 grams of Ancef IV at the start of the pr ocedure. Once she was positioned in the lithotomy position, the genital area was prepped and draped in the usual sterile manner. A #22 [place] cystoscope sheath was then introduced into the bladder a nd the above findings were noted. Then I removed the cystoscope, then I used the 26-Korean resectos cope sheath and did the resection on the left side first, and then on the right side. I did electro coagulate any area that looked red and suspicious. The ureteral orifices were very clean and there was no tumor around them. Also the area where the previous tumors were, were very clean and she has scar tissue there and no evidence of tumor at that level. At the end of the procedure the bladder was emptied and the patient was transferred to the recovery room in stable and satisfactory conditio n. Dictated By: FLORIN PATEL/LEONARD Conf#: [id number] DID#: [id number]
[2017-03-18] MEDS ORDERED: METOCLOPRAMIDE 10 MG INJ IV PRN (14:00)
[2017-03-18] MEDS ORDERED: MEPERIDINE 25 MG INJ IV PRN (14:00)
[2017-03-18] MEDS ORDERED: morphine (1 MG/ML) 10ML SYRINGE IV PRN ×2 (14:00)
[2017-03-18] MEDS ORDERED: LABETALOL HCL 20MG INJ IV PRN (14:00)
[2017-03-18] MEDS ORDERED: FENTAnyl 50 MCG/ML VIAL IV PRN ×2 (14:00)
[2017-03-18] MEDS ORDERED: EPHEDrine SULFATE 50 MG/5 ML SYG IV PRN (14:00)
[2017-03-18] MEDS ORDERED: MIDAZOLAM 1 MG/ML 2 ML INJ IV PRN (14:00)
[2017-03-18] MEDS ORDERED: hydrALAzine 20 MG INJ IV PRN (14:00)
[2017-03-18] MEDS ORDERED: DIPHENHYDRAMINE 50 MG INJ IV PRN (14:00)
[2017-03-18] MEDS ORDERED: ONDANSETRON 4 MG INJ IV PRN (14:00)
[2017-03-18] MEDS: INSULIN ASPART [NOVOLOG] 3 ML PEN SC SCH ×3 (17:24→22:03)
--- NOTE | 2017-03-18 19:35 | CONS ---
Date/Time of Note Date/Time of Note DATE: 03/18/17 TIME: 19:33 Assessment/Plan Assessment/Plan Chief Complaint/Hosp Course IMPRESSION: 1. Congestive heart failure. By most recent echo in January 2017 would be diastolic, acute on chronic. 3. Hypotension. Improved with now HTN 4. Shortness of breath, likely multifactorial, with contribution of heart failure, as well as a history of pulmonary fibrosis. 5. Facial swelling. 6. Diabetes mellitus, with hyperglycemia. 7. Hyponatremia. 8. Renal failure-improved 9. Anemia. 10. H/O bladder ca Recc: -Tele -serial ecg's -Follow BP closely and will resume low dose BB and follow BP/HR closely -If BP remains stable then patient has no cardiac contraindication to proceeding to cystoscopy at moderate risk Problems: Consultation Date/Type/Reason Admit Date/Time March 11, 2017 at 14:48 Initial Consult Date 03/12/17 Type of Consultation: Cardiology Reason for Consultation CHF Referring Provider: LEILA SPARKS MD Exam/Review of Systems Vital Signs Vitals Vital Signs Date Time Temp Pulse Resp B/P Pulse Ox O2 Delivery O2 Flow Rate FiO2 03/18/17 16:40 97 03/18/17 16:03 98.1 18 138/68 95 03/18/17 15:14 Room Air 03/18/17 14:24 6.0 03/17/17 17:07 32 Intake and Output 03/17/17 03/17/17 03/18/17 15:00 23:00 07:00 Intake Total 500 ml 600 ml Balance 500 ml 600 ml Exam Review of Systems: CONSTITUTIONAL: No fevers, chills. PULMONARY: No sob CARDIOVASCULAR: No chest pain/palpitations GASTROINTESTINAL: No nausea/vomiting. GENITOURINARY: No hematuria/dysuria. MUSCULOSKELETAL: No myagias/arthalgias. PSYCHIATRIC: The patient denies depression. NEUROLOGIC: lethargic Constitutional: alert Psych: no complaints Head: normocephalic ENMT: mucosa pink and moist Neck: jvd (9 cm water), supple Respiratory: diminished breath sounds (at bases/B) Cardiovascular: regular rate and rhythm Gastrointestinal: non-tender, soft Musculoskeletal: muscle tone (normal) Extremities: edema (none) 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: other (No focal deficits) Results Result Diagram: 03/17/1710 5/31/17 0710 Results 24 hrs Laboratory Tests Test 03/17/17 21:58 03/18/17 01:57 03/18/17 08:26 03/18/17 11:36 Bedside Glucose 318 H 110 144 140 Test 03/18/17 17:22 Bedside Glucose 201 Medications Medications Current Medications Dextrose (D50w Syringe) ONCE PRN IV POC BLOOD GLUCOSE <250 MG/DL Last administered on 03/11/17 14:19; Admin Dose 50 ML; Start 03/11/17 at 14:30 Bisacodyl (Dulcolax) 5 mg DAILY PRN PO CONSTIPATION Last administered on 17:38; Admin Dose 5 MG; Start 03/11/17 at 18:00 Promethazine HCl/ Dextromethorphan (Phenergan-Dm) 5 ml Q6H PRN PO COUGH Last administered on 03/18/17 15:39; Admin Dose 5 ML; Start 03/11/17 at 18:00 Docusate Sodium (Colace) 100 mg Q12H PRN PO CONSTIPATION Last administered on 06:02; Admin Dose 100 MG; Start 03/11/17 at 18:00 Famotidine (Pepcid) 20 mg DAILY PO Last administered on 03/17/17 08:20; Admin Dose 20 MG; Start 03/12/17 at 09:00 Fluticasone Propionate (Flonase 0.05% Nasal) 1 spray BID NASAL Last administered on 03/18/17 08:27; Admin Dose 1 SPRAY; Start 03/11/17 at 21:00 Gabapentin (Neurontin) 300 mg TID PO Last administered on 03/17/17 22:21; Admin Dose 300 MG; Start 03/11/17 at 22:00 Acetaminophen/ Hydrocodone Bitart ([place] (5/325)) 1 tab Q6H PRN PO MODERATE PAIN LEVEL 4-6; Start 03/11/17 at 18:00 Loratadine (Claritin) 10 mg DAILY PO Last administered on 03/17/17 08:20; Admin Dose 10 MG; Start 03/12/17 at 09:00 Montelukast Sodium (Singulair) 10 mg QHS PO Last administered on 03/17/17 22: 21; Admin Dose 10 MG; Start 03/11/17 at 22:00 Sodium Biphosphate/ Sodium Phosphate (Fleet Enema) 133 ml DAILY PRN [place] CONSTIPATION; Start 03/11/17 at 18:00 Zolpidem Tartrate (Ambien) 2.5 mg QHS PRN PO SLEEP; Start 03/11/17 at 18:00 Ondansetron HCl (Zofran Inj) 4 mg Q6H PRN IV NAUSEA AND/OR VOMITING; Start at 18:30 Acetaminophen (Tylenol Tab) 650 mg Q6H PRN PO PAIN LEVEL 1-3 OR FEVER; Start at 18:30 Magnesium Hydroxide (Milk Of Mag) 30 ml DAILY PRN PO CONSTIPATION; Start at 18:30 Enoxaparin Sodium (Lovenox) 30 mg DAILY SC Last administered on 03/17/17 08:30 ; Admin Dose 30 MG; Start 03/12/17 at 09:00; Status Future Hold Methylprednisolone Sodium Succinate (Solu-Medrol) 20 mg BID IV Last administered on 03/18/17 08:27; Admin Dose 20 MG; Start 03/11/17 at 21:00 Diagnostic Test (Pha) (Accu-Chek) 1 ea 02 XX Last administered on 03/18/17 02: 00; Admin Dose 1 EA; Start 03/12/17 at 02:00; Status Future hold Miscellaneous Information 1 ea NOTE XX Last administered on 03/16/17 22:18; Admin Dose 1 EA; Start 03/11/17 at 21:15 Glucose (Glutose) 15 gm Q15M PRN PO DECREASED GLUCOSE; Start 03/11/17 at 21:15 Glucose (Glutose) 22.5 gm Q15M PRN PO DECREASED GLUCOSE; Start 03/11/17 at 21: 15 Dextrose (D50w Syringe) 25 ml Q15M PRN IV DECREASED GLUCOSE; Start 03/11/17 at 21:15 Dextrose (D50w Syringe) 50 ml Q15M PRN IV DECREASED GLUCOSE; Start 03/11/17 at 21:15 Glucagon (Glucagen) 1 mg Q15M PRN IM DECREASED GLUCOSE; Start 03/11/17 at 21:15 Glucose (Glutose) 15 gm Q15M PRN BUCCAL DECREASED GLUCOSE; Start 03/11/17 at 21 :15 Metoprolol Tartrate (Lopressor) 12.5 mg BID PO Last administered on 03/17/17 08:22; Admin Dose 12.5 MG; Start 03/13/17 at 21:00; Status Future Hold Atorvastatin Calcium (Lipitor) 20 mg HS PO Last administered on 03/17/17 22:21 ; Admin Dose 20 MG; Start 03/13/17 at 21:00 Insulin Glargine 15 unit 15 unit DAILY@20 SC Last administered on 03/17/17 22: 07; Admin Dose 15 UNIT; Start 03/17/17 at 20:00; Status Future hold Dextrose/Sodium Chloride (D5-1/2ns) 1,000 ml @ 50 mls/hr Q20H IV Last administered on 03/18/17 06:43; Admin Dose 50 MLS/HR; Start 03/18/17 at 07:00 THOMAS DERAS Mar 18, 2017 19:35
--- NOTE | 2017-03-18 19:56 | PN ---
Date/Time of Note Date/Time of Note DATE: 03/18/17 TIME: 19:55 Assessment/Plan VTE Prophylaxis VTE Prophylaxis Intervention: other Lines/Catheters IV Catheter Type (from Nrs): Saline Lock Urinary Cath still in place: No Assessment/Plan Chief Complaint/Hosp Course COPD HTN ASHD HX CA BLADDER s/p cysto and turbt PLAN HHN STEROID per gu and cardio and dr to per dr hammond Problems: Subjective 24 Hr Interval Summary Subjective hx not possible: other (s/p cysto) Respiratory: shortness of breath (better) Cardiovascular: no complaints Exam/Review of Systems Vital Signs Vitals Vital Signs Date Time Temp Pulse Resp B/P Pulse Ox O2 Delivery O2 Flow Rate FiO2 03/18/17 16:40 97 03/18/17 16:03 98.1 18 138/68 95 03/18/17 15:14 Room Air 03/18/17 14:24 6.0 03/17/17 17:07 32 Intake and Output 03/17/17 03/17/17 03/18/17 15:00 23:00 07:00 Intake Total 500 ml 600 ml Balance 500 ml 600 ml Exam Respiratory: diminished breath sounds Cardiovascular: regular rate and rhythm Gastrointestinal: bowel sounds, soft Musculoskeletal: nl extremities to inspection Results Result Diagram: 03/17/17 0710 03/17/17 0710 Results 24 hrs Laboratory Tests Test 03/17/17 21:58 03/18/17 01:57 03/18/17 08:26 03/18/17 11:36 Bedside Glucose 318 H 110 144 140 Test 03/18/17 17:22 Bedside Glucose 201 Medications Medications Current Medications Dextrose (D50w Syringe) ONCE PRN IV POC BLOOD GLUCOSE <250 MG/DL Last administered on 03/11/17 14:19; Admin Dose 50 ML; Start 03/11/17 at 14:30 Bisacodyl (Dulcolax) 5 mg DAILY PRN PO CONSTIPATION Last administered on 17:38; Admin Dose 5 MG; Start 03/11/17 at 18:00 Promethazine HCl/ Dextromethorphan (Phenergan-Dm) 5 ml Q6H PRN PO COUGH Last administered on 03/18/17 15:39; Admin Dose 5 ML; Start 03/11/17 at 18:00 Docusate Sodium (Colace) 100 mg Q12H PRN PO CONSTIPATION Last administered on 06:02; Admin Dose 100 MG; Start 03/11/17 at 18:00 Famotidine (Pepcid) 20 mg DAILY PO Last administered on 03/17/17 08:20; Admin Dose 20 MG; Start 03/12/17 at 09:00 Fluticasone Propionate (Flonase 0.05% Nasal) 1 spray BID NASAL Last administered on 03/18/17 08:27; Admin Dose 1 SPRAY; Start 03/11/17 at 21:00 Gabapentin (Neurontin) 300 mg TID PO Last administered on 03/17/17 22:21; Admin Dose 300 MG; Start 03/11/17 at 22:00 Acetaminophen/ Hydrocodone Bitart ([place] (5/325)) 1 tab Q6H PRN PO MODERATE PAIN LEVEL 4-6; Start 03/11/17 at 18:00 Loratadine (Claritin) 10 mg DAILY PO Last administered on 03/17/17 08:20; Admin Dose 10 MG; Start 03/12/17 at 09:00 Montelukast Sodium (Singulair) 10 mg QHS PO Last administered on 03/17/17 22: 21; Admin Dose 10 MG; Start 03/11/17 at 22:00 Sodium Biphosphate/ Sodium Phosphate (Fleet Enema) 133 ml DAILY PRN [place] CONSTIPATION; Start 03/11/17 at 18:00 Zolpidem Tartrate (Ambien) 2.5 mg QHS PRN PO SLEEP; Start 03/11/17 at 18:00 Ondansetron HCl (Zofran Inj) 4 mg Q6H PRN IV NAUSEA AND/OR VOMITING; Start at 18:30 Acetaminophen (Tylenol Tab) 650 mg Q6H PRN PO PAIN LEVEL 1-3 OR FEVER; Start at 18:30 Magnesium Hydroxide (Milk Of Mag) 30 ml DAILY PRN PO CONSTIPATION; Start at 18:30 Enoxaparin Sodium (Lovenox) 30 mg DAILY SC Last administered on 03/17/17 08:30 ; Admin Dose 30 MG; Start 03/12/17 at 09:00; Status Future Hold Methylprednisolone Sodium Succinate (Solu-Medrol) 20 mg BID IV Last administered on 03/18/17 08:27; Admin Dose 20 MG; Start 03/11/17 at 21:00 Diagnostic Test (Pha) (Accu-Chek) 1 ea 02 XX Last administered on 03/18/17 02: 00; Admin Dose 1 EA; Start 03/12/17 at 02:00; Status Future hold Miscellaneous Information 1 ea NOTE XX Last administered on 03/16/17 22:18; Admin Dose 1 EA; Start 03/11/17 at 21:15 Glucose (Glutose) 15 gm Q15M PRN PO DECREASED GLUCOSE; Start 03/11/17 at 21:15 Glucose (Glutose) 22.5 gm Q15M PRN PO DECREASED GLUCOSE; Start 03/11/17 at 21: 15 Dextrose (D50w Syringe) 25 ml Q15M PRN IV DECREASED GLUCOSE; Start 03/11/17 at 21:15 Dextrose (D50w Syringe) 50 ml Q15M PRN IV DECREASED GLUCOSE; Start 03/11/17 at 21:15 Glucagon (Glucagen) 1 mg Q15M PRN IM DECREASED GLUCOSE; Start 03/11/17 at 21:15 Glucose (Glutose) 15 gm Q15M PRN BUCCAL DECREASED GLUCOSE; Start 03/11/17 at 21 :15 Metoprolol Tartrate (Lopressor) 12.5 mg BID PO Last administered on 03/17/17 08:22; Admin Dose 12.5 MG; Start 03/13/17 at 21:00; Status Future hold Atorvastatin Calcium (Lipitor) 20 mg HS PO Last administered on 03/17/17 22:21 ; Admin Dose 20 MG; Start 03/13/17 at 21:00 Insulin Glargine 15 unit 15 unit DAILY@20 SC Last administered on 03/17/17 22: 07; Admin Dose 15 UNIT; Start 03/17/17 at 20:00; Status Future hold Dextrose/Sodium Chloride (D5-1/2ns) 1,000 ml @ 50 mls/hr Q20H IV Last administered on 03/18/17 06:43; Admin Dose 50 MLS/HR; Start 03/18/17 at 07:00 LEILA SPARKS MD Mar 18, 2017 19:56
[2017-03-18] MEDS: MONTELUKAST 10 MG TAB PO SCH (22:02)
[2017-03-18] MEDS: ATORVASTATIN 20 MG TAB PO SCH (22:02)
[2017-03-18] MEDS: INSULIN GLARGINE [LANtus] 3 ML PEN SC SCH (22:09)
[2017-03-18] MEDS: METOPROLOL 25 MG TAB PO SCH (22:09)
[2017-03-19] VITALS (10 sets, daily range): BP systolic 109–155; BP diastolic 58–64; PULSE 69–94; RESP 17–20
[2017-03-19] MEDS: ACCU-CHEK XX SCH ×6 (02:00→21:10)
[2017-03-19] MEDS: ALBUTEROL/IPRATROPIUM (NEB) 3 ML AMP HHN SCH ×4 (02:15→20:09)
[2017-03-19] MEDS: DEXTROSE 5%-0.45% NACL 1,000 ML IV SCH ×2 (04:44→23:00)
[2017-03-19 07:33] LABS: ADD SCAN DIFF NO
[2017-03-19 07:38] LABS: ABNORMAL IP MESSAGE 1; BASOPHILS % 0.2 % (0.0-2.0); EOSINOPHILS % 0.5 % (0.0-7.0); HEMATOCRIT 29.2 % (37.0-47.0); HEMOGLOBIN 9.2 g/dl (12.0-16.0); LYMPHOCYTES # 0.8 10^3/ul (0.8-2.9); LYMPHOCYTES % 13.1 % (15.0-51.0); MEAN CORPUSCULAR HEMOGLOBIN 31.4 pg (29.0-33.0); MEAN CORPUSCULAR HGB CONC 31.5 g/dl (32.0-37.0); MEAN CORPUSCULAR VOLUME 99.7 fl (82.0-101.0); MONOCYTE # 0.3 10^3/ul (0.3-0.9); MONOCYTES % 4.3 % (0.0-11.0); NEUTROPHIL # 4.4 10^3/ul (1.6-7.5); NEUTROPHILS % 75.2 % (39.0-77.0); NUCLEATED RED BLOOD CELLS% 0.7 /100WBC (0.0-0.0); PLATELET COUNT 148 10^3/UL (140-415); RED BLOOD COUNT 2.93 10^6/ul (4.20-5.40); RED CELL DISTRIBUTION WIDTH 19.3 % (11.5-14.5); WHITE BLOOD COUNT 5.8 10^3/ul (4.8-10.8)
[2017-03-19] MEDS: INSULIN ASPART [NOVOLOG] 3 ML PEN SC SCH ×7 (08:00→21:00)
[2017-03-19 08:46] LABS: ALBUMIN 3.2 g/dl (3.3-4.9); ALBUMIN/GLOBULIN RATIO 1.6; BILIRUBIN,INDIRECT 0.2 mg/dl (0-1.1); BILIRUBIN,TOTAL 0.2 mg/dl (0.2-1.3); CALCIUM 8.7 mg/dl (8.4-10.2); CREATININE 0.86 mg/dl (0.44-1.00); POTASSIUM 4.7 mmol/L (3.5-5.1); TOTAL PROTEIN 5.2 g/dl (6.1-8.1)
[2017-03-19] MEDS: FAMOTIDINE 20 MG TAB PO SCH (08:48)
[2017-03-19] MEDS: LORATADINE 10 MG TAB PO SCH (08:48)
[2017-03-19] MEDS: GABAPENTIN 300 MG CAP PO SCH ×3 (08:48→21:05)
[2017-03-19] MEDS: DOCUSATE SODIUM 100 MG CAP PO PRN ×2 (08:48→22:16)
[2017-03-19] MEDS: METOPROLOL 25 MG TAB PO SCH ×2 (08:48→21:07)
[2017-03-19] MEDS: FLUTICASONE 0.05% 16 GM NAS SPRAY NASAL SCH ×2 (08:49→21:06)
[2017-03-19] MEDS: METHYLPREDNISOLONE 40 MG INJ IV SCH ×2 (08:49→21:08)
--- NOTE | 2017-03-19 09:21 | PN ---
DATE: 03/19/2017 SUBJECTIVE: History of bladder tumor. The patient is status post cystoscopy and transurethral rese ction of bladder tumor yesterday. The patient is doing well. She denies having any pain. She is i ncontinent and she has been before and the urine is clear. OBJECTIVE: VITAL SIGNS: Temperature is 97.6, blood pressure 119/58, pulse 92, respirations 18. LABORATORY DATA: CBC shows a white count of 5.8, hemoglobin 9.2, hematocrit 29.2. BUN is 35, creat inine 0.89. The urine culture collected from yesterday is still pending. The pathology is also bora abdi. IMPRESSION: History of bladder tumor. During cystoscopy yesterday, it looked reasonably good and t here were no papillary tumors. The resection of 2 areas was done, one on the right, on the left oskar e. The areas where the old tumors were, were all healed; however, one could see the scar tissue. RECOMMENDATION: At the present, just observation and I do not think she will need anything else. I f everything is stable with her, maybe we will do a cystoscopy again in about 3 months. Dictated By: FLORIN PATEL/LEONARD Conf#: [id number] DID#: [id number]
--- NOTE | 2017-03-19 13:51 | PN ---
Date/Time of Note Date/Time of Note DATE: 03/19/17 TIME: 13:49 Assessment/Plan VTE Prophylaxis VTE Prophylaxis Intervention: ambulation Lines/Catheters IV [facility] Type (from [facility] Peripheral IV Urinary Cath still in place: No Assessment/Plan Chief Complaint/Hosp Course 1. COPD, better 2. Hyperkalemia. 3. Prerenal azotemia. 4. Underlying chronic kidney disease. 5. Hypotension, asymptomatic. 6. Fernandez facies. 7. The patient has diastolic heart failure history. 8. Mild pulmonary venous hypertension Problems: Assessment/Plan 1. Continue breathing treatment 2. Continue PT Subjective 24 Hr Interval Summary Constitutional: improved, no complaints Exam/Review of Systems Vital Signs Vitals Vital Signs Date Time Temp Pulse Resp B/P Pulse Ox O2 Delivery O2 Flow Rate FiO2 03/19/17 12:27 98.0 84 18 155/64 92 03/19/17 08:59 Nasal Cannula 3.0 03/17/17 17:07 32 Intake and Output 03/18/17 03/18/17 03/19/17 15:00 23:00 07:00 Intake Total 350 ml 1650 ml 170 ml Output Total 0 ml Balance 350 ml 1650 ml 170 ml Exam Constitutional: alert, oriented Head: atraumatic, normocephalic Respiratory: clear to auscultation, normal air movement Cardiovascular: regular rate and rhythm Gastrointestinal: soft Results Result Diagram: 03/19/17 0648 03/19/17 0648 Results 24 hrs Laboratory Tests Test 03/18/17 17:22 03/18/17 20:05 03/19/17 06:48 03/19/17 07:58 Bedside Glucose 201 160 122 White Blood Count 5.8 Red Blood Count 2.93 L Hemoglobin 9.2 L Hematocrit 29.2 L Mean Corpuscular Volume 99.7 Mean Corpuscular Hemoglobin 31.4 Mean Corpuscular Hemoglobin Concent 31.5 L Red Cell Distribution Width 19.3 H Platelet Count 148 Mean Platelet Volume 9.0 Neutrophils % 75.2 Lymphocytes % 13.1 L Monocytes % 4.3 Eosinophils % 0.5 Basophils % 0.2 Nucleated Red Blood Cells % 0.7 H Neutrophils # 4.4 Lymphocytes # 0.8 Monocytes # 0.3 Eosinophils # 0.0 Basophils # 0.0 Nucleated Red Blood Cells # 0.0 Sodium Level 140 Potassium Level 4.7 Chloride Level 100 Carbon Dioxide Level 33 H Anion Gap 12 Blood Urea Nitrogen 23 #H Creatinine 0.86 Glucose Level 114 # Calcium Level 8.7 Total Bilirubin 0.2 Direct Bilirubin 0.00 Indirect Bilirubin 0.2 Aspartate Amino Transf (AST/SGOT) 22 Alanine Aminotransferase (ALT/SGPT) 37 Alkaline Phosphatase 46 Total Protein 5.2 L Albumin 3.2 L Globulin 2.00 Albumin/Globulin Ratio 1.60 Test 03/19/17 08:54 03/19/17 12:07 Bedside Glucose 99 152 Medications Medications Current Medications Dextrose (D50w Syringe) ONCE PRN IV POC BLOOD GLUCOSE <250 MG/DL Last administered on 03/11/17 14:19; Admin Dose 50 ML; Start 03/11/17 at 14:30 Bisacodyl (Dulcolax) 5 mg DAILY PRN PO CONSTIPATION Last administered on 17:38; Admin Dose 5 MG; Start 03/11/17 at 18:00 Promethazine HCl/ Dextromethorphan (Phenergan-Dm) 5 ml Q6H PRN PO COUGH Last administered on 03/18/17 15:39; Admin Dose 5 ML; Start 03/11/17 at 18:00 Docusate Sodium (Colace) 100 mg Q12H PRN PO CONSTIPATION Last administered on 08:48; Admin Dose 100 MG; Start 03/11/17 at 18:00 Famotidine (Pepcid) 20 mg DAILY PO Last administered on 03/19/17 08:48; Admin Dose 20 MG; Start 03/12/17 at 09:00 Fluticasone Propionate (Flonase 0.05% Nasal) 1 spray BID NASAL Last administered on 03/19/17 08:49; Admin Dose 1 SPRAY; Start 03/11/17 at 21:00 Gabapentin (Neurontin) 300 mg TID PO Last administered on 03/19/17 12:13; Admin Dose 300 MG; Start 03/11/17 at 22:00 Acetaminophen/ Hydrocodone Bitart ([place] (5/325)) 1 tab Q6H PRN PO MODERATE PAIN LEVEL 4-6; Start 03/11/17 at 18:00 Loratadine (Claritin) 10 mg DAILY PO Last administered on 03/19/17 08:48; Admin Dose 10 MG; Start 03/12/17 at 09:00 Montelukast Sodium (Singulair) 10 mg QHS PO Last administered on 03/18/17 22:02 ; Admin Dose 10 MG; Start 03/11/17 at 22:00 Sodium Biphosphate/ Sodium Phosphate (Fleet Enema) 133 ml DAILY PRN [place] CONSTIPATION; Start 03/11/17 at 18:00 Zolpidem Tartrate (Ambien) 2.5 mg QHS PRN PO SLEEP; Start 03/11/17 at 18:00 Ondansetron HCl (Zofran Inj) 4 mg Q6H PRN IV NAUSEA AND/OR VOMITING; Start at 18:30 Acetaminophen (Tylenol Tab) 650 mg Q6H PRN PO PAIN LEVEL 1-3 OR FEVER; Start at 18:30 Magnesium Hydroxide (Milk Of Mag) 30 ml DAILY PRN PO CONSTIPATION; Start at 18:30 Enoxaparin Sodium (Lovenox) 30 mg DAILY SC Last administered on 03/17/17 08:30 ; Admin Dose 30 MG; Start 03/12/17 at 09:00; Status Future Hold Methylprednisolone Sodium Succinate (Solu-Medrol) 20 mg BID IV Last administered on 03/19/17 08:49; Admin Dose 20 MG; Start 03/11/17 at 21:00 Diagnostic Test (Pha) (Accu-Chek) 1 ea 02 XX Last administered on 03/18/17 02: 00; Admin Dose 1 EA; Start 03/12/17 at 02:00; Status Future hold Miscellaneous Information 1 ea NOTE XX Last administered on 03/16/17 22:18; Admin Dose 1 EA; Start 03/11/17 at 21:15 Glucose (Glutose) 15 gm Q15M PRN PO DECREASED GLUCOSE; Start 03/11/17 at 21:15 Glucose (Glutose) 22.5 gm Q15M PRN PO DECREASED GLUCOSE; Start 03/11/17 at 21: 15 Dextrose (D50w Syringe) 25 ml Q15M PRN IV DECREASED GLUCOSE; Start 03/11/17 at 21:15 Dextrose (D50w Syringe) 50 ml Q15M PRN IV DECREASED GLUCOSE; Start 03/11/17 at 21:15 Glucagon (Glucagen) 1 mg Q15M PRN IM DECREASED GLUCOSE; Start 03/11/17 at 21:15 Glucose (Glutose) 15 gm Q15M PRN BUCCAL DECREASED GLUCOSE; Start 03/11/17 at 21 :15 Metoprolol Tartrate (Lopressor) 12.5 mg BID PO Last administered on 03/19/17 08 :48; Admin Dose 12.5 MG; Start 03/13/17 at 21:00; Status Future hold Atorvastatin Calcium (Lipitor) 20 mg HS PO Last administered on 03/18/17 22:02 ; Admin Dose 20 MG; Start 03/13/17 at 21:00 Insulin Glargine 15 unit 15 unit DAILY@20 SC Last administered on 03/18/17 22: 09; Admin Dose 15 UNIT; Start 03/17/17 at 20:00; Status Future hold Dextrose/Sodium Chloride (D5-1/2ns) 1,000 ml @ 50 mls/hr Q20H IV Last administered on 03/19/17 04:44; Admin Dose 50 MLS/HR; Start 03/18/17 at 07:00 JIM ESTRADA Mar 19, 2017 13:51
--- NOTE | 2017-03-19 15:16 | CONS ---
Date/Time of Note Date/Time of Note DATE: 03/19/17 TIME: 15:12 Assessment/Plan Assessment/Plan Chief Complaint/Hosp Course The patient is an 86 year old woman with bladder cancer s/p TURBT 09/29/16, status post chemoradiation with 5FU/mitomycin with radiation completed 02/03/17, recently admitted for pneumonia/bronchitis/CHF exacerbation, as well as CHF/ COPD exacerbation, now readmitted with CHF/COPD exacerbation - Continue treatment for CHF/COPD, with diuretics, steroids, breathing treatments per primary team. Awaiting cardiology recs. Unlikely to be related to bladder cancer. - CT chest 01/22/17 showed 1. Diffuse pulmonary fibrotic changes again seen which has not changed significantly. 2. Decrease bilateral lower lobe air space disease with residual medial right lower lobe air space disease. - 02/04/17 LE dopplers negative for DVT, LE edema likely 2/2 CHF exacerbation - Now status post cystoscopy 03/18/17. Per Dr. Morfin, during cystoscopy, it looked reasonably good and there were no papillary tumors. 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 Morfin but cannot rule out bladder tumor. The areas where the old tumors were, were all healed; however, one could see the scar tissue. F/U pathology. At the present, just observation and I do not think she will need anything else. If everything is stable with her, maybe we will do a cystoscopy again in about 3 months. - Can obtain baseline restaging CT scans as an outpatient - Patient needs to follow-up with Dr. Gillis (radiation oncology) upon discharge - Patient needs outpatient follow-up with pulmonary and cardiology upon discharge. - Hgb fairly stable, iron panel consistent with anemia of chronic inflammation with Fe 50, TIBC 247, %20, ferritin 165; Vitamin B12 > 1000, folate 5.3, TSH 0.609, LDH normal at 517, retic 83K which is inappropriately low - Patient should follow-up with me upon discharge Problems: Consultation Date/Type/Reason Admit Date/Time March 11, 2017 at 14:48 Initial Consult Date 03/12/17 Type of Consultation: Hematology/Oncology Referring Provider: LEILA SPARKS MD 24 HR Interval Summary Free Text/Dictation Patient had cystoscopy done yesterday. She has no complaints is states that her breathing is better. Exam/Review of Systems Vital Signs Vitals Vital Signs Date Time Temp Pulse Resp B/P Pulse Ox O2 Delivery O2 Flow Rate FiO2 03/19/17 14:52 3.0 03/19/17 14:51 82 18 96 Nasal Cannula 03/19/17 12:27 98.0 155/64 03/17/17 17:07 32 Intake and Output 03/18/17 03/18/17 03/19/17 15:00 23:00 07:00 Intake Total 350 ml 1650 ml 170 ml Output Total 0 ml Balance 350 ml 1650 ml 170 ml Exam Constitutional: alert, oriented Head: normocephalic Eyes: nl conjunctiva ENMT: nl external ears & nose Neck: supple Respiratory: decreased crackles Cardiovascular: regular rate and rhythm Gastrointestinal: soft Genitourinary - Female: nl external genitalia Musculoskeletal: nl extremities to inspection Extremities: edema Results Result Diagram: 03/19/17 0648 03/19/17 0648 Results 24 hrs Laboratory Tests Test 03/18/17 17:22 03/18/17 20:05 03/19/17 06:48 03/19/17 07:58 Bedside Glucose 201 160 122 White Blood Count 5.8 Red Blood Count 2.93 L Hemoglobin 9.2 L Hematocrit 29.2 L Mean Corpuscular Volume 99.7 Mean Corpuscular Hemoglobin 31.4 Mean Corpuscular Hemoglobin Concent 31.5 L Red Cell Distribution Width 19.3 H Platelet Count 148 Mean Platelet Volume 9.0 Neutrophils % 75.2 Lymphocytes % 13.1 L Monocytes % 4.3 Eosinophils % 0.5 Basophils % 0.2 Nucleated Red Blood Cells % 0.7 H Neutrophils # 4.4 Lymphocytes # 0.8 Monocytes # 0.3 Eosinophils # 0.0 Basophils # 0.0 Nucleated Red Blood Cells # 0.0 Sodium Level 140 Potassium Level 4.7 Chloride Level 100 Carbon Dioxide Level 33 H Anion Gap 12 Blood Urea Nitrogen 23 #H Creatinine 0.86 Glucose Level 114 # Calcium Level 8.7 Total Bilirubin 0.2 Direct Bilirubin 0.00 Indirect Bilirubin 0.2 Aspartate Amino Transf (AST/SGOT) 22 Alanine Aminotransferase (ALT/SGPT) 37 Alkaline Phosphatase 46 Total Protein 5.2 L Albumin 3.2 L Globulin 2.00 Albumin/Globulin Ratio 1.60 Test 03/19/17 08:54 6/2/17 12:07 Bedside Glucose 99 152 Medications Medications Current Medications Dextrose (D50w Syringe) ONCE PRN IV POC BLOOD GLUCOSE <250 MG/DL Last administered on 03/11/17 14:19; Admin Dose 50 ML; Start 03/11/17 at 14:30 Bisacodyl (Dulcolax) 5 mg DAILY PRN PO CONSTIPATION Last administered on 17:38; Admin Dose 5 MG; Start 03/11/17 at 18:00 Promethazine HCl/ Dextromethorphan (Phenergan-Dm) 5 ml Q6H PRN PO COUGH Last administered on 03/18/17 15:39; Admin Dose 5 ML; Start 03/11/17 at 18:00 Docusate Sodium (Colace) 100 mg Q12H PRN PO CONSTIPATION Last administered on 08:48; Admin Dose 100 MG; Start 03/11/17 at 18:00 Famotidine (Pepcid) 20 mg DAILY PO Last administered on 03/19/17 08:48; Admin Dose 20 MG; Start 03/12/17 at 09:00 Fluticasone Propionate (Flonase 0.05% Nasal) 1 spray BID NASAL Last administered on 03/19/17 08:49; Admin Dose 1 SPRAY; Start 03/11/17 at 21:00 Gabapentin (Neurontin) 300 mg TID PO Last administered on 03/19/17 12:13; Admin Dose 300 MG; Start 03/11/17 at 22:00 Acetaminophen/ Hydrocodone Bitart ([place] (5/325)) 1 tab Q6H PRN PO MODERATE PAIN LEVEL 4-6; Start 03/11/17 at 18:00 Loratadine (Claritin) 10 mg DAILY PO Last administered on 03/19/17 08:48; Admin Dose 10 MG; Start 03/12/17 at 09:00 Montelukast Sodium (Singulair) 10 mg QHS PO Last administered on 03/18/17 22:02 ; Admin Dose 10 MG; Start 03/11/17 at 22:00 Sodium Biphosphate/ Sodium Phosphate (Fleet Enema) 133 ml DAILY PRN [place] CONSTIPATION; Start 03/11/17 at 18:00 Zolpidem Tartrate (Ambien) 2.5 mg QHS PRN PO SLEEP; Start 03/11/17 at 18:00 Ondansetron HCl (Zofran Inj) 4 mg Q6H PRN IV NAUSEA AND/OR VOMITING; Start at 18:30 Acetaminophen (Tylenol Tab) 650 mg Q6H PRN PO PAIN LEVEL 1-3 OR FEVER; Start at 18:30 Magnesium Hydroxide (Milk Of Mag) 30 ml DAILY PRN PO CONSTIPATION; Start at 18:30 Enoxaparin Sodium (Lovenox) 30 mg DAILY SC Last administered on 03/17/17 08:30 ; Admin Dose 30 MG; Start 03/12/17 at 09:00; Status Future Hold Methylprednisolone Sodium Succinate (Solu-Medrol) 20 mg BID IV Last administered on 03/19/17 08:49; Admin Dose 20 MG; Start 03/11/17 at 21:00 Diagnostic Test (Pha) (Accu-Chek) 1 ea 02 XX Last administered on 03/18/17 02: 00; Admin Dose 1 EA; Start 03/12/17 at 02:00; Status Future hold Miscellaneous Information 1 ea NOTE XX Last administered on 03/16/17 22:18; Admin Dose 1 EA; Start 03/11/17 at 21:15 Glucose (Glutose) 15 gm Q15M PRN PO DECREASED GLUCOSE; Start 03/11/17 at 21:15 Glucose (Glutose) 22.5 gm Q15M PRN PO DECREASED GLUCOSE; Start 03/11/17 at 21: 15 Dextrose (D50w Syringe) 25 ml Q15M PRN IV DECREASED GLUCOSE; Start 03/11/17 at 21:15 Dextrose (D50w Syringe) 50 ml Q15M PRN IV DECREASED GLUCOSE; Start 03/11/17 at 21:15 Glucagon (Glucagen) 1 mg Q15M PRN IM DECREASED GLUCOSE; Start 03/11/17 at 21:15 Glucose (Glutose) 15 gm Q15M PRN BUCCAL DECREASED GLUCOSE; Start 03/11/17 at 21 :15 Metoprolol Tartrate (Lopressor) 12.5 mg BID PO Last administered on 03/19/17 08 :48; Admin Dose 12.5 MG; Start 03/13/17 at 21:00; Status Future hold Atorvastatin Calcium (Lipitor) 20 mg HS PO Last administered on 03/18/17 22:02 ; Admin Dose 20 MG; Start 03/13/17 at 21:00 Insulin Glargine 15 unit 15 unit DAILY@20 SC Last administered on 03/18/17 22: 09; Admin Dose 15 UNIT; Start 03/17/17 at 20:00; Status Future hold Dextrose/Sodium Chloride (D5-1/2ns) 1,000 ml @ 50 mls/hr Q20H IV Last administered on 03/19/17 04:44; Admin Dose 50 MLS/HR; Start 03/18/17 at 07:00 TOLILLIANA MD Mar 19, 2017 15:16
--- NOTE | 2017-03-19 16:41 | CONS ---
Date/Time of Note Date/Time of Note DATE: 03/19/17 TIME: 16:38 Assessment/Plan Assessment/Plan Chief Complaint/Hosp Course IMPRESSION: 1. Congestive heart failure. By most recent echo in January 2017 would be diastolic, acute on chronic. 3. Hypotension. Improved with now HTN 4. Shortness of breath, likely multifactorial, with contribution of heart failure, as well as a history of pulmonary fibrosis. 5. Facial swelling. 6. Diabetes mellitus, with hyperglycemia. 7. Hyponatremia. 8. Renal failure-improved 9. Anemia. 10. H/O bladder ca s/p cystoscopy resection 11.Pulmonary fibrosis Recc: -Tele -serial ecg's -Continue low dose BB and follow BP/HR closely -Follow volume status closely with possible need to resume gentle lasix diuresis Problems: Consultation Date/Type/Reason Admit Date/Time March 11, 2017 at 14:48 Initial Consult Date 03/12/17 Type of Consultation: Cardiology Reason for Consultation CHF Referring Provider: LEILA SPARKS MD Exam/Review of Systems Vital Signs Vitals Vital Signs Date Time Temp Pulse Resp B/P Pulse Ox O2 Delivery O2 Flow Rate FiO2 03/19/17 16:11 94 03/19/17 15:24 98.3 18 109/64 95 03/19/17 14:52 3.0 03/19/17 14:51 Nasal Cannula 03/17/17 17:07 32 Intake and Output 03/18/17 03/18/17 03/19/17 15:00 23:00 07:00 Intake Total 350 ml 1650 ml 170 ml Output Total 0 ml Balance 350 ml 1650 ml 170 ml Exam Review of Systems: CONSTITUTIONAL: No fevers, chills. PULMONARY: mild e sob CARDIOVASCULAR: No chest pain/palpitations GASTROINTESTINAL: No nausea/vomiting. GENITOURINARY: No hematuria/dysuria. MUSCULOSKELETAL: No myagias/arthalgias. PSYCHIATRIC: The patient denies depression. NEUROLOGIC: No weakness Constitutional: alert Psych: no complaints Head: normocephalic ENMT: mucosa pink and moist Neck: jvd (9 cm water), supple Respiratory: diminished breath sounds (at bases/B) Cardiovascular: regular rate and rhythm Gastrointestinal: non-tender, soft Extremities: pitting pedal edema (bilateral at ankles) 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: other (No focal deficits) Results Result Diagram: 03/19/17 0648 03/19/17 0648 Results 24 hrs Laboratory Tests Test 03/18/17 17:22 03/18/17 20:05 03/19/17 06:48 03/19/17 07:58 Bedside Glucose 201 160 122 White Blood Count 5.8 Red Blood Count 2.93 L Hemoglobin 9.2 L Hematocrit 29.2 L Mean Corpuscular Volume 99.7 Mean Corpuscular Hemoglobin 31.4 Mean Corpuscular Hemoglobin Concent 31.5 L Red Cell Distribution Width 19.3 H Platelet Count 148 Mean Platelet Volume 9.0 Neutrophils % 75.2 Lymphocytes % 13.1 L Monocytes % 4.3 Eosinophils % 0.5 Basophils % 0.2 Nucleated Red Blood Cells % 0.7 H Neutrophils # 4.4 Lymphocytes # 0.8 Monocytes # 0.3 Eosinophils # 0.0 Basophils # 0.0 Nucleated Red Blood Cells # 0.0 Sodium Level 140 Potassium Level 4.7 Chloride Level 100 Carbon Dioxide Level 33 H Anion Gap 12 Blood Urea Nitrogen 23 #H Creatinine 0.86 Glucose Level 114 # Calcium Level 8.7 Total Bilirubin 0.2 Direct Bilirubin 0.00 Indirect Bilirubin 0.2 Aspartate Amino Transf (AST/SGOT) 22 Alanine Aminotransferase (ALT/SGPT) 37 Alkaline Phosphatase 46 Total Protein 5.2 L Albumin 3.2 L Globulin 2.00 Albumin/Globulin Ratio 1.60 Test 03/19/17 08:54 03/19/17 12:07 Bedside Glucose 99 152 Medications Medications Current Medications Dextrose (D50w Syringe) ONCE PRN IV POC BLOOD GLUCOSE <250 MG/DL Last administered on 03/11/17 14:19; Admin Dose 50 ML; Start 03/11/17 at 14:30 Bisacodyl (Dulcolax) 5 mg DAILY PRN PO CONSTIPATION Last administered on 17:38; Admin Dose 5 MG; Start 03/11/17 at 18:00 Promethazine HCl/ Dextromethorphan (Phenergan-Dm) 5 ml Q6H PRN PO COUGH Last administered on 03/18/17 15:39; Admin Dose 5 ML; Start 03/11/17 at 18:00 Docusate Sodium (Colace) 100 mg Q12H PRN PO CONSTIPATION Last administered on 08:48; Admin Dose 100 MG; Start 03/11/17 at 18:00 Famotidine (Pepcid) 20 mg DAILY PO Last administered on 03/19/17 08:48; Admin Dose 20 MG; Start 03/12/17 at 09:00 Fluticasone Propionate (Flonase 0.05% Nasal) 1 spray BID NASAL Last administered on 03/19/17 08:49; Admin Dose 1 SPRAY; Start 03/11/17 at 21:00 Gabapentin (Neurontin) 300 mg TID PO Last administered on 03/19/17 12:13; Admin Dose 300 MG; Start 03/11/17 at 22:00 Acetaminophen/ Hydrocodone Bitart ([place] (5/325)) 1 tab Q6H PRN PO MODERATE PAIN LEVEL 4-6; Start 03/11/17 at 18:00 Loratadine (Claritin) 10 mg DAILY PO Last administered on 03/19/17 08:48; Admin Dose 10 MG; Start 03/12/17 at 09:00 Montelukast Sodium (Singulair) 10 mg QHS PO Last administered on 03/18/17 22:02 ; Admin Dose 10 MG; Start 03/11/17 at 22:00 Sodium Biphosphate/ Sodium Phosphate (Fleet Enema) 133 ml DAILY PRN [place] CONSTIPATION; Start 03/11/17 at 18:00 Zolpidem Tartrate (Ambien) 2.5 mg QHS PRN PO SLEEP; Start 03/11/17 at 18:00 Ondansetron HCl (Zofran Inj) 4 mg Q6H PRN IV NAUSEA AND/OR VOMITING; Start at 18:30 Acetaminophen (Tylenol Tab) 650 mg Q6H PRN PO PAIN LEVEL 1-3 OR FEVER; Start at 18:30 Magnesium Hydroxide (Milk Of Mag) 30 ml DAILY PRN PO CONSTIPATION; Start at 18:30 Enoxaparin Sodium (Lovenox) 30 mg DAILY SC Last administered on 03/17/17 08:30 ; Admin Dose 30 MG; Start 03/12/17 at 09:00; Status Future Hold Methylprednisolone Sodium Succinate (Solu-Medrol) 20 mg BID IV Last administered on 03/19/17 08:49; Admin Dose 20 MG; Start 03/11/17 at 21:00 Diagnostic Test (Pha) (Accu-Chek) 1 ea 02 XX Last administered on 03/18/17 02: 00; Admin Dose 1 EA; Start 03/12/17 at 02:00; Status Future hold Miscellaneous Information 1 ea NOTE XX Last administered on 03/16/17 22:18; Admin Dose 1 EA; Start 03/11/17 at 21:15 Glucose (Glutose) 15 gm Q15M PRN PO DECREASED GLUCOSE; Start 03/11/17 at 21:15 Glucose (Glutose) 22.5 gm Q15M PRN PO DECREASED GLUCOSE; Start 03/11/17 at 21: 15 Dextrose (D50w Syringe) 25 ml Q15M PRN IV DECREASED GLUCOSE; Start 03/11/17 at 21:15 Dextrose (D50w Syringe) 50 ml Q15M PRN IV DECREASED GLUCOSE; Start 03/11/17 at 21:15 Glucagon (Glucagen) 1 mg Q15M PRN IM DECREASED GLUCOSE; Start 03/11/17 at 21:15 Glucose (Glutose) 15 gm Q15M PRN BUCCAL DECREASED GLUCOSE; Start 03/11/17 at 21 :15 Metoprolol Tartrate (Lopressor) 12.5 mg BID PO Last administered on 03/19/17 08 :48; Admin Dose 12.5 MG; Start 03/13/17 at 21:00; Status Future hold Atorvastatin Calcium (Lipitor) 20 mg HS PO Last administered on 03/18/17 22:02 ; Admin Dose 20 MG; Start 03/13/17 at 21:00 Insulin Glargine 15 unit 15 unit DAILY@20 SC Last administered on 03/18/17 22: 09; Admin Dose 15 UNIT; Start 03/17/17 at 20:00; Status Future hold Dextrose/Sodium Chloride (D5-1/2ns) 1,000 ml @ 50 mls/hr Q20H IV Last administered on 03/19/17 04:44; Admin Dose 50 MLS/HR; Start 03/18/17 at 07:00 THOMAS DERAS Mar 19, 2017 16:41
[2017-03-19] MEDS: ATORVASTATIN 20 MG TAB PO SCH (21:05)
[2017-03-19] MEDS: MONTELUKAST 10 MG TAB PO SCH (21:05)
[2017-03-19] MEDS: INSULIN GLARGINE [LANtus] 3 ML PEN SC SCH (21:12)
[2017-03-19] MEDS: BISACODYL (EC) 5 MG TAB PO PRN (22:16)
--- NOTE | 2017-03-19 23:56 | RADRPT ---
Vent Rate: 73 bpm RR Interval: 0 msec VT Interval: 136 msec QRS Duration: 70 msec QT Interval: 384 msec QTC Interval: 423 msec P-R-T [place]: 37 - 66 - 71 degrees Normal sinus rhythm with sinus arrhythmia Normal ECG Electronically Signed By: Seth Pena [id number]
[2017-03-20] VITALS (10 sets, daily range): BP systolic 105–133; BP diastolic 57–96; PULSE 65–114; RESP 16–19
[2017-03-20] MEDS: ALBUTEROL/IPRATROPIUM (NEB) 3 ML AMP HHN SCH ×3 (01:42→13:39)
[2017-03-20] MEDS: GABAPENTIN 300 MG CAP PO SCH ×2 (08:20→15:57)
[2017-03-20] MEDS: FAMOTIDINE 20 MG TAB PO SCH (08:20)
[2017-03-20] MEDS: LORATADINE 10 MG TAB PO SCH (08:20)
[2017-03-20] MEDS: METHYLPREDNISOLONE 40 MG INJ IV SCH (08:21)
[2017-03-20] MEDS: FLUTICASONE 0.05% 16 GM NAS SPRAY NASAL SCH (08:21)
[2017-03-20] MEDS: METOPROLOL 25 MG TAB PO SCH (08:22)
[2017-03-20] MEDS: INSULIN ASPART [NOVOLOG] 3 ML PEN SC SCH ×6 (08:27→17:33)
--- NOTE | 2017-03-20 11:18 | CONS ---
Date/Time of Note Date/Time of Note DATE: 03/20/17 TIME: 11:16 Assessment/Plan Assessment/Plan Additional Assessment/Plan 1. Congestive heart failure. By most recent echo in January 2017 would be diastolic, acute on chronic - better fluidsatus, will keep euvolemic. 3. Hypotension. Improved with now HTN- well rx, on meds 4. Shortness of breath, likely multifactorial, with contribution of heart failure, as well as a history of pulmonary fibrosis. 5. Facial swelling. 6. Diabetes mellitus, with hyperglycemia - keep euglycemic now. 7. Hyponatremia. 8. Renal failure-improved- avoid nephrotoxic meds 9. Anemia - H/H stable - no bleeding now 10. H/O bladder ca s/p cystoscopy resection 11.Pulmonary fibrosis Consultation Date/Type/Reason Admit Date/Time March 11, 2017 at 14:48 Initial Consult Date 03/12/17 Type of Consultation: Cardiology Referring Provider: LEILA SPARKS MD 24 HR Interval Summary Free Text/Dictation NO acute events - BP in good range - no CP noted ROS: No fever, no chills, no nausea, no vomiting, no diarrhea/constipation No recent weight changes No chest pain, no PND, no orthopnea, chronic SOB No dizziness, blurred vision No thirst, no heat or cold intolerance Exam/Review of Systems Vital Signs Vitals Vital Signs Date Time Temp Pulse Resp B/P Pulse Ox O2 Delivery O2 Flow Rate FiO2 03/20/17 08:30 79 20 95 Nasal Cannula 3.0 03/20/17 07:48 98.0 133/63 03/17/17 17:07 32 Intake and Output 03/19/17 03/19/17 03/20/17 15:00 23:00 07:00 Intake Total 980 ml Balance 980 ml Exam General: WN/WD/NAD, AOx 1-2 HEENT: Unicetric/atraumatic/EOMI (follow commands) NECK: JVD elevated, no thyromegaly Lymph: no lymphadenopathy HEART: regular with no S3, II/ systolic murmur at apex LUNGS: Coarse sounds, fine crackles ABD: soft, NT, ND, +BS : Intact Neuro: non focal SKIN: chronic changes EXT: trace edema Results Result Diagram: 03/19/17 0648 03/19/17 0648 Results 24 hrs Laboratory Tests Test 03/19/17 12:07 03/19/17 16:47 03/19/17 21:09 03/20/17 07:58 Bedside Glucose 152 88 178 205 Medications Medications Current Medications Dextrose (D50w Syringe) ONCE PRN IV POC BLOOD GLUCOSE <250 MG/DL Last administered on 03/11/17 14:19; Admin Dose 50 ML; Start 03/11/17 at 14:30 Bisacodyl (Dulcolax) 5 mg DAILY PRN PO CONSTIPATION Last administered on 22:16; Admin Dose 5 MG; Start 03/11/17 at 18:00 Promethazine HCl/ Dextromethorphan (Phenergan-Dm) 5 ml Q6H PRN PO COUGH Last administered on 03/18/17 15:39; Admin Dose 5 ML; Start 03/11/17 at 18:00 Docusate Sodium (Colace) 100 mg Q12H PRN PO CONSTIPATION Last administered on 22:16; Admin Dose 100 MG; Start 03/11/17 at 18:00 Famotidine (Pepcid) 20 mg DAILY PO Last administered on 03/20/17 08:20; Admin Dose 20 MG; Start 03/12/17 at 09:00 Fluticasone Propionate (Flonase 0.05% Nasal) 1 spray BID NASAL Last administered on 03/20/17 08:21; Admin Dose 1 SPRAY; Start 03/11/17 at 21:00 Gabapentin (Neurontin) 300 mg TID PO Last administered on 03/20/17 08:20; Admin Dose 300 MG; Start 03/11/17 at 22:00 Acetaminophen/ Hydrocodone Bitart ([place] (5/325)) 1 tab Q6H PRN PO MODERATE PAIN LEVEL 4-6; Start 03/11/17 at 18:00 Loratadine (Claritin) 10 mg DAILY PO Last administered on 03/20/17 08:20; Admin Dose 10 MG; Start 03/12/17 at 09:00 Montelukast Sodium (Singulair) 10 mg QHS PO Last administered on 03/19/17 21:05 ; Admin Dose 10 MG; Start 03/11/17 at 22:00 Sodium Biphosphate/ Sodium Phosphate (Fleet Enema) [address] CONSTIPATION; Start 03/11/17 at 18:00 Zolpidem Tartrate (Ambien) 2.5 mg QHS PRN PO SLEEP; Start 03/11/17 at 18:00 Ondansetron HCl (Zofran Inj) 4 mg Q6H PRN IV NAUSEA AND/OR VOMITING; Start at 18:30 Acetaminophen (Tylenol Tab) 650 mg Q6H PRN PO PAIN LEVEL 1-3 OR FEVER; Start at 18:30 Magnesium Hydroxide (Milk Of Mag) 30 ml DAILY PRN PO CONSTIPATION; Start at 18:30 Enoxaparin Sodium (Lovenox) 30 mg DAILY SC Last administered on 03/17/17 08:30 ; Admin Dose 30 MG; Start 03/12/17 at 09:00; Status Future Hold Methylprednisolone Sodium Succinate (Solu-Medrol) 20 mg BID IV Last administered on 03/20/17 08:21; Admin Dose 20 MG; Start 03/11/17 at 21:00 Diagnostic Test (Pha) (Accu-Chek) 1 ea 02 XX Last administered on 03/18/17 02: 00; Admin Dose 1 EA; Start 03/12/17 at 02:00; Status Future hold Miscellaneous Information 1 ea NOTE XX Last administered on 03/16/17 22:18; Admin Dose 1 EA; Start 03/11/17 at 21:15 Glucose (Glutose) 15 gm Q15M PRN PO DECREASED GLUCOSE; Start 03/11/17 at 21:15 Glucose (Glutose) 22.5 gm Q15M PRN PO DECREASED GLUCOSE; Start 03/11/17 at 21: 15 Dextrose (D50w Syringe) 25 ml Q15M PRN IV DECREASED GLUCOSE; Start 03/11/17 at 21:15 Dextrose (D50w Syringe) 50 ml Q15M PRN IV DECREASED GLUCOSE; Start 03/11/17 at 21:15 Glucagon (Glucagen) 1 mg Q15M PRN IM DECREASED GLUCOSE; Start 03/11/17 at 21:15 Glucose (Glutose) 15 gm Q15M PRN BUCCAL DECREASED GLUCOSE; Start 03/11/17 at 21 :15 Metoprolol Tartrate (Lopressor) 12.5 mg BID PO Last administered on 03/20/17 08 :22; Admin Dose 12.5 MG; Start 03/13/17 at 21:00; Status Future hold Atorvastatin Calcium (Lipitor) 20 mg HS PO Last administered on 03/19/17 21:05 ; Admin Dose 20 MG; Start 03/13/17 at 21:00 Insulin Glargine 15 unit 15 unit DAILY@20 SC Last administered on 03/19/17 21: 12; Admin Dose 15 UNIT; Start 03/17/17 at 20:00; Status Future hold Dextrose/Sodium Chloride (D5-1/2ns) 1,000 ml @ 50 mls/hr Q20H IV Last administered on 03/19/17 04:44; Admin Dose 50 MLS/HR; Start 03/18/17 at 07:00 AURELIANO ORTEGA MD Mar 20, 2017 11:18
[2017-03-20] MEDS: BISACODYL (EC) 5 MG TAB PO PRN (12:09)
[2017-03-20] MEDS: DOCUSATE SODIUM 100 MG CAP PO PRN (12:09)
--- NOTE | 2017-03-20 13:33 | PN ---
Date/Time of Note Date/Time of Note DATE: 03/20/17 TIME: 13:31 Assessment/Plan VTE Prophylaxis VTE Prophylaxis Intervention: ambulation Lines/Catheters IV Catheter Type (from Nrs): Peripheral IV Urinary Cath still in place: No Assessment/Plan Chief Complaint/Hosp Course 1. COPD, better 2. Hyperkalemia, resolved. 3. Prerenal azotemia. 4. Underlying chronic kidney disease. 5. Hypotension, asymptomatic. 6. Fernandez facies. 7. The patient has diastolic heart failure history. 8. Mild pulmonary venous hypertension Problems: Assessment/Plan 1. ABG on room air to determine if pt needs oxygen at home 2. Dishcharge Subjective 24 Hr Interval Summary Constitutional: improved, no complaints ENT: no complaints Respiratory: no complaints Cardiovascular: no complaints Gastrointestinal: no complaints Exam/Review of Systems Vital Signs Vitals Vital Signs Date Time Temp Pulse Resp B/P Pulse Ox O2 Delivery O2 Flow Rate FiO2 03/20/17 12:07 74 03/20/17 11:51 98.2 19 116/57 99 03/20/17 08:30 Nasal Cannula 3.0 03/17/17 17:07 32 Intake and Output 03/19/17 03/19/17 03/20/17 15:00 23:00 07:00 Intake Total 980 ml Balance 980 ml Exam Constitutional: alert, oriented Psych: no complaints ENMT: nl external ears & nose Neck: supple Respiratory: clear to auscultation Cardiovascular: regular rate and rhythm Gastrointestinal: soft Results Result Diagram: 03/19/17 0648 03/19/17 0648 Results 24 hrs Laboratory Tests Test 03/19/17 16:47 03/19/17 21:09 03/20/17 07:58 03/20/17 12:12 Bedside Glucose 88 178 205 96 Medications Medications Current Medications Dextrose (D50w Syringe) ONCE PRN IV POC BLOOD GLUCOSE <250 MG/DL Last administered on 03/11/17 14:19; Admin Dose 50 ML; Start 03/11/17 at 14:30 Bisacodyl (Dulcolax) 5 mg DAILY PRN PO CONSTIPATION Last administered on 12:09; Admin Dose 5 MG; Start 03/11/17 at 18:00 Promethazine HCl/ Dextromethorphan (Phenergan-Dm) 5 ml Q6H PRN PO COUGH Last administered on 03/18/17 15:39; Admin Dose 5 ML; Start 03/11/17 at 18:00 Docusate Sodium (Colace) 100 mg Q12H PRN PO CONSTIPATION Last administered on 12:09; Admin Dose 100 MG; Start 03/11/17 at 18:00 Famotidine (Pepcid) 20 mg DAILY PO Last administered on 03/20/17 08:20; Admin Dose 20 MG; Start 03/12/17 at 09:00 Fluticasone Propionate (Flonase 0.05% Nasal) 1 spray BID NASAL Last administered on 03/20/17 08:21; Admin Dose 1 SPRAY; Start 03/11/17 at 21:00 Gabapentin (Neurontin) 300 mg TID PO Last administered on 03/20/17 08:20; Admin Dose 300 MG; Start 03/11/17 at 22:00 Acetaminophen/ Hydrocodone Bitart ([place] (5/325)) 1 tab Q6H PRN PO MODERATE PAIN LEVEL 4-6; Start 03/11/17 at 18:00 Loratadine (Claritin) 10 mg DAILY PO Last administered on 03/20/17 08:20; Admin Dose 10 MG; Start 03/12/17 at 09:00 Montelukast Sodium (Singulair) 10 mg QHS PO Last administered on 03/19/17 21:05 ; Admin Dose 10 MG; Start 03/11/17 at 22:00 Sodium Biphosphate/ Sodium Phosphate (Fleet Enema) 133 ml DAILY PRN [place] CONSTIPATION; Start 03/11/17 at 18:00 Zolpidem Tartrate (Ambien) 2.5 mg QHS PRN PO SLEEP; Start 03/11/17 at 18:00 Ondansetron HCl (Zofran Inj) 4 mg Q6H PRN IV NAUSEA AND/OR VOMITING; Start at 18:30 Acetaminophen (Tylenol Tab) 650 mg Q6H PRN PO PAIN LEVEL 1-3 OR FEVER; Start at 18:30 Magnesium Hydroxide (Milk Of Mag) 30 ml DAILY PRN PO CONSTIPATION; Start at 18:30 Enoxaparin Sodium (Lovenox) 30 mg DAILY SC Last administered on 03/17/17 08:30 ; Admin Dose 30 MG; Start 03/12/17 at 09:00; Status Future Hold Methylprednisolone Sodium Succinate (Solu-Medrol) 20 mg BID IV Last administered on 03/20/17 08:21; Admin Dose 20 MG; Start 03/11/17 at 21:00 Diagnostic Test (Pha) (Accu-Chek) 1 ea 02 XX Last administered on 03/18/17 02: 00; Admin Dose 1 EA; Start 03/12/17 at 02:00; Status Future hold Miscellaneous Information 1 ea NOTE XX Last administered on 03/16/17 22:18; Admin Dose 1 EA; Start 03/11/17 at 21:15 Glucose (Glutose) 15 gm Q15M PRN PO DECREASED GLUCOSE; Start 03/11/17 at 21:15 Glucose (Glutose) 22.5 gm Q15M PRN PO DECREASED GLUCOSE; Start 03/11/17 at 21: 15 Dextrose (D50w Syringe) 25 ml Q15M PRN IV DECREASED GLUCOSE; Start 03/11/17 at 21:15 Dextrose (D50w Syringe) 50 ml Q15M PRN IV DECREASED GLUCOSE; Start 03/11/17 at 21:15 Glucagon (Glucagen) 1 mg Q15M PRN IM DECREASED GLUCOSE; Start 03/11/17 at 21:15 Glucose (Glutose) 15 gm Q15M PRN BUCCAL DECREASED GLUCOSE; Start 03/11/17 at 21 :15 Metoprolol Tartrate (Lopressor) 12.5 mg BID PO Last administered on 03/20/17 08 :22; Admin Dose 12.5 MG; Start 03/13/17 at 21:00; Status Future hold Atorvastatin Calcium (Lipitor) 20 mg HS PO Last administered on 03/19/17 21:05 ; Admin Dose 20 MG; Start 03/13/17 at 21:00 Insulin Glargine 15 unit 15 unit DAILY@20 SC Last administered on 03/19/17 21: 12; Admin Dose 15 UNIT; Start 03/17/17 at 20:00; Status Future hold Dextrose/Sodium Chloride (D5-1/2ns) 1,000 ml @ 50 mls/hr Q20H IV Last administered on 03/19/17 04:44; Admin Dose 50 MLS/HR; Start 03/18/17 at 07:00 JIM ESTRADA Mar 20, 2017 13:33
--- NOTE | 2017-03-20 13:55 | PDOCDIS ---
Discharge Instructions CONDITION Patient Condition: Serious HOME CARE INSTRUCTIONS: Diet Instructions: 2gm NaSpecial Diet: carb control ACTIVITY: Activity Restrictions: Slowly Increase Activity SCHOOL/WORK RELEASE May return to School/Work with: With Restrictions JIM ESTRADA Mar 20, 2017 13:55
[2017-03-20 14:26] LABS: AADO2 Arterial 45.9 mmHg (7.0-24.0); Allen Test ACCEPTAB; Arterial Base Excess 1.9 mmol/L (-3.0-3); Arterial COHb 0.3 % (0.0-3.0); Arterial Fraction of Oxyhgb 88.1 % (93.0-99.0); Arterial HCO3 26.3 mmol/L (22.0-26.0); Arterial MetHb 0.4 % (0.0-1.5); Arterial Total Hemglobin 11.3 g/dl (12.0-18.0); MODE ROOM AIR
--- NOTE | 2017-03-20 15:53 | PN ---
DATE: 03/20/2017 SUBJECTIVE: The patient is reasonably comfortable. She denies having any pain. She is voiding wel l and she is on oxygen, and if she is on oxygen, she stated that she is able to breathe well and the re is no coughing. When she is not on oxygen, she starts having coughing. The patient is status po st cystoscopy and transurethral resection of bladder lesions. The pathology on that is still pendin g. OBJECTIVE: VITAL SIGNS: Her temperature is 98.2, blood pressure 116/57, pulse 74, respirations 18. LABORATORY DATA: Her CBC shows a white count of 5.8, hemoglobin 9.2, hematocrit 29.2. The BUN is 2 3, creatinine 0.86. Electrolytes are normal. IMPRESSION: The patient has a history of invasive bladder tumor. She is status post radiation and she is status post cystoscopy and resection of an area on the left side of the bladder and another o ne on the right side of the bladder to make sure that there is no tumor in that, so we know if she h as any recurrent tumor or persistent tumor. The patient is doing well and at the present, if the pl an is to send her back to the [facility], she could go back to the sn[facility]. I informed her roby oneil and her family, that I need to see her in about 3 months to do a cystoscopy. Dictated By: FLORIN PATEL/LEONARD Conf#: [id number] DID#: [id number]
--- NOTE | 2017-03-23 21:18 | DS ---
Date/Time of Note Date/Time of Note DATE: 03/23/17 TIME: 21:13 Discharge Summary Admission/Discharge Info Admit Date/Time March 11, 2017 at 14:48 Discharge Date/Time Mar 20, 2017 at 18:14 Final Diagnosis S/p urinary bladder tumors resection Patient Condition: Good Consults Arnaud Morfin Cystoscopy with transurethral tumor resection Hx of Present Illness pt was admitted with urinary bladder tumor after chemotherapy and radiation. Hs of COPD and lower extremities edema. Tumor was resected successfully. Hospital Course 1. COPD, better 2. Hyperkalemia, resolved. 3. Prerenal azotemia. 4. Underlying chronic kidney disease. 5. Hypotension, asymptomatic. 6. Fernandez facies. 7. The patient has diastolic heart failure history. 8. Mild pulmonary venous hypertension Home Meds Active Scripts Zolpidem Tartrate (Ambien [place]) 5 Mg Tablet, 2.5 MG PO QHS Y for SLEEP for 10 Days, TAB Prov:RODOLFO SPARKS MD 10/01/16 Na Phos,M-B/Na Phos,Di-Ba ([place] Ready To Use Enema) 133 Ml Enema, 133 ML [place] DAILY Y for CONSTIPATION for 7 Days, ENEMA Prov:RODOLFO SPARKS MD 10/01/16 Hydrocodone Bit-Acetaminophen (Hydrocodone Bit-APAP) 5-325MG Tablet, 1 TAB PO Q6H Y for MODERATE PAIN LEVEL 4-6 for 14 Days, TAB Prov:RODOLFO SPARKS MD 10/01/16 Ibuprofen* (Ibuprofen*) 400 Mg Tablet, 400 MG PO Q6H Y for FEver for 10 Days, TAB Prov:RODOLFO SPARKS MD 10/01/16 Famotidine* (Famotidine*) 20 Mg Tablet, 20 MG PO DAILY for 10 Days, TAB Prov:RODOLFO SPARKS MD 10/01/16 Docusate Sodium* (Colace*) 100 Mg Capsule, 100 MG PO Q12H Y for CONSTIPATION for 10 Days, CAP Prov:RODOLFO SPARKS MD 10/01/16 Bisacodyl* (Bisacodyl*) 5 Mg Tablet.dr, 5 MG PO DAILY Y for CONSTIPATION for 10 Days Prov:RODOLFO SPARKS MD 10/01/16 Reported Medications Fluticasone Propionate* (Fluticasone Propionate* Nasal) 50 Mcg/Dailey - 16 Gm [place].susp, 1 SPRAY NASAL BID, #1 BOTTLE TO EACH NOSTRIL 09/16/16 Dextromethorphan Hb-Promethazine Hcl* (Promethazine DM* Syrup) 473 Ml Syrup, 5 ML PO Q6 Y for COUGH, ML 09/16/16 Loratadine* (Loratadine*) 10 Mg Tablet, 10 MG PO DAILY, #30 TAB 09/16/16 Linaclotide (LINZESS) 290 Mcg Capsule, 290 MCG PO DAILY, #30 CAP 04/22/16 Montelukast Sodium* (Montelukast Sodium*) 10 Mg Tablet, 10 MG PO QHS, #30 TAB 04/22/16 Furosemide* (Lasix*) 20 Mg Tablet, 20 MG PO BID, TAB 11/07/14 Gabapentin* (Gabapentin*) 300 Mg Capsule, 300 MG PO TID, CAP 11/07/14 Follow-up Plan PCP 1 week Primary Care Provider Rodolfo Sparks MD Time spent on discharge: < 30 minutes JIM ESTRADA Mar 23, 2017 21:18
== END 2017-03-20 18:14 | DRG 987 ==
LOC: E/R 13:03 → MS4 14:48
PROVIDERS: ADMIT Internal Medicine Nephrology; ATTEND Internal Medicine Nephrology
PROC: 0TBB8ZZ Excision of Bladder, Via Natural or Artificial Opening Endoscopic (ICD-10-PCS; principal; 2017-03-18 12:30)
DX: I13.0 Hypertensive heart and chronic kidney disease with heart failure and stage 1 through stage 4 chronic kidney disease, or unspecified chronic kidney disease (principal); I50.33 Acute on chronic diastolic (congestive) heart failure; I27.2 Other secondary pulmonary hypertension; E11.65 Type 2 diabetes mellitus with hyperglycemia; E87.1 Hypo-osmolality and hyponatremia; I47.1 Supraventricular tachycardia; J44.1 Chronic obstructive pulmonary disease with (acute) exacerbation; N30.40 Irradiation cystitis without hematuria; N18.9 Chronic kidney disease, unspecified; E87.5 Hyperkalemia; D64.9 Anemia, unspecified; J84.10 Pulmonary fibrosis, unspecified; R22.0 Localized swelling, mass and lump, head; T38.0X5A Adverse effect of glucocorticoids and synthetic analogues, initial encounter; Y92.9 Unspecified place or not applicable; R32 Unspecified urinary incontinence; Z85.51 Personal history of malignant neoplasm of bladder; E66.9 Obesity, unspecified; Z68.30 Body mass index [BMI] 30.0-30.9, adult; D49.4 Neoplasm of unspecified behavior of bladder
CPT/HCPCS: 36415; 36600; 71010; 80048; 80053; 80061; 82550; 82553; 82607; 82728; 82746; 82803; 82962; 83540; 83615; 83735; 84443; 84484; 85025; 85045; 85610; 85730; 87086; 88305; 93005; 94640; 94664; 96374; 96375; 97110; 97116; 97162; 97530; C9113; J0690; J1650; J1815; J1940; J2405; J2710; J2765; J2920; J3475; J3480; J7030; J7042; J7999

== ENCOUNTER 2017-05-07 08:24 | Inpatient (IN) | payer MEDICARE, OTHER ==
[~2017-05-07] VITALS: Ht 157.5 cm; Wt 78.0 kg
[2017-05-07 08:30] VITALS: RESP 18
[2017-05-07] MEDS ORDERED: SOD CHLORIDE 0.9% 500 ML IV STA (08:40)
[2017-05-07 09:03] LABS: ADD SCAN DIFF NO
[2017-05-07 09:07] LABS: BASOPHILS % 0.3 % (0.0-2.0); EOSINOPHILS # 0.2 10^3/ul (0.0-0.5); EOSINOPHILS % 2.2 % (0.0-7.0); HEMATOCRIT 29.2 % (37.0-47.0); HEMOGLOBIN 8.9 g/dl (12.0-16.0); LYMPHOCYTES # 2.4 10^3/ul (0.8-2.9); LYMPHOCYTES % 30.9 % (15.0-51.0); MEAN CORPUSCULAR HEMOGLOBIN 31.9 pg (29.0-33.0); MEAN CORPUSCULAR HGB CONC 30.5 g/dl (32.0-37.0); MEAN CORPUSCULAR VOLUME 104.7 fl (82.0-101.0); MEAN PLATELET VOLUME 9.5 fl (7.4-10.4); MONOCYTE # 0.4 10^3/ul (0.3-0.9); MONOCYTES % 5.7 % (0.0-11.0); NEUTROPHIL # 4.6 10^3/ul (1.6-7.5); NEUTROPHILS % 59.7 % (39.0-77.0); PLATELET COUNT 250 10^3/UL (140-415); RED BLOOD COUNT 2.79 10^6/ul (4.20-5.40); RED CELL DISTRIBUTION WIDTH 15.6 % (11.5-14.5); WHITE BLOOD COUNT 7.7 10^3/ul (4.8-10.8)
--- NOTE | 2017-05-07 09:13 | RADRPT ---
PROCEDURE: XR Chest. CLINICAL INDICATION: Chest Pain. TECHNIQUE: Single frontal view of the chest was obtained COMPARISON: Chest x-ray 03/17/2017 FINDINGS: There are low lung volumes. The cardiac silhouette is mildly enlarged. There are is atherosclerotic calcification of the aorta. Biapical pleural and parenchymal scarring is noted. Again seen is diffuse prominence of interstitial lung markings, suggesting underlying interstitial l daniel disease. There has been interval development of patchy ill-defined opacities in the right mid and lower lung which may represent atelectasis or a developing pneumonia. No evidence of significant pulmonary vascular congestion. No pneumothorax or significant pleural effusion is seen. There is mild dextroscoliosis of the thoracic spine. Degenerative changes of the visualized spine a re also noted IMPRESSION: 1. Cardiomegaly. 2. Persistent no diffuse prominence of interstitial lung markings, suggesting underlying interstiti al lung disease. 3. Interval development of patchy ill-defined opacities in the right mid and lower lung, concerning for developing pneumonia versus atelectasis. RPTAT: PP Physician Nestor Date Time Electronically viewed and signed by Physician Nestor on 05/07/2017 09:13 /
[2017-05-07 09:24] LABS: INR 0.87; PROTIME 11.8 Sec (12.2-14.2); PT RATIO 0.9
[2017-05-07 09:25] LABS: PARTIAL THROMBOPLASTIN TIME 26.2 Sec (25.0-35.0)
[2017-05-07 09:38] LABS: CALCIUM 9.3 mg/dl (8.4-10.2); CREATININE 0.92 mg/dl (0.44-1.00); POTASSIUM 4.1 mmol/L (3.5-5.1)
[2017-05-07 09:50] LABS: TROPONIN-I 0.02 ng/ml (0.00-0.12)
--- NOTE | 2017-05-07 09:54 | ERA ---
ER Documentation Chief Complaint Date/Time DATE: 05/07/17 TIME: 09:49 Chief Complaint NOSE BLEED SINCE 4:30AM THIS MORNING - NO TRAUMA HPI 56-year-old female comes to the ER for a nosebleed that began at 430 this morning. She does not usually get nosebleeds. Believe she lost a very large amount of blood. Bleeding has stopped spontaneously. She had no trauma to her nasal area. She also has shortness of breath. No chest pain. She states that she does not have asthma and has not had fevers or chills lately. ROS All systems reviewed and are negative except as per history of present illness. Medications Home Meds Active Scripts Hydrocodone Bit-Acetaminophen (Hydrocodone Bit-APAP) 5-325MG Tablet, 1 TAB PO Q6H Y for MODERATE PAIN LEVEL 4-6 for 14 Days, TAB Prov:LEILA SPARKS MD 10/01/16 Famotidine* (Famotidine*) 20 Mg Tablet, 20 MG PO DAILY for 10 Days, TAB Prov:LEILA SPARKS MD 10/01/16 Docusate Sodium* (Colace*) 100 Mg Capsule, 100 MG PO Q12H Y for CONSTIPATION for 10 Days, CAP Prov:LEILA SPARKS MD 10/01/16 Bisacodyl* (Bisacodyl*) 5 Mg Tablet.dr, 5 MG PO DAILY Y for CONSTIPATION for 10 Days Prov:LEILA SPARKS MD 10/01/16 Reported Medications Insulin Lispro (Humalog Kwikpen) 200 Unit/1 Ml Insuln.pen, 0 SQ AC MEALS AND BEDTIME, EA SLIDING SCALE 70-140 = 0 UNITS 141-180 - 2 UNITS 181-220 = 4 UNITS 221-260 = 6 units 261-300 = 8 units 301-350 = 10 units over 350 12 UNITS AND CALL 05/07/17 Atorvastatin Calcium* (Atorvastatin Calcium*) 20 Mg Tablet, 20 MG PO QHS, #30 TAB 05/07/17 Prednisone* (Prednisone*) 10 Mg Tab, 10 MG PO DAILY, TAB 05/07/17 Potassium Chloride* (K-Dur*) 10 Meq Tab.prt.sr, 10 MEQ PO DAILY, TAB 05/07/17 Multivitamins* (Theragran*) 1 Tab Tab, 1 TAB PO DAILY, TAB 05/07/17 Metoprolol Tartrate* (Lopressor*) 25 Mg Tab, 12.5 MG PO BID, #60 TAB HOLD FOR SBP LOWER THAN 110 OR HR LOWER THAN 60 05/07/17 Furosemide* (Lasix*) 20 Mg Tablet, 20 MG PO DAILY, TAB 05/07/17 Acetaminophen* (Acetaminophen*) 650 Mg Tablet, 650 MG PO Q6H Y for MILD PAIN LEVEL 1-3, #30 TAB 05/07/17 Promethazine Hcl* (Phenergan* Liq) 6.25 Mg/5 Ml Syrup, 6.25 MG PO Q6H, ML 05/07/17 Magnesium Hydroxide* (Milk Of Magnesia*) 400 Mg/5 Ml Oral.susp, 30 ML PO DAILY Y for CONSTIPATION, ML 05/07/17 Albuterol Sulfate* (Albuterol Sulfate* Neb) 0.083%-3 Ml Neb, 2.5 MG NEB Q6 Y for WHEEZING AND SOB, #30 VIAL 05/07/17 Insulin Glargine* (Lantus*) 100 Unit/Ml Soln, 15 UNIT SC QHS, #1 VIAL 05/07/17 Fluticasone Propionate* (Fluticasone Propionate* Nasal) 50 Mcg/[place] - 16 Gm [place].susp, 1 SPRAY NASAL BID, #1 BOTTLE TO EACH NOSTRIL 09/16/16 Dextromethorphan Hb-Promethazine Hcl* (Promethazine DM* Syrup) 473 Ml Syrup, 5 ML PO Q6 Y for COUGH, ML 09/16/16 Loratadine* (Loratadine*) 10 Mg Tablet, 10 MG PO DAILY, #30 TAB 09/16/16 Montelukast Sodium* (Montelukast Sodium*) 10 Mg Tablet, 10 MG PO QHS, #30 TAB 04/22/16 Furosemide* (Lasix*) 20 Mg Tablet, 20 MG PO BID, TAB 11/07/14 Gabapentin* (Gabapentin*) 300 Mg Capsule, 300 MG PO TID, CAP 11/07/14 Discontinued Reported Medications Prednisone* (Prednisone*) 20 Mg Tab, 20 MG PO DAILY, TAB 05/07/17 Linaclotide (LINZESS) 290 Mcg Capsule, 290 MCG PO DAILY, #30 CAP 04/22/16 Discontinued Scripts Zolpidem Tartrate (Ambien [place]) 5 Mg Tablet, 2.5 MG PO QHS Y for SLEEP for 10 Days, TAB Prov:LEILA SPARKS MD 10/01/16 Na Phos,M-B/Na Phos,Di-Ba ([place] Ready To Use Enema) 133 Ml Enema, 133 ML CA DAILY Y for CONSTIPATION for 7 Days, ENEMA Prov:LEIAL SPARKS MD 10/01/16 Ibuprofen* (Ibuprofen*) 400 Mg Tablet, 400 MG PO Q6H Y for FEver for 10 Days, TAB Prov:LEILA SPARKS MD 10/01/16 Allergies Allergies: Coded Allergies: No Known Allergy (Unverified , 05/07/17) PMhx/Soc History of Surgery: Yes (TURBT FOR BLADDER CA) Anesthesia Reaction: No Hx 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 Disorder: No Hx Respiratory Disorders: Yes (COPD) Hx Cardiac Disorders: Yes (CHF) Hx Psychiatric Problems: No Hx Miscellaneous Medical Probl: Yes (bladder CA, COPD, CHF, obesity. ) Hx Alcohol Use: No Hx Substance Use: No Hx Tobacco Use: No Smoking Status: Never smoker Physical Exam Vitals Vital Signs Date Time Temp Pulse Resp B/P Pulse Ox O2 Delivery O2 Flow Rate FiO2 05/07/17 11:28 104 26 98/67 99 Nasal Cannula 2.0 05/07/17 08:40 Nasal Cannula 2 05/07/17 08:30 98.4 124 24 122/95 86 Physical Exam Const: [] Mild distress, appears somewhat short of breath Head: Atraumatic Eyes: Normal Conjunctiva ENT: Normal External Ears, Nose and Mouth. Neck: Full range of motion..~ No meningismus. Resp: Decreased breath sounds with prolonged expiratory time, mild tachypnea Cardio: Regular tachycardia, no murmurs Abd: Soft, non tender, non distended. Normal bowel sounds Skin: No petechiae or rashes Back: No midline or flank tenderness Ext: No cyanosis, or edema Neur: Awake and alert oriented 3, no focal deficit Psych: Normal Mood and Affect Result Diagram: 05/07/17 1230 05/07/17 0843 Results 24 hrs Laboratory Tests Test 05/07/17 08:43 05/07/17 12:30 White Blood Count 7.710^3/ul Red Blood Count 2.7910^6/ul Hemoglobin 8.9g/dl 7.7g/dl Hematocrit 29.2% 24.9% Mean Corpuscular Volume 104.7fl Mean Corpuscular Hemoglobin 31.9pg Mean Corpuscular Hemoglobin Concent 30.5g/dl Red Cell Distribution Width 15.6% Platelet Count 50055^3/UL Mean Platelet Volume 9.5fl Neutrophils % 59.7% Lymphocytes % 30.9% Monocytes % 5.7% Eosinophils % 2.2% Basophils % 0.3% Neutrophils # 4.610^3/ul Lymphocytes # 2.410^3/ul Monocytes # 0.410^3/ul Eosinophils # 0.210^3/ul Basophils # 0.010^3/ul Nucleated Red Blood Cells # 0.010^3/ul Prothrombin Time 11.8Sec Prothrombin Time Ratio 0.9 INR International Normalized Ratio 0.87 Activated Partial Thromboplast Time 26.2Sec Sodium Level 144mmol/L Potassium Level 4.1mmol/L Chloride Level 100mmol/L Carbon Dioxide Level 30mmol/L Anion Gap 18 Blood Urea Nitrogen 24mg/dl Creatinine 0.92mg/dl Glucose Level 153mg/dl Calcium Level 9.3mg/dl Troponin I 0.020ng/ml B-Type Natriuretic Peptide 920PG/ML Current Medications Medications (Trade) Dose Ordered Sig/Fina Route PRN Reason Start Time Stop Time Status Last Admin Dose Admin Sodium Chloride 500 ml @ 500 mls/hr Q1H STAT IV 05/07/17 08:40 05/07/17 09:39 DC 05/07/17 10:00 Sodium Chloride (NS) 500 ml @ 500 mls/hr Q1H ONCE IV 05/07/17 11:30 05/07/17 12:29 DC 05/07/17 11:23 Ondansetron HCl (Zofran Inj) 4 mg BRIDGE ORDER PRN IV NAUSEA AND/OR VOMITING 05/07/17 14:00 05/08/17 13:59 Acetaminophen (Tylenol Tab) 650 mg ER BRIDGE PRN PO MILD PAIN/FEVER 05/07/17 14:00 05/08/17 13:59 Procedures/MDM Epistaxis with significant blood loss symptomatic anemia requiring transfusion. No acute ischemia. Patient's initial hemoglobin was 8.7 however she was tachycardic and had a suspicion that her true hemoglobin level would be much lower as this is been acute blood loss. After liter of fluid I repeated the hemoglobin level returned at 7.7. I believe patient's symptoms are secondary to decreased oxygen carrying capacity. Patient remains shortness of breath even on oxygen. Patient did have increased markings on x-ray but has no white count has had no recent cough making pneumonia less likely. Spoke with Dr. Sparks will be admitting the patient. Sinus tachycardia rate of 102, normal axis, no ST or T-wave changes concerning for acute ischemia, normal intervals Chest x-ray interpretation: Interstitial markings present on prior x-ray, bibasilar atelectasis, I see no pneumothorax, no pulmonary edema, no fractures Treatment interpretation: Sinus tachycardia eventually transition to normal sinus rhythm without other arrhythmias. Critical care time 31 minutes: This includes treatment of acute blood loss anemia, careful fluid administration patient receiving blood products, treatment of unstable vital signs, review of chart, multiple visits patient's bedside to reassess cardio dynamic status and check for any further bleeding, discussion with patient and admitting doctor. This does not include any billable procedure Departure Diagnosis: Primary Impression: Acute blood loss anemia Additional Impressions: Epistaxis Dyspnea Condition: Serious CAITIE MCKEON DO May 07, 2017 09:53
[2017-05-07] MEDS ORDERED: LANT3I SC (10:06)
[2017-05-07] MEDS ORDERED: ALBU2.5V3 NEB (10:07)
[2017-05-07] MEDS ORDERED: MAGN400O4 PO (10:08)
[2017-05-07] MEDS ORDERED: PROM6.25 PO (10:09)
[2017-05-07] MEDS ORDERED: ACET-2047 PO (10:09)
[2017-05-07] MEDS ORDERED: FURO-110 PO (10:10)
[2017-05-07] MEDS ORDERED: PRED20TA PO (10:11)
[2017-05-07] MEDS ORDERED: METO-448 PO (10:12)
[2017-05-07] MEDS ORDERED: MULTI PO (10:13)
[2017-05-07] MEDS ORDERED: POTA10TA37 PO (10:14)
[2017-05-07] MEDS ORDERED: PRED10TA PO (10:15)
[2017-05-07] MEDS ORDERED: ATOR20TA38 PO (10:16)
[2017-05-07] MEDS ORDERED: INSU200I SQ (10:21)
[2017-05-07] MEDS ORDERED: SOD CHLORIDE 0.9% 500 ML IV ONE (11:30)
[2017-05-07 12:37] LABS: HEMATOCRIT 24.9 % (37.0-47.0); HEMOGLOBIN 7.7 g/dl (12.0-16.0)
[2017-05-07] MEDS ORDERED: ACETAMINOPHEN 325 MG TAB PO PRN ×2 (14:00→19:00)
[2017-05-07] MEDS ORDERED: ONDANSETRON 4 MG INJ IV PRN (14:00)
--- NOTE | 2017-05-07 14:49 | HP ---
Date/Time of Note Date/Time of Note DATE: 05/07/17 TIME: 14:40 Assessment/Plan VTE Prophylaxis VTE Prophylaxis Intervention: SCD's Lines/Catheters IV [facility] [place] Assessment/Plan Chief Complaint/Hosp Course 1. epistaxis 2. Anemia 3. S/p bladder cancer with TURBT 4. COPD, 5. CHF, diastolic 6. CAD 7. Hx pneumonia 8. pulmonary hypertension, 9. Hx SVT T Problems: Assessment/Plan 1. Admit inpatient 2. Blood transfusion 3. Hematology consult dr To HPI/ROS Admit Date/Time Admit Date/Time Hx of Present Illness The patient is an 86-year-old female with history of bladder cancer, underwent radiation treatment in February 2017. She was brought for nose bleed with consequent anemia that requires blood transfusion. She is positive for COPD, congestive heart failure, azotemia, atherosclerotic heart disease. ROS Constitutional: fatigue ENT: bleeding (nose) Respiratory: cough, shortness of breath, No no complaints, No other, No pain, No pleuritic pain, No sputum, No wheezing Cardiovascular: no complaints Gastrointestinal: no complaints Genitourinary: no complaints Musculoskeletal: bone/joint pain, restricted range of motion, No back pain, No neck pain, No no complaints, No other, No swelling Neurologic: headache, No confusion, No dizziness, No focal-weakness, No no complaints, No other, No seizure, No syncope Endocrine: polydypsia, weight change, No dry skin, No no complaints, No other, No polyuria, No temp intolerance Psychological: anxiety, depression, No confusion, No nl mood/affect, No no complaints, No other, No suicidal PMH/Family/Social Past Medical History Positive for history of bladder cancer, status post TURBT, history of chemoradiation with 5-FU and mitomycin. The patient has a history of pneumonia , bronchitis, CHF, COPD. The patient has diffuse pulmonary fibrotic changes in the lungs. The patient's other diagnoses includes the patient has anemia. The patient's other diagnoses include the patient has ejection fraction 55% to 60%, mild mitral wall regurgitation. The patient has pulmonary hypertension, a history of SVT, history of diastolic congestive heart failure, pulmonary fibrosis. Medical History: cancer, diabetes, high cholesterol, renal disease Past Surgical History Past Surgical Hx: other (TURP) Family History Significant Family History: no pertinent family hx Social History Alcohol Use: none Smoking Status: Never smoker Drug Use: none Exam/Review of Systems Vital Signs Vitals Vital Signs Date Time Temp Pulse Resp B/P Pulse Ox O2 Delivery O2 Flow Rate FiO2 05/07/17 11:28 104 26 98/67 99 Nasal Cannula 2.0 05/07/17 08:30 98.4 Exam Constitutional: alert, oriented Psych: no complaints Head: normocephalic Eyes: EOMI, nl lids ENMT: nl external ears & nose, nl lips & teeth, nl nasal mucosa & septum (with signs of nose bleed) Neck: supple Respiratory: clear to auscultation, diminished breath sounds Cardiovascular: regular rate and rhythm Gastrointestinal: soft Genitourinary - Female: nl external genitalia Extremities: normal pulses 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: SUSPENSION CORD TIER II-XII intact Skin: nl turgor Labs Result Diagram: 05/07/17 1230 05/07/17 0843 Medications Medications Current Medications Ondansetron HCl (Zofran Tab) 4 mg Q6H PRN PO NAUSEA AND/OR VOMITING; Start at 15:00 Pantoprazole (Protonix Iv) 40 mg DAILY@06 IV ; Start 05/08/17 at 06:00 JIM ESTRADA May 07, 2017 14:49
[2017-05-07] MEDS ORDERED: NACL 0.9% 3 ML SYG IV SCH (15:00)
[2017-05-07] MEDS ORDERED: ONDANSETRON 4 MG TAB PO PRN (15:00)
--- NOTE | 2017-05-07 15:28 | CONS ---
Date/Time of Note Date/Time of Note DATE: 05/07/17 TIME: 15:10 Assessment/Plan Assessment/Plan Chief Complaint/Hosp Course The patient is a 86 year old female with a history of high grade invasive urothelial carcinoma status post chemoradiation with 5FU/mitomycin with 20% dose reduction due to age, completed radiation 02/03/17 with recurrent admissions for unrelated COPD/CHF exacerbations, now admitted for epistaxis and associated anemia. - The patient underwent cystoscopy 03/18/17 with path demonstrating high grade dysplasia but no evidence of malignancy, per Dr. Morfin f/u cystocopy in 3 months. - CT CAP 04/26/17 showed nonspecific circumferential wall thickening, indeterminate 12 mm nodular area arising from urinary bladder wall superiorly, but no other evidence of mass or LAD in the CAP and no evidence of metastatic disease. Plan to repeat CT Q3-6 months. - Patient seen by Dr. Gillis 04/21/17, at which time patient doing well and without evidence of detectable disease with f/u planned for July 2017. # Epistaxis, with Hgb 8.9 down to 7.7 - agree with blood transfusion, will give 2 units pRBCs - will send anemia workup with iron panel, ferritin, B12, folate, TSH, MMA, homocystine, LDH, retic count, haptoglobin - smear reviewed by pathology, no significant abnormalities, no evidence of hemolysis or dysplasia - if epistaxis does not resolve, consider ENT consult Problems: Consultation Date/Type/Reason Admit Date/Time Date of Consultation: May 07, 2017 Type of Consultation: Oncology Reason for Consultation Anemia, history of bladder cancer Hx of Present Illness The patient is a 86 year old female with a history of high grade invasive urothelial carcinoma status post chemoradiation with 5FU/mitomycin with 20% dose reduction due to age, completed radiation 02/03/17 with recurrent admissions for unrelated COPD/CHF exacerbations, now admitted for epistaxis and associated anemia. The patient underwent cystoscopy 03/18/17 with path demonstrating high grade dysplasia but no evidence of malignancy, per Dr. Morfin f/u cystocopy in [address] CAP 04/26/17 showed nonspecific circumferential wall thickening, indeterminate 12 mm nodular area arising from urinary bladder wall superiorly, but no other evidence of mass or LAD in the CAP and no evidence of metastatic disease. Plan to repeat CT Q3-6 months. Patient seen by Dr. Gillis 04/21/17, at which time patient doing well and without evidence of detectable disease with f/u planned for July 2017. The patient states that she had significant epistaxis at 4 a.m. and 8 a.m., but that it has since resolved. ENT: bleeding (nose) Respiratory: cough, shortness of breath, No no complaints, No other, No pain, No pleuritic pain, No sputum, No wheezing Cardiovascular: no complaints Gastrointestinal: no complaints Genitourinary: no complaints Musculoskeletal: bone/joint pain, restricted range of motion, No back pain, No neck pain, No no complaints, No other, No swelling Neurologic: headache, No confusion, No dizziness, No focal-weakness, No no complaints, No other, No seizure, No syncope Psychological: no complaints Past Medical History Bladder cancer as above, COPD, CHF, diastolic, CAD, history of pneumonia, pulmonary hypertension, history of SVT Medical History: cancer, diabetes, high cholesterol, renal disease Past Surgical History Past Surgical Hx: other (TURP) Social History Alcohol Use: none Smoking Status: Never smoker Drug Use: none Exam/Review of Systems Vital Signs Vitals Vital Signs Date Time Temp Pulse Resp B/P Pulse Ox O2 Delivery O2 Flow Rate FiO2 05/07/17 11:28 104 26 98/67 99 Nasal Cannula 2.0 05/07/17 08:30 98.4 Exam Constitutional: alert, oriented Head: normocephalic Eyes: nl conjunctiva Neck: supple Respiratory: crackles/rales Cardiovascular: regular rate and rhythm Gastrointestinal: non-tender, soft Musculoskeletal: swelling 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: VALIDATION SCIENTIST II-XII intact Results Result Diagram: 05/07/17 1230 05/07/17 0843 Results 24 hrs Laboratory Tests Test 05/07/17 08:43 05/07/17 12:30 White Blood Count 7.7 # Red Blood Count 2.79 L Hemoglobin 8.9 L 7.7 L Hematocrit 29.2 L 24.9 L Mean Corpuscular Volume 104.7 H Mean Corpuscular Hemoglobin 31.9 Mean Corpuscular Hemoglobin Concent 30.5 L Red Cell Distribution Width 15.6 H Platelet Count 250 # Mean Platelet Volume 9.5 Neutrophils % 59.7 Lymphocytes % 30.9 Monocytes % 5.7 Eosinophils % 2.2 Basophils % 0.3 Neutrophils # 4.6 Lymphocytes # 2.4 Monocytes # 0.4 Eosinophils # 0.2 Basophils # 0.0 Nucleated Red Blood Cells # 0.0 Prothrombin Time 11.8 L Prothrombin Time Ratio 0.9 INR International Normalized Ratio 0.87 Activated Partial Thromboplast Time 26.2 Sodium Level 144 Potassium Level 4.1 Chloride Level 100 Carbon Dioxide Level 30 Anion Gap 18 H Blood Urea Nitrogen 24 H Creatinine 0.92 Glucose Level 153 Calcium Level 9.3 Troponin I 0.020 B-Type Natriuretic Peptide 920 H Medications Medications Current Medications Ondansetron HCl (Zofran Tab) 4 mg Q6H PRN PO NAUSEA AND/OR VOMITING; Start at 15:00 Pantoprazole (Protonix Iv) 40 mg DAILY@06 IV ; Start 05/08/17 at 06:00 TOLILLIANA MD May 07, 2017 15:24
[2017-05-07 17:45] VITALS: Ht 157.5 cm; Wt 78.0 kg
[2017-05-07 18:09] LABS: HEMATOCRIT 24.8 % (37.0-47.0); HEMOGLOBIN 7.6 g/dl (12.0-16.0)
[2017-05-07] MEDS ORDERED: BISACODYL (EC) 5 MG TAB PO PRN (19:00)
[2017-05-07] MEDS ORDERED: DOCUSATE SODIUM 100 MG CAP PO PRN (19:00)
[2017-05-07] MEDS ORDERED: HYDROCODONE/APAP (5/325) TAB PO PRN (19:00)
[2017-05-07] MEDS ORDERED: GLUCAGON 1 MG INJ IM PRN (19:00)
[2017-05-07] MEDS ORDERED: PROMETHAZINE/DM (CUP) PO PRN (19:00)
[2017-05-07] MEDS ORDERED: GLUCOSE GEL 15 GRAM TUBE BUCCAL PRN (19:00)
[2017-05-07] MEDS ORDERED: DEXTROSE 50% 50 ML SYRINGE IV PRN ×2 (19:00)
[2017-05-07] MEDS ORDERED: GLUCOSE GEL 15 GRAM TUBE PO PRN ×2 (19:00)
[2017-05-07] MEDS ORDERED: MAGNESIUM HYDROXIDE 30ML CUP PO PRN (19:00)
[2017-05-07] MEDS ORDERED: ALBUTEROL 0.083% (NEB) 2.5 MG/3 ML AMP NEB PRN (19:00)
[2017-05-07 19:38] VITALS: BP 121/86; RESP 18
[2017-05-07 19:57] LABS: RETICULOCYTE COUNT % 3.9 % (0.5-1.5)
[2017-05-07 20:20] LABS: IRON 32 ug/dl (35-150)
[2017-05-07 20:30] LABS: TOTAL IRON BINDING CAPACITY 273 ug/dl (241-421)
[2017-05-07] MEDS ORDERED: FUROSEMIDE 20 MG TAB PO SCH (21:00)
[2017-05-07] MEDS: MONTELUKAST 10 MG TAB PO SCH (21:07)
[2017-05-07] MEDS: ATORVASTATIN 20 MG TAB PO SCH (21:07)
[2017-05-07] MEDS: FLUTICASONE 0.05% 16 GM NAS SPRAY NASAL SCH (21:07)
[2017-05-07] MEDS: METOPROLOL 25 MG TAB PO SCH (21:08)
[2017-05-07] MEDS: GABAPENTIN 300 MG CAP PO SCH (21:09)
[2017-05-07] MEDS: PROMETHAZINE (1.25 MG/ML) 5 ML CUP PO SCH (21:09)
[2017-05-07] MEDS: INSULIN GLARGINE [LANtus] 3 ML PEN SC SCH (21:23)
[2017-05-08] MEDS: PROMETHAZINE (1.25 MG/ML) 5 ML CUP PO SCH ×4 (01:06→18:11)
[2017-05-08 01:25] VITALS: BP 115/67; PULSE 102; RESP 18
[2017-05-08 02:00] VITALS: BP 115/56; RESP 18
[2017-05-08] MEDS: PANTOPRAZOLE 40 MG INJ IV SCH (06:30)
[2017-05-08 07:23] VITALS: BP 111/60; RESP 12
[2017-05-08] MEDS: INSULIN ASPART [NOVOLOG] 3 ML PEN SC SCH ×4 (08:00→20:57)
[2017-05-08] MEDS: METOPROLOL 25 MG TAB PO SCH ×2 (08:56→20:57)
[2017-05-08] MEDS: FLUTICASONE 0.05% 16 GM NAS SPRAY NASAL SCH ×2 (08:56→20:56)
[2017-05-08] MEDS ORDERED: FUROSEMIDE 20 MG TAB PO SCH (09:00)
[2017-05-08] MEDS: GABAPENTIN 300 MG CAP PO SCH ×3 (09:11→20:56)
[2017-05-08] MEDS: FAMOTIDINE 20 MG TAB PO SCH (09:11)
[2017-05-08] MEDS: MULTIVITAMINS THERAPEUTIC TAB PO SCH (09:11)
[2017-05-08] MEDS: predniSONE 10 MG TAB PO SCH (09:12)
[2017-05-08] MEDS: POTASSIUM CHLORIDE (SR) 10 MEQ TAB PO SCH (09:12)
[2017-05-08] MEDS: LORATADINE 10 MG TAB PO SCH (09:12)
[2017-05-08 11:21] LABS: BASOPHILS % 0.5 % (0.0-2.0); EOSINOPHILS # 0.2 10^3/ul (0.0-0.5); EOSINOPHILS % 3.5 % (0.0-7.0); HEMATOCRIT 25.4 % (37.0-47.0); HEMOGLOBIN 7.9 g/dl (12.0-16.0); LYMPHOCYTES % 23.3 % (15.0-51.0); MEAN CORPUSCULAR HEMOGLOBIN 31.3 pg (29.0-33.0); MEAN CORPUSCULAR HGB CONC 31.1 g/dl (32.0-37.0); MEAN CORPUSCULAR VOLUME 100.8 fl (82.0-101.0); MEAN PLATELET VOLUME 9.5 fl (7.4-10.4); MONOCYTE # 0.3 10^3/ul (0.3-0.9); MONOCYTES % 7.2 % (0.0-11.0); NEUTROPHIL # 2.8 10^3/ul (1.6-7.5); NEUTROPHILS % 64.3 % (39.0-77.0); PLATELET COUNT 165 10^3/UL (140-415); RED BLOOD COUNT 2.52 10^6/ul (4.20-5.40); RED CELL DISTRIBUTION WIDTH 17.8 % (11.5-14.5); WHITE BLOOD COUNT 4.3 10^3/ul (4.8-10.8)
[2017-05-08 11:39] LABS: ALBUMIN 2.9 g/dl (3.3-4.9); ALBUMIN/GLOBULIN RATIO 1.26; BILIRUBIN,INDIRECT 0.1 mg/dl (0-1.1); BILIRUBIN,TOTAL 0.1 mg/dl (0.2-1.3); CALCIUM 8.2 mg/dl (8.4-10.2); CREATININE 0.91 mg/dl (0.44-1.00); MAGNESIUM 1.8 mg/dl (1.7-2.5); PHOSPHORUS 3.7 mg/dl (2.5-4.9); POTASSIUM 4.3 mmol/L (3.5-5.1); TOTAL PROTEIN 5.2 g/dl (6.1-8.1)
--- NOTE | 2017-05-08 12:04 | PN ---
Date/Time of Note Date/Time of Note DATE: 05/08/17 TIME: 12:03 Assessment/Plan VTE Prophylaxis VTE Prophylaxis Intervention: ambulation Lines/Catheters IV [facility] Peripheral IV Urinary Cath still in place: No Assessment/Plan Chief Complaint/Hosp Course 1. epistaxis 2. Anemia 3. S/p bladder cancer with TURBT 4. COPD, 5. CHF, diastolic 6. CAD 7. Hx pneumonia 8. pulmonary hypertension, 9. Hx SVT Problems: Assessment/Plan 1. ENT consult Subjective 24 Hr Interval Summary ENT: bleeding Cardiovascular: no complaints Gastrointestinal: decreased appetite Musculoskeletal: no complaints Exam/Review of Systems Vital Signs Vitals Vital Signs Date Time Temp Pulse Resp B/P Pulse Ox O2 Delivery O2 Flow Rate FiO2 05/08/17 08:30 Nasal Cannula 2.0 05/08/17 07:23 98.4 75 12 111/60 96 Intake and Output 05/07/17 05/07/17 05/08/17 15:00 23:00 07:00 Intake Total 650 ml Output Total 20 ml Balance 630 ml Exam Constitutional: alert ENMT: other (nasal bleeding) Respiratory: diminished breath sounds Cardiovascular: regular rate and rhythm Gastrointestinal: soft Results Result Diagram: 05/08/17 1030 05/08/17 1030 Results 24 hrs Laboratory Tests Test 05/07/17 12:30 05/07/17 17:15 05/07/17 17:36 05/07/17 19:35 Hemoglobin 7.7 L 7.6 L Hematocrit 24.9 L 24.8 L Bedside Glucose 80 Absolute Reticulocyte Count 0.092 Percent Reticulocyte Count 3.9 H Iron Level 32 L Total Iron Binding Capacity 273 Percent Iron Saturation 12 L Ferritin 79.8 Lactate Dehydrogenase 475 Vitamin B12 Level 764 Folate 8.3 Thyroid Stimulating Hormone (TSH) 8.020 H Test 05/07/17 21:14 05/08/17 08:11 05/08/17 10:30 Bedside Glucose 178 109 White Blood Count 4.3 #L Red Blood Count 2.52 L Hemoglobin 7.9 L Hematocrit 25.4 L Mean Corpuscular Volume 100.8 Mean Corpuscular Hemoglobin 31.3 Mean Corpuscular Hemoglobin Concent 31.1 L Red Cell Distribution Width 17.8 H Platelet Count 165 # Mean Platelet Volume 9.5 Neutrophils % 64.3 Lymphocytes % 23.3 Monocytes % 7.2 Eosinophils % 3.5 Basophils % 0.5 Nucleated Red Blood Cells % 0.0 Neutrophils # 2.8 Lymphocytes # 1.0 Monocytes # 0.3 Eosinophils # 0.2 Basophils # 0.0 Nucleated Red Blood Cells # 0.0 Sodium Level 143 Potassium Level 4.3 Chloride Level 103 Carbon Dioxide Level 31 Anion Gap 13 Blood Urea Nitrogen 20 Creatinine 0.91 Glucose Level 186 Calcium Level 8.2 L Phosphorus Level 3.7 Magnesium Level 1.8 Total Bilirubin 0.1 L Direct Bilirubin 0.00 Indirect Bilirubin 0.1 Aspartate Amino Transf (AST/SGOT) 22 Alanine Aminotransferase (ALT/SGPT) 30 Alkaline Phosphatase 34 L Total Protein 5.2 L Albumin 2.9 L Globulin 2.30 Albumin/Globulin Ratio 1.26 Medications Medications Current Medications Ondansetron HCl (Zofran Tab) 4 mg Q6H PRN PO NAUSEA AND/OR VOMITING; Start at 15:00 Pantoprazole (Protonix Iv) 40 mg DAILY@06 IV Last administered on 05/08/17 06: 30; Admin Dose 40 MG; Start 05/08/17 at 06:00 Acetaminophen (Tylenol Tab) 650 mg Q6H PRN PO MILD PAIN LEVEL 1-3; Start at 19:00 Albuterol (Proventil 0.083% (Neb)) 2.5 mg Q6 PRN NEB WHEEZING AND SOB; Start at 19:00 Atorvastatin Calcium (Lipitor) 20 mg QHS PO Last administered on 05/07/17 21: 07; Admin Dose 20 MG; Start 05/07/17 at 21:00 Bisacodyl (Dulcolax) 5 mg DAILY PRN PO CONSTIPATION; Start 05/07/17 at 19:00 Promethazine HCl/ Dextromethorphan (Phenergan-Dm) 5 ml Q6 PRN PO COUGH; Start 05/07/17 at 19:00 Docusate Sodium (Colace) 100 mg Q12H PRN PO CONSTIPATION; Start 05/07/17 at 19: 00 Famotidine (Pepcid) 20 mg DAILY PO Last administered on 05/08/17 09:11; Admin Dose 20 MG; Start 05/08/17 at 09:00 Fluticasone Propionate (Flonase 0.05% Nasal) 1 spray BID NASAL Last administered on 05/08/17 08:56; Admin Dose 1 SPRAY; Start 05/07/17 at 21:00 Furosemide (Lasix) 20 mg DAILY PO Last administered on 05/08/17 09:12; Admin Dose 20 MG; Start 05/08/17 at 09:00 Gabapentin (Neurontin) 300 mg TID PO Last administered on 05/08/17 09:11; Admin Dose 300 MG; Start 05/07/17 at 21:00 Acetaminophen/ Hydrocodone Bitart ([place] (5/325)) 1 tab Q6H PRN PO MODERATE PAIN LEVEL 4-6; Start 05/07/17 at 19:00 Insulin Glargine (Lantus) 15 unit QHS SC Last administered on 05/07/17 21:23; Admin Dose 15 UNIT; Start 05/07/17 at 21:00 Loratadine (Claritin) 10 mg DAILY PO Last administered on 05/08/17 09:12; Admin Dose 10 MG; Start 05/08/17 at 09:00 Magnesium Hydroxide (Milk Of Mag) 30 ml DAILY PRN PO CONSTIPATION; Start at 19:00 Metoprolol Tartrate (Lopressor) 12.5 mg BID PO Last administered on 05/08/17 08:56; Admin Dose 12.5 MG; Start 05/07/17 at 21:00 Montelukast Sodium (Singulair) 10 mg QHS PO Last administered on 05/07/17 21: 07; Admin Dose 10 MG; Start 05/07/17 at 21:00 Multivitamins Therapeutic (Theragran) 1 tab DAILY PO Last administered on 09:11; Admin Dose 1 TAB; Start 05/08/17 at 09:00 Potassium Chloride (Klor-Con 10) 10 meq DAILY PO Last administered on 09:12; Admin Dose 10 MEQ; Start 05/08/17 at 09:00 Prednisone (Prednisone) 10 mg DAILY PO Last administered on 05/08/17 09:12; Admin Dose 10 MG; Start 05/08/17 at 09:00 Promethazine HCl (Phenergan Liq) 6.25 mg Q6H PO Last administered on 05/08/17 06:30; Admin Dose 6.25 MG; Start 05/07/17 at 19:00 Miscellaneous Information 1 ea NOTE XX ; Start 05/07/17 at 19:00 Glucose (Glutose) 15 gm Q15M PRN PO DECREASED GLUCOSE; Start 05/07/17 at 19:00 Glucose (Glutose) 22.5 gm Q15M PRN PO DECREASED GLUCOSE; Start 05/07/17 at 19: 00 Dextrose (D50w Syringe) 25 ml Q15M PRN IV DECREASED GLUCOSE; Start 05/07/17 at 19:00 Dextrose (D50w Syringe) 50 ml Q15M PRN IV DECREASED GLUCOSE; Start 05/07/17 at 19:00 Glucagon (Glucagen) 1 mg Q15M PRN IM DECREASED GLUCOSE; Start 05/07/17 at 19:00 Glucose (Glutose) 15 gm Q15M PRN BUCCAL DECREASED GLUCOSE; Start 05/07/17 at 19 :00 Diagnostic Test (Pha) (Accu-Chek) 1 ea 02 XX ; Start 05/09/17 at 02:00 JIM ESTRADA May 08, 2017 12:04
[2017-05-08 14:44] VITALS: BP 119/64; RESP 18
[2017-05-08 19:30] VITALS: BP 139/67; RESP 20
[2017-05-08 20:33] LABS: HEMATOCRIT 30.3 % (37.0-47.0); HEMOGLOBIN 9.5 g/dl (12.0-16.0)
[2017-05-08] MEDS: FUROSEMIDE 20 MG INJ IV SCH (20:55)
[2017-05-08] MEDS: MONTELUKAST 10 MG TAB PO SCH (20:56)
[2017-05-08] MEDS: ATORVASTATIN 20 MG TAB PO SCH (20:56)
[2017-05-08] MEDS: INSULIN GLARGINE [LANtus] 3 ML PEN SC SCH (21:09)
[2017-05-09] MEDS: PROMETHAZINE (1.25 MG/ML) 5 ML CUP PO SCH ×5 (00:33→22:33)
[2017-05-09 01:26] VITALS: BP 107/70; RESP 18
[2017-05-09] MEDS: ACCU-CHEK XX SCH (02:00)
[2017-05-09] MEDS: PANTOPRAZOLE 40 MG INJ IV SCH (06:01)
[2017-05-09 07:01] LABS: BASOPHILS % 0.2 % (0.0-2.0); EOSINOPHILS # 0.1 10^3/ul (0.0-0.5); EOSINOPHILS % 2.4 % (0.0-7.0); HEMATOCRIT 29.1 % (37.0-47.0); HEMOGLOBIN 9.2 g/dl (12.0-16.0); LYMPHOCYTES % 19.7 % (15.0-51.0); MEAN CORPUSCULAR HEMOGLOBIN 30.6 pg (29.0-33.0); MEAN CORPUSCULAR HGB CONC 31.6 g/dl (32.0-37.0); MEAN CORPUSCULAR VOLUME 96.7 fl (82.0-101.0); MEAN PLATELET VOLUME 9.4 fl (7.4-10.4); MONOCYTE # 0.3 10^3/ul (0.3-0.9); MONOCYTES % 6.1 % (0.0-11.0); NEUTROPHIL # 3.5 10^3/ul (1.6-7.5); NEUTROPHILS % 70.6 % (39.0-77.0); PLATELET COUNT 147 10^3/UL (140-415); RED BLOOD COUNT 3.01 10^6/ul (4.20-5.40); WHITE BLOOD COUNT 4.9 10^3/ul (4.8-10.8)
[2017-05-09 07:26] LABS: INR 0.96; PROTIME 12.8 Sec (12.2-14.2)
[2017-05-09 07:27] LABS: PARTIAL THROMBOPLASTIN TIME 27.1 Sec (25.0-35.0)
[2017-05-09 07:34] LABS: ALBUMIN/GLOBULIN RATIO 1.25; BILIRUBIN,INDIRECT 0.2 mg/dl (0-1.1); BILIRUBIN,TOTAL 0.2 mg/dl (0.2-1.3); CREATININE 0.72 mg/dl (0.44-1.00); POTASSIUM 3.6 mmol/L (3.5-5.1); TOTAL PROTEIN 5.4 g/dl (6.1-8.1)
[2017-05-09 07:35] VITALS: BP 119/67; RESP 19
[2017-05-09] MEDS: INSULIN ASPART [NOVOLOG] 3 ML PEN SC SCH ×4 (08:00→20:32)
[2017-05-09] MEDS: FLUTICASONE 0.05% 16 GM NAS SPRAY NASAL SCH ×2 (09:04→20:23)
[2017-05-09] MEDS: MULTIVITAMINS THERAPEUTIC TAB PO SCH (09:04)
[2017-05-09] MEDS: GABAPENTIN 300 MG CAP PO SCH ×3 (09:04→20:24)
[2017-05-09] MEDS: LORATADINE 10 MG TAB PO SCH (09:04)
[2017-05-09] MEDS: predniSONE 10 MG TAB PO SCH (09:04)
[2017-05-09] MEDS: FAMOTIDINE 20 MG TAB PO SCH (09:04)
[2017-05-09] MEDS: FUROSEMIDE 20 MG INJ IV SCH ×3 (09:06→20:23)
[2017-05-09] MEDS: METOPROLOL 25 MG TAB PO SCH ×2 (09:06→20:24)
[2017-05-09] MEDS: POTASSIUM CHLORIDE (SR) 10 MEQ TAB PO SCH (09:07)
--- NOTE | 2017-05-09 12:46 | PN ---
Date/Time of Note Date/Time of Note DATE: 05/09/17 TIME: 12:45 Assessment/Plan VTE Prophylaxis VTE Prophylaxis Intervention: ambulation Lines/Catheters IV C[facility] Type [facility]from [facility] Saline Lock Urinary Cath still in place: No Assessment/Plan Chief Complaint/Hosp Course 1. epistaxis 2. Anemia 3. S/p bladder cancer with TURBT 4. COPD, 5. CHF, diastolic 6. CAD 7. Hx pneumonia 8. pulmonary hypertension, 9. Hx SVT Problems: Assessment/Plan 1, continue current regime 2. dr Bird who I left message did not see pt yet Subjective 24 Hr Interval Summary Constitutional: improved, no complaints Exam/Review of Systems Vital Signs Vitals Vital Signs Date Time Temp Pulse Resp B/P Pulse Ox O2 Delivery O2 Flow Rate FiO2 05/09/17 08:10 Nasal Cannula 2.0 05/09/17 07:35 97.9 74 19 119/67 99 Intake and Output 05/08/17 05/08/17 05/09/17 15:00 23:00 07:00 Intake Total 350 ml 1200 ml 240 ml Balance 350 ml 1200 ml 240 ml Exam Constitutional: alert, oriented ENMT: mucosa pink and moist, nl external ears & nose, nl lips & teeth, nl nasal mucosa & septum Respiratory: clear to auscultation Cardiovascular: regular rate and rhythm Results Result Diagram: 05/09/17 0540 05/09/17 0540 Results 24 hrs Laboratory Tests Test 05/08/17 17:27 05/08/17 19:50 05/08/17 20:51 05/09/17 05:40 Bedside Glucose 187 178 Hemoglobin 9.5 #L 9.2 L Hematocrit 30.3 L 29.1 L White Blood Count 4.9 Red Blood Count 3.01 L Mean Corpuscular Volume 96.7 Mean Corpuscular Hemoglobin 30.6 Mean Corpuscular Hemoglobin Concent 31.6 L Red Cell Distribution Width 17.0 H Platelet Count 147 Mean Platelet Volume 9.4 Neutrophils % 70.6 Lymphocytes % 19.7 Monocytes % 6.1 Eosinophils % 2.4 Basophils % 0.2 Nucleated Red Blood Cells % 0.0 Neutrophils # 3.5 Lymphocytes # 1.0 Monocytes # 0.3 Eosinophils # 0.1 Basophils # 0.0 Nucleated Red Blood Cells # 0.0 Prothrombin Time 12.8 Prothrombin Time Ratio 1.0 INR International Normalized Ratio 0.96 Activated Partial Thromboplast Time 27.1 Sodium Level 145 H Potassium Level 3.6 Chloride Level 101 Carbon Dioxide Level 32 H Anion Gap 16 Blood Urea Nitrogen 18 Creatinine 0.72 Glucose Level 109 # Calcium Level 9.0 Total Bilirubin 0.2 Direct Bilirubin 0.00 Indirect Bilirubin 0.2 Aspartate Amino Transf (AST/SGOT) 22 Alanine Aminotransferase (ALT/SGPT) 21 Alkaline Phosphatase 41 L Total Protein 5.4 L Albumin 3.0 L Globulin 2.40 Albumin/Globulin Ratio 1.25 Test 05/09/17 07:26 05/09/17 08:02 05/09/17 12:02 Lab Scanned Report BLOOD TRANSFUSION Bedside Glucose 119 186 Medications Medications Current Medications Ondansetron HCl (Zofran Tab) 4 mg Q6H PRN PO NAUSEA AND/OR VOMITING; Start at 15:00 Pantoprazole (Protonix Iv) 40 mg DAILY@06 IV Last administered on 05/09/17 06: 01; Admin Dose 40 MG; Start 05/08/17 at 06:00 Acetaminophen (Tylenol Tab) 650 mg Q6H PRN PO MILD PAIN LEVEL 1-3; Start at 19:00 Albuterol (Proventil 0.083% (Neb)) 2.5 mg Q6 PRN NEB WHEEZING AND SOB; Start at 19:00 Atorvastatin Calcium (Lipitor) 20 mg QHS PO Last administered on 05/08/17 20: 56; Admin Dose 20 MG; Start 05/07/17 at 21:00 Bisacodyl (Dulcolax) 5 mg DAILY PRN PO CONSTIPATION; Start 05/07/17 at 19:00 Promethazine HCl/ Dextromethorphan (Phenergan-Dm) 5 ml Q6 PRN PO COUGH; Start 05/07/17 at 19:00 Docusate Sodium (Colace) 100 mg Q12H PRN PO CONSTIPATION; Start 05/07/17 at 19: 00 Famotidine (Pepcid) 20 mg DAILY PO Last administered on 05/09/17 09:04; Admin Dose 20 MG; Start 05/08/17 at 09:00 Fluticasone Propionate (Flonase 0.05% Nasal) 1 spray BID NASAL Last administered on 05/09/17 09:04; Admin Dose 1 SPRAY; Start 05/07/17 at 21:00 Gabapentin (Neurontin) 300 mg TID PO Last administered on 05/09/17 09:04; Admin Dose 300 MG; Start 05/07/17 at 21:00 Acetaminophen/ Hydrocodone Bitart ([place] (5/325)) 1 tab Q6H PRN PO MODERATE PAIN LEVEL 4-6; Start 05/07/17 at 19:00 Insulin Glargine (Lantus) 15 unit QHS SC Last administered on 05/08/17 21:09; Admin Dose 15 UNIT; Start 05/07/17 at 21:00 Loratadine (Claritin) 10 mg DAILY PO Last administered on 05/09/17 09:04; Admin Dose 10 MG; Start 05/08/17 at 09:00 Magnesium Hydroxide (Milk Of Mag) 30 ml DAILY PRN PO CONSTIPATION; Start at 19:00 Metoprolol Tartrate (Lopressor) 12.5 mg BID PO Last administered on 05/09/17 09:06; Admin Dose 12.5 MG; Start 05/07/17 at 21:00 Montelukast Sodium (Singulair) 10 mg QHS PO Last administered on 05/08/17 20: 56; Admin Dose 10 MG; Start 05/07/17 at 21:00 Multivitamins Therapeutic (Theragran) 1 tab DAILY PO Last administered on 09:04; Admin Dose 1 TAB; Start 05/08/17 at 09:00 Potassium Chloride (Klor-Con 10) 10 meq DAILY PO Last administered on 09:07; Admin Dose 10 MEQ; Start 05/08/17 at 09:00 Prednisone (Prednisone) 10 mg DAILY PO Last administered on 05/09/17 09:04; Admin Dose 10 MG; Start 05/08/17 at 09:00 Promethazine HCl (Phenergan Liq) 6.25 mg Q6H PO Last administered on 05/09/17 06:24; Admin Dose 6.25 MG; Start 05/07/17 at 19:00 Miscellaneous Information 1 ea NOTE XX ; Start 05/07/17 at 19:00 Glucose (Glutose) 15 gm Q15M PRN PO DECREASED GLUCOSE; Start 05/07/17 at 19:00 Glucose (Glutose) 22.5 gm Q15M PRN PO DECREASED GLUCOSE; Start 05/07/17 at 19: 00 Dextrose (D50w Syringe) 25 ml Q15M PRN IV DECREASED GLUCOSE; Start 05/07/17 at 19:00 Dextrose (D50w Syringe) 50 ml Q15M PRN IV DECREASED GLUCOSE; Start 05/07/17 at 19:00 Glucagon (Glucagen) 1 mg Q15M PRN IM DECREASED GLUCOSE; Start 05/07/17 at 19:00 Glucose (Glutose) 15 gm Q15M PRN BUCCAL DECREASED GLUCOSE; Start 05/07/17 at 19 :00 Diagnostic Test (Pha) (Accu-Chek) 1 ea 02 XX ; Start 05/09/17 at 02:00 Furosemide (Lasix) 20 mg TID IV Last administered on 05/09/17 09:06; Admin Dose 20 MG; Start 05/08/17 at 21:00 JIM ESTRADA May 09, 2017 12:46
[2017-05-09 13:29] VITALS: BP 133/64; RESP 19
[2017-05-09 19:32] VITALS: BP 112/59; RESP 18
[2017-05-09] MEDS: POLYSACCHARIDE IRON COMPLEX CAP PO SCH (20:23)
[2017-05-09] MEDS: MONTELUKAST 10 MG TAB PO SCH (20:24)
[2017-05-09] MEDS: ATORVASTATIN 20 MG TAB PO SCH (20:24)
[2017-05-09] MEDS: INSULIN GLARGINE [LANtus] 3 ML PEN SC SCH (20:32)
[2017-05-10] MEDS: PROMETHAZINE (1.25 MG/ML) 5 ML CUP PO SCH ×4 (01:00→18:53)
[2017-05-10 02:00] VITALS: BP 116/63; RESP 18
[2017-05-10] MEDS: ACCU-CHEK XX SCH (02:22)
[2017-05-10 05:55] LABS: BASOPHILS % 0.3 % (0.0-2.0); EOSINOPHILS # 0.2 10^3/ul (0.0-0.5); EOSINOPHILS % 2.6 % (0.0-7.0); HEMATOCRIT 30.8 % (37.0-47.0); HEMOGLOBIN 9.8 g/dl (12.0-16.0); LYMPHOCYTES % 16.6 % (15.0-51.0); MEAN CORPUSCULAR HGB CONC 31.8 g/dl (32.0-37.0); MEAN CORPUSCULAR VOLUME 97.5 fl (82.0-101.0); MEAN PLATELET VOLUME 9.4 fl (7.4-10.4); MONOCYTE # 0.4 10^3/ul (0.3-0.9); MONOCYTES % 5.6 % (0.0-11.0); NEUTROPHIL # 4.6 10^3/ul (1.6-7.5); NEUTROPHILS % 73.3 % (39.0-77.0); PLATELET COUNT 167 10^3/UL (140-415); RED BLOOD COUNT 3.16 10^6/ul (4.20-5.40); RED CELL DISTRIBUTION WIDTH 16.3 % (11.5-14.5); WHITE BLOOD COUNT 6.2 10^3/ul (4.8-10.8)
[2017-05-10] MEDS: PANTOPRAZOLE 40 MG INJ IV SCH (06:05)
[2017-05-10 07:29] VITALS: BP 116/69; RESP 18
[2017-05-10] MEDS: INSULIN ASPART [NOVOLOG] 3 ML PEN SC SCH ×4 (07:54→21:00)
[2017-05-10] MEDS: POLYSACCHARIDE IRON COMPLEX CAP PO SCH ×2 (08:49→21:00)
[2017-05-10] MEDS: LORATADINE 10 MG TAB PO SCH (08:50)
[2017-05-10] MEDS: GABAPENTIN 300 MG CAP PO SCH ×3 (08:50→21:00)
[2017-05-10] MEDS: POTASSIUM CHLORIDE (SR) 10 MEQ TAB PO SCH (08:50)
[2017-05-10] MEDS: MULTIVITAMINS THERAPEUTIC TAB PO SCH (08:50)
[2017-05-10] MEDS: FAMOTIDINE 20 MG TAB PO SCH (08:50)
[2017-05-10] MEDS: predniSONE 10 MG TAB PO SCH (08:50)
[2017-05-10] MEDS: FUROSEMIDE 20 MG INJ IV SCH ×3 (08:53→21:00)
[2017-05-10] MEDS: METOPROLOL 25 MG TAB PO SCH ×2 (08:55→21:00)
[2017-05-10] MEDS: FLUTICASONE 0.05% 16 GM NAS SPRAY NASAL SCH ×2 (08:58→21:00)
[2017-05-10] MEDS: SOD FERRIC GLUC COMPLX 125 MG in SOD CHLORIDE 0.9% 100 ML IVPB SCH (10:52)
--- NOTE | 2017-05-10 11:41 | CONS ---
Date/Time of Note Date/Time of Note DATE: 05/10/17 TIME: 11:32 Assessment/Plan Assessment/Plan Chief Complaint/Hosp Course The patient is a 86 year old female with a history of high grade invasive urothelial carcinoma status post chemoradiation with 5FU/mitomycin with 20% dose reduction due to age, completed radiation 02/03/17 with recurrent admissions for unrelated COPD/CHF exacerbations, now admitted for epistaxis and associated anemia. - The patient underwent cystoscopy 03/18/17 with path demonstrating high grade dysplasia but no evidence of malignancy, per Dr. Morfin f/u cystocopy in 3 months. - CT CAP 04/26/17 showed nonspecific circumferential wall thickening, indeterminate 12 mm nodular area arising from urinary bladder wall superiorly, but no other evidence of mass or LAD in the CAP and no evidence of metastatic disease. Plan to repeat CT Q3-6 months. - Patient seen by Dr. Gillis 04/21/17, at which time patient doing well and without evidence of detectable disease with f/u planned for July 2017. # Epistaxis, with Hgb 8.9 down to 7.7 now stable at 9.8 s/p 2 units pRBCs - iron panel consistent with iron deficiency, will give IV iron while in house, and can also give as outpatient as well - Vitamin B12 and folate WNL, pending methylmalonic acid and homocysteine - LDH normal, retic count inappropriately low, haptoglobin pending - THS elevated at 8.020 with normal free T4 and F3 consistent with subclinical hypothyroidism, defer to primary team - smear reviewed by pathology, no significant abnormalities, no evidence of hemolysis or dysplasia - pending ENT consult Problems: Consultation Date/Type/Reason Admit Date/Time May 07, 2017 at 13:49 Initial Consult Date 05/07/17 Type of Consultation: Oncology 24 HR Interval Summary Free Text/Dictation Patient states that she had a small amount of epistaxis over the weekend as well as this morning. Exam/Review of Systems Vital Signs Vitals Vital Signs Date Time Temp Pulse Resp B/P Pulse Ox O2 Delivery O2 Flow Rate FiO2 05/10/17 10:58 Nasal Cannula 2.0 05/10/17 07:29 97.8 91 18 116/69 96 Intake and Output 05/09/17 05/09/17 05/10/17 15:00 23:00 07:00 Intake Total 840 ml 300 ml Balance 840 ml 300 ml Exam Constitutional: alert, oriented Head: normocephalic Eyes: nl conjunctiva Neck: supple Respiratory: crackles/rales Cardiovascular: regular rate and rhythm Gastrointestinal: non-tender, soft Musculoskeletal: swelling 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: SUGARCANE PLANTER II-XII intact Results Result Diagram: 05/10/17 0510 05/09/17 0540 Results 24 hrs Laboratory Tests Test 05/09/17 12:02 05/09/17 17:23 05/09/17 20:21 05/10/17 02:25 Bedside Glucose 186 164 261 H 102 Test 05/10/17 05:10 05/10/17 07:53 White Blood Count 6.2 # Red Blood Count 3.16 L Hemoglobin 9.8 L Hematocrit 30.8 L Mean Corpuscular Volume 97.5 Mean Corpuscular Hemoglobin 31.0 Mean Corpuscular Hemoglobin Concent 31.8 L Red Cell Distribution Width 16.3 H Platelet Count 167 Mean Platelet Volume 9.4 Neutrophils % 73.3 Lymphocytes % 16.6 Monocytes % 5.6 Eosinophils % 2.6 Basophils % 0.3 Nucleated Red Blood Cells % 0.0 Neutrophils # 4.6 Lymphocytes # 1.0 Monocytes # 0.4 Eosinophils # 0.2 Basophils # 0.0 Nucleated Red Blood Cells # 0.0 Free Thyroxine 0.87 Free Triiodothyronine (T3) pg/mL 3.75 Bedside Glucose 91 Medications Medications Current Medications Ondansetron HCl (Zofran Tab) 4 mg Q6H PRN PO NAUSEA AND/OR VOMITING; Start at 15:00 Pantoprazole (Protonix Iv) 40 mg DAILY@06 IV Last administered on 05/10/17 06: 05; Admin Dose 40 MG; Start 05/08/17 at 06:00 Acetaminophen (Tylenol Tab) 650 mg Q6H PRN PO MILD PAIN LEVEL 1-3; Start at 19:00 Albuterol (Proventil 0.083% (Neb)) 2.5 mg Q6 PRN NEB WHEEZING AND SOB; Start at 19:00 Atorvastatin Calcium (Lipitor) 20 mg QHS PO Last administered on 05/09/17 20: 24; Admin Dose 20 MG; Start 05/07/17 at 21:00 Bisacodyl (Dulcolax) 5 mg DAILY PRN PO CONSTIPATION; Start 05/07/17 at 19:00 Promethazine HCl/ Dextromethorphan (Phenergan-Dm) 5 ml Q6 PRN PO COUGH; Start 05/07/17 at 19:00 Docusate Sodium (Colace) 100 mg Q12H PRN PO CONSTIPATION; Start 05/07/17 at 19: 00 Famotidine (Pepcid) 20 mg DAILY PO Last administered on 05/10/17 08:50; Admin Dose 20 MG; Start 05/08/17 at 09:00 Fluticasone Propionate (Flonase 0.05% Nasal) 1 spray BID NASAL Last administered on 05/10/17 08:58; Admin Dose 1 SPRAY; Start 05/07/17 at 21:00 Gabapentin (Neurontin) 300 mg TID PO Last administered on 05/10/17 08:50; Admin Dose 300 MG; Start 05/07/17 at 21:00 Acetaminophen/ Hydrocodone Bitart ([place] (5/325)) 1 tab Q6H PRN PO MODERATE PAIN LEVEL 4-6; Start 05/07/17 at 19:00 Insulin Glargine (Lantus) 15 unit QHS SC Last administered on 05/09/17 20:32; Admin Dose 15 UNIT; Start 05/07/17 at 21:00 Loratadine (Claritin) 10 mg DAILY PO Last administered on 05/10/17 08:50; Admin Dose 10 MG; Start 05/08/17 at 09:00 Magnesium Hydroxide (Milk Of Mag) 30 ml DAILY PRN PO CONSTIPATION; Start at 19:00 Metoprolol Tartrate (Lopressor) 12.5 mg BID PO Last administered on 05/10/17 08:55; Admin Dose 12.5 MG; Start 05/07/17 at 21:00 Montelukast Sodium (Singulair) 10 mg QHS PO Last administered on 05/09/17 20: 24; Admin Dose 10 MG; Start 05/07/17 at 21:00 Multivitamins Therapeutic (Theragran) 1 tab DAILY PO Last administered on 08:50; Admin Dose 1 TAB; Start 05/08/17 at 09:00 Potassium Chloride (Klor-Con 10) 10 meq DAILY PO Last administered on 08:50; Admin Dose 10 MEQ; Start 05/08/17 at 09:00 Prednisone (Prednisone) 10 mg DAILY PO Last administered on 05/10/17 08:50; Admin Dose 10 MG; Start 05/08/17 at 09:00 Promethazine HCl (Phenergan Liq) 6.25 mg Q6H PO Last administered on 05/10/17 06:05; Admin Dose 6.25 MG; Start 05/07/17 at 19:00 Miscellaneous Information 1 ea NOTE XX ; Start 05/07/17 at 19:00 Glucose (Glutose) 15 gm Q15M PRN PO DECREASED GLUCOSE; Start 05/07/17 at 19:00 Glucose (Glutose) 22.5 gm Q15M PRN PO DECREASED GLUCOSE; Start 05/07/17 at 19: 00 Dextrose (D50w Syringe) 25 ml Q15M PRN IV DECREASED GLUCOSE; Start 05/07/17 at 19:00 Dextrose (D50w Syringe) 50 ml Q15M PRN IV DECREASED GLUCOSE; Start 05/07/17 at 19:00 Glucagon (Glucagen) 1 mg Q15M PRN IM DECREASED GLUCOSE; Start 05/07/17 at 19:00 Glucose (Glutose) 15 gm Q15M PRN BUCCAL DECREASED GLUCOSE; Start 05/07/17 at 19 :00 Diagnostic Test (Pha) (Accu-Chek) 1 ea 02 XX Last administered on 05/10/17 02: 22; Admin Dose 1 EA; Start 05/09/17 at 02:00 Furosemide (Lasix) 20 mg TID IV Last administered on 05/10/17 08:53; Admin Dose 20 MG; Start 05/08/17 at 21:00 Polysaccharide Iron Complex 1 cap 1 cap BID PO Last administered on 05/10/17 08:49; Admin Dose 1 CAP; Start 05/09/17 at 21:00 Ferric Sodium Gluconate Complex/ Sodium Chloride (Ferrlecit/NS) 110 ml @ 110 mls/hr Q24H IVPB Last administered on 05/10/17 10:52; Admin Dose 110 MLS/HR; Start 05/10/17 at 10:00; Stop 05/14/17 at 10:59 TOLILLIANA MD May 10, 2017 11:41
[2017-05-10 14:16] VITALS: BP 116/57; RESP 18
[2017-05-10 17:11] LABS: HOMOCYSTEINE - CARDIOVASCULAR 14.8 umol/L (<10.4)
--- NOTE | 2017-05-10 19:14 | PN ---
Date/Time of Note Date/Time of Note DATE: 05/10/17 TIME: 19:13 Assessment/Plan VTE Prophylaxis VTE Prophylaxis Intervention: other Lines/Catheters IV [facility] Type (from [facility] Saline Lock Urinary Cath still in place: No Assessment/Plan Chief Complaint/Hosp Course ANEMIA S/P NOSE BLEED ANEMIA ASHD HX IL LUNG DIS PLAN CK LABS Problems: Subjective 24 Hr Interval Summary Subjective hx not possible: other (NO GI BLEED) Exam/Review of Systems Vital Signs Vitals Vital Signs Date Time Temp Pulse Resp B/P Pulse Ox O2 Delivery O2 Flow Rate FiO2 05/10/17 14:16 98.1 81 18 116/57 98 05/10/17 10:58 Nasal Cannula 2.0 Intake and Output 05/09/17 05/09/17 05/10/17 15:00 23:00 07:00 Intake Total 840 ml 300 ml Balance 840 ml 300 ml Exam Neck: supple Respiratory: clear to auscultation Cardiovascular: regular rate and rhythm Gastrointestinal: soft Musculoskeletal: nl extremities to inspection Extremities: normal pulses Results Result Diagram: 05/10/17 0510 05/09/17 0540 Results 24 hrs Laboratory Tests Test 05/09/17 20:21 05/10/17 02:25 05/10/17 05:10 05/10/17 07:53 Bedside Glucose 261 H 102 91 White Blood Count 6.2 # Red Blood Count 3.16 L Hemoglobin 9.8 L Hematocrit 30.8 L Mean Corpuscular Volume 97.5 Mean Corpuscular Hemoglobin 31.0 Mean Corpuscular Hemoglobin Concent 31.8 L Red Cell Distribution Width 16.3 H Platelet Count 167 Mean Platelet Volume 9.4 Neutrophils % 73.3 Lymphocytes % 16.6 Monocytes % 5.6 Eosinophils % 2.6 Basophils % 0.3 Nucleated Red Blood Cells % 0.0 Neutrophils # 4.6 Lymphocytes # 1.0 Monocytes # 0.4 Eosinophils # 0.2 Basophils # 0.0 Nucleated Red Blood Cells # 0.0 Free Thyroxine 0.87 Free Triiodothyronine (T3) pg/mL 3.75 Test 05/10/17 11:55 05/10/17 17:11 Bedside Glucose 139 156 Medications Medications Current Medications Ondansetron HCl (Zofran Tab) 4 mg Q6H PRN PO NAUSEA AND/OR VOMITING; Start at 15:00 Pantoprazole (Protonix Iv) 40 mg DAILY@06 IV Last administered on 05/10/17 06: 05; Admin Dose 40 MG; Start 05/08/17 at 06:00 Acetaminophen (Tylenol Tab) 650 mg Q6H PRN PO MILD PAIN LEVEL 1-3; Start at 19:00 Albuterol (Proventil 0.083% (Neb)) 2.5 mg Q6 PRN NEB WHEEZING AND SOB; Start at 19:00 Atorvastatin Calcium (Lipitor) 20 mg QHS PO Last administered on 05/09/17 20: 24; Admin Dose 20 MG; Start 05/07/17 at 21:00 Bisacodyl (Dulcolax) 5 mg DAILY PRN PO CONSTIPATION; Start 05/07/17 at 19:00 Promethazine HCl/ Dextromethorphan (Phenergan-Dm) 5 ml Q6 PRN PO COUGH; Start 05/07/17 at 19:00 Docusate Sodium (Colace) 100 mg Q12H PRN PO CONSTIPATION; Start 05/07/17 at 19: 00 Famotidine (Pepcid) 20 mg DAILY PO Last administered on 05/10/17 08:50; Admin Dose 20 MG; Start 05/08/17 at 09:00 Fluticasone Propionate (Flonase 0.05% Nasal) 1 spray BID NASAL Last administered on 05/10/17 08:58; Admin Dose 1 SPRAY; Start 05/07/17 at 21:00 Gabapentin (Neurontin) 300 mg TID PO Last administered on 05/10/17 13:36; Admin Dose 300 MG; Start 05/07/17 at 21:00 Acetaminophen/ Hydrocodone Bitart ([place] (5/325)) 1 tab Q6H PRN PO MODERATE PAIN LEVEL 4-6; Start 05/07/17 at 19:00 Insulin Glargine (Lantus) 15 unit QHS SC Last administered on 05/09/17 20:32; Admin Dose 15 UNIT; Start 05/07/17 at 21:00 Loratadine (Claritin) 10 mg DAILY PO Last administered on 05/10/17 08:50; Admin Dose 10 MG; Start 05/08/17 at 09:00 Magnesium Hydroxide (Milk Of Mag) 30 ml DAILY PRN PO CONSTIPATION; Start at 19:00 Metoprolol Tartrate (Lopressor) 12.5 mg BID PO Last administered on 05/10/17 08:55; Admin Dose 12.5 MG; Start 05/07/17 at 21:00 Montelukast Sodium (Singulair) 10 mg QHS PO Last administered on 05/09/17 20: 24; Admin Dose 10 MG; Start 05/07/17 at 21:00 Multivitamins Therapeutic (Theragran) 1 tab DAILY PO Last administered on 08:50; Admin Dose 1 TAB; Start 05/08/17 at 09:00 Potassium Chloride (Klor-Con 10) 10 meq DAILY PO Last administered on 08:50; Admin Dose 10 MEQ; Start 05/08/17 at 09:00 Prednisone (Prednisone) 10 mg DAILY PO Last administered on 05/10/17 08:50; Admin Dose 10 MG; Start 05/08/17 at 09:00 Promethazine HCl (Phenergan Liq) 6.25 mg Q6H PO Last administered on 05/10/17 18:53; Admin Dose 6.25 MG; Start 05/07/17 at 19:00 Miscellaneous Information 1 ea NOTE XX ; Start 05/07/17 at 19:00 Glucose (Glutose) 15 gm Q15M PRN PO DECREASED GLUCOSE; Start 05/07/17 at 19:00 Glucose (Glutose) 22.5 gm Q15M PRN PO DECREASED GLUCOSE; Start 05/07/17 at 19: 00 Dextrose (D50w Syringe) 25 ml Q15M PRN IV DECREASED GLUCOSE; Start 05/07/17 at 19:00 Dextrose (D50w Syringe) 50 ml Q15M PRN IV DECREASED GLUCOSE; Start 05/07/17 at 19:00 Glucagon (Glucagen) 1 mg Q15M PRN IM DECREASED GLUCOSE; Start 05/07/17 at 19:00 Glucose (Glutose) 15 gm Q15M PRN BUCCAL DECREASED GLUCOSE; Start 05/07/17 at 19 :00 Diagnostic Test (Pha) (Accu-Chek) 1 ea 02 XX Last administered on 05/10/17 02: 22; Admin Dose 1 EA; Start 05/09/17 at 02:00 Furosemide (Lasix) 20 mg TID IV Last administered on 05/10/17 13:36; Admin Dose 20 MG; Start 05/08/17 at 21:00 Polysaccharide Iron Complex 1 cap 1 cap BID PO Last administered on 05/10/17 08:49; Admin Dose 1 CAP; Start 05/09/17 at 21:00 Ferric Sodium Gluconate Complex/ Sodium Chloride (Ferrlecit/NS) 110 ml @ 110 mls/hr Q24H IVPB Last administered on 05/10/17 10:52; Admin Dose 110 MLS/HR; Start 05/10/17 at 10:00; Stop 05/14/17 at 10:59 LEILA SPARKS MD May 10, 2017 19:14
[2017-05-10 20:17] VITALS: BP 124/58; RESP 18
[2017-05-10] MEDS: ATORVASTATIN 20 MG TAB PO SCH (21:00)
[2017-05-10] MEDS: MONTELUKAST 10 MG TAB PO SCH (21:00)
[2017-05-10] MEDS: INSULIN GLARGINE [LANtus] 3 ML PEN SC SCH (21:00)
[2017-05-11] MEDS: ACCU-CHEK XX SCH (01:44)
[2017-05-11] MEDS: PROMETHAZINE (1.25 MG/ML) 5 ML CUP PO SCH ×4 (01:44→19:04)
[2017-05-11 02:00] VITALS: BP 120/56; RESP 18
[2017-05-11] MEDS: PANTOPRAZOLE 40 MG INJ IV SCH (05:35)
[2017-05-11 06:15] LABS: BASOPHILS % 0.2 % (0.0-2.0); EOSINOPHILS # 0.2 10^3/ul (0.0-0.5); EOSINOPHILS % 2.8 % (0.0-7.0); HEMATOCRIT 30.1 % (37.0-47.0); HEMOGLOBIN 9.6 g/dl (12.0-16.0); LYMPHOCYTES # 1.2 10^3/ul (0.8-2.9); MEAN CORPUSCULAR HEMOGLOBIN 31.4 pg (29.0-33.0); MEAN CORPUSCULAR HGB CONC 31.9 g/dl (32.0-37.0); MEAN CORPUSCULAR VOLUME 98.4 fl (82.0-101.0); MEAN PLATELET VOLUME 9.5 fl (7.4-10.4); MONOCYTE # 0.5 10^3/ul (0.3-0.9); MONOCYTES % 7.8 % (0.0-11.0); NEUTROPHIL # 4.4 10^3/ul (1.6-7.5); NEUTROPHILS % 69.1 % (39.0-77.0); PLATELET COUNT 180 10^3/UL (140-415); RED BLOOD COUNT 3.06 10^6/ul (4.20-5.40); RED CELL DISTRIBUTION WIDTH 16.3 % (11.5-14.5); WHITE BLOOD COUNT 6.4 10^3/ul (4.8-10.8)
[2017-05-11 07:35] VITALS: BP 107/62; RESP 18
[2017-05-11] MEDS: INSULIN ASPART [NOVOLOG] 3 ML PEN SC SCH ×4 (07:55→21:00)
[2017-05-11] MEDS: FLUTICASONE 0.05% 16 GM NAS SPRAY NASAL SCH ×2 (08:10→21:31)
[2017-05-11] MEDS: POLYSACCHARIDE IRON COMPLEX CAP PO SCH ×2 (08:13→21:30)
[2017-05-11] MEDS: MULTIVITAMINS THERAPEUTIC TAB PO SCH (08:13)
[2017-05-11] MEDS: FAMOTIDINE 20 MG TAB PO SCH (08:13)
[2017-05-11] MEDS: POTASSIUM CHLORIDE (SR) 10 MEQ TAB PO SCH (08:14)
[2017-05-11] MEDS: LORATADINE 10 MG TAB PO SCH (08:14)
[2017-05-11] MEDS: predniSONE 10 MG TAB PO SCH (08:23)
[2017-05-11] MEDS: GABAPENTIN 300 MG CAP PO SCH ×3 (08:23→21:29)
[2017-05-11] MEDS: METOPROLOL 25 MG TAB PO SCH ×2 (08:42→21:30)
[2017-05-11] MEDS: FUROSEMIDE 20 MG INJ IV SCH ×3 (08:49→21:32)
--- NOTE | 2017-05-11 08:57 | PQ ---
Date/Time of Note Date/Time of Note DATE: 05/11/17 TIME: 08:[address] Lilly , A review of the medical record found a need for documentation clarification. progress note ---- CHF diastolic BNp = 920 Med = Diuretic Please clarify( if known ) the acuity of CHF. To facilitate accurate and complete coding, please сергей ( x ) the suspected diagnosis that apply: ( ) Acute Diastolic (Preserved EF) Heart Failure ( ICD10 I50.31 ) ( ) Chronic Diastolic (Preserved EF) Heart Failure ( ICD10 I50.32 ) ( )Acute on Chronic Diastolic (Preserved EF) Heart Failure ( ICD10 I50.33 ) ( ) Others Please provide your response by clicking edit document, making your choice ( x ), click ok/save and finally click sign. You may also document your response on your progress notes. Thank you for your time. Lucio Longo RN, BSN, CCS, CCDS, CDIP Clinical Dragger Out Health Information Management, CDI and Coding Services [phone] Room # 1525 - Coding [address]~ [address] LUCIO LONGO May 11, 2017 08:57
--- NOTE | 2017-05-11 09:00 | PQ ---
Date/Time of Note Date/Time of Note DATE: 05/11/17 TIME: 08:57 Physician Query Documentation Clarification Dear Dr. Lilly , A review of the medical record found a need for documentation clarification. progress note - Anemia + Epistaxis H/H 8.9--->7.6 PRBC 2 units given Please clarify a diagnosis being treated. 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 You may also document your response on your progress notes. Thank you for your time. With appreciation, Lucio Longo RN, BSN, CCS, CCDS, CDIP Clinical General Labor Forklift Operator Health Information Management, CDI and Coding Services [phone] Room # 1525 - [address]~ [address] LUCIO LONGO May 11, 2017 08:59
--- NOTE | 2017-05-11 09:38 | CONS ---
Date/Time of Note Date/Time of Note DATE: 05/11/17 TIME: 09:37 Assessment/Plan Assessment/Plan Chief Complaint/Hosp Course The patient is a 86 year old female with a history of high grade invasive urothelial carcinoma status post chemoradiation with 5FU/mitomycin with 20% dose reduction due to age, completed radiation 02/03/17 with recurrent admissions for unrelated COPD/CHF exacerbations, now admitted for epistaxis and associated anemia. - The patient underwent cystoscopy 03/18/17 with path demonstrating high grade dysplasia but no evidence of malignancy, per Dr. Morfin f/u cystocopy in 3 months. - CT CAP 04/26/17 showed nonspecific circumferential wall thickening, indeterminate 12 mm nodular area arising from urinary bladder wall superiorly, but no other evidence of mass or LAD in the CAP and no evidence of metastatic disease. Plan to repeat CT Q3-6 months. - Patient seen by Dr. Gillis 04/21/17, at which time patient doing well and without evidence of detectable disease with f/u planned for July 2017. # Epistaxis, with Hgb 8.9 down to 7.7 now stable at 9.6 s/p 2 units pRBCs - iron panel consistent with iron deficiency, will give IV iron while in house, and can also give as outpatient as well - Vitamin B12 and folate WNL, pending methylmalonic acid and homocysteine - LDH normal, retic count inappropriately low, haptoglobin pending - THS elevated at 8.020 with normal free T4 and F3 consistent with subclinical hypothyroidism, defer to primary team - smear reviewed by pathology, no significant abnormalities, no evidence of hemolysis or dysplasia - per RN, patient was seen by ENT with packing of left nares Problems: Consultation Date/Type/Reason Admit Date/Time May 07, 2017 at 13:49 Initial Consult Date 05/07/17 Type of Consultation: Oncology 24 HR Interval Summary Free Text/Dictation No further epistaxis since yesterday. Overall she states that she feels better. Exam/Review of Systems Vital Signs Vitals Vital Signs Date Time Temp Pulse Resp B/P Pulse Ox O2 Delivery O2 Flow Rate FiO2 05/11/17 07:35 98.8 83 18 107/62 96 05/11/17 06:09 2.0 05/11/17 02:00 Nasal Cannula Intake and Output 05/10/17 05/10/17 05/11/17 15:00 23:00 07:00 Intake Total 110 ml 1120 ml 300 ml Balance 110 ml 1120 ml 300 ml Exam Constitutional: alert, oriented Head: normocephalic Eyes: nl conjunctiva Neck: supple Respiratory: crackles/rales Cardiovascular: regular rate and rhythm Gastrointestinal: non-tender, soft Musculoskeletal: swelling 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: DAIRY CONSULTANT II-XII intact Results Result Diagram: 05/11/17 0527 05/09/17 0540 Results 24 hrs Laboratory Tests Test 05/10/17 11:55 05/10/17 17:11 05/10/17 21:29 05/11/17 05:27 Bedside Glucose 139 156 179 White Blood Count 6.4 Red Blood Count 3.06 L Hemoglobin 9.6 L Hematocrit 30.1 L Mean Corpuscular Volume 98.4 Mean Corpuscular Hemoglobin 31.4 Mean Corpuscular Hemoglobin Concent 31.9 L Red Cell Distribution Width 16.3 H Platelet Count 180 Mean Platelet Volume 9.5 Neutrophils % 69.1 Lymphocytes % 19.0 Monocytes % 7.8 Eosinophils % 2.8 Basophils % 0.2 Nucleated Red Blood Cells % 0.0 Neutrophils # 4.4 Lymphocytes # 1.2 Monocytes # 0.5 Eosinophils # 0.2 Basophils # 0.0 Nucleated Red Blood Cells # 0.0 Test 05/11/17 07:46 Bedside Glucose 96 Medications Medications Current Medications Ondansetron HCl (Zofran Tab) 4 mg Q6H PRN PO NAUSEA AND/OR VOMITING; Start at 15:00 Pantoprazole (Protonix Iv) 40 mg DAILY@06 IV Last administered on 05/11/17 05: 35; Admin Dose 40 MG; Start 05/08/17 at 06:00 Acetaminophen (Tylenol Tab) 650 mg Q6H PRN PO MILD PAIN LEVEL 1-3; Start at 19:00 Albuterol (Proventil 0.083% (Neb)) 2.5 mg Q6 PRN NEB WHEEZING AND SOB; Start at 19:00 Atorvastatin Calcium (Lipitor) 20 mg QHS PO Last administered on 05/10/17 21: 00; Admin Dose 20 MG; Start 05/07/17 at 21:00 Bisacodyl (Dulcolax) 5 mg DAILY PRN PO CONSTIPATION; Start 05/07/17 at 19:00 Promethazine HCl/ Dextromethorphan (Phenergan-Dm) 5 ml Q6 PRN PO COUGH; Start 05/07/17 at 19:00 Docusate Sodium (Colace) 100 mg Q12H PRN PO CONSTIPATION; Start 05/07/17 at 19: 00 Famotidine (Pepcid) 20 mg DAILY PO Last administered on 05/11/17 08:13; Admin Dose 20 MG; Start 05/08/17 at 09:00 Fluticasone Propionate (Flonase 0.05% Nasal) 1 spray BID NASAL Last administered on 05/11/17 08:10; Admin Dose 1 SPRAY; Start 05/07/17 at 21:00 Gabapentin (Neurontin) 300 mg TID PO Last administered on 05/11/17 08:23; Admin Dose 300 MG; Start 05/07/17 at 21:00 Acetaminophen/ Hydrocodone Bitart ([place] (5/325)) 1 tab Q6H PRN PO MODERATE PAIN LEVEL 4-6; Start 05/07/17 at 19:00 Insulin Glargine (Lantus) 15 unit QHS SC Last administered on 05/10/17 21:00; Admin Dose 15 UNIT; Start 05/07/17 at 21:00 Loratadine (Claritin) 10 mg DAILY PO Last administered on 05/11/17 08:14; Admin Dose 10 MG; Start 05/08/17 at 09:00 Magnesium Hydroxide (Milk Of Mag) 30 ml DAILY PRN PO CONSTIPATION; Start at 19:00 Metoprolol Tartrate (Lopressor) 12.5 mg BID PO Last administered on 05/11/17 08:42; Admin Dose 12.5 MG; Start 05/07/17 at 21:00 Montelukast Sodium (Singulair) 10 mg QHS PO Last administered on 05/10/17 21: 00; Admin Dose 10 MG; Start 05/07/17 at 21:00 Multivitamins Therapeutic (Theragran) 1 tab DAILY PO Last administered on 08:13; Admin Dose 1 TAB; Start 05/08/17 at 09:00 Potassium Chloride (Klor-Con 10) 10 meq DAILY PO Last administered on 08:14; Admin Dose 10 MEQ; Start 05/08/17 at 09:00 Prednisone (Prednisone) 10 mg DAILY PO Last administered on 05/11/17 08:23; Admin Dose 10 MG; Start 05/08/17 at 09:00 Promethazine HCl (Phenergan Liq) 6.25 mg Q6H PO Last administered on 05/11/17 05:35; Admin Dose 6.25 MG; Start 05/07/17 at 19:00 Miscellaneous Information 1 ea NOTE XX ; Start 05/07/17 at 19:00 Glucose (Glutose) 15 gm Q15M PRN PO DECREASED GLUCOSE; Start 05/07/17 at 19:00 Glucose (Glutose) 22.5 gm Q15M PRN PO DECREASED GLUCOSE; Start 05/07/17 at 19: 00 Dextrose (D50w Syringe) 25 ml Q15M PRN IV DECREASED GLUCOSE; Start 05/07/17 at 19:00 Dextrose (D50w Syringe) 50 ml Q15M PRN IV DECREASED GLUCOSE; Start 05/07/17 at 19:00 Glucagon (Glucagen) 1 mg Q15M PRN IM DECREASED GLUCOSE; Start 05/07/17 at 19:00 Glucose (Glutose) 15 gm Q15M PRN BUCCAL DECREASED GLUCOSE; Start 05/07/17 at 19 :00 Diagnostic Test (Pha) (Accu-Chek) 1 ea 02 XX Last administered on 05/10/17 02: 22; Admin Dose 1 EA; Start 05/09/17 at 02:00 Furosemide (Lasix) 20 mg TID IV Last administered on 05/11/17 08:49; Admin Dose 20 MG; Start 05/08/17 at 21:00 Polysaccharide Iron Complex 1 cap 1 cap BID PO Last administered on 05/11/17 08:13; Admin Dose 1 CAP; Start 05/09/17 at 21:00 Ferric Sodium Gluconate Complex/ Sodium Chloride (Ferrlecit/NS) 110 ml @ 110 mls/hr Q24H IVPB Last administered on 05/10/17 10:52; Admin Dose 110 MLS/HR; Start 05/10/17 at 10:00; Stop 05/14/17 at 10:59 TOLILLIANA MD May 11, 2017 09:38
[2017-05-11] MEDS: SOD FERRIC GLUC COMPLX 125 MG in SOD CHLORIDE 0.9% 100 ML IVPB SCH (10:13)
--- NOTE | 2017-05-11 17:56 | PN ---
Date/Time of Note Date/Time of Note DATE: 05/11/17 TIME: 17:55 Assessment/Plan VTE Prophylaxis VTE Prophylaxis Intervention: other Lines/Catheters [facility] [place] Urinary Cath still in place: No Assessment/Plan Chief Complaint/Hosp Course ANEMIA S/P NOSE BLEED ANEMIA ASHD AZOTEMIA HX IL LUNG DIS PLAN [facility] SOON Problems: Subjective 24 Hr Interval Summary Respiratory: no complaints Cardiovascular: no complaints Gastrointestinal: no complaints Genitourinary: no complaints Exam/Review of Systems Vital Signs Vitals Vital Signs Date Time Temp Pulse Resp B/P Pulse Ox O2 Delivery O2 Flow Rate FiO2 05/11/17 08:20 Nasal Cannula 2.0 05/11/17 07:35 98.8 83 18 107/62 96 Intake and Output 05/10/17 05/10/17 05/11/17 15:00 23:00 07:00 Intake Total 110 ml 1120 ml 300 ml Balance 110 ml 1120 ml 300 ml Exam ENMT: nl external ears & nose Neck: supple Respiratory: clear to auscultation Cardiovascular: regular rate and rhythm Gastrointestinal: soft Results Result Diagram: 05/11/17 0527 05/09/17 0540 Results 24 hrs Laboratory Tests Test 05/10/17 21:29 05/11/17 05:27 05/11/17 07:46 05/11/17 11:47 Bedside Glucose 179 96 140 White Blood Count 6.4 Red Blood Count 3.06 L Hemoglobin 9.6 L Hematocrit 30.1 L Mean Corpuscular Volume 98.4 Mean Corpuscular Hemoglobin 31.4 Mean Corpuscular Hemoglobin Concent 31.9 L Red Cell Distribution Width 16.3 H Platelet Count 180 Mean Platelet Volume 9.5 Neutrophils % 69.1 Lymphocytes % 19.0 Monocytes % 7.8 Eosinophils % 2.8 Basophils % 0.2 Nucleated Red Blood Cells % 0.0 Neutrophils # 4.4 Lymphocytes # 1.2 Monocytes # 0.5 Eosinophils # 0.2 Basophils # 0.0 Nucleated Red Blood Cells # 0.0 Test 05/11/17 17:24 Bedside Glucose 190 Medications Medications Current Medications Ondansetron HCl (Zofran Tab) 4 mg Q6H PRN PO NAUSEA AND/OR VOMITING; Start at 15:00 Pantoprazole (Protonix Iv) 40 mg DAILY@06 IV Last administered on 05/11/17 05: 35; Admin Dose 40 MG; Start 05/08/17 at 06:00 Acetaminophen (Tylenol Tab) 650 mg Q6H PRN PO MILD PAIN LEVEL 1-3; Start at 19:00 Albuterol (Proventil 0.083% (Neb)) 2.5 mg Q6 PRN NEB WHEEZING AND SOB; Start at 19:00 Atorvastatin Calcium (Lipitor) 20 mg QHS PO Last administered on 05/10/17 21: 00; Admin Dose 20 MG; Start 05/07/17 at 21:00 Bisacodyl (Dulcolax) 5 mg DAILY PRN PO CONSTIPATION; Start 05/07/17 at 19:00 Promethazine HCl/ Dextromethorphan (Phenergan-Dm) 5 ml Q6 PRN PO COUGH; Start 05/07/17 at 19:00 Docusate Sodium (Colace) 100 mg Q12H PRN PO CONSTIPATION; Start 05/07/17 at 19: 00 Famotidine (Pepcid) 20 mg DAILY PO Last administered on 05/11/17 08:13; Admin Dose 20 MG; Start 05/08/17 at 09:00 Fluticasone Propionate (Flonase 0.05% Nasal) 1 spray BID NASAL Last administered on 05/11/17 08:10; Admin Dose 1 SPRAY; Start 05/07/17 at 21:00 Gabapentin (Neurontin) 300 mg TID PO Last administered on 05/11/17 13:21; Admin Dose 300 MG; Start 05/07/17 at 21:00 Acetaminophen/ Hydrocodone Bitart ([place] (5/325)) 1 tab Q6H PRN PO MODERATE PAIN LEVEL 4-6; Start 05/07/17 at 19:00 Insulin Glargine (Lantus) 15 unit QHS SC Last administered on 05/10/17 21:00; Admin Dose 15 UNIT; Start 05/07/17 at 21:00 Loratadine (Claritin) 10 mg DAILY PO Last administered on 05/11/17 08:14; Admin Dose 10 MG; Start 05/08/17 at 09:00 Magnesium Hydroxide (Milk Of Mag) 30 ml DAILY PRN PO CONSTIPATION; Start at 19:00 Metoprolol Tartrate (Lopressor) 12.5 mg BID PO Last administered on 05/11/17 08:42; Admin Dose 12.5 MG; Start 05/07/17 at 21:00 Montelukast Sodium (Singulair) 10 mg QHS PO Last administered on 05/10/17 21: 00; Admin Dose 10 MG; Start 05/07/17 at 21:00 Multivitamins Therapeutic (Theragran) 1 tab DAILY PO Last administered on 08:13; Admin Dose 1 TAB; Start 05/08/17 at 09:00 Potassium Chloride (Klor-Con 10) 10 meq DAILY PO Last administered on 08:14; Admin Dose 10 MEQ; Start 05/08/17 at 09:00 Prednisone (Prednisone) 10 mg DAILY PO Last administered on 05/11/17 08:23; Admin Dose 10 MG; Start 05/08/17 at 09:00 Promethazine HCl (Phenergan Liq) 6.25 mg Q6H PO Last administered on 05/11/17 13:21; Admin Dose 6.25 MG; Start 05/07/17 at 19:00 Miscellaneous Information 1 ea NOTE XX ; Start 05/07/17 at 19:00 Glucose (Glutose) 15 gm Q15M PRN PO DECREASED GLUCOSE; Start 05/07/17 at 19:00 Glucose (Glutose) 22.5 gm Q15M PRN PO DECREASED GLUCOSE; Start 05/07/17 at 19: 00 Dextrose (D50w Syringe) 25 ml Q15M PRN IV DECREASED GLUCOSE; Start 05/07/17 at 19:00 Dextrose (D50w Syringe) 50 ml Q15M PRN IV DECREASED GLUCOSE; Start 05/07/17 at 19:00 Glucagon (Glucagen) 1 mg Q15M PRN IM DECREASED GLUCOSE; Start 05/07/17 at 19:00 Glucose (Glutose) 15 gm Q15M PRN BUCCAL DECREASED GLUCOSE; Start 05/07/17 at 19 :00 Diagnostic Test (Pha) (Accu-Chek) 1 ea 02 XX Last administered on 05/10/17 02: 22; Admin Dose 1 EA; Start 05/09/17 at 02:00 Furosemide (Lasix) 20 mg TID IV Last administered on 7/25/17at 13:26; Admin Dose 20 MG; Start 05/08/17 at 21:00 Polysaccharide Iron Complex 1 cap 1 cap BID PO Last administered on 05/11/17 08:13; Admin Dose 1 CAP; Start 05/09/17 at 21:00 Ferric Sodium Gluconate Complex/ Sodium Chloride (Ferrlecit/NS) 110 ml @ 110 mls/hr Q24H IVPB Last administered on 05/11/17 10:13; Admin Dose 110 MLS/HR; Start 05/10/17 at 10:00; Stop 05/14/17 at 10:59 LEILA SPARKS MD May 11, 2017 17:56
[2017-05-11 19:33] VITALS: BP 111/56; RESP 20
[2017-05-11] MEDS: MONTELUKAST 10 MG TAB PO SCH (21:29)
[2017-05-11] MEDS: ATORVASTATIN 20 MG TAB PO SCH (21:29)
[2017-05-11] MEDS: INSULIN GLARGINE [LANtus] 3 ML PEN SC SCH (21:36)
[2017-05-12] MEDS: PROMETHAZINE (1.25 MG/ML) 5 ML CUP PO SCH ×4 (01:00→21:18)
[2017-05-12 01:50] VITALS: BP 106/55; RESP 18
[2017-05-12] MEDS: ACCU-CHEK XX SCH (02:00)
[2017-05-12] MEDS: PANTOPRAZOLE 40 MG INJ IV SCH (05:35)
[2017-05-12 06:17] LABS: BASOPHILS % 0.5 % (0.0-2.0); EOSINOPHILS # 0.2 10^3/ul (0.0-0.5); EOSINOPHILS % 2.8 % (0.0-7.0); HEMATOCRIT 31.2 % (37.0-47.0); HEMOGLOBIN 9.6 g/dl (12.0-16.0); LYMPHOCYTES % 16.4 % (15.0-51.0); MEAN CORPUSCULAR HEMOGLOBIN 30.3 pg (29.0-33.0); MEAN CORPUSCULAR HGB CONC 30.8 g/dl (32.0-37.0); MEAN CORPUSCULAR VOLUME 98.4 fl (82.0-101.0); MEAN PLATELET VOLUME 9.2 fl (7.4-10.4); MONOCYTE # 0.4 10^3/ul (0.3-0.9); MONOCYTES % 6.8 % (0.0-11.0); NEUTROPHIL # 4.6 10^3/ul (1.6-7.5); NEUTROPHILS % 72.6 % (39.0-77.0); PLATELET COUNT 173 10^3/UL (140-415); RED BLOOD COUNT 3.17 10^6/ul (4.20-5.40); WHITE BLOOD COUNT 6.3 10^3/ul (4.8-10.8)
[2017-05-12 06:44] LABS: ALBUMIN 3.5 g/dl (3.3-4.9); ALBUMIN/GLOBULIN RATIO 1.29; BILIRUBIN,INDIRECT 0.2 mg/dl (0-1.1); BILIRUBIN,TOTAL 0.2 mg/dl (0.2-1.3); CALCIUM 9.1 mg/dl (8.4-10.2); CREATININE 1.14 mg/dl (0.44-1.00); TOTAL PROTEIN 6.2 g/dl (6.1-8.1)
[2017-05-12 07:32] VITALS: BP 125/56; RESP 16
[2017-05-12] MEDS: INSULIN ASPART [NOVOLOG] 3 ML PEN SC SCH ×4 (07:57→21:26)
[2017-05-12 09:15] VITALS: BP 117/68; PULSE 104
[2017-05-12] MEDS: MULTIVITAMINS THERAPEUTIC TAB PO SCH (09:16)
[2017-05-12] MEDS: LORATADINE 10 MG TAB PO SCH (09:16)
[2017-05-12] MEDS: predniSONE 10 MG TAB PO SCH (09:17)
[2017-05-12] MEDS: POTASSIUM CHLORIDE (SR) 10 MEQ TAB PO SCH (09:17)
[2017-05-12] MEDS: METOPROLOL 25 MG TAB PO SCH ×2 (09:18→21:19)
[2017-05-12] MEDS: GABAPENTIN 300 MG CAP PO SCH ×3 (09:19→21:18)
[2017-05-12] MEDS: FAMOTIDINE 20 MG TAB PO SCH (09:19)
[2017-05-12] MEDS: POLYSACCHARIDE IRON COMPLEX CAP PO SCH ×2 (09:19→21:20)
[2017-05-12] MEDS: FUROSEMIDE 20 MG INJ IV SCH ×3 (09:20→21:20)
[2017-05-12] MEDS: FLUTICASONE 0.05% 16 GM NAS SPRAY NASAL SCH ×2 (09:23→21:20)
[2017-05-12] MEDS: SOD FERRIC GLUC COMPLX 125 MG in SOD CHLORIDE 0.9% 100 ML IVPB SCH (10:43)
[2017-05-12 13:58] VITALS: BP 96/54; PULSE 78; RESP 18
--- NOTE | 2017-05-12 15:32 | RADRPT ---
AMENDMENT: 05/12/2017 4:18:45 PM Tim Costa MD Correction: Comparison is made with prior studies dated 05/07/2017 and 02/04/2017. There has been no change from 05/07/2017 and no change from 02/04/2017. PROCEDURE: XR Chest. CLINICAL INDICATION: Shortness of breath. TECHNIQUE: Single frontal view. COMPARISON: 05/07/2017. FINDINGS: There is bilateral interstitial pulmonary disease and low lung volumes, unchanged. The heart is enlarged. There is calcification in the aorta consistent with atherosclerosis. There is no pleural effusion. There is no pneumothorax. IMPRESSION: 1. No change from 02/04/2017. RPTAT: QQ .Tim Costa MD, MD Date Time Electronically viewed and signed by .Tim Costa MD, MD on 05/12/2017 16:18 .R/
--- NOTE | 2017-05-12 16:35 | CONS ---
Date/Time of Note Date/Time of Note DATE: 05/12/17 TIME: 16:33 Assessment/Plan Assessment/Plan Chief Complaint/Hosp Course The patient is a 86 year old female with a history of high grade invasive urothelial carcinoma status post chemoradiation with 5FU/mitomycin with 20% dose reduction due to age, completed radiation 02/03/17 with recurrent admissions for unrelated COPD/CHF exacerbations, now admitted for epistaxis and associated anemia. - The patient underwent cystoscopy 03/18/17 with path demonstrating high grade dysplasia but no evidence of malignancy, per Dr. Morfin f/u cystocopy in 3 months. - CT CAP 04/26/17 showed nonspecific circumferential wall thickening, indeterminate 12 mm nodular area arising from urinary bladder wall superiorly, but no other evidence of mass or LAD in the CAP and no evidence of metastatic disease. Plan to repeat CT Q3-6 months. - Patient seen by Dr. Gillis 04/21/17, at which time patient doing well and without evidence of detectable disease with f/u planned for July 2017. # Epistaxis, with Hgb 8.9 down to 7.7 now stable at 9.6 s/p 2 units pRBCs, resolved - iron panel consistent with iron deficiency, will give IV iron while in house, and can also give as outpatient as well - Vitamin B12 and folate WNL, homocysteine elevated at 14.8, pending methylmalonic acid - LDH normal, retic count inappropriately low, haptoglobin pending - TSH elevated at 8.020 with normal free T4 and F3 consistent with subclinical hypothyroidism, defer to primary team - smear reviewed by pathology, no significant abnormalities, no evidence of hemolysis or dysplasia - per RN, patient was seen by ENT with packing of left nares # Renal insufficiency, mild, management per primary team Problems: Consultation Date/Type/Reason Admit Date/Time May 07, 2017 at 13:49 Initial Consult Date 05/07/17 Type of Consultation: Oncology 24 HR Interval Summary Free Text/Dictation Patient doing well, no further epistaxis. Exam/Review of Systems Vital Signs Vitals Vital Signs Date Time Temp Pulse Resp B/P Pulse Ox O2 Delivery O2 Flow Rate FiO2 05/12/17 13:58 97.6 78 18 96/54 95 Nasal Cannula 2.0 Intake and Output 05/11/17 05/11/17 05/12/17 15:00 23:00 07:00 Intake Total 110 ml 1000 ml Balance 110 ml 1000 ml Exam Constitutional: alert, oriented Head: normocephalic Eyes: nl conjunctiva Neck: supple Respiratory: crackles/rales Cardiovascular: regular rate and rhythm Gastrointestinal: non-tender, soft Musculoskeletal: swelling 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: DIVERSIONAL THERAPIST II-XII intact Results Result Diagram: 05/12/17 0555 05/12/17 0555 Results 24 hrs Laboratory Tests Test 05/11/17 17:24 05/11/17 21:28 05/12/17 05:55 05/12/17 07:52 Bedside Glucose 190 151 101 White Blood Count 6.3 Red Blood Count 3.17 L Hemoglobin 9.6 L Hematocrit 31.2 L Mean Corpuscular Volume 98.4 Mean Corpuscular Hemoglobin 30.3 Mean Corpuscular Hemoglobin Concent 30.8 L Red Cell Distribution Width 16.0 H Platelet Count 173 Mean Platelet Volume 9.2 Neutrophils % 72.6 Lymphocytes % 16.4 Monocytes % 6.8 Eosinophils % 2.8 Basophils % 0.5 Nucleated Red Blood Cells % 0.0 Neutrophils # 4.6 Lymphocytes # 1.0 Monocytes # 0.4 Eosinophils # 0.2 Basophils # 0.0 Nucleated Red Blood Cells # 0.0 Sodium Level 142 Potassium Level 4.0 Chloride Level 97 Carbon Dioxide Level 35 H Anion Gap 14 Blood Urea Nitrogen 23 H Creatinine 1.14 H Glucose Level 103 Calcium Level 9.1 Total Bilirubin 0.2 Direct Bilirubin 0.00 Indirect Bilirubin 0.2 Aspartate Amino Transf (AST/SGOT) 19 Alanine Aminotransferase (ALT/SGPT) 22 Alkaline Phosphatase 45 Total Protein 6.2 Albumin 3.5 Globulin 2.70 Albumin/Globulin Ratio 1.29 Test 05/12/17 12:07 Bedside Glucose 160 Medications Medications Current Medications Ondansetron HCl (Zofran Tab) 4 mg Q6H PRN PO NAUSEA AND/OR VOMITING; Start at 15:00 Pantoprazole (Protonix Iv) 40 mg DAILY@06 IV Last administered on 05/12/17t 05: 35; Admin Dose 40 MG; Start 05/08/17 at 06:00 Acetaminophen (Tylenol Tab) 650 mg Q6H PRN PO MILD PAIN LEVEL 1-3; Start at 19:00 Albuterol (Proventil 0.083% (Neb)) 2.5 mg Q6 PRN NEB WHEEZING AND SOB; Start at 19:00 Atorvastatin Calcium (Lipitor) 20 mg QHS PO Last administered on 05/11/17 21: 29; Admin Dose 20 MG; Start 05/07/17 at 21:00 Bisacodyl (Dulcolax) 5 mg DAILY PRN PO CONSTIPATION; Start 05/07/17 at 19:00 Promethazine HCl/ Dextromethorphan (Phenergan-Dm) 5 ml Q6 PRN PO COUGH; Start 05/07/17 at 19:00 Docusate Sodium (Colace) 100 mg Q12H PRN PO CONSTIPATION; Start 05/07/17 at 19: 00 Famotidine (Pepcid) 20 mg DAILY PO Last administered on 05/12/17 09:19; Admin Dose 20 MG; Start 05/08/17 at 09:00 Fluticasone Propionate (Flonase 0.05% Nasal) 1 spray BID NASAL Last administered on 05/12/17 09:23; Admin Dose 1 SPRAY; Start 05/07/17 at 21:00 Gabapentin (Neurontin) 300 mg TID PO Last administered on 05/12/17 09:19; Admin Dose 300 MG; Start 05/07/17 at 21:00 Acetaminophen/ Hydrocodone Bitart ([place] (5/325)) 1 tab Q6H PRN PO MODERATE PAIN LEVEL 4-6; Start 05/07/17 at 19:00 Insulin Glargine (Lantus) 15 unit QHS SC Last administered on 05/11/17 21:36; Admin Dose 15 UNIT; Start 05/07/17 at 21:00 Loratadine (Claritin) 10 mg DAILY PO Last administered on 05/12/17 09:16; Admin Dose 10 MG; Start 05/08/17 at 09:00 Magnesium Hydroxide (Milk Of Mag) 30 ml DAILY PRN PO CONSTIPATION; Start at 19:00 Metoprolol Tartrate (Lopressor) 12.5 mg BID PO Last administered on 05/12/17 09:18; Admin Dose 12.5 MG; Start 05/07/17 at 21:00 Montelukast Sodium (Singulair) 10 mg QHS PO Last administered on 05/11/17 21: 29; Admin Dose 10 MG; Start 05/07/17 at 21:00 Multivitamins Therapeutic (Theragran) 1 tab DAILY PO Last administered on 09:16; Admin Dose 1 TAB; Start 05/08/17 at 09:00 Potassium Chloride (Klor-Con 10) 10 meq DAILY PO Last administered on 09:17; Admin Dose 10 MEQ; Start 05/08/17 at 09:00 Prednisone (Prednisone) 10 mg DAILY PO Last administered on 05/12/17 09:17; Admin Dose 10 MG; Start 05/08/17 at 09:00 Promethazine HCl (Phenergan Liq) 6.25 mg Q6H PO Last administered on 05/12/17 05:35; Admin Dose 6.25 MG; Start 05/07/17 at 19:00 Miscellaneous Information 1 ea NOTE XX ; Start 05/07/17 at 19:00 Glucose (Glutose) 15 gm Q15M PRN PO DECREASED GLUCOSE; Start 05/07/17 at 19:00 Glucose (Glutose) 22.5 gm Q15M PRN PO DECREASED GLUCOSE; Start 05/07/17 at 19: 00 Dextrose (D50w Syringe) 25 ml Q15M PRN IV DECREASED GLUCOSE; Start 05/07/17 at 19:00 Dextrose (D50w Syringe) 50 ml Q15M PRN IV DECREASED GLUCOSE; Start 05/07/17 at 19:00 Glucagon (Glucagen) 1 mg Q15M PRN IM DECREASED GLUCOSE; Start 05/07/17 at 19:00 Glucose (Glutose) 15 gm Q15M PRN BUCCAL DECREASED GLUCOSE; Start 05/07/17 at 19 :00 Diagnostic Test (Pha) (Accu-Chek) 1 ea 02 XX Last administered on 05/10/17 02: 22; Admin Dose 1 EA; Start 05/09/17 at 02:00 Furosemide (Lasix) 20 mg TID IV Last administered on 05/12/17 09:20; Admin Dose 20 MG; Start 05/08/17 at 21:00 Polysaccharide Iron Complex 1 cap 1 cap BID PO Last administered on 05/12/17 09:19; Admin Dose 1 CAP; Start 05/09/17 at 21:00 Ferric Sodium Gluconate Complex/ Sodium Chloride (Ferrlecit/NS) 110 ml @ 110 mls/hr Q24H IVPB Last administered on 05/12/17t 10:43; Admin Dose 110 MLS/HR; Start 05/10/17 at 10:00; Stop 05/14/17 at 10:59 TOLILLIANA MD May 12, 2017 16:35
[2017-05-12 19:38] VITALS: BP 118/58; RESP 18
[2017-05-12] MEDS: MONTELUKAST 10 MG TAB PO SCH (21:19)
[2017-05-12] MEDS: ATORVASTATIN 20 MG TAB PO SCH (21:19)
[2017-05-12] MEDS: INSULIN GLARGINE [LANtus] 3 ML PEN SC SCH (21:26)
--- NOTE | 2017-05-12 22:20 | PN ---
Date/Time of Note Date/Time of Note DATE: 05/12/17 TIME: 22:19 Assessment/Plan VTE Prophylaxis VTE Prophylaxis Intervention: other Lines/Catheters IV [facility] Saline Lock Urinary Cath still in place: No Assessment/Plan Chief Complaint/Hosp Course ANEMIA S/P NOSE BLEED ANEMIA ASHD AZOTEMIA HX IL LUNG DIS PLAN CK LABS SNF SOON CK XR CHEST Problems: Subjective 24 Hr Interval Summary Respiratory: shortness of breath (BETTER) Gastrointestinal: no complaints Genitourinary: no complaints Exam/Review of Systems Vital Signs Vitals Vital Signs Date Time Temp Pulse Resp B/P Pulse Ox O2 Delivery O2 Flow Rate FiO2 05/12/17 19:38 98.6 70 18 118/58 97 05/12/17 18:00 2.0 05/12/17 13:58 Nasal Cannula Intake and Output 05/11/17 05/11/17 05/12/17 15:00 23:00 07:00 Intake Total 110 ml 1000 ml Balance 110 ml 1000 ml Exam Respiratory: clear to auscultation Cardiovascular: regular rate and rhythm Gastrointestinal: soft Musculoskeletal: nl extremities to inspection Extremities: normal pulses Results Result Diagram: 05/12/17 0555 05/12/17 0555 Results 24 hrs Laboratory Tests Test 05/12/17 05:55 05/12/17 07:52 05/12/17 12:07 05/12/17 17:13 White Blood Count 6.3 Red Blood Count 3.17 L Hemoglobin 9.6 L Hematocrit 31.2 L Mean Corpuscular Volume 98.4 Mean Corpuscular Hemoglobin 30.3 Mean Corpuscular Hemoglobin Concent 30.8 L Red Cell Distribution Width 16.0 H Platelet Count 173 Mean Platelet Volume 9.2 Neutrophils % 72.6 Lymphocytes % 16.4 Monocytes % 6.8 Eosinophils % 2.8 Basophils % 0.5 Nucleated Red Blood Cells % 0.0 Neutrophils # 4.6 Lymphocytes # 1.0 Monocytes # 0.4 Eosinophils # 0.2 Basophils # 0.0 Nucleated Red Blood Cells # 0.0 Sodium Level 142 Potassium Level 4.0 Chloride Level 97 Carbon Dioxide Level 35 H Anion Gap 14 Blood Urea Nitrogen 23 H Creatinine 1.14 H Glucose Level 103 Calcium Level 9.1 Total Bilirubin 0.2 Direct Bilirubin 0.00 Indirect Bilirubin 0.2 Aspartate Amino Transf (AST/SGOT) 19 Alanine Aminotransferase (ALT/SGPT) 22 Alkaline Phosphatase 45 Total Protein 6.2 Albumin 3.5 Globulin 2.70 Albumin/Globulin Ratio 1.29 Bedside Glucose 101 160 160 Test 05/12/17 21:16 Bedside Glucose 206 Medications Medications Current Medications Ondansetron HCl (Zofran Tab) 4 mg Q6H PRN PO NAUSEA AND/OR VOMITING; Start at 15:00 Pantoprazole (Protonix Iv) 40 mg DAILY@06 IV Last administered on 05/12/17 05: 35; Admin Dose 40 MG; Start 05/08/17 at 06:00 Acetaminophen (Tylenol Tab) 650 mg Q6H PRN PO MILD PAIN LEVEL 1-3; Start at 19:00 Albuterol (Proventil 0.083% (Neb)) 2.5 mg Q6 PRN NEB WHEEZING AND SOB; Start at 19:00 Atorvastatin Calcium (Lipitor) 20 mg QHS PO Last administered on 05/12/17 21: 19; Admin Dose 20 MG; Start 05/07/17 at 21:00 Bisacodyl (Dulcolax) 5 mg DAILY PRN PO CONSTIPATION; Start 05/07/17 at 19:00 Promethazine HCl/ Dextromethorphan (Phenergan-Dm) 5 ml Q6 PRN PO COUGH; Start 05/07/17 at 19:00 Docusate Sodium (Colace) 100 mg Q12H PRN PO CONSTIPATION; Start 05/07/17 at 19: 00 Famotidine (Pepcid) 20 mg DAILY PO Last administered on 05/12/17 09:19; Admin Dose 20 MG; Start 05/08/17 at 09:00 Fluticasone Propionate (Flonase 0.05% Nasal) 1 spray BID NASAL Last administered on 05/12/17 21:20; Admin Dose 1 SPRAY; Start 05/07/17 at 21:00 Gabapentin (Neurontin) 300 mg TID PO Last administered on 05/12/17 21:18; Admin Dose 300 MG; Start 05/07/17 at 21:00 Acetaminophen/ Hydrocodone Bitart (Ekron (5/325)) 1 tab Q6H PRN PO MODERATE PAIN LEVEL 4-6; Start 05/07/17 at 19:00 Insulin Glargine (Lantus) 15 unit QHS SC Last administered on 05/12/17 21:26; Admin Dose 15 UNIT; Start 05/07/17 at 21:00 Loratadine (Claritin) 10 mg DAILY PO Last administered on 05/12/17 09:16; Admin Dose 10 MG; Start 05/08/17 at 09:00 Magnesium Hydroxide (Milk Of Mag) 30 ml DAILY PRN PO CONSTIPATION; Start at 19:00 Metoprolol Tartrate (Lopressor) 12.5 mg BID PO Last administered on 05/12/17 21:19; Admin Dose 12.5 MG; Start 05/07/17 at 21:00 Montelukast Sodium (Singulair) 10 mg QHS PO Last administered on 05/12/17 21: 19; Admin Dose 10 MG; Start 05/07/17 at 21:00 Multivitamins Therapeutic (Theragran) 1 tab DAILY PO Last administered on 09:16; Admin Dose 1 TAB; Start 05/08/17 at 09:00 Potassium Chloride (Klor-Con 10) 10 meq DAILY PO Last administered on 09:17; Admin Dose 10 MEQ; Start 05/08/17 at 09:00 Prednisone (Prednisone) 10 mg DAILY PO Last administered on 05/12/17 09:17; Admin Dose 10 MG; Start 05/08/17 at 09:00 Promethazine HCl (Phenergan Liq) 6.25 mg Q6H PO Last administered on 05/12/17 21:18; Admin Dose 6.25 MG; Start 05/07/17 at 19:00 Miscellaneous Information 1 ea NOTE XX ; Start 05/07/17 at 19:00 Glucose (Glutose) 15 gm Q15M PRN PO DECREASED GLUCOSE; Start 05/07/17 at 19:00 Glucose (Glutose) 22.5 gm Q15M PRN PO DECREASED GLUCOSE; Start 05/07/17 at 19: 00 Dextrose (D50w Syringe) 25 ml Q15M PRN IV DECREASED GLUCOSE; Start 05/07/17 at 19:00 Dextrose (D50w Syringe) 50 ml Q15M PRN IV DECREASED GLUCOSE; Start 05/07/17 at 19:00 Glucagon (Glucagen) 1 mg Q15M PRN IM DECREASED GLUCOSE; Start 05/07/17 at 19:00 Glucose (Glutose) 15 gm Q15M PRN BUCCAL DECREASED GLUCOSE; Start 05/07/17 at 19 :00 Diagnostic Test (Pha) (Accu-Chek) 1 ea 02 XX Last administered on 05/10/17 02: 22; Admin Dose 1 EA; Start 05/09/17 at 02:00 Furosemide (Lasix) 20 mg TID IV Last administered on 05/12/17 21:20; Admin Dose 20 MG; Start 05/08/17 at 21:00 Polysaccharide Iron Complex 1 cap 1 cap BID PO Last administered on 05/12/17 21:20; Admin Dose 1 CAP; Start 05/09/17 at 21:00 Ferric Sodium Gluconate Complex/ Sodium Chloride (Ferrlecit/NS) 110 ml @ 110 mls/hr Q24H IVPB Last administered on 05/12/17 10:43; Admin Dose 110 MLS/HR; Start 05/10/17 at 10:00; Stop 05/14/17 at 10:59 LEILA SPARKS MD May 12, 2017 22:20
--- NOTE | 2017-05-12 22:21 | PDOCDIS ---
Discharge Instructions CONDITION Patient Condition: Stable HOME CARE INSTRUCTIONS: Special Diet: Low Fat, Low Cholesterol ACTIVITY: Activity Restrictions: Slowly Increase Activity FOLLOW UP/APPOINTMENTS Follow-up Plan F/U DR SPARKS AT [facility] SEE DR TONG 1 WK LEIAL SPARKS MD May 12, 2017 22:21
[2017-05-13 01:53] VITALS: BP 132/61; RESP 18
[2017-05-13] MEDS: ACCU-CHEK XX SCH (02:31)
[2017-05-13] MEDS: PROMETHAZINE (1.25 MG/ML) 5 ML CUP PO SCH ×3 (02:32→13:06)
[2017-05-13] MEDS: PANTOPRAZOLE 40 MG INJ IV SCH (06:08)
[2017-05-13] MEDS: INSULIN ASPART [NOVOLOG] 3 ML PEN SC SCH ×2 (07:50→12:11)
[2017-05-13 07:56] VITALS: BP 119/57; RESP 18
[2017-05-13] MEDS: POLYSACCHARIDE IRON COMPLEX CAP PO SCH (08:42)
[2017-05-13] MEDS: LORATADINE 10 MG TAB PO SCH (08:42)
[2017-05-13] MEDS: MULTIVITAMINS THERAPEUTIC TAB PO SCH (08:42)
[2017-05-13] MEDS: GABAPENTIN 300 MG CAP PO SCH ×2 (08:42→13:06)
[2017-05-13] MEDS: POTASSIUM CHLORIDE (SR) 10 MEQ TAB PO SCH (08:42)
[2017-05-13] MEDS: predniSONE 10 MG TAB PO SCH (08:42)
[2017-05-13] MEDS: METOPROLOL 25 MG TAB PO SCH (08:43)
[2017-05-13] MEDS: FAMOTIDINE 20 MG TAB PO SCH (08:43)
[2017-05-13] MEDS: FLUTICASONE 0.05% 16 GM NAS SPRAY NASAL SCH (08:43)
[2017-05-13] MEDS: FUROSEMIDE 20 MG INJ IV SCH ×2 (08:44→13:07)
[2017-05-13] MEDS: SOD FERRIC GLUC COMPLX 125 MG in SOD CHLORIDE 0.9% 100 ML IVPB SCH (12:09)
--- NOTE | 2017-05-13 12:59 | CONS ---
Date/Time of Note Date/Time of Note DATE: 05/13/17 TIME: 12:58 Assessment/Plan Assessment/Plan Chief Complaint/Hosp Course The patient is a 86 year old female with a history of high grade invasive urothelial carcinoma status post chemoradiation with 5FU/mitomycin with 20% dose reduction due to age, completed radiation 02/03/17 with recurrent admissions for unrelated COPD/CHF exacerbations, now admitted for epistaxis and associated anemia. - The patient underwent cystoscopy 03/18/17 with path demonstrating high grade dysplasia but no evidence of malignancy, per Dr. Morfin f/u cystocopy in 3 months. - CT CAP 04/26/17 showed nonspecific circumferential wall thickening, indeterminate 12 mm nodular area arising from urinary bladder wall superiorly, but no other evidence of mass or LAD in the CAP and no evidence of metastatic disease. Plan to repeat CT Q3-6 months. - Patient seen by Dr. Gillis 04/21/17, at which time patient doing well and without evidence of detectable disease with f/u planned for July 2017. # Epistaxis, with Hgb 8.9 down to 7.7 now stable at 9.6 s/p 2 units pRBCs, resolved - iron panel consistent with iron deficiency, will give IV iron while in house, and can also give as outpatient as well - Vitamin B12 and folate WNL, homocysteine elevated at 14.8, pending methylmalonic acid - LDH normal, retic count inappropriately low, haptoglobin pending - TSH elevated at 8.020 with normal free T4 and F3 consistent with subclinical hypothyroidism, defer to primary team - smear reviewed by pathology, no significant abnormalities, no evidence of hemolysis or dysplasia - per RN, patient was seen by ENT with packing of left nares # Renal insufficiency, mild, management per primary team Pending discharge per primary team Problems: Consultation Date/Type/Reason Admit Date/Time May 07, 2017 at 13:49 Initial Consult Date 05/07/17 Type of Consultation: Oncology 24 HR Interval Summary Free Text/Dictation No issues, no bleeding. Pending discharge. Exam/Review of Systems Vital Signs Vitals Vital Signs Date Time Temp Pulse Resp B/P Pulse Ox O2 Delivery O2 Flow Rate FiO2 05/13/17 08:00 Nasal Cannula 2.0 05/13/17 07:56 98.2 72 18 119/57 98 Intake and Output 05/12/17 05/12/17 05/13/17 15:00 23:00 07:00 Intake Total 110 ml 720 ml 360 ml Balance 110 ml 720 ml 360 ml Exam Constitutional: alert, oriented Head: normocephalic Eyes: nl conjunctiva Neck: supple Respiratory: crackles/rales Cardiovascular: regular rate and rhythm Gastrointestinal: non-tender, soft Musculoskeletal: swelling 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: CAS[employer] PERSON II-XII intact Results Result Diagram: 05/12/17 0555 05/12/17 0555 Results 24 hrs Laboratory Tests Test 05/12/17 17:13 05/12/17 21:16 05/13/17 02:31 05/13/17 07:49 Bedside Glucose 160 206 107 98 Test 05/13/17 12:05 Bedside Glucose 159 Medications Medications Current Medications Ondansetron HCl (Zofran Tab) 4 mg Q6H PRN PO NAUSEA AND/OR VOMITING; Start at 15:00 Pantoprazole (Protonix Iv) 40 mg DAILY@06 IV Last administered on 05/13/17 06: 08; Admin Dose 40 MG; Start 05/08/17 at 06:00 Acetaminophen (Tylenol Tab) 650 mg Q6H PRN PO MILD PAIN LEVEL 1-3; Start at 19:00 Albuterol (Proventil 0.083% (Neb)) 2.5 mg Q6 PRN NEB WHEEZING AND SOB; Start at 19:00 Atorvastatin Calcium (Lipitor) 20 mg QHS PO Last administered on 05/12/17 21: 19; Admin Dose 20 MG; Start 05/07/17 at 21:00 Bisacodyl (Dulcolax) 5 mg DAILY PRN PO CONSTIPATION; Start 05/07/17 at 19:00 Promethazine HCl/ Dextromethorphan (Phenergan-Dm) 5 ml Q6 PRN PO COUGH; Start 05/07/17 at 19:00 Docusate Sodium (Colace) 100 mg Q12H PRN PO CONSTIPATION; Start 05/07/17 at 19: 00 Famotidine (Pepcid) 20 mg DAILY PO Last administered on 05/13/17 08:43; Admin Dose 20 MG; Start 05/08/17 at 09:00 Fluticasone Propionate (Flonase 0.05% Nasal) 1 spray BID NASAL Last administered on 05/13/17 08:43; Admin Dose 1 SPRAY; Start 05/07/17 at 21:00 Gabapentin (Neurontin) 300 mg TID PO Last administered on 05/13/17 08:42; Admin Dose 300 MG; Start 05/07/17 at 21:00 Acetaminophen/ Hydrocodone Bitart (Horicon (5/325)) 1 tab Q6H PRN PO MODERATE PAIN LEVEL 4-6; Start 05/07/17 at 19:00 Insulin Glargine (Lantus) 15 unit QHS SC Last administered on 05/12/17 21:26; Admin Dose 15 UNIT; Start 05/07/17 at 21:00 Loratadine (Claritin) 10 mg DAILY PO Last administered on 05/13/17 08:42; Admin Dose 10 MG; Start 05/08/17 at 09:00 Magnesium Hydroxide (Milk Of Mag) 30 ml DAILY PRN PO CONSTIPATION; Start at 19:00 Metoprolol Tartrate (Lopressor) 12.5 mg BID PO Last administered on 05/13/17 08:43; Admin Dose 12.5 MG; Start 05/07/17 at 21:00 Montelukast Sodium (Singulair) 10 mg QHS PO Last administered on 05/12/17 21: 19; Admin Dose 10 MG; Start 05/07/17 at 21:00 Multivitamins Therapeutic (Theragran) 1 tab DAILY PO Last administered on 08:42; Admin Dose 1 TAB; Start 05/08/17 at 09:00 Potassium Chloride (Klor-Con 10) 10 meq DAILY PO Last administered on 08:42; Admin Dose 10 MEQ; Start 05/08/17 at 09:00 Prednisone (Prednisone) 10 mg DAILY PO Last administered on 05/13/17 08:42; Admin Dose 10 MG; Start 05/08/17 at 09:00 Promethazine HCl (Phenergan Liq) 6.25 mg Q6H PO Last administered on 05/13/17 06:08; Admin Dose 6.25 MG; Start 05/07/17 at 19:00 Miscellaneous Information 1 ea NOTE XX ; Start 05/07/17 at 19:00 Glucose (Glutose) 15 gm Q15M PRN PO DECREASED GLUCOSE; Start 05/07/17 at 19:00 Glucose (Glutose) 22.5 gm Q15M PRN PO DECREASED GLUCOSE; Start 05/07/17 at 19: 00 Dextrose (D50w Syringe) 25 ml Q15M PRN IV DECREASED GLUCOSE; Start 05/07/17 at 19:00 Dextrose (D50w Syringe) 50 ml Q15M PRN IV DECREASED GLUCOSE; Start 05/07/17 at 19:00 Glucagon (Glucagen) 1 mg Q15M PRN IM DECREASED GLUCOSE; Start 05/07/17 at 19:00 Glucose (Glutose) 15 gm Q15M PRN BUCCAL DECREASED GLUCOSE; Start 05/07/17 at 19 :00 Diagnostic Test (Pha) (Accu-Chek) 1 ea 02 XX Last administered on 05/13/17 02: 31; Admin Dose 1 EA; Start 05/09/17 at 02:00 Furosemide (Lasix) 20 mg TID IV Last administered on 05/13/17 08:44; Admin Dose 20 MG; Start 05/08/17 at 21:00 Polysaccharide Iron Complex 1 cap 1 cap BID PO Last administered on 05/13/17 08:42; Admin Dose 1 CAP; Start 05/09/17 at 21:00 Ferric Sodium Gluconate Complex/ Sodium Chloride (Ferrlecit/NS) 110 ml @ 110 mls/hr Q24H IVPB Last administered on 05/13/17 12:09; Admin Dose 110 MLS/HR; Start 05/10/17 at 10:00; Stop 05/14/17 at 10:59 TOLILLIANA MD May 13, 2017 12:59
[2017-05-13 13:10] VITALS: BP 103/58; RESP 18
--- NOTE | 2017-05-14 05:36 | HKNOTE ---
DATE OF SERVICE: 05/08/2017 Hematology/Oncology Visit Note HISTORY OF PRESENT ILLNESS: Ms Gallagher is an 86-year-old, [place]uvian-speaking lady with a diagnosis of high-grade urothelial cancer status post chemoradiation to the bladder with 5FU and mitomycin-C until 01/2017. The patient was being followed. She was admitted to the hospital on 05/07 because of epistaxis. The patient denies any hematuria. For Past Medical History and Review of Systems, please see the H and P. PHYSICAL EXAMINATION: A slightly obese female in no distress. She is alert, oriented, and cooperative. She is afebrile. ENT: Normal mouth. Oral mucosa normal. NECK: Supple without any abnormal masses or pulsations. CHEST: Symmetrical. Breasts without any lumps. ABDOMEN: Soft, obese. No masses. She has pads because of incontinence of urine. EXTREMITIES: No edema, clubbing, or cyanosis. CONFERENCE ASSISTANT: No focal deficits. LABORATORY DATA: Her CBC is okay except for hemoglobin 7.9 with MCV 100. Her PT and PTT were normal. Her CMP shows creatinine 0.91. Her anemia panel was normal with ferritin 79.8. IMPRESSION: 1. High-grade urothelial cancer, status post chemoradiation, with possible response. 2. Recurrent epistaxis of unknown etiology with no evidence of any coagulopathy, most likely local problems like dry nose. 3. Severe normochromic anemia, most likely secondary to bleeding plus chronic illness anemia. PLAN AND DISCUSSION: The patient is doing relatively well with regard to her urothelial cancer with no hematuria. The reason for her epistaxis is not clear. If the patient continues to have it, she might need an ENT consult. Her coagulation tests appear to be normal. She has severe anemia which may be multifactorial, including chronic illness, epistaxis, and also could be from chemotherapy and radiation. Her anemia panel is unremarkable. If she continues to be anemic, we should give her a trial of Procrit. Dictated By: Ferdinand Lauren MD /caroline/tyshawn /Document#: [id number]
--- NOTE | 2017-05-16 14:30 | CONS ---
DATE OF ADMISSION: 05/07/2017 DATE OF CONSULTATION: 05/09/2017 HISTORY OF PRESENT ILLNESS: This is an 86-year-old female with a history of epistaxis. She was admitted 2 days ago with anemia and vomiting up blood. ENT was consulted for epistaxis. The patient states she has been bleeding out of the left side of her nose, as well as spitting up blood. 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 PAST SURGICAL HISTORY: TURBT. ALLERGIES: NO KNOWN DRUG ALLERGIES. MEDICATION: Reviewed. SOCIAL HISTORY: Negative for tobacco, alcohol or drug abuse. FAMILY HISTORY: Negative for any heart, lung, kidney, thyroid or liver disease. REVIEW OF SYSTEMS: A 12-point review of systems is otherwise noncontributory. PHYSICAL EXAMINATION: HEENT: Her nose shows some anterior septal deflection to the left with an excoriation measuring approximately 8 mm of the anterior septum. The right side of the nose is completely clear. The oral cavity and oropharynx show tongue and floor of the mouth are normal. Oropharynx is clear and no blood is seen whatsoever. Neck with no lymphadenopathy or thyromegaly. Trachea is midline. TREATMENT: At this point cotton pledgets were placed within the nose to clean up the crusting and blood, as well as anesthetize the lining of the nose. When this was done, the nose was cleared and there was diffuse oozing. Because of this, I did not feel that I could cauterize adequately so the decision was made to place packing. Anterior Vaseline gauze pack was placed with prompt cessation of all bleeding. IMPRESSION: 1. Epistaxis. 2. Deviated septum. PLAN: I would first stop the Flonase as the number one side effect is nosebleeds. With regards to the packing, I would leave it in place for at least 3 days and she can follow up in the office at that point for packing removal. I would put her on an antibiotic for that time for prophylaxis of sinusitis. I would think that amoxicillin would be adequate. If you have any questions or concerns, please feel free to re- consult at any time. Dictated By: Ross Bird MD /caroline/amanda /Document#: [id number]
== END 2017-05-13 15:00 | DRG 812 ==
LOC: E/R 08:24 → MS2 13:49
PROVIDERS: ADMIT Internal Medicine Nephrology; ATTEND Internal Medicine Nephrology
PROC: 30233N1 Transfusion of Nonautologous Red Blood Cells into Peripheral Vein, Percutaneous Approach (ICD-10-PCS; principal; 2017-05-08)
PROC: 2Y41X5Z Packing of Nasal Region using Packing Material (ICD-10-PCS; 2017-05-09)
DX: D62 Acute posthemorrhagic anemia (principal); I50.30 Unspecified diastolic (congestive) heart failure; I27.2 Other secondary pulmonary hypertension; J44.1 Chronic obstructive pulmonary disease with (acute) exacerbation; R04.0 Epistaxis; I25.10 Atherosclerotic heart disease of native coronary artery without angina pectoris; E66.9 Obesity, unspecified; Z68.31 Body mass index [BMI] 31.0-31.9, adult; J34.2 Deviated nasal septum; N28.9 Disorder of kidney and ureter, unspecified; D50.9 Iron deficiency anemia, unspecified; Z85.51 Personal history of malignant neoplasm of bladder; Z92.21 Personal history of antineoplastic chemotherapy; Z92.3 Personal history of irradiation
CPT/HCPCS: 36415; 36430; 71010; 80048; 80053; 82607; 82728; 82746; 82962; 83010; 83090; 83540; 83615; 83735; 83880; 83921; 84100; 84439; 84443; 84481; 84484; 85014; 85018; 85025; 85045; 85610; 85730; 86850; 86900; 86901; 86920; 87081; 92526; 92610; 93005; J1940; C9113; J1815; J2916; J7040; J7512; P9016

== ENCOUNTER 2017-10-29 21:56 | Inpatient (IN) | END 2017-11-05 18:10 | DRG 190 ==

== ENCOUNTER 2019-02-14 11:17 | Inpatient (IN) | payer MEDICARE, OTHER ==
[~2019-02-14] VITALS: Ht 157.5 cm; Wt 81.8 kg
[~2019-02-14 11:17] MED LIST changes: +ACET325T45 PO; +ALBU2.5V3 NEB; +ATOR20TA38 PO; -D-ME473S2 PO; -DOCU-144 PO; -FLUT16SP17 NASAL; -HYDR-3498 PO; +HYDR-3601 PO; -IBUP400T22 PO; +LANT3I SC; -LINA290C PO; -LORA10TA3 PO; +MAGN400O19 PO; +METO-448 PO; +MULT-105 PO; -NA P133E3 PR; +ONDA4TAB8 PO; +POTA10TA37 PO; -ZOLP5TAB PO
[2019-02-14] MEDS ORDERED: PRED5TAB PO (11:57)
[2019-02-14] MEDS ORDERED: METF850T13 PO (11:58)
[2019-02-14] MEDS ORDERED: GABA300C16 PO (11:59)
[2019-02-14] MEDS ORDERED: FAMO20TA18 PO (11:59)
[2019-02-14] MEDS ORDERED: OLOP2.5D BOTH EYES (12:00)
[2019-02-14] MEDS ORDERED: MULT-105 PO (12:00)
[2019-02-14] MEDS ORDERED: MELO15TA30 PO (12:01)
[2019-02-14] MEDS ORDERED: POTASSIUM 10 MEQ PO (12:04)
[2019-02-14] MEDS ORDERED: ATOR20TA38 PO (12:05)
[2019-02-14] MEDS ORDERED: MONT10TA24 PO (12:05)
[2019-02-14] MEDS ORDERED: BIMA5DRO BOTH EYES (12:07)
[2019-02-14] MEDS ORDERED: METO-448 PO (12:08)
[2019-02-14] MEDS ORDERED: NATE120T PO (12:09)
[2019-02-14] MEDS ORDERED: ONDA4TAB13 PO (12:12)
[2019-02-14] MEDS ORDERED: ACET325T45 PO (12:14)
[2019-02-14] MEDS ORDERED: IBUP-1541 PO (12:16)
[2019-02-14] MEDS ORDERED: IPRA3AMP29 INHALATION (12:17)
[2019-02-14] MEDS ORDERED: POTA10TA37 PO (12:20)
[2019-02-14] MEDS ORDERED: SOD CHLORIDE 0.9% 1,000 ML IV STA (12:43)
[2019-02-14] MEDS ORDERED: ONDANSETRON 4 MG INJ IV STA ×2 (12:43→13:58)
[2019-02-14] MEDS ORDERED: morphine 4 MG/ML VIAL IV STA (12:43)
[2019-02-14] MEDS ORDERED: IODIXANOL LOCM 100 ML BTL ONE (14:12)
[2019-02-14] MEDS ORDERED: SOD CHLORIDE 0.9% 100 ML ONE (14:12)
[2019-02-14] MEDS ORDERED: METOCLOPRAMIDE 10 MG INJ IV ONE (15:30)
--- NOTE | 2019-02-14 16:47 | ERD ---
ER Documentation Chief Complaint Chief Complaint PT FROM [facility] WITH C/O BACK PAIN, CHRONIC HPI This is a 88-year-old female who has a history of bladder cancer who was treated by by [facility] is here because of bilateral flank pain with hematuria and is also having nausea and vomiting is nonbilious and nonbloody. No abdominal pain no fever no chest pain or shortness of breath. ROS All systems reviewed and are negative except as per history of present illness. Medications Home Meds Reported Medications Potassium Chloride* (K-Dur*) 10 Meq Tab.prt.sr, 10 MEQ PO DAILY, TAB 02/14/19 Ipratropium-Albuterol (Ipratropium-Albuterol) 0.5-3 Mg/3 Ml Ampul.neb, 3 ML INHALATION Q6, #30 VIAL 02/14/19 Ibuprofen* (Ibuprofen*) 400 Mg Tablet, 400 MG PO Q6H PRN for PAIN, TAB 02/14/19 Acetaminophen* (Acetaminophen*) 325 Mg Tablet, 650 MG PO Q6H PRN for FOR FEVER 101F, #30 TAB 02/14/19 Ondansetron Hcl* (Zofran*) 4 Mg Tab, 4 MG PO Q6H PRN for NAUSEA AND OR VOMITING, TAB 02/14/19 Nateglinide* (Nateglinide*) 120 Mg Tablet, 120 MG PO AC MEALS, TAB 02/14/19 Metoprolol Tartrate* (Lopressor*) 25 Mg Tab, 12.5 MG PO BID, #60 TAB HOLD FOR SBP<110 OR HR<60 02/14/19 Bimatoprost* (Lumigan*) 0.01%-5 Ml Opht Drops, 1 DROP BOTH EYES HS, EA 02/14/19 Atorvastatin Calcium* (Atorvastatin Calcium*) 20 Mg Tablet, 20 MG PO QHS, #30 TAB 02/14/19 Montelukast Sodium* (Montelukast Sodium*) 10 Mg Tablet, 10 MG PO QHS, #30 TAB 02/14/19 Meloxicam* (Mobic*) 15 Mg Tablet, 15 MG PO DAILY, #30 TAB 02/14/19 Olopatadine* (Pataday*) 0.2% - 2.5 Ml Drops, 1 DROP BOTH EYES DAILY, EA 02/14/19 Multivitamin with Minerals (Multivitamins with Minerals) 1 Each Tablet, 1 EACH PO DAILY, TAB 02/14/19 Gabapentin* (Gabapentin*) 300 Mg Capsule, 300 MG PO QAM, #60 CAP 02/14/19 Famotidine* (Famotidine*) 20 Mg Tablet, 20 MG PO DAILY, #30 TAB 02/14/19 Metformin Hcl* (Metformin Hcl*) 850 Mg Tablet, 850 MG PO WITH BREAKFAST, #30 TAB 02/14/19 Prednisone* (Prednisone*) 5 Mg Tab, 5 MG PO DAILY, TAB 02/14/19 Discontinued Reported Medications [Potassium 10 Meq] No Conflict Check, 1 TAB PO DAILY 02/14/19 Acetaminophen* (Acetaminophen*) 325 Mg Tablet, 650 MG PO Q6H PRN for MILD PAIN LEVEL 1-3, #30 TAB AND FOR TEMP.>100F 10/29/17 Ondansetron Hcl* (Zofran*) 4 Mg Tablet, 4 MG PO Q6H PRN for NAUSEA AND OR VOMITING, TAB 10/29/17 Multivitamin with Minerals (Multivitamins with Minerals) 1 Each Tablet, 1 EACH PO DAILY, TAB 10/29/17 Atorvastatin Calcium* (Atorvastatin Calcium*) 20 Mg Tablet, 20 MG PO QHS, #30 TAB 05/07/17 Potassium Chloride* (K-Dur*) 10 Meq Tab.prt.sr, 10 MEQ PO DAILY, TAB 05/07/17 Metoprolol Tartrate* (Lopressor*) 25 Mg Tab, 12.5 MG PO BID, #60 TAB HOLD FOR SBP LOWER THAN 110 OR HR LOWER THAN 60 05/07/17 Furosemide* (Lasix*) 20 Mg Tablet, 20 MG PO BID, TAB 05/07/17 Magnesium Hydroxide* (Milk Of Magnesia*) 400 Mg/5 Ml Oral.susp, 30 ML PO DAILY PRN for CONSTIPATION, ML 05/07/17 Albuterol Sulfate* (Albuterol Sulfate* Neb) 0.083%-3 Ml Neb, 2.5 MG NEB Q6 PRN for WHEEZING AND SOB, #30 VIAL 05/07/17 Insulin Glargine* (Lantus*) 100 Unit/Ml Soln, 15 UNIT SC QHS, #1 VIAL 05/07/17 Montelukast Sodium* (Montelukast Sodium*) 10 Mg Tablet, 10 MG PO QHS, #30 TAB 04/22/16 Gabapentin* (Gabapentin*) 300 Mg Capsule, 300 MG PO TID, CAP 11/07/14 Discontinued Scripts Hydrocodone Bit-Acetaminophen (Hydrocodone Bit-APAP) 5-325MG Tablet, 1 TAB PO Q6H PRN for MODERATE PAIN LEVEL 4-6 for 14 Days, TAB Prov:LEILA SPARKS MD 10/01/16 Famotidine* (Famotidine*) 20 Mg Tablet, 20 MG PO DAILY for 10 Days, TAB Prov:LEILA SPARKS MD 10/01/16 Bisacodyl* (Bisacodyl*) 5 Mg Tablet.dr, 5 MG PO DAILY PRN for CONSTIPATION for 10 Days Prov:LEILA SPARKS MD 10/01/16 Allergies Allergies: Coded Allergies: No Known Allergy (Unverified , 02/14/19) PMhx/Soc History of Surgery: Yes (BLADDER SX) Anesthesia Reaction: No Hx 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 Disorder: Yes (NEUROPATHY) Hx Respiratory Disorders: Yes (PNEUMONIA) Hx Cardiac Disorders: Yes (HTN, HYPERLIPIDEMIA) Hx Psychiatric Problems: No Hx Miscellaneous Medical Probl: Yes (ANEMIA) Hx Alcohol Use: No Hx Substance Use: No Hx Tobacco Use: No Smoking Status: Never smoker FmHx Family History: No coronary disease Physical Exam Vitals Vital Signs Date Temp Pulse Resp B/P (MAP) Pulse Ox O2 O2 Flow FiO2 Time Delivery Rate 02/14/19 98.2 83 17 175/84 100 15:14 (114) 02/14/19 98.2 65 17 152/83 100 11:40 (106) Physical Exam Const: Well-developed, well-nourished Head: Atraumatic, normocephalic Eyes: Normal Conjunctiva, PERRLA, EOMI, normal sclera, no nystagmus ENT: Normal External Ears, Nose and Mouth, moist mucus membranes. Neck: Full range of motion. No meningismus, no lymphadenopathy. Resp: Clear to auscultation bilaterally, no wheezing, rhonchi, rales Cardio: Regular rate and rhythm, no murmurs, S1 S2 present Abd: Soft, non tender x 4, non distended. Normal bowel sounds, no guarding or rebound, no pulsitile abdominal masses or bruits Skin: No petechiae or rashes, no ecchymosis , no maculopapular rash Back: Bilateral CVA tenderness Ext: No cyanosis, or edema, FROM x 4, normal inspection, neurovascularly intact x 4 Neur: Awake and alert, STR 5/5 x 4, sensation intact x 4, no focal findings, cerebellum intact Psych: Normal Mood and Affect Result Diagram: 02/14/19 1223 02/14/19 1223 Results 24 hrs Laboratory Tests Test 02/14/19 12:23 White Blood Count 5.7 10^3/ul Red Blood Count 3.68 10^6/ul Hemoglobin 11.1 g/dl Hematocrit 35.3 % Mean Corpuscular Volume 95.9 fl Mean Corpuscular Hemoglobin 30.2 pg Mean Corpuscular Hemoglobin Concent 31.4 g/dl Red Cell Distribution Width 14.3 % Platelet Count 243 10^3/UL Mean Platelet Volume 9.1 fl Immature Granulocytes % 1.100 % Neutrophils % 69.7 % Lymphocytes % 15.7 % Monocytes % 6.9 % Eosinophils % 6.2 % Basophils % 0.4 % Nucleated Red Blood Cells % 0.0 /100WBC Immature Granulocytes # 0.060 10^3/ul Neutrophils # 4.0 10^3/ul Lymphocytes # 0.9 10^3/ul Monocytes # 0.4 10^3/ul Eosinophils # 0.4 10^3/ul Basophils # 0.0 10^3/ul Nucleated Red Blood Cells # 0.0 10^3/ul Sodium Level 142 mmol/L Potassium Level 4.0 mmol/L Chloride Level 101 mmol/L Carbon Dioxide Level 34 mmol/L Anion Gap 7 Blood Urea Nitrogen 35 mg/dl Creatinine 1.25 mg/dl Est Glomerular Filtrat Rate mL/min mL/min Glucose Level 95 mg/dl Calcium Level 10.0 mg/dl Total Bilirubin 0.0 mg/dl Direct Bilirubin 0.00 mg/dl Indirect Bilirubin 0.0 mg/dl Aspartate Amino Transf (AST/SGOT) 25 IU/L Alanine Aminotransferase (ALT/SGPT) 17 IU/L Alkaline Phosphatase 69 IU/L Total Protein 6.7 g/dl Albumin 3.8 g/dl Globulin 2.90 g/dl Albumin/Globulin Ratio 1.31 Lipase 56 U/L Current Medications Medications Dose Sig/Fina Start Time Status Last (Trade) Ordered Route PRN Stop Time Admin Dose Reason Admin Sodium 1,000 ml @ Q1H STAT 02/14/19 DC 4/30/19 Chloride 1,000 mls/hr IV 12:43 12:51 02/14/19 13:42 Morphine 4 mg ONCE STAT 02/14/19 DC 02/14/19 Sulfate IV 12:43 12:51 (morphine) 02/14/19 12:45 Ondansetron 4 mg ONCE STAT 02/14/19 DC 02/14/19 HCl (Zofran IV 12:43 12:50 Inj) 02/14/19 12:45 Ondansetron 4 mg ONCE STAT 02/14/19 DC 02/14/19 HCl (Zofran IV 13:58 14:01 Inj) 02/14/19 13:59 IV Flush 10 ml STK-MED 02/14/19 DC 02/14/19 (NS 10 ml) ONCE .ROUTE 14:12 14:42 02/14/19 14:13 Sodium 100 ml @ ud STK-MED 02/14/19 DC 02/14/19 Chloride ONCE .ROUTE 14:12 14:42 02/14/19 14:13 Iodixanol 100 ml STK-MED 02/14/19 DC 02/14/19 (Visipaque ONCE .ROUTE 14:12 14:42 Locm) 02/14/19 14:13 10 mg ONCE ONCE 02/14/19 DC 02/14/19 Metoclopramid IV 15:30 15:24 e HCl 02/14/19 15:31 (Reglan) Procedures/MDM Patient: PEDRO LAU : 1930 Age: 88 Sex: F MR #: [id number] DOS: 02/14/19 1243 Ordering MD: AGNES CHO DO Location: E/R Room/Bed: PROCEDURE: CT Abdomen and Pelvis with contrast. CLINICAL INDICATION: Hematuria, history of bladder cancer TECHNIQUE: CT scan of the abdomen and pelvis with contrast was performed utilizing axial tomographic images from the domes the diaphragm to the symphysis pubis. The patient was scanned post uncomplicated intravenous administration of 80 cc of Visipaque 320. Coronal and sagittal reformatted images were obtained from the axial source images. Images were reviewed on a high-resolution PACS workstation. The total exam CTDI equals 20.28 mGy and the total exam DLP equals 1083.48 mGy-cm. One or more of the following dose reduction techniques were used: Automated exposure control, adjustment of the mA and / or kV according to patient size, or use of iterative reconstruction technique. DICOM images are available. COMPARISON: CT chest, abdomen pelvis report dated 04/26/2017. Images are not available for review at the time of dictation. FINDINGS: The lung bases demonstrate mosaic attenuation with interlobular septal thickening. The liver is normal in size and contour. No focal intrahepatic masses are identified. There is no intra or extrahepatic biliary dilatation. The gallbladder is unremarkable by CT criteria. The spleen, pancreas, and adrenal glands are unremarkable. The kidneys are symmetric in size and demonstrate normal enhancement. No hydronephrosis or hydroureter is identified. There are bilateral renal cysts, largest arising from the lower pole of the right kidney measuring 3.5 cm in diameter. The urinary bladder is decompressed. There is mild circumferential bladder wall thickening. The bowel demonstrates normal course and caliber. There is no evidence of bowel obstruction. No bowel wall thickening is identified. Diverticula are seen scattered throughout the colon without evidence of diverticulitis. The appendix is normal in appearance. The uterus and adnexa are unremarkable. No intraperitoneal free fluid, free air or abscess identified. No retroperitoneal, mesenteric, or inguinal adenopathy is identified. There is a small fat- containing umbilical hernia. The abdominal aorta and major branching vessels are normal in caliber and demonstrate vascular calcifications. The osseous structures demonstrate diffuse bony demineralization. There are multiple mild compression fracture deformities with severe compression fracture of the L2 vertebral body. There is a mild compression fracture of L5 with lucencies the superior endplate. No significant subcutaneous soft tissue abnormality is identified. IMPRESSION: 1. No acute intra-abdominal abnormality identified. No renal, ureteral or bladder calculi are seen. 2. Mild circumferential bladder wall thickening, at least partially related to under distension. Clinical and laboratory correlation for cystitis is recommended. 3. Bilateral renal cysts measuring up to 3.5 cm in diameter. 4. Colonic diverticulosis. 5. Small fat-containing umbilical hernia. 6. Multiple mild compression fracture deformities. There is a mild compression fracture of the L5 vertebral body with lucencies noted within the superior endplate. Findings are suspicious for acute fracture. Correlation with recent trauma is required. Consider MRI for further evaluation. 7. Severe compression fracture of the L2 vertebral body. 8. Arterial atherosclerosis. RPTAT: HH .Iva Rodríguez MD, Date Time Electronically viewed and signed by .Iva Rodríguez MD, on 02/14/2019 15:36 .G/ CC: AGNES CHO DO [id number] Patient has had intractable vomiting while here after multiple rounds of Zofran and Reglan she is continued to vomit. There is no acute there is no acute process on her CT abdomen. She does have a suspicious-looking bladder wall and this may be residual cancer but may be new will probably need to get a cystoscopy by Dr. Williams Barbosa Will admit for cystoscopy and intractable vomiting Departure Diagnosis: Primary Impression: Intractable vomiting Vomiting type: unspecified Nausea presence: with nausea Qualified Codes: R11.2 - Nausea with vomiting, unspecified Additional Impression: Hematuria Hematuria type: unspecified type Qualified Codes: R31.9 - Hematuria, unspecified Condition: Stable AGNES CHO DO Feb 14, 2019 16:47
[2019-02-14] MEDS ORDERED: SOD CHLORIDE 0.9% 1,000 ML IV SCH (16:48)
[2019-02-14] MEDS ORDERED: ACETAMINOPHEN 325 MG TAB PO PRN (17:00)
[2019-02-14] MEDS ORDERED: ONDANSETRON 4 MG INJ IV PRN (17:00)
[2019-02-14 21:46] VITALS: BP 179/85; PULSE 70; RESP 20
[2019-02-14] MEDS ORDERED: DEXTROSE 50% 50 ML SYRINGE IV PRN ×2 (23:30)
[2019-02-14] MEDS ORDERED: GLUCAGON 1 MG INJ IM PRN (23:30)
[2019-02-14] MEDS ORDERED: GLUCOSE GEL 15 GRAM TUBE PO PRN ×2 (23:30)
[2019-02-14] MEDS ORDERED: GLUCOSE GEL 15 GRAM TUBE BUCCAL PRN (23:30)
[2019-02-14 23:40] VITALS: Ht 157.5 cm; Wt 81.8 kg
[2019-02-15] MEDS: SOD CHLORIDE 0.9% 1,000 ML IV SCH ×2 (00:17→13:30)
[2019-02-15] MEDS: METOPROLOL 25 MG TAB PO SCH ×3 (00:34→21:03)
[2019-02-15 02:04] VITALS: BP 147/65; PULSE 62; RESP 20
[2019-02-15] MEDS: ACCU-CHEK XX SCH (02:28)
[2019-02-15] MEDS ORDERED: PANTOPRAZOLE 40 MG INJ IV SCH (06:00)
[2019-02-15] MEDS: INSULIN ASPART [NOVOLOG] 3 ML PEN SC SCH ×3 (07:56→17:51)
[2019-02-15 08:21] VITALS: BP 147/68; PULSE 64; RESP 18
[2019-02-15] MEDS: predniSONE 5 MG TAB PO SCH (08:56)
[2019-02-15] MEDS: MULTIVITAMINS THERAPEUTIC TAB PO SCH (08:57)
[2019-02-15] MEDS: GABAPENTIN 300 MG CAP PO SCH (08:57)
[2019-02-15] MEDS: OLOPATADINE 0.2% (ONCE A DAY) OPHTH DROP 2.5 ML BOTH EYES SCH (13:30)
--- NOTE | 2019-02-15 14:09 | QN ---
Documentation Comment seen and examiend TYLER CALERO MD February 15, 2019 14:09
--- NOTE | 2019-02-15 14:11 | QN ---
Documentation Comment seen and examined TYLER CALERO MD February 15, 2019 14:11
[2019-02-15 15:18] VITALS: BP 140/70; PULSE 70; RESP 18
--- NOTE | 2019-02-15 17:30 | CONS ---
DATE OF ADMISSION: 02/14/2019 DATE OF CONSULTATION: TYPE OF CONSULTATION: Gastroenterology. From Lisa Lloyd MD, to Yue Mcqueen MD HISTORY OF PRESENT ILLNESS: An 88-year-old female with a history of bladder cancer came to the [facility] complaining of flank pain and hematuria. The patient also was having nausea and vomiting. She i s constipated. 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 REVIEW OF SYSTEMS: Otherwise negative. MEDICATIONS: All reviewed. She is on: 1. Metformin. 2. Prednisone. 3. Gabapentin. 4. Pataday. 5. Meloxicam. 6. Statin. 7. Lumigan eyedrops. 8. Metoprolol. 9. Nateglinide. 10. Ibuprofen. 11. Insulin. ALLERGIES: NONE. PAST MEDICAL HISTORY: Hypertension, hyperlipidemia, neuropathy, bladder cancer, anemia. SOCIAL HISTORY: Does not smoke or drink. FAMILY HISTORY: Nothing contributory. PHYSICAL EXAMINATION: GENERAL: Well-built, nourished, not in distress. VITAL SIGNS: Stable. HEENT: Unremarkable. NECK: Supple. No thyromegaly, no lymphadenopathy. CARDIOVASCULAR: No murmur, gallop or click. LUNGS: Clear. ABDOMEN: Benign. EXTREMITIES: No edema. CENTRAL NERVOUS SYSTEM: Grossly within normal limits. LABORATORY DATA: Hematocrit is 35, WBC is 5.7, platelet count is 243. BUN is 24. LFTs all within n ormal limits. Creatinine which was 1.25 has come down to 0.97. IMPRESSION: 1. Nausea and vomiting. 2. Constipation. 3. Bladder cancer. 4. Diabetes mellitus. 5. Hypertension. 6. Compression fracture of L2 vertebral body. 7. Small umbilical hernia. PLAN: Empirically start the patient on Reglan for possible diabetic gastroparesis. We will be place d on Amitiza for her constipation and if despite that she continues to have emesis, then we will proc eed with EGD. Dictated By: LISA KWON/NTS Conf#: [id number] DID#: [id number] CC: YUE MCQUEEN;*EndCC*
[2019-02-15] MEDS: METOCLOPRAMIDE 10 MG INJ IV SCH (17:52)
[2019-02-15 19:40] VITALS: BP 126/60; PULSE 76; RESP 18
[2019-02-15] MEDS: ATORVASTATIN 20 MG TAB PO SCH (21:03)
[2019-02-16] MEDS: METOCLOPRAMIDE 10 MG INJ IV SCH ×4 (01:21→17:01)
[2019-02-16 02:06] VITALS: BP 121/56; PULSE 71; RESP 20
[2019-02-16] MEDS: ACCU-CHEK XX SCH ×3 (02:36→21:00)
[2019-02-16] MEDS: SOD CHLORIDE 0.9% 1,000 ML IV SCH ×2 (03:36→09:31)
[2019-02-16] MEDS: PANTOPRAZOLE 40 MG INJ IV SCH (05:36)
[2019-02-16] MEDS ORDERED: ACETAMINOPHEN 325 MG TAB PO PRN (06:00)
[2019-02-16 08:00] VITALS: BP 128/63; PULSE 80; RESP 20
[2019-02-16] MEDS: GABAPENTIN 300 MG CAP PO SCH (08:24)
[2019-02-16] MEDS: predniSONE 5 MG TAB PO SCH (08:24)
[2019-02-16] MEDS: MULTIVITAMINS THERAPEUTIC TAB PO SCH (08:24)
[2019-02-16] MEDS: OLOPATADINE 0.2% (ONCE A DAY) OPHTH DROP 2.5 ML BOTH EYES SCH (08:24)
[2019-02-16] MEDS: INSULIN ASPART [NOVOLOG] 3 ML PEN SC SCH ×4 (08:27→21:37)
--- NOTE | 2019-02-16 08:27 | HP ---
DATE OF ADMISSION: 02/14/2019 HISTORY OF PRESENT ILLNESS: This is an 88-year-old female with a past medical history of chronic obs tructive pulmonary disease, status post bladder cancer, diabetes, congestive heart failure, coronary artery disease, history of pneumonia, pulmonary hypertension, SVT, anemia who resides at [facility], was brought in because of severe back pain. According to the daughter, the patient was having s evere back pain for past one month. There was no history of any fall. The patient is also complaini ng of bilateral leg pain for past 1 month. Yesterday, the patient was having episodes of nausea or v omiting and was brought into the ER for further evaluation. The patient was also questionable noted to have hematuria; however, unclear. The patient denied any fevers, any chest pain, any shortness of breath, is on chronic home oxygen. On arrival to emergency department, vital signs showed blood pre ssure 152/83, respiratory rate 17, heart rate of 65. Labs done showed white count 5.7, hemoglobin 11 .1, platelet count 243, BUN of 24, creatinine 0.97, and total bilirubin was 0, and alkaline phosphata se 69. LFTs within normal limits. Lipase of 56. The patient had a CT of the abdomen and pelvis odessa t showed no acute intra-abdominal abnormality, mild circumferential bladder wall thickening, bilatera l renal cyst, colonic diverticulosis, small fat containing minor hernia, mild compression fracture de formities, compression fracture of L5 vertebral body, compression fracture of L2 vertebral body and a rterial atherosclerosis. PAST MEDICAL HISTORY: 1. Hypertension. 2. Hyperlipidemia. 3. COPD, on chronic home oxygen, chronic hypoxia. 4. Congestive heart failure, diastolic. 5. Coronary artery disease. 6. Pulmonary hypertension. 7. Anemia. ALLERGIES: NONE. PAST SURGICAL HISTORY: TURP. SOCIAL HISTORY: No smoking, alcohol or drugs. Currently lives in [facility]. FAMILY HISTORY: Noncontributory. MEDICATIONS: 1. Taking at [facility] are Ipratropium. 2. Atorvastatin 20 mg. 3. Metoprolol 25 b.i.d. 4. Acetaminophen. 5. Gabapentin 300. 6. ibuprofen. 7. Meloxicam. 8. KCl. 9. Montelukast. 10. Pepcid. 11. Zofran. 12. Metoprolol. 13. Metformin. 14. Nateglinide. 15. Prednisone. 16. Lumigan eyedrops. REVIEW OF SYSTEMS: The patient complained of severe back pain, bilateral pain on the lower extremiti es. No bowel or bladder incontinence, questionable hematuria, episodes of nausea, and vomiting. She denied any hematemesis, any melena and bright red blood per rectum. The patient is on chronic home oxygen. PHYSICAL EXAMINATION: VITAL SIGNS: Currently blood pressure 147/65, heart rate 62, respirations 20, saturating 100% on kim m air. GENERAL: The patient is awake, alert, oriented, does not appear in acute distress. HEENT: Pupils equal, round, reactive to light. NECK: Supple. HEART: Regular rate and rhythm. LUNGS: Few scattered rhonchi. ABDOMEN: Soft, nontender, nondistended. EXTREMITIES: No clubbing, cyanosis, or edema, but the patient has excruciating pain and unable to li ft extremity secondary to pain, has severe back tenderness present in the lumbar spine area. ASSESSMENT AND PLAN: 1. An 88-year-old female who presented with severe lower back pain, bilateral lower rib pain, extrem ities pain. CT of the abdomen and pelvis showed mild compression fracture deformities, mild compress ion fracture L5 vertebral body findings consistent with acute fracture, anterior compression fracture L2 vertebral body. 2. Nausea and vomiting, could be secondary to constipation, urinary tract infection, asthma, rule ou t underlying peptic ulcer disease. The patient is also on NSAIDs at home. 3. History of bladder cancer. 4. Diabetes. 5. Hypertension. 6. History of chronic obstructive pulmonary disease, on chronic home oxygen. 7. History of pneumonia. 8. Small umbilical hernia. 9. Bilateral renal cysts. PLAN: At this period of time, the patient will be admitted to med/surg. The patient will be started on Reglan. We will get an MRI of the back. The patient will be continued on home medications. GI consultation has been requested. The rest of the treatment will depend on the patient's hospitalizat ion course. Dictated By: TYLER MORENO/LEONARD Conf#: [id number] DID#: [id number] CC: LISA NINA MD; TYLER CALERO;*EndCC*
[2019-02-16] MEDS: METOPROLOL 25 MG TAB PO SCH ×2 (08:33→21:31)
--- NOTE | 2019-02-16 12:05 | CONS ---
Assessment/Plan Assessment/Plan Assessment/Plan (Daily) IMPRESSION: 1. Nausea and vomiting. Subsided with the Reglan 2. Constipation. 3. Bladder cancer. 4. Diabetes mellitus. 5. Hypertension. 6. Compression fracture of L2 vertebral body. 7. Small umbilical hernia. 8. Abdominal pain much better Plan Continue PPI and Reglan If abdominal pain or nausea is persistent then will proceed with EGD Consultation Date/Type/Reason Admit Date/Time Feb 14, 2019 at 16:48 Initial Consult Date Date/Time of Note DATE: 02/16/19 TIME: 12:04 24 HR Interval Summary Free Text/Dictation denies of any abdominal pain no nausea no vomiting Exam/Review of Systems Exam Vitals Vital Signs Date Temp Pulse Resp B/P (MAP) Pulse Ox O2 O2 Flow FiO2 Time Delivery Rate 02/16/19 98.6 80 20 128/63 96 08:00 (84) 02/15/19 2.0 20:00 02/15/19 Nasal 15:18 Cannula Intake and Output 02/15/19 02/15/19 02/16/19 1515:00 23:00 07:00 IntakeIntake Total 1880 ml 755 ml OutputOutput Total 200 ml 200 ml BalanceBalance 1680 ml 555 ml Constitutional: alert, oriented, well developed Psych: no complaints, nl mood/affect Head: normocephalic, atraumatic Eyes: nl conjunctiva, EOMI, nl lids, nl sclera, PERRL ENMT: nl external ears & nose, nl lips & teeth, nl nasal mucosa & septum Neck: supple, non-tender Respiratory: clear to auscultation, normal air movement Cardiovascular: regular rate and rhythm, nl pulses Gastrointestinal: soft, nl liver, spleen, non-tender Musculoskeletal: nl extremities to inspection, nl gait and stance Extremities: normal pulses 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: ETL TESTER II-XII intact, nl mental status, nl speech, nl strength Skin: nl turgor; No rash or lesions Lymph: nl lymph nodes Results Result Diagram: 02/14/19 1223 02/15/19 0532 Results 24hrs Laboratory Tests Test 02/15/19 12:12 02/15/19 16:45 02/16/19 01:53 02/16/19 08:16 Bedside Glucose 124 178 90 93 Medications Medication Current Medications Sodium Chloride 1,000 ml @ 70 mls/hr [id number] IV Last administered on 02/16/19 09:31; Admin Dose 70 MLS/HR; Start 02/14/19 at 23:00 Diagnostic Test (Pha) (Accu-Chek) 1 ea 02 XX Last administered on 02/16/19at 02:36; Admin Dose 1 EA; Start 02/15/19 at 02:00 Insulin Aspart (Novolog Insulin Pen) 4 unit WITH MEALS SC Last administered on 02/16/19 08:27; Admin Dose 4 UNIT; Start 02/15/19 at 07:35 Atorvastatin Calcium (Lipitor) 20 mg QHS PO Last administered on 02/15/19 21:03; Admin Dose 20 MG; Start 02/15/19 at 21:00 Gabapentin (Neurontin) 300 mg QAM PO Last administered on 02/16/19 08:24; Admin Dose 300 MG; Start 02/15/19 at 09:00 Metoprolol Tartrate (Lopressor) 12.5 mg BID PO Last administered on 02/16/19at 08:33; Admin Dose 12.5 MG; Start 02/14/19 at 23:30 Olopatadine HCl (Pataday) 1 drop DAILY BOTH EYES Last administered on 02/16/19 08:24; Admin Dose 1 DROP; Start 02/15/19 at 09:00 Prednisone (Prednisone) 5 mg DAILY PO Last administered on 02/16/19 08:24; Admin Dose 5 MG; Start 02/15/19 at 09:00 Miscellaneous Information 1 ea NOTE XX ; Start 02/14/19 at 23:30 Glucose (Glutose) 15 gm Q15M PRN PO DECREASED GLUCOSE; Start 02/14/19 at 23:30 Glucose (Glutose) 22.5 gm Q15M PRN PO DECREASED GLUCOSE; Start 02/14/19 at 23:30 Dextrose (D50w Syringe) 25 ml Q15M PRN IV DECREASED GLUCOSE; Start 02/14/19 at 23:30 Dextrose (D50w Syringe) 50 ml Q15M PRN IV DECREASED GLUCOSE; Start 02/14/19 at 23:30 Glucagon (Glucagen) 1 mg Q15M PRN IM DECREASED GLUCOSE; Start 02/14/19 at 23:30 Glucose (Glutose) 15 gm Q15M PRN BUCCAL DECREASED GLUCOSE; Start 02/14/19 at 23:30 Multivitamins Therapeutic (Theragran) 1 tab DAILY PO Last administered on 02/16/19at 08:24; Admin Dose 1 TAB; Start 02/15/19 at 09:00 Metoclopramide HCl (Reglan) 5 mg Q6 IV Last administered on 02/16/19at 05:36; Admin Dose 5 MG; Start 02/15/19 at 18:00 Pantoprazole (Protonix Iv) 40 mg DAILY@06 IV Last administered on 02/16/19at 05:36; Admin Dose 40 MG; Start 02/16/19 at 06:00 Acetaminophen (Tylenol Tab) 650 mg Q6H PRN PO MILD PAIN(1-3)OR ELEVATED TEMP La st administered on 02/16/19at 05:56; Admin Dose 650 MG; Start 02/16/19 at 06:00 LISA NINA MD February 16, 2019 12:05
[2019-02-16 14:00] VITALS: BP 134/61; PULSE 68; RESP 18
--- NOTE | 2019-02-16 16:13 | PN ---
Date/Time of Note Date/Time of Note DATE: 02/16/19 TIME: 16:10 Assessment/Plan VTE Prophylaxis Risk score (from Ns)>0 risk: 7 SCD applied (from Ns): Yes Pharmacological prophylaxis: NA/contraindicated Pharm contraindication: low risk/ambulating Lines/Catheters IV Catheter Type (from Nrsg): Saline Lock Assessment/Plan Assessment/Plan . An 88-year-old female who presented with 1 severe lower back pain, bilateral lower rib pain, extremities pain. CT of the abdomen and pelvis showed mild compression fracture deformities, mild compression fracture L5 vertebral body findings consistent with acute fracture, anterior compression fracture L2 vertebral body.MRI with acute compression fracture of the L5 vertebral body with approximate 30% height loss, less than 2 mm retropulsion of the superior endplate and edema / enhancement throughout the vertebral body. No definite underlying lesion identified. 2. Nausea and vomiting, could be secondary to constipation, urinary tract infec tion, asthma, rule out underlying peptic ulcer disease. The patient is also on NSAIDs at home.off nsaid 3. History of bladder cancer. 4. Diabetes. 5. Hypertension. 6. History of chronic obstructive pulmonary disease, on chronic home oxygen. 7. History of pneumonia. 8. Small umbilical hernia. 9. Bilateral renal cysts. 10 Hypothyroidism PLan - MRI revviewed> Dr Manning consult - add alejandra shukla fluids - vommitng improved> advance diet - SCD - lOVENOX - ISS Result Diagram: 02/14/19 1223 02/15/19 0532 Results 24hrs Laboratory Tests Test 02/15/19 16:45 02/16/19 01:53 02/16/19 08:16 02/16/19 12:06 Bedside Glucose 178 90 93 117 Subjective 24 Hr Interval Summary Free Text/Dictation pain in lower back no vommiting Exam/Review of Systems Exam Vitals Vital Signs Date Temp Pulse Resp B/P (MAP) Pulse Ox O2 O2 Flow FiO2 Time Delivery Rate 02/16/19 98.0 68 18 134/61 96 14:00 (85) 02/15/19 2.0 20:00 02/15/19 Nasal 15:18 Cannula Intake and Output 02/15/19 02/15/19 02/16/19 1515:00 23:00 07:00 IntakeIntake Total 1880 ml 755 ml OutputOutput Total 200 ml 200 ml BalanceBalance 1680 ml 555 ml Exam GENERAL: The patient is awake, alert, oriented, does not appear in acute distress. HEENT: Pupils equal, round, reactive to light. NECK: Supple. HEART: Regular rate and rhythm. LUNGS: Few scattered rhonchi. ABDOMEN: Soft, nontender, nondistended. EXTREMITIES: No clubbing, cyanosis, or edema, but the patient has excruciating pain and unable to lift extremity secondary to pain, has severe back tenderness present in the lumbar spine area. Results Results 24hrs Laboratory Tests Test 02/15/19 16:45 02/16/19 01:53 02/16/19 08:16 02/16/19 12:06 Bedside Glucose 178 90 93 117 Medications Medication Current Medications Atorvastatin Calcium (Lipitor) 20 mg QHS PO Last administered on 02/15/19at 21:03; Admin Dose 20 MG; Start 02/15/19 at 21:00 Gabapentin (Neurontin) 300 mg QAM PO Last administered on 02/16/19 08:24; Admin Dose 300 MG; Start 02/15/19 at 09:00 Metoprolol Tartrate (Lopressor) 12.5 mg BID PO Last administered on 02/16/19at 08:33; Admin Dose 12.5 MG; Start 02/14/19 at 23:30 Olopatadine HCl (Pataday) 1 drop DAILY BOTH EYES Last administered on 02/16/19 08:24; Admin Dose 1 DROP; Start 02/15/19 at 09:00 Prednisone (Prednisone) 5 mg DAILY PO Last administered on 02/16/19at 08:24; Admin Dose 5 MG; Start 02/15/19 at 09:00 Miscellaneous Information 1 ea NOTE XX ; Start 02/14/19 at 23:30 Glucose (Glutose) 15 gm Q15M PRN PO DECREASED GLUCOSE; Start 02/14/19 at 23:30 Glucose (Glutose) 22.5 gm Q15M PRN PO DECREASED GLUCOSE; Start 02/14/19 at 23:30 Dextrose (D50w Syringe) 25 ml Q15M PRN IV DECREASED GLUCOSE; Start 02/14/19 at 23:30 Dextrose (D50w Syringe) 50 ml Q15M PRN IV DECREASED GLUCOSE; Start 02/14/19 at 23:30 Glucagon (Glucagen) 1 mg Q15M PRN IM DECREASED GLUCOSE; Start 02/14/19 at 23:30 Glucose (Glutose) 15 gm Q15M PRN BUCCAL DECREASED GLUCOSE; Start 02/14/19 at 23:30 Multivitamins Therapeutic (Theragran) 1 tab DAILY PO Last administered on 02/16/19at 08:24; Admin Dose 1 TAB; Start 02/15/19 at 09:00 Metoclopramide HCl (Reglan) 5 mg Q6 IV Last administered on 02/16/19at 05:36; Admin Dose 5 MG; Start 02/15/19 at 18:00 Pantoprazole (Protonix Iv) 40 mg DAILY@06 IV Last administered on 02/16/19at 05:36; Admin Dose 40 MG; Start 02/16/19 at 06:00 Acetaminophen (Tylenol Tab) 650 mg Q6H PRN PO MILD PAIN(1-3)OR ELEVATED TEMP L ast administered on 02/16/19at 05:56; Admin Dose 650 MG; Start 02/16/19 at 06:00 Montelukast Sodium (Singulair) 10 mg QHS PO ; Start 02/16/19 at 21:00 Metformin HCl (Glucophage) 850 mg WITH BREAKFAST PO ; Start 02/17/19 at 08:00 Nateglinide (Starlix) 120 mg AC MEALS PO ; Start 02/16/19 at 17:35 Diagnostic Test (Pha) (Accu-Chek) 1 ea AC MEALS AND BEDTIME XX ; Start 02/16/19 at 17:35 Diagnostic Test (Pha) (Accu-Chek) 1 ea 02 XX ; Start 02/17/19 at 02:00 Insulin Aspart (Novolog Insulin Pen) NOVOLOG *MILD* ALGORITHM WITH MEALS BEDTIME SC ; Start 02/16/19 at 18:05 Enoxaparin Sodium (Lovenox) 30 mg DAILY SC ; Start 02/16/19 at 16:00 TYLER CALERO MD February 16, 2019 16:13
[2019-02-16] MEDS ORDERED: MAGN400O19 PO (16:15)
[2019-02-16] MEDS ORDERED: FURO20TA3 PO (16:15)
[2019-02-16] MEDS ORDERED: DOCU-159 PO (16:15)
[2019-02-16] MEDS ORDERED: LEVO50TA7 PO (16:15)
[2019-02-16] MEDS ORDERED: DEXT1DRO6 OP (16:15)
[2019-02-16] MEDS ORDERED: DEXT1DRO7 OP (16:15)
[2019-02-16] MEDS ORDERED: BISA5TAB6 PO (16:15)
[2019-02-16] MEDS: ENOXAPARIN 30 MG/0.3 ML SYG SC SCH (17:03)
[2019-02-16] MEDS ORDERED: ACCU-CHEK XX SCH (17:35)
[2019-02-16] MEDS: NATEGLINIDE 120 MG TAB PO SCH (18:42)
[2019-02-16 20:00] VITALS: BP 140/65; PULSE 76; RESP 18
[2019-02-16] MEDS: MONTELUKAST 10 MG TAB PO SCH (21:31)
[2019-02-16] MEDS: FUROSEMIDE 20 MG TAB PO SCH (21:31)
[2019-02-16] MEDS: ATORVASTATIN 20 MG TAB PO SCH (21:32)
[2019-02-16] MEDS ORDERED: GUAIFENESIN/DM 5ML CUP PO PRN (22:30)
[2019-02-17 02:00] VITALS: BP 121/65; PULSE 72; RESP 18
[2019-02-17] MEDS: ACCU-CHEK XX SCH ×5 (02:00→21:00)
[2019-02-17] MEDS: METOCLOPRAMIDE 10 MG INJ IV SCH ×4 (05:29→18:02)
[2019-02-17] MEDS: GUAIFENESIN/DM 5ML CUP PO PRN (05:29)
[2019-02-17] MEDS: PANTOPRAZOLE 40 MG INJ IV SCH (05:30)
[2019-02-17 08:00] VITALS: BP 124/62; PULSE 84; RESP 18
[2019-02-17] MEDS: INSULIN ASPART [NOVOLOG] 3 ML PEN SC SCH ×4 (08:00→20:36)
[2019-02-17] MEDS: MULTIVITAMINS THERAPEUTIC TAB PO SCH (08:07)
[2019-02-17] MEDS: ENOXAPARIN 30 MG/0.3 ML SYG SC SCH (08:07)
[2019-02-17] MEDS: OLOPATADINE 0.2% (ONCE A DAY) OPHTH DROP 2.5 ML BOTH EYES SCH (08:07)
[2019-02-17] MEDS: NATEGLINIDE 120 MG TAB PO SCH ×3 (08:08→18:02)
[2019-02-17] MEDS: GABAPENTIN 300 MG CAP PO SCH (08:08)
[2019-02-17] MEDS: metFORMIN 850 MG TAB PO SCH (08:08)
[2019-02-17] MEDS: predniSONE 5 MG TAB PO SCH (08:08)
[2019-02-17] MEDS: FUROSEMIDE 20 MG TAB PO SCH ×3 (08:10→20:28)
[2019-02-17] MEDS: METOPROLOL 25 MG TAB PO SCH ×2 (08:10→20:28)
--- NOTE | 2019-02-17 13:38 | CONS ---
Assessment/Plan Assessment/Plan Assessment/Plan (Daily) Assessment/Plan (Daily) IMPRESSION: 1. Nausea and vomiting. Subsided with the Reglan 2. Constipation. 3. Bladder cancer. 4. Diabetes mellitus. 5. Hypertension. 6. Compression fracture of L2 vertebral body. 7. Small umbilical hernia. 8. Abdominal pain much better Plan Continue PPI and Reglan If abdominal pain or nausea is persistent then will proceed with EGD Consultation Date/Type/Reason Admit Date/Time Feb 14, 2019 at 16:48 Initial Consult Date Date/Time of Note DATE: 02/17/19 TIME: 13:37 24 HR Interval Summary Constitutional: no complaints, improved Exam/Review of Systems Exam Vitals Vital Signs Date Temp Pulse Resp B/P (MAP) Pulse Ox O2 O2 Flow FiO2 Time Delivery Rate 02/17/19 Nasal 2.0 09:06 Cannula 02/17/19 99.1 84 18 124/62 96 08:00 (82) Intake and Output 02/16/19 02/16/19 02/17/19 1414:59 22:59 06:59 IntakeIntake Total 1035 ml 875 ml BalanceBalance 1035 ml 875 ml Constitutional: alert, oriented, well developed Psych: no complaints, nl mood/affect Head: normocephalic, atraumatic Eyes: nl conjunctiva, EOMI, nl lids, nl sclera, PERRL ENMT: nl external ears & nose, nl lips & teeth, nl nasal mucosa & septum Neck: supple, non-tender Respiratory: clear to auscultation, normal air movement Cardiovascular: regular rate and rhythm, nl pulses Gastrointestinal: soft, nl liver, spleen, non-tender Musculoskeletal: nl extremities to inspection, nl gait and stance Extremities: normal pulses 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, nl mental status, nl speech, nl strength Skin: nl turgor; No rash or lesions Lymph: nl lymph nodes Results Result Diagram: 02/14/19 1223 02/15/19 0532 Results 24hrs Laboratory Tests Test 02/16/19 16:54 02/16/19 21:34 02/17/19 02:27 02/17/19 06:02 Bedside Glucose 114 181 74 Lab Scanned Report REFERENCE LAB Test 02/17/19 08:04 02/17/19 12:03 Bedside Glucose 98 129 Medications Medication Current Medications Atorvastatin Calcium (Lipitor) 20 mg QHS PO Last administered on 02/16/19 21:32; Admin Dose 20 MG; Start 02/15/19 at 21:00 Gabapentin (Neurontin) 300 mg QAM PO Last administered on 02/17/19 08:08; Admin Dose 300 MG; Start 02/15/19 at 09:00 Metoprolol Tartrate (Lopressor) 12.5 mg BID PO Last administered on 02/17/19 08:10; Admin Dose 12.5 MG; Start 02/14/19 at 23:30 Olopatadine HCl (Pataday) 1 drop DAILY BOTH EYES Last administered on 02/17/19 08:07; Admin Dose 1 DROP; Start 02/15/19 at 09:00 Prednisone (Prednisone) 5 mg DAILY PO Last administered on 02/17/19 08:08; Admin Dose 5 MG; Start 02/15/19 at 09:00 Miscellaneous Information 1 ea NOTE XX ; Start 02/14/19 at 23:30 Glucose (Glutose) 15 gm Q15M PRN PO DECREASED GLUCOSE; Start 02/14/19 at 23:30 Glucose (Glutose) 22.5 gm Q15M PRN PO DECREASED GLUCOSE; Start 02/14/19 at 23:30 Dextrose (D50w Syringe) 25 ml Q15M PRN IV DECREASED GLUCOSE; Start 02/14/19 at 23:30 Dextrose (D50w Syringe) 50 ml Q15M PRN IV DECREASED GLUCOSE; Start 02/14/19 at 23:30 Glucagon (Glucagen) 1 mg Q15M PRN IM DECREASED GLUCOSE; Start 02/14/19 at 23:30 Glucose (Glutose) 15 gm Q15M PRN BUCCAL DECREASED GLUCOSE; Start 02/14/19 at 23:30 Multivitamins Therapeutic (Theragran) 1 tab DAILY PO Last administered on 02/17/19 08:07; Admin Dose 1 TAB; Start 02/15/19 at 09:00 Metoclopramide HCl (Reglan) 5 mg Q6 IV Last administered on 02/17/19at 12:11; Admin Dose 5 MG; Start 02/15/19 at 18:00 Pantoprazole (Protonix Iv) 40 mg DAILY@06 IV Last administered on 02/17/19 05:30; Admin Dose 40 MG; Start 02/16/19 at 06:00 Acetaminophen (Tylenol Tab) 650 mg Q6H PRN PO MILD PAIN(1-3)OR ELEVATED TEMP Last administered on 02/16/19 05:56; Admin Dose 650 MG; Start 02/16/19 at 06:00 Montelukast Sodium (Singulair) 10 mg QHS PO Last administered on 02/16/19 21:31; Admin Dose 10 MG; Start 02/16/19 at 21:00 Metformin HCl (Glucophage) 850 mg WITH BREAKFAST PO Last administered on 02/17/19 08:08; Admin Dose 850 MG; Start 02/17/19 at 08:00 Nateglinide (Starlix) 120 mg AC MEALS PO Last administered on 02/17/19 12:11; Admin Dose 120 MG; Start 02/16/19 at 17:35 Diagnostic Test (Pha) (Accu-Chek) 1 ea AC MEALS AND BEDTIME XX Last administered on 02/17/19 12:05; Admin Dose 1 EA; Start 02/16/19 at 17:35 Diagnostic Test (Pha) (Accu-Chek) 1 ea 02 XX ; Start 02/17/19 at 02:00 Insulin Aspart (Novolog Insulin Pen) NOVOLOG *MILD* ALGORITHM WITH MEALS BEDTIME SC Last administered on 02/16/19 21:37; Admin Dose 1 UNIT; Start 02/16/19 at 18:05 Enoxaparin Sodium (Lovenox) 30 mg DAILY SC Last administered on 02/17/19 08:07; Admin Dose 30 MG; Start 02/16/19 at 16:00 Furosemide (Lasix) 20 mg TID PO Last administered on 02/17/19 08:10; Admin Dose 20 MG; Start 02/16/19 at 21:00 Guaifenesin/ Dextromethorphan (Robitussin Dm Liquid Cup) 5 ml Q6H PRN PO Cough Last administered on 02/17/19 05:29; Admin Dose 5 ML; Start 02/17/19 at 04:30 Albuterol/ Ipratropium (Duoneb) 3 ml Q4H RESP THERAPY HHN ; Start 02/17/19 at 09:00 LISA NINA MD February 17, 2019 13:38
[2019-02-17 14:00] VITALS: BP 127/58; PULSE 80; RESP 20
--- NOTE | 2019-02-17 15:55 | PN ---
Date/Time of Note Date/Time of Note DATE: 02/17/19 TIME: 15:52 Assessment/Plan VTE Prophylaxis Risk score (from Nsg)>0 risk: 7 SCD applied (from Nsg): Yes Pharmacological prophylaxis: LMWH Lines/Catheters IV Catheter Type (from Nrsg): Saline Lock Assessment/Plan Hospital Course 1. severe lower back pain, bilateral lower rib pain, extremities pain. CT of the abdomen and pelvis showed mild compression fracture deformities, mild compression fracture L5 vertebral body findings consistent with acute fracture, anterior compression fracture L2 vertebral body.MRI with acute compression fracture of the L5 vertebral body with approximate 30% height loss, less than 2 mm retropulsion of the superior endplate and edema / enhancement throughout the vertebral body. No definite underlying lesion identified. 2. Nausea and vomiting, could be secondary to constipation, urinary tract infection, asthma, rule out underlying peptic ulcer disease. Improved. The patient is also on NSAIDs at home, now off NSAID 3. History of bladder cancer. 4. Diabetes. 5. Hypertension. 6. History of chronic obstructive pulmonary disease, on chronic home oxygen. 7. History of pneumonia. 8. Small umbilical hernia. 9. Bilateral renal cysts. 10 Hypothyroidism 11. Obesity 12. Anemia Assessment/Plan - MRI reviewed> - Dr Manning consult pending - c/w lasix, - vomiting improved> advance diet - DVT proph with LOVENOX - Gi prophylaxis Protonix Result Diagram: 02/14/19 1223 02/15/19 0532 Results 24hrs Laboratory Tests Test 02/16/19 16:54 02/16/19 21:34 02/17/19 02:27 02/17/19 06:02 Bedside Glucose 114 181 74 Lab Scanned Report REFERENCE LAB Test 02/17/19 08:04 02/17/19 12:03 Bedside Glucose 98 129 Subjective 24 Hr Interval Summary Musculoskeletal: back pain, bone/joint pain Exam/Review of Systems Exam Vitals Vital Signs Date Temp Pulse Resp B/P (MAP) Pulse Ox O2 O2 Flow FiO2 Time Delivery Rate 02/17/19 97.8 80 20 127/58 96 14:00 (81) 02/17/19 Nasal 2.0 09:06 Cannula Intake and Output 02/16/19 02/16/19 02/17/19 1515:00 23:00 07:00 IntakeIntake Total 1035 ml 875 ml BalanceBalance 1035 ml 875 ml Constitutional: alert, oriented Head: normocephalic Eyes: nl conjunctiva ENMT: nl external ears & nose Respiratory: clear to auscultation Cardiovascular: regular rate and rhythm Gastrointestinal: soft Genitourinary - Female: other (urine incontinent) Results Results 24hrs Laboratory Tests Test 02/16/19 16:54 02/16/19 21:34 02/17/19 02:27 02/17/19 06:02 Bedside Glucose 114 181 74 Lab Scanned Report REFERENCE LAB Test 02/17/19 08:04 02/17/19 12:03 Bedside Glucose 98 129 Medications Medication Current Medications Atorvastatin Calcium (Lipitor) 20 mg QHS PO Last administered on 02/16/19 21:32; Admin Dose 20 MG; Start 02/15/19 at 21:00 Gabapentin (Neurontin) 300 mg QAM PO Last administered on 02/17/19 08:08; Admin Dose 300 MG; Start 02/15/19 at 09:00 Metoprolol Tartrate (Lopressor) 12.5 mg BID PO Last administered on 02/17/19 08:10; Admin Dose 12.5 MG; Start 02/14/19 at 23:30 Olopatadine HCl (Pataday) 1 drop DAILY BOTH EYES Last administered on 02/17/19 08:07; Admin Dose 1 DROP; Start 02/15/19 at 09:00 Miscellaneous Information 1 ea NOTE XX ; Start 02/14/19 at 23:30 Glucose (Glutose) 15 gm Q15M PRN PO DECREASED GLUCOSE; Start 02/14/19 at 23:30 Glucose (Glutose) 22.5 gm Q15M PRN PO DECREASED GLUCOSE; Start 02/14/19 at 23:30 Dextrose (D50w Syringe) 25 ml Q15M PRN IV DECREASED GLUCOSE; Start 02/14/19 at 23:30 Dextrose (D50w Syringe) 50 ml Q15M PRN IV DECREASED GLUCOSE; Start 02/14/19 at 23:30 Glucagon (Glucagen) 1 mg Q15M PRN IM DECREASED GLUCOSE; Start 02/14/19 at 23:30 Glucose (Glutose) 15 gm Q15M PRN BUCCAL DECREASED GLUCOSE; Start 02/14/19 at 23:30 Multivitamins Therapeutic (Theragran) 1 tab DAILY PO Last administered on 02/17/19 08:07; Admin Dose 1 TAB; Start 02/15/19 at 09:00 Metoclopramide HCl (Reglan) 5 mg Q6 IV Last administered on 02/17/19 12:11; Admin Dose 5 MG; Start 02/15/19 at 18:00 Pantoprazole (Protonix Iv) 40 mg DAILY@06 IV Last administered on 02/17/19 05:30; Admin Dose 40 MG; Start 02/16/19 at 06:00 Acetaminophen (Tylenol Tab) 650 mg Q6H PRN PO MILD PAIN(1-3)OR ELEVATED TEMP Last administered on 02/16/19 05:56; Admin Dose 650 MG; Start 02/16/19 at 06:00 Montelukast Sodium (Singulair) 10 mg QHS PO Last administered on 02/16/19 21:31; Admin Dose 10 MG; Start 02/16/19 at 21:00 Metformin HCl (Glucophage) 850 mg WITH BREAKFAST PO Last administered on 02/17/19 08:08; Admin Dose 850 MG; Start 02/17/19 at 08:00 Nateglinide (Starlix) 120 mg AC MEALS PO Last administered on 02/17/19 12:11; Admin Dose 120 MG; Start 02/16/19 at 17:35 Diagnostic Test (Pha) (Accu-Chek) 1 ea AC MEALS AND BEDTIME XX Last administered on 02/17/19 12:05; Admin Dose 1 EA; Start 02/16/19 at 17:35 Diagnostic Test (Pha) (Accu-Chek) 1 ea 02 XX ; Start 02/17/19 at 02:00 Insulin Aspart (Novolog Insulin Pen) NOVOLOG *MILD* ALGORITHM WITH MEALS BEDTIME SC Last administered on 02/16/19 21:37; Admin Dose 1 UNIT; Start 02/16/19 at 18:05 Enoxaparin Sodium (Lovenox) 30 mg DAILY SC Last administered on 02/17/19 08:07; Admin Dose 30 MG; Start 02/16/19 at 16:00 Furosemide (Lasix) 20 mg TID PO Last administered on 02/17/19 13:58; Admin Dose 20 MG; Start 02/16/19 at 21:00 Guaifenesin/ Dextromethorphan (Robitussin Dm Liquid Cup) 5 ml Q6H PRN PO Cough Last administered on 02/17/19at 05:29; Admin Dose 5 ML; Start 02/17/19 at 04:30 Albuterol/ Ipratropium (Duoneb) 3 ml Q4H RESP THERAPY HHN ; Start 02/17/19 at 09:00 Methylprednisolone (Medrol Dose Pack) ay 1: 24 mg on day 1, administe... STD DOSE PACK PO ; Start 02/18/19 at 07:00; Stop 02/25/19 at 06:59 Methylprednisolone (Medrol) 4 mg AC BREAKFAST PO ; Start 02/19/19 at 07:30; Stop 02/23/19 at 07:31 Methylprednisolone (Medrol) 4 mg PC LUNCH PO ; Start 02/19/19 at 13:00; Stop 02/21/19 at 13:01 Methylprednisolone (Medrol) 4 mg PC DINNER PO ; Start 02/19/19 at 19:05; Stop 02/20/19 at 19:06 Methylprednisolone (Medrol) 8 mg HS PO ; Start 02/19/19 at 21:00; Stop 02/19/19 at 21:01 Methylprednisolone (Medrol) 4 mg HS PO ; Start 02/20/19 at 21:00; Stop 02/22/19 at 21:01 Methylprednisolone (Medrol) 24 mg ONCE PO ; Start 02/18/19 at 09:00; Stop 02/18/19 at 10:00 IJM ESTRADA February 17, 2019 15:55
[2019-02-17 20:00] VITALS: BP 138/71; PULSE 77; RESP 18
[2019-02-17] MEDS: ALBUTEROL/IPRATROPIUM (NEB) 3 ML AMP HHN SCH (20:07)
[2019-02-17] MEDS: ATORVASTATIN 20 MG TAB PO SCH (20:28)
[2019-02-17] MEDS: MONTELUKAST 10 MG TAB PO SCH (20:29)
[2019-02-18] MEDS: METOCLOPRAMIDE 10 MG INJ IV SCH ×5 (00:11→23:47)
[2019-02-18] MEDS: ALBUTEROL/IPRATROPIUM (NEB) 3 ML AMP HHN SCH ×6 (00:25→20:29)
[2019-02-18 02:00] VITALS: BP 140/63; RESP 18
[2019-02-18] MEDS: ACCU-CHEK XX SCH ×5 (02:00→20:36)
[2019-02-18] MEDS: PANTOPRAZOLE 40 MG INJ IV SCH (05:28)
[2019-02-18] MEDS ORDERED: METHYLPREDNISOLONE (MEDROL) DOSE PACK PO SCH (07:00)
[2019-02-18 08:00] VITALS: BP 142/76; PULSE 76; RESP 20
[2019-02-18] MEDS: INSULIN ASPART [NOVOLOG] 3 ML PEN SC SCH ×4 (08:00→20:31)
[2019-02-18] MEDS: ENOXAPARIN 30 MG/0.3 ML SYG SC SCH (08:25)
[2019-02-18] MEDS: MULTIVITAMINS THERAPEUTIC TAB PO SCH (08:26)
[2019-02-18] MEDS: OLOPATADINE 0.2% (ONCE A DAY) OPHTH DROP 2.5 ML BOTH EYES SCH (08:26)
[2019-02-18] MEDS: NATEGLINIDE 120 MG TAB PO SCH ×3 (08:27→17:30)
[2019-02-18] MEDS: FUROSEMIDE 20 MG TAB PO SCH ×3 (08:27→20:26)
[2019-02-18] MEDS: GABAPENTIN 300 MG CAP PO SCH (08:28)
[2019-02-18] MEDS: METOPROLOL 25 MG TAB PO SCH ×2 (08:28→20:26)
[2019-02-18] MEDS: metFORMIN 850 MG TAB PO SCH (08:33)
[2019-02-18] MEDS ORDERED: METHYLPREDNISOLONE 4 MG TAB PO SCH (09:00)
--- NOTE | 2019-02-18 13:25 | PN ---
Date/Time of Note Date/Time of Note DATE: 02/18/19 TIME: 13:24 Assessment/Plan VTE Prophylaxis Risk score (from Ns)>0 risk: 6 SCD applied (from Ns): No SCD contraindicated: low risk/ambulating Pharmacological prophylaxis: LMWH Lines/Catheters IV Catheter Type (from Nrs): Saline Lock Assessment/Plan Hospital Course 1. severe lower back pain, bilateral lower rib pain, extremities pain. CT of the abdomen and pelvis showed mild compression fracture deformities, mild compression fracture L5 vertebral body findings consistent with acute fracture, anterior compression fracture L2 vertebral body.MRI with acute compression fracture of the L5 vertebral body with approximate 30% height loss, less than 2 mm retropulsion of the superior endplate and edema / enhancement throughout the vertebral body. No definite underlying lesion identified. 2. Nausea and vomiting, could be secondary to constipation, urinary tract infection, asthma, rule out underlying peptic ulcer disease. Improved. The patient is also on NSAIDs at home, now off NSAID 3. History of bladder cancer. 4. Diabetes. 5. Hypertension. 6. History of chronic obstructive pulmonary disease, on chronic home oxygen. 7. History of pneumonia. 8. Small umbilical hernia. 9. Bilateral renal cysts. 10 Hypothyroidism 11. Obesity 12. Anemia 13. urinary incontinence Assessment/Plan - Dr Manning consult seen -bone scan ordered - c/w lasix, -start Iron supplement - vomiting improved> advance diet - DVT proph with LOVENOX - Gi prophylaxis Protonix Result Diagram: 02/18/19 0433 02/18/19 0433 Results 24hrs Laboratory Tests Test 02/17/19 17:46 02/17/19 20:23 02/18/19 04:33 02/18/19 08:21 Bedside Glucose 106 124 135 White Blood Count 6.4 Red Blood Count 3.28 L Hemoglobin 10.0 L Hematocrit 31.7 L Mean Corpuscular Volume 96.6 Mean Corpuscular 30.5 Hemoglobin Mean Corpuscular 31.5 L Hemoglobin Concent Red Cell Distribution 13.7 Width Platelet Count 200 Mean Platelet Volume 9.3 Immature Granulocytes % 0.800 H Neutrophils % 71.3 Lymphocytes % 17.0 Monocytes % 6.2 Eosinophils % 4.4 Basophils % 0.3 Nucleated Red Blood 0.0 Cells % Immature Granulocytes # 0.050 H Neutrophils # 4.6 Lymphocytes # 1.1 Monocytes # 0.4 Eosinophils # 0.3 Basophils # 0.0 Nucleated Red Blood 0.0 Cells # Sodium Level 141 Potassium Level 3.8 Chloride Level 99 Carbon Dioxide Level 36 H Anion Gap 6 Blood Urea Nitrogen 23 H Creatinine 1.00 Est Glomerular Filtrat Rate mL/min Glucose Level 106 Calcium Level 9.6 Test 02/18/19 12:02 Bedside Glucose 161 Subjective 24 Hr Interval Summary Musculoskeletal: back pain, bone/joint pain Exam/Review of Systems Exam Vitals Vital Signs Date Temp Pulse Resp B/P (MAP) Pulse Ox O2 O2 Flow FiO2 Time Delivery Rate 02/18/19 79 20 95 Nasal 2.0 12:47 Cannula 02/18/19 97.8 142/76 08:00 (98) Intake and Output 02/17/19 02/17/19 02/18/19 1414:59 22:59 06:59 IntakeIntake Total 240 ml 280 ml BalanceBalance 240 ml 280 ml Exam with chronic oxygen Constitutional: alert, oriented Head: normocephalic Neck: supple Respiratory: diminished breath sounds Cardiovascular: regular rate and rhythm Gastrointestinal: soft Genitourinary - Female: other (urinary incontinence) Musculoskeletal: muscle weakness Results Results 24hrs Laboratory Tests Test 02/17/19 17:46 02/17/19 20:23 02/18/19 04:33 02/18/19 08:21 Bedside Glucose 106 124 135 White Blood Count 6.4 Red Blood Count 3.28 L Hemoglobin 10.0 L Hematocrit 31.7 L Mean Corpuscular Volume 96.6 Mean Corpuscular 30.5 Hemoglobin Mean Corpuscular 31.5 L Hemoglobin Concent Red Cell Distribution 13.7 Width Platelet Count 200 Mean Platelet Volume 9.3 Immature Granulocytes % 0.800 H Neutrophils % 71.3 Lymphocytes % 17.0 Monocytes % 6.2 Eosinophils % 4.4 Basophils % 0.3 Nucleated Red Blood 0.0 Cells % Immature Granulocytes # 0.050 H Neutrophils # 4.6 Lymphocytes # 1.1 Monocytes # 0.4 Eosinophils # 0.3 Basophils # 0.0 Nucleated Red Blood 0.0 Cells # Sodium Level 141 Potassium Level 3.8 Chloride Level 99 Carbon Dioxide Level 36 H Anion Gap 6 Blood Urea Nitrogen 23 H Creatinine 1.00 Est Glomerular Filtrat Rate mL/min Glucose Level 106 Calcium Level 9.6 Test 02/18/19 12:02 Bedside Glucose 161 Medications Medication Current Medications Atorvastatin Calcium (Lipitor) 20 mg QHS PO Last administered on 02/17/19 20:28; Admin Dose 20 MG; Start 02/15/19 at 21:00 Gabapentin (Neurontin) 300 mg QAM PO Last administered on 02/18/19 08:28; Admin Dose 300 MG; Start 02/15/19 at 09:00 Metoprolol Tartrate (Lopressor) 12.5 mg BID PO Last administered on 02/18/19 08:28; Admin Dose 12.5 MG; Start 02/14/19 at 23:30 Olopatadine HCl (Pataday) 1 drop DAILY BOTH EYES Last administered on 02/18/19 08:26; Admin Dose 1 DROP; Start 02/15/19 at 09:00 Miscellaneous Information 1 ea NOTE XX ; Start 02/14/19 at 23:30 Glucose (Glutose) 15 gm Q15M PRN PO DECREASED GLUCOSE; Start 02/14/19 at 23:30 Glucose (Glutose) 22.5 gm Q15M PRN PO DECREASED GLUCOSE; Start 02/14/19 at 23:30 Dextrose (D50w Syringe) 25 ml Q15M PRN IV DECREASED GLUCOSE; Start 02/14/19 at 23:30 Dextrose (D50w Syringe) 50 ml Q15M PRN IV DECREASED GLUCOSE; Start 02/14/19 at 23:30 Glucagon (Glucagen) 1 mg Q15M PRN IM DECREASED GLUCOSE; Start 02/14/19 at 23:30 Glucose (Glutose) 15 gm Q15M PRN BUCCAL DECREASED GLUCOSE; Start 02/14/19 at 23:30 Multivitamins Therapeutic (Theragran) 1 tab DAILY PO Last administered on 02/18/19 08:26; Admin Dose 1 TAB; Start 02/15/19 at 09:00 Metoclopramide HCl (Reglan) 5 mg Q6 IV Last administered on 02/18/19 12:03; Admin Dose 5 MG; Start 02/15/19 at 18:00 Pantoprazole (Protonix Iv) 40 mg DAILY@06 IV Last administered on 02/18/19 05:28; Admin Dose 40 MG; Start 02/16/19 at 06:00 Acetaminophen (Tylenol Tab) 650 mg Q6H PRN PO MILD PAIN(1-3)OR ELEVATED TEMP Last administered on 02/16/19 05:56; Admin Dose 650 MG; Start 02/16/19 at 06:00 Montelukast Sodium (Singulair) 10 mg QHS PO Last administered on 02/17/19 20:29; Admin Dose 10 MG; Start 02/16/19 at 21:00 Metformin HCl (Glucophage) 850 mg WITH BREAKFAST PO Last administered on 02/18/19 08:33; Admin Dose 850 MG; Start 02/17/19 at 08:00 Nateglinide (Starlix) 120 mg AC MEALS PO Last administered on 02/18/19 12:03; Admin Dose 120 MG; Start 02/16/19 at 17:35 Diagnostic Test (Pha) (Accu-Chek) 1 ea AC MEALS AND BEDTIME XX Last administered on 02/17/19 17:47; Admin Dose 1 EA; Start 02/16/19 at 17:35 Diagnostic Test (Pha) (Accu-Chek) 1 ea 02 XX ; Start 02/17/19 at 02:00 Insulin Aspart (Novolog Insulin Pen) NOVOLOG *MILD* ALGORITHM WITH MEALS BEDTIME SC Last administered on 02/18/19 12:05; Admin Dose 1 UNIT; Start 02/16/19 at 18:05 Enoxaparin Sodium (Lovenox) 30 mg DAILY SC Last administered on 02/18/19 08:25; Admin Dose 30 MG; Start 02/16/19 at 16:00 Furosemide (Lasix) 20 mg TID PO Last administered on 02/18/19 12:06; Admin Dose 20 MG; Start 02/16/19 at 21:00 Guaifenesin/ Dextromethorphan (Robitussin Dm Liquid Cup) 5 ml Q6H PRN PO Cough Last administered on 02/17/19 05:29; Admin Dose 5 ML; Start 02/17/19 at 04:30 Albuterol/ Ipratropium (Duoneb) 3 ml Q4H RESP THERAPY HHN Last administered on 02/18/19 12:37; Admin Dose 3 ML; Start 02/17/19 at 09:00 Methylprednisolone (Medrol Dose Pack) ay 1: 24 mg on day 1, administe... STD DOSE PACK PO ; Start 02/18/19 at 07:00; Stop 02/25/19 at 06:59 Methylprednisolone (Medrol) 4 mg AC BREAKFAST PO ; Start 02/19/19 at 07:30; Stop 02/23/19 at 07:31 Methylprednisolone (Medrol) 4 mg PC LUNCH PO ; Start 02/19/19 at 13:00; Stop 02/21/19 at 13:01 Methylprednisolone (Medrol) 4 mg PC DINNER PO ; Start 02/19/19 at 19:05; Stop 02/20/19 at 19:06 Methylprednisolone (Medrol) 8 mg HS PO ; Start 02/19/19 at 21:00; Stop 02/19/19 at 21:01 Methylprednisolone (Medrol) 4 mg HS PO ; Start 02/20/19 at 21:00; Stop 02/22/19 at 21:01 JIM ESTRADA February 18, 2019 13:25
[2019-02-18 14:00] VITALS: BP 138/64; PULSE 80; RESP 20
[2019-02-18] MEDS ORDERED: BISACODYL 10 MG SUPP PR PRN (14:00)
--- NOTE | 2019-02-18 15:41 | CONS ---
Assessment/Plan Assessment/Plan Assessment/Plan (Daily) Assessment/Plan (Daily) IMPRESSION: 1. Nausea and vomiting. Subsided with the Reglan 2. Constipation. 3. Bladder cancer. 4. Diabetes mellitus. 5. Hypertension. 6. Compression fracture of L2 vertebral body. 7. Small umbilical hernia. 8. Abdominal pain much better Plan Continue PPI and Reglan If abdominal pain or nausea is persistent then will proceed with EGD Continue present care Consultation Date/Type/Reason Admit Date/Time Feb 14, 2019 at 16:48 Initial Consult Date Date/Time of Note DATE: 02/18/19 TIME: 15:41 24 HR Interval Summary Free Text/Dictation Patient is tolerating diet no nausea no vomiting no abdominal pain Exam/Review of Systems Exam Vitals Vital Signs Date Temp Pulse Resp B/P (MAP) Pulse Ox O2 O2 Flow FiO2 Time Delivery Rate 02/18/19 79 20 95 Nasal 2.0 12:47 Cannula 02/18/19 97.8 142/76 08:00 (98) Intake and Output 02/17/19 02/17/19 02/18/19 1515:00 23:00 07:00 IntakeIntake Total 240 ml 280 ml BalanceBalance 240 ml 280 ml Constitutional: alert, oriented, well developed Psych: no complaints, nl mood/affect Head: normocephalic, atraumatic Eyes: nl conjunctiva, EOMI, nl lids, nl sclera, PERRL ENMT: nl external ears & nose, nl lips & teeth, nl nasal mucosa & septum Neck: supple, non-tender Respiratory: clear to auscultation, normal air movement Cardiovascular: regular rate and rhythm, nl pulses Gastrointestinal: soft, nl liver, spleen, non-tender Musculoskeletal: nl extremities to inspection, nl gait and stance Extremities: normal pulses 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: SERVICE ORDER CLERK II-XII intact, nl mental status, nl speech, nl strength Skin: nl turgor; No rash or lesions Lymph: nl lymph nodes Results Result Diagram: 02/18/19 0433 02/18/19 0433 Results 24hrs Laboratory Tests Test 02/17/19 17:46 02/17/19 20:23 02/18/19 04:33 02/18/19 08:21 Bedside Glucose 106 124 135 White Blood Count 6.4 Red Blood Count 3.28 L Hemoglobin 10.0 L Hematocrit 31.7 L Mean Corpuscular Volume 96.6 Mean Corpuscular 30.5 Hemoglobin Mean Corpuscular 31.5 L Hemoglobin Concent Red Cell Distribution 13.7 Width Platelet Count 200 Mean Platelet Volume 9.3 Immature Granulocytes % 0.800 H Neutrophils % 71.3 Lymphocytes % 17.0 Monocytes % 6.2 Eosinophils % 4.4 Basophils % 0.3 Nucleated Red Blood 0.0 Cells % Immature Granulocytes # 0.050 H Neutrophils # 4.6 Lymphocytes # 1.1 Monocytes # 0.4 Eosinophils # 0.3 Basophils # 0.0 Nucleated Red Blood 0.0 Cells # Sodium Level 141 Potassium Level 3.8 Chloride Level 99 Carbon Dioxide Level 36 H Anion Gap 6 Blood Urea Nitrogen 23 H Creatinine 1.00 Est Glomerular Filtrat Rate mL/min Glucose Level 106 Calcium Level 9.6 Test 02/18/19 12:02 Bedside Glucose 161 Medications Medication Current Medications Atorvastatin Calcium (Lipitor) 20 mg QHS PO Last administered on 02/17/19at 20:28; Admin Dose 20 MG; Start 02/15/19 at 21:00 Gabapentin (Neurontin) 300 mg QAM PO Last administered on 02/18/19at 08:28; Admin Dose 300 MG; Start 02/15/19 at 09:00 Metoprolol Tartrate (Lopressor) 12.5 mg BID PO Last administered on 02/18/19at 08:28; Admin Dose 12.5 MG; Start 02/14/19 at 23:30 Olopatadine HCl (Pataday) 1 drop DAILY BOTH EYES Last administered on 02/18/19at 08:26; Admin Dose 1 DROP; Start 02/15/19 at 09:00 Miscellaneous Information 1 ea NOTE XX ; Start 02/14/19 at 23:30 Glucose (Glutose) 15 gm Q15M PRN PO DECREASED GLUCOSE; Start 02/14/19 at 23:30 Glucose (Glutose) 22.5 gm Q15M PRN PO DECREASED GLUCOSE; Start 02/14/19 at 23:30 Dextrose (D50w Syringe) 25 ml Q15M PRN IV DECREASED GLUCOSE; Start 02/14/19 at 23:30 Dextrose (D50w Syringe) 50 ml Q15M PRN IV DECREASED GLUCOSE; Start 02/14/19 at 23:30 Glucagon (Glucagen) 1 mg Q15M PRN IM DECREASED GLUCOSE; Start 02/14/19 at 23:30 Glucose (Glutose) 15 gm Q15M PRN BUCCAL DECREASED GLUCOSE; Start 02/14/19 at 23:30 Multivitamins Therapeutic (Theragran) 1 tab DAILY PO Last administered on 02/18/19 08:26; Admin Dose 1 TAB; Start 02/15/19 at 09:00 Metoclopramide HCl (Reglan) 5 mg Q6 IV Last administered on 02/18/19 12:03; Admin Dose 5 MG; Start 02/15/19 at 18:00 Acetaminophen (Tylenol Tab) 650 mg Q6H PRN PO MILD PAIN(1-3)OR ELEVATED TEMP Last administered on 02/16/19 05:56; Admin Dose 650 MG; Start 02/16/19 at 06:00 Montelukast Sodium (Singulair) 10 mg QHS PO Last administered on 02/17/19 20:29; Admin Dose 10 MG; Start 02/16/19 at 21:00 Metformin HCl (Glucophage) 850 mg WITH BREAKFAST PO Last administered on 02/18/19 08:33; Admin Dose 850 MG; Start 02/17/19 at 08:00 Nateglinide (Starlix) 120 mg AC MEALS PO Last administered on 02/18/19 12:03; Admin Dose 120 MG; Start 02/16/19 at 17:35 Diagnostic Test (Pha) (Accu-Chek) 1 ea AC MEALS AND BEDTIME XX Last administered on 02/17/19 17:47; Admin Dose 1 EA; Start 02/16/19 at 17:35 Diagnostic Test (Pha) (Accu-Chek) 1 ea 02 XX ; Start 02/17/19 at 02:00 Insulin Aspart (Novolog Insulin Pen) NOVOLOG *MILD* ALGORITHM WITH MEALS BEDTIME SC Last administered on 02/18/19 12:05; Admin Dose 1 UNIT; Start 02/16/19 at 18:05 Enoxaparin Sodium (Lovenox) 30 mg DAILY SC Last administered on 02/18/19 08:25; Admin Dose 30 MG; Start 02/16/19 at 16:00 Furosemide (Lasix) 20 mg TID PO Last administered on 02/18/19 12:06; Admin Dose 20 MG; Start 02/16/19 at 21:00 Guaifenesin/ Dextromethorphan (Robitussin Dm Liquid Cup) 5 ml Q6H PRN PO Cough Last administered on 02/17/19at 05:29; Admin Dose 5 ML; Start 02/17/19 at 04:30 Albuterol/ Ipratropium (Duoneb) 3 ml Q4H RESP THERAPY HHN Last administered on 02/18/19at 12:37; Admin Dose 3 ML; Start 02/17/19 at 09:00 Methylprednisolone (Medrol Dose Pack) ay 1: 24 mg on day 1, administe... STD DOSE PACK PO ; Start 02/18/19 at 07:00; Stop 02/25/19 at 06:59 Methylprednisolone (Medrol) 4 mg AC BREAKFAST PO ; Start 02/19/19 at 07:30; Stop 02/23/19 at 07:31 Methylprednisolone (Medrol) 4 mg PC LUNCH PO ; Start 02/19/19 at 13:00; Stop 02/21/19 at 13:01 Methylprednisolone (Medrol) 4 mg PC DINNER PO ; Start 02/19/19 at 19:05; Stop 02/20/19 at 19:06 Methylprednisolone (Medrol) 8 mg HS PO ; Start 02/19/19 at 21:00; Stop 02/19/19 at 21:01 Methylprednisolone (Medrol) 4 mg HS PO ; Start 02/20/19 at 21:00; Stop 02/22/19 at 21:01 Polysaccharide Iron Complex (Niferex-150) 1 cap BID PO ; Start 02/18/19 at 21:00 Pantoprazole (Protonix Tab) 40 mg DAILY@06 PO ; Start 02/19/19 at 06:00 Polyethylene Glycol (Miralax) 17 gm DAILY PRN PO CONSTIPATION; Start 02/18/19 at 14:00 Bisacodyl (Dulcolax Supp) 10 mg DAILY PRN [place]STIPATION; Start 02/18/19 at 14:00 LISA NINA MD February 18, 2019 15:41
[2019-02-18 20:00] VITALS: BP 129/61; PULSE 95; RESP 18
[2019-02-18] MEDS: POLYETHYLENE GLYCOL 17 GM PACKET PO PRN (20:24)
[2019-02-18] MEDS: MONTELUKAST 10 MG TAB PO SCH (20:24)
[2019-02-18] MEDS: POLYSACCHARIDE IRON COMPLEX CAP PO SCH (20:24)
[2019-02-18] MEDS: ATORVASTATIN 20 MG TAB PO SCH (20:24)
[2019-02-18] MEDS: GUAIFENESIN/DM 5ML CUP PO PRN (23:49)
[2019-02-19] MEDS: ALBUTEROL/IPRATROPIUM (NEB) 3 ML AMP HHN SCH ×6 (00:59→20:11)
[2019-02-19] MEDS: ACCU-CHEK XX SCH ×5 (01:23→21:00)
[2019-02-19 02:00] VITALS: BP 139/72; PULSE 89; RESP 18
[2019-02-19] MEDS: PANTOPRAZOLE (EC) 40 MG TAB PO SCH (06:03)
[2019-02-19] MEDS: METOCLOPRAMIDE 10 MG INJ IV SCH ×3 (06:03→18:00)
[2019-02-19] MEDS: INSULIN ASPART [NOVOLOG] 3 ML PEN SC SCH ×4 (08:00→21:00)
[2019-02-19 08:33] VITALS: BP 144/77; PULSE 85; RESP 18
[2019-02-19] MEDS: METHYLPREDNISOLONE 4 MG TAB PO SCH ×3 (09:25→20:09)
[2019-02-19] MEDS: metFORMIN 850 MG TAB PO SCH (09:26)
[2019-02-19] MEDS: OLOPATADINE 0.2% (ONCE A DAY) OPHTH DROP 2.5 ML BOTH EYES SCH (09:26)
[2019-02-19] MEDS: NATEGLINIDE 120 MG TAB PO SCH ×3 (09:26→18:10)
[2019-02-19] MEDS: GABAPENTIN 300 MG CAP PO SCH (09:27)
[2019-02-19] MEDS: METOPROLOL 25 MG TAB PO SCH ×2 (09:27→21:17)
[2019-02-19] MEDS: FUROSEMIDE 20 MG TAB PO SCH ×3 (09:27→21:17)
[2019-02-19] MEDS: POLYSACCHARIDE IRON COMPLEX CAP PO SCH ×2 (09:27→21:18)
[2019-02-19] MEDS: MULTIVITAMINS THERAPEUTIC TAB PO SCH (09:27)
[2019-02-19] MEDS: ENOXAPARIN 30 MG/0.3 ML SYG SC SCH (09:28)
--- NOTE | 2019-02-19 11:36 | PN ---
Date/Time of Note Date/Time of Note DATE: 02/19/19 TIME: 11:31 Assessment/Plan VTE Prophylaxis Risk score (from Ns)>0 risk: 9 SCD applied (from [facility]): No SCD contraindicated: other Pharmacological prophylaxis: LMWH Lines/Catheters IV Catheter Type (from [facility]): [place] Urinary Cath still in place: No Assessment/Plan Hospital Course 1. severe lower back pain, bilateral lower rib pain, extremities pain. CT of the abdomen and pelvis showed mild compression fracture deformities, mild compression fracture L5 vertebral body findings consistent with acute fracture, anterior compression fracture L2 vertebral body.MRI with acute compression fracture of the L5 vertebral body with approximate 30% height loss, less than 2 mm retropulsion of the superior endplate and edema / enhancement throughout the vertebral body. No definite underlying lesion identified. 2. Nausea and vomiting, could be secondary to constipation, urinary tract infection, asthma, rule out underlying peptic ulcer disease. Improved. The patient is also on NSAIDs at home, now off NSAID 3. History of bladder cancer. 4. Diabetes. 5. Hypertension. 6. History of chronic obstructive pulmonary disease, on chronic home oxygen. 7. History of pneumonia. 8. Small umbilical hernia. 9. Bilateral renal cysts. 10 Hypothyroidism 11. Obesity 12. Anemia 13. urinary incontinence Assessment/Plan - Dr Manning consult seen -bone scan reviewed L5 is suspicious for metastatic activity -dr Peña consult, called - c/w lasix, -start Iron supplement - vomiting improved> advance diet - DVT proph with LOVENOX - Gi prophylaxis Protonix -cr is up due to bone scan more likely Result Diagram: 02/19/19 0602/19/19 0605 Results 24hrs Laboratory Tests Test 02/18/19 12:02 02/18/19 17:28 02/18/19 20:23 02/19/19 01:48 Bedside Glucose 161 197 261 H 84 Test 02/19/19 06:05 02/19/19 08:22 White Blood Count 5.4 Red Blood Count 3.22 L Hemoglobin 9.8 L Hematocrit 31.2 L Mean Corpuscular Volume 96.9 Mean Corpuscular 30.4 Hemoglobin Mean Corpuscular 31.4 L Hemoglobin Concent Red Cell Distribution 14.0 Width Platelet Count 197 Mean Platelet Volume 9.4 Immature Granulocytes % 0.700 H Neutrophils % 73.1 Lymphocytes % 18.6 Monocytes % 6.8 Eosinophils % 0.6 Basophils % 0.2 Nucleated Red Blood 0.0 Cells % Immature Granulocytes # 0.040 H Neutrophils # 4.0 Lymphocytes # 1.0 Monocytes # 0.4 Eosinophils # 0.0 Basophils # 0.0 Nucleated Red Blood 0.0 Cells # Sodium Level 140 Potassium Level 4.2 Chloride Level 97 Carbon Dioxide Level 38 H Anion Gap 5 Blood Urea Nitrogen 36 #H Creatinine 1.09 H Est Glomerular Filtrat Rate mL/min Glucose Level 118 Calcium Level 9.3 Bedside Glucose 104 Subjective 24 Hr Interval Summary Musculoskeletal: back pain, bone/joint pain Neurologic: focal-weakness, headache; No no complaints, No confusion, No dizziness, No syncope, No seizure, No other Exam/Review of Systems Exam Vitals Vital Signs Date Temp Pulse Resp B/P (MAP) Pulse Ox O2 O2 Flow FiO2 Time Delivery Rate 02/19/19 85 20 96 Nasal 2.0 09:56 Cannula 02/19/19 97.6 144/77 08:33 (99) Intake and Output 02/18/19 02/18/19 02/19/19 1515:00 23:00 07:00 IntakeIntake Total 350 ml 350 ml BalanceBalance 350 ml 350 ml Exam on supp. oxygen Constitutional: alert, oriented Neck: supple Respiratory: clear to auscultation, diminished breath sounds Cardiovascular: regular rate and rhythm Gastrointestinal: soft Musculoskeletal: nl gait and stance, joint tenderness Results Results 24hrs Laboratory Tests Test 02/18/19 12:02 02/18/19 17:28 02/18/19 20:23 02/19/19 01:48 Bedside Glucose 161 197 261 H 84 Test 02/19/19 06:05 02/19/19 08:22 White Blood Count 5.4 Red Blood Count 3.22 L Hemoglobin 9.8 L Hematocrit 31.2 L Mean Corpuscular Volume 96.9 Mean Corpuscular 30.4 Hemoglobin Mean Corpuscular 31.4 L Hemoglobin Concent Red Cell Distribution 14.0 Width Platelet Count 197 Mean Platelet Volume 9.4 Immature Granulocytes % 0.700 H Neutrophils % 73.1 Lymphocytes % 18.6 Monocytes % 6.8 Eosinophils % 0.6 Basophils % 0.2 Nucleated Red Blood 0.0 Cells % Immature Granulocytes # 0.040 H Neutrophils # 4.0 Lymphocytes # 1.0 Monocytes # 0.4 Eosinophils # 0.0 Basophils # 0.0 Nucleated Red Blood 0.0 Cells # Sodium Level 140 Potassium Level 4.2 Chloride Level 97 Carbon Dioxide Level 38 H Anion Gap 5 Blood Urea Nitrogen 36 #H Creatinine 1.09 H Est Glomerular Filtrat Rate mL/min Glucose Level 118 Calcium Level 9.3 Bedside Glucose 104 Medications Medication Current Medications Atorvastatin Calcium (Lipitor) 20 mg QHS PO Last administered on 02/18/19 20:24; Admin Dose 20 MG; Start 02/15/19 at 21:00 Gabapentin (Neurontin) 300 mg QAM PO Last administered on 02/19/19 09:27; Admin Dose 300 MG; Start 02/15/19 at 09:00 Metoprolol Tartrate (Lopressor) 12.5 mg BID PO Last administered on 02/19/19 09:27; Admin Dose 12.5 MG; Start 02/14/19 at 23:30 Olopatadine HCl (Pataday) 1 drop DAILY BOTH EYES Last administered on 02/19/19 09:26; Admin Dose 1 DROP; Start 02/15/19 at 09:00 Miscellaneous Information 1 ea NOTE XX ; Start 02/14/19 at 23:30 Glucose (Glutose) 15 gm Q15M PRN PO DECREASED GLUCOSE; Start 02/14/19 at 23:30 Glucose (Glutose) 22.5 gm Q15M PRN PO DECREASED GLUCOSE; Start 02/14/19 at 23:30 Dextrose (D50w Syringe) 25 ml Q15M PRN IV DECREASED GLUCOSE; Start 02/14/19 at 23:30 Dextrose (D50w Syringe) 50 ml Q15M PRN IV DECREASED GLUCOSE; Start 02/14/19 at 23:30 Glucagon (Glucagen) 1 mg Q15M PRN IM DECREASED GLUCOSE; Start 02/14/19 at 23:30 Glucose (Glutose) 15 gm Q15M PRN BUCCAL DECREASED GLUCOSE; Start 02/14/19 at 23:30 Multivitamins Therapeutic (Theragran) 1 tab DAILY PO Last administered on 9at 09:27; Admin Dose 1 TAB; Start 02/15/19 at 09:00 Metoclopramide HCl (Reglan) 5 mg Q6 IV Last administered on 02/19/19 06:03; Admin Dose 5 MG; Start 02/15/19 at 18:00 Acetaminophen (Tylenol Tab) 650 mg Q6H PRN PO MILD PAIN(1-3)OR ELEVATED TEMP Last administered on 02/16/19 05:56; Admin Dose 650 MG; Start 02/16/19 at 06:00 Montelukast Sodium (Singulair) 10 mg QHS PO Last administered on 02/18/19 20:24; Admin Dose 10 MG; Start 02/16/19 at 21:00 Metformin HCl (Glucophage) 850 mg WITH BREAKFAST PO Last administered on 02/19/19 09:26; Admin Dose 850 MG; Start 02/17/19 at 08:00 Nateglinide (Starlix) 120 mg AC MEALS PO Last administered on 02/19/19 09:26; Admin Dose 120 MG; Start 02/16/19 at 17:35 Diagnostic Test (Pha) (Accu-Chek) 1 ea AC MEALS AND BEDTIME XX Last administered on 02/17/19 17:47; Admin Dose 1 EA; Start 02/16/19 at 17:35 Diagnostic Test (Pha) (Accu-Chek) 1 ea 02 XX ; Start 02/17/19 at 02:00 Insulin Aspart (Novolog Insulin Pen) NOVOLOG *MILD* ALGORITHM WITH MEALS BEDTIME SC Last administered on 02/18/19 20:31; Admin Dose 3 UNIT; Start 02/16/19 at 18:05 Enoxaparin Sodium (Lovenox) 30 mg DAILY SC Last administered on 02/19/19 09:28; Admin Dose 30 MG; Start 02/16/19 at 16:00 Furosemide (Lasix) 20 mg TID PO Last administered on 02/19/19 09:27; Admin Dose 20 MG; Start 02/16/19 at 21:00 Guaifenesin/ Dextromethorphan (Robitussin Dm Liquid Cup) 5 ml Q6H PRN PO Cough Last administered on 02/18/19 23:49; Admin Dose 5 ML; Start 02/17/19 at 04:30 Albuterol/ Ipratropium (Duoneb) 3 ml Q4H RESP THERAPY HHN Last administered on 02/19/19 09:46; Admin Dose 3 ML; Start 02/17/19 at 09:00 Methylprednisolone (Medrol Dose Pack) ay 1: 24 mg on day 1, administe... STD DOSE PACK PO ; Start 02/18/19 at 07:00; Stop 02/25/19 at 06:59 Methylprednisolone (Medrol) 4 mg AC BREAKFAST PO Last administered on 02/19/19at 09:25; Admin Dose 4 MG; Start 02/19/19 at 07:30; Stop 02/23/19 at 07:31 Methylprednisolone (Medrol) 4 mg PC LUNCH PO ; Start 02/19/19 at 13:00; Stop 02/21/19 at 13:01 Methylprednisolone (Medrol) 4 mg PC DINNER PO ; Start 02/19/19 at 19:05; Stop 02/20/19 at 19:06 Methylprednisolone (Medrol) 8 mg HS PO ; Start 02/19/19 at 21:00; Stop 02/19/19 at 21:01 Methylprednisolone (Medrol) 4 mg HS PO ; Start 02/20/19 at 21:00; Stop 02/22/19 at 21:01 Polysaccharide Iron Complex (Niferex-150) 1 cap BID PO Last administered on 02/19/19at 09:27; Admin Dose 1 CAP; Start 02/18/19 at 21:00 Pantoprazole (Protonix Tab) 40 mg DAILY@06 PO Last administered on 02/19/19at 06:03; Admin Dose 40 MG; Start 02/19/19 at 06:00 Polyethylene Glycol (Miralax) 17 gm DAILY PRN PO CONSTIPATION Last administered on 02/18/19at 20:24; Admin Dose 17 GM; Start 02/18/19 at 14:00 Bisacodyl (Dulcolax Supp) 10 mg DAILY PRN [place] CONSTIPATION; Start 02/18/19 at 14:00 JIM ESTRADA February 19, 2019 11:36
[2019-02-19] MEDS ORDERED: MAGNESIUM CITRATE 300 ML BTL PO ONE (12:00)
[2019-02-19 14:25] VITALS: BP 132/61; PULSE 93; RESP 18
--- NOTE | 2019-02-19 15:55 | CONS ---
Assessment/Plan Assessment/Plan Assessment/Plan (Daily) Assessment/Plan Assessment/Plan (Daily) Assessment/Plan (Daily) IMPRESSION: 1. Nausea and vomiting. Subsided with the Reglan 2. Constipation. 3. Bladder cancer. 4. Diabetes mellitus. 5. Hypertension. 6. Compression fracture of L2 vertebral body. 7. Small umbilical hernia. 8. Abdominal pain much better Plan Continue PPI and Reglan If abdominal pain or nausea is persistent then will proceed with EGD Continue present care Bone scan is negative for any mets Consultation Date/Type/Reason Admit Date/Time Feb 14, 2019 at 16:48 Initial Consult Date Date/Time of Note DATE: 02/19/19 TIME: 15:55 24 HR Interval Summary Constitutional: improved Exam/Review of Systems Exam Vitals Vital Signs Date Temp Pulse Resp B/P (MAP) Pulse Ox O2 O2 Flow FiO2 Time Delivery Rate 02/19/19 2.0 15:39 02/19/19 98.7 93 18 132/61 99 Room Air 14:25 (84) Intake and Output 02/18/19 02/18/19 02/19/19 1515:00 23:00 07:00 IntakeIntake Total 350 ml 350 ml BalanceBalance 350 ml 350 ml Constitutional: alert, oriented, well developed Psych: no complaints, nl mood/affect Head: normocephalic, atraumatic Eyes: nl conjunctiva, EOMI, nl lids, nl sclera, PERRL ENMT: nl external ears & nose, nl lips & teeth, nl nasal mucosa & septum Neck: supple, non-tender Respiratory: clear to auscultation, normal air movement Cardiovascular: regular rate and rhythm, nl pulses Gastrointestinal: soft, nl liver, spleen, non-tender Musculoskeletal: nl extremities to inspection, nl gait and stance Extremities: normal pulses 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: CNA GNA II-XII intact, nl mental status, nl speech, nl strength Skin: nl turgor; No rash or lesions Lymph: nl lymph nodes Results Result Diagram: 02/19/1960402/19/19604 Results 24hrs Laboratory Tests Test 02/18/19 17:28 02/18/19 20:23 02/19/19 01:48 02/19/19 06:05 Bedside Glucose 197 261 H 84 White Blood Count 5.4 Red Blood Count 3.22 L Hemoglobin 9.8 L Hematocrit 31.2 L Mean Corpuscular Volume 96.9 Mean Corpuscular 30.4 Hemoglobin Mean Corpuscular 31.4 L Hemoglobin Concent Red Cell Distribution 14.0 Width Platelet Count 197 Mean Platelet Volume 9.4 Immature Granulocytes % 0.700 H Neutrophils % 73.1 Lymphocytes % 18.6 Monocytes % 6.8 Eosinophils % 0.6 Basophils % 0.2 Nucleated Red Blood 0.0 Cells % Immature Granulocytes # 0.040 H Neutrophils # 4.0 Lymphocytes # 1.0 Monocytes # 0.4 Eosinophils # 0.0 Basophils # 0.0 Nucleated Red Blood 0.0 Cells # Sodium Level 140 Potassium Level 4.2 Chloride Level 97 Carbon Dioxide Level 38 H Anion Gap 5 Blood Urea Nitrogen 36 #H Creatinine 1.09 H Est Glomerular Filtrat Rate mL/min Glucose Level 118 Calcium Level 9.3 Test 02/19/19 08:22 02/19/19 12:18 Bedside Glucose 104 97 Medications Medication Current Medications Atorvastatin Calcium (Lipitor) 20 mg QHS PO Last administered on 02/18/19 20:24; Admin Dose 20 MG; Start 02/15/19 at 21:00 Gabapentin (Neurontin) 300 mg QAM PO Last administered on 02/19/19 09:27; Admin Dose 300 MG; Start 02/15/19 at 09:00 Metoprolol Tartrate (Lopressor) 12.5 mg BID PO Last administered on 02/19/19 09:27; Admin Dose 12.5 MG; Start 02/14/19 at 23:30 Olopatadine HCl (Pataday) 1 drop DAILY BOTH EYES Last administered on 02/19/19 09:26; Admin Dose 1 DROP; Start 02/15/19 at 09:00 Miscellaneous Information 1 ea NOTE XX ; Start 02/14/19 at 23:30 Glucose (Glutose) 15 gm Q15M PRN PO DECREASED GLUCOSE; Start 02/14/19 at 23:30 Glucose (Glutose) 22.5 gm Q15M PRN PO DECREASED GLUCOSE; Start 02/14/19 at 23:30 Dextrose (D50w Syringe) 25 ml Q15M PRN IV DECREASED GLUCOSE; Start 02/14/19 at 23:30 Dextrose (D50w Syringe) 50 ml Q15M PRN IV DECREASED GLUCOSE; Start 02/14/19 at 23:30 Glucagon (Glucagen) 1 mg Q15M PRN IM DECREASED GLUCOSE; Start 02/14/19 at 23:30 Glucose (Glutose) 15 gm Q15M PRN BUCCAL DECREASED GLUCOSE; Start 02/14/19 at 23:30 Multivitamins Therapeutic (Theragran) 1 tab DAILY PO Last administered on 02/19/19 09:27; Admin Dose 1 TAB; Start 02/15/19 at 09:00 Metoclopramide HCl (Reglan) 5 mg Q6 IV Last administered on 02/19/19 06:03; Admin Dose 5 MG; Start 02/15/19 at 18:00 Acetaminophen (Tylenol Tab) 650 mg Q6H PRN PO MILD PAIN(1-3)OR ELEVATED TEMP Last administered on 02/16/19 05:56; Admin Dose 650 MG; Start 02/16/19 at 06:00 Montelukast Sodium (Singulair) 10 mg QHS PO Last administered on 02/18/19 20:24; Admin Dose 10 MG; Start 02/16/19 at 21:00 Metformin HCl (Glucophage) 850 mg WITH BREAKFAST PO Last administered on 02/19/19 09:26; Admin Dose 850 MG; Start 02/17/19 at 08:00 Nateglinide (Starlix) 120 mg AC MEALS PO Last administered on 02/19/19 12:55; Admin Dose 120 MG; Start 02/16/19 at 17:35 Diagnostic Test (Pha) (Accu-Chek) 1 ea AC MEALS AND BEDTIME XX Last administered on 02/17/19 17:47; Admin Dose 1 EA; Start 02/16/19 at 17:35 Diagnostic Test (Pha) (Accu-Chek) 1 ea 02 XX ; Start 02/17/19 at 02:00 Insulin Aspart (Novolog Insulin Pen) NOVOLOG *MILD* ALGORITHM WITH MEALS BEDTIME SC Last administered on 02/18/19 20:31; Admin Dose 3 UNIT; Start 02/16/19 at 18:05 Enoxaparin Sodium (Lovenox) 30 mg DAILY SC Last administered on 02/19/19 09:28; Admin Dose 30 MG; Start 02/16/19 at 16:00 Furosemide (Lasix) 20 mg TID PO Last administered on 02/19/19 12:55; Admin Dose 20 MG; Start 02/16/19 at 21:00 Guaifenesin/ Dextromethorphan (Robitussin Dm Liquid Cup) 5 ml Q6H PRN PO Cough Last administered on 02/18/19 23:49; Admin Dose 5 ML; Start 02/17/19 at 04:30 Albuterol/ Ipratropium (Duoneb) 3 ml Q4H RESP THERAPY HHN Last administered on 02/19/19 12:28; Admin Dose 3 ML; Start 02/17/19 at 09:00 Methylprednisolone (Medrol Dose Pack) ay 1: 24 mg on day 1, administe... STD DOSE PACK PO ; Start 02/18/19 at 07:00; Stop 02/25/19 at 06:59 Methylprednisolone (Medrol) 4 mg AC BREAKFAST PO Last administered on 02/19/19 09:25; Admin Dose 4 MG; Start 02/19/19 at 07:30; Stop 02/23/19 at 07:31 Methylprednisolone (Medrol) 4 mg PC LUNCH PO Last administered on 02/19/19at 12:55; Admin Dose 4 MG; Start 02/19/19 at 13:00; Stop 02/21/19 at 13:01 Methylprednisolone (Medrol) 4 mg PC DINNER PO ; Start 02/19/19 at 19:05; Stop 02/20/19 at 19:06 Methylprednisolone (Medrol) 8 mg HS PO ; Start 02/19/19 at 21:00; Stop 02/19/19 at 21:01 Methylprednisolone (Medrol) 4 mg HS PO ; Start 02/20/19 at 21:00; Stop 02/22/19 at 21:01 Polysaccharide Iron Complex (Niferex-150) 1 cap BID PO Last administered on 02/19/19 09:27; Admin Dose 1 CAP; Start 02/18/19 at 21:00 Pantoprazole (Protonix Tab) 40 mg DAILY@06 PO Last administered on 02/19/19 06:03; Admin Dose 40 MG; Start 02/19/19 at 06:00 Polyethylene Glycol (Miralax) 17 gm DAILY PRN PO CONSTIPATION Last administered on 02/18/19 20:24; Admin Dose 17 GM; Start 02/18/19 at 14:00 Bisacodyl (Dulcolax Supp) 10 mg DAILY PRN [place] CONSTIPATION; Start 02/18/19 at 14:00 LISA NINA MD February 19, 2019 15:55
[2019-02-19 20:00] VITALS: BP 133/87; PULSE 91; RESP 18
[2019-02-19] MEDS ORDERED: METHYLPREDNISOLONE 4 MG TAB PO SCH (21:00)
[2019-02-19] MEDS: ATORVASTATIN 20 MG TAB PO SCH (21:18)
[2019-02-19] MEDS: MONTELUKAST 10 MG TAB PO SCH (21:18)
[2019-02-20] MEDS: ALBUTEROL/IPRATROPIUM (NEB) 3 ML AMP HHN SCH ×4 (01:22→13:00)
[2019-02-20] MEDS: METOCLOPRAMIDE 10 MG INJ IV SCH ×4 (01:59→17:07)
[2019-02-20 02:00] VITALS: BP 139/70; PULSE 94; RESP 18
[2019-02-20] MEDS: ACCU-CHEK XX SCH ×5 (02:00→21:00)
[2019-02-20] MEDS: PANTOPRAZOLE (EC) 40 MG TAB PO SCH (06:25)
--- NOTE | 2019-02-20 07:50 | CONS ---
DATE OF ADMISSION: 02/14/2019 DATE OF CONSULTATION: ADDENDUM Straight leg raising test was positive about 40 to 60 degree. The x-rays of the lumbosacral spine and repeat the MRI scan of the lumbar spine shows chronic gagan ranjan fracture of the vertebral body of L2 and acute compression fracture of vertebral body of L5 with about 30% compression. There also was about 2 mm of retroversion of the superior end plate along wi th the edema. There was a grade I anterolisthesis at the level of L4 over L5. There was a mild degr ee of the mild to moderate degree of the spinal stenosis along with the foraminal stenosis. DIAGNOSTIC IMPRESSION: . 1. Old compression fracture involving the vertebral body of L2. 2. Acute compression fracture of the vertebral body of L5 without obvious history of trauma. Compre ssion fracture can happen because of the osteoporosis with minor trauma; however, because of her hist ory possible pathologic fracture also have to the considered. 3. Possible trochanteric bursitis over both hip, more noticeable on the left hip. RECOMMENDATIONS FOR MANAGEMENT: 1. Bone scan to rule out possible presence of pathologic fractures. 2. If there are no obvious bony metastatic lesions on the bone scan, then the compression fracture o f the vertebral body of L5 can be observed and followed with the repeat x-rays in a couple of months. 3. Possible trial of the Medrol Dosepak to reduce the symptoms from spinal stenosis and foraminal st enosis. 4. Lumbosacral stabilization with lumbosacral brace. Dictated By: YAN MARTINEZ/LEONARD Conf#: [id number] DID#: [id number]
--- NOTE | 2019-02-20 07:51 | CONS ---
DATE OF ADMISSION: 02/14/2019 DATE OF CONSULTATION: 02/16/2019 ORTHOPEDIC SURGICAL CONSULTATION HISTORY OF PRESENT ILLNESS: The patient is an 88-year-old female, [facility], who was admitted on 02/14/2019 when she was brought into the emergency room by her daughter luzmaria chowdhury of severe low back pain along with the episode of nausea and vomiting. She was also complaining of pain over the lateral aspect of both hips with radiation down to the lowe r extremities. PAST MEDICAL HISTORY: She is known to have multiple medical problems including hypertension, hyperli pidemia, COPD, congestive heart failure, coronary artery disease, pulmonary hypertension and anemia. She was also diagnosed as having bladder cancer which was treated with chemotherapy and radiotherapy according to the family members. PHYSICAL EXAMINATION: My examination revealed a rather obese 88-year-old female who was not in any a cute distress. At the time of my examination, she was complaining of pain in the low back and pain o armin the lateral aspect of both hip, more noticeable on the left side. She started to have this low b ack pain about a month prior to her admission without any memorable history of trauma. There was a mild tenderness at the lumbosacral junction and there was tenderness over the lateral asp ect of both hip over the trochanteric bursa, more severe on the left side. There was a complaint of radiation of the pain to the lower extremities with some numbness and tingling. Deep tendon reflex w as difficult to assess because of the less than ideal cooperation; however, there were no signs of ac [place] sensory changes or motor weakness. Straight leg raising seems to be somewhat positive at about 4 0 to 42. Dictated By: YAN MARTINEZ/LEONARD Conf#: [id number] DID#: [id number]
[2019-02-20 08:00] VITALS: BP 123/58; PULSE 79; RESP 18
[2019-02-20] MEDS: INSULIN ASPART [NOVOLOG] 3 ML PEN SC SCH ×4 (08:00→21:10)
[2019-02-20] MEDS: METHYLPREDNISOLONE 4 MG TAB PO SCH ×4 (08:58→21:08)
[2019-02-20] MEDS: GABAPENTIN 300 MG CAP PO SCH (08:58)
[2019-02-20] MEDS: OLOPATADINE 0.2% (ONCE A DAY) OPHTH DROP 2.5 ML BOTH EYES SCH (08:58)
[2019-02-20] MEDS: metFORMIN 850 MG TAB PO SCH (08:59)
[2019-02-20] MEDS: NATEGLINIDE 120 MG TAB PO SCH ×3 (08:59→17:07)
[2019-02-20] MEDS: POLYSACCHARIDE IRON COMPLEX CAP PO SCH ×2 (09:00→21:08)
[2019-02-20] MEDS: FUROSEMIDE 20 MG TAB PO SCH ×3 (09:00→21:08)
[2019-02-20] MEDS: METOPROLOL 25 MG TAB PO SCH ×2 (09:00→21:09)
[2019-02-20] MEDS: MULTIVITAMINS THERAPEUTIC TAB PO SCH (09:00)
[2019-02-20] MEDS: ENOXAPARIN 30 MG/0.3 ML SYG SC SCH (09:01)
[2019-02-20 14:00] VITALS: BP 115/66; PULSE 89; RESP 18
--- NOTE | 2019-02-20 14:30 | PN ---
Date/Time of Note Date/Time of Note DATE: 02/20/19 TIME: 14:28 Assessment/Plan VTE Prophylaxis Risk score (from Ns)>0 risk: 9 SCD applied (from Ns): No SCD contraindicated: low risk/ambulating Pharmacological prophylaxis: NA/contraindicated Pharm contraindication: low risk/ambulating Lines/Catheters IV C[facility]from [facility] Urinary Cath still in place: No Assessment/Plan Hospital Course 1. severe lower back pain, bilateral lower rib pain, extremities pain. CT of the abdomen and pelvis showed mild compression fracture deformities, mild compression fracture L5 vertebral body findings consistent with acute fracture, anterior compression fracture L2 vertebral body.MRI with acute compression fracture of the L5 vertebral body with approximate 30% height loss, less than 2 mm retropulsion of the superior endplate and edema / enhancement throughout the vertebral body. No definite underlying lesion identified. 2. Nausea and vomiting, could be secondary to constipation, urinary tract infection, asthma, rule out underlying peptic ulcer disease. Improved. The patient is also on NSAIDs at home, now off NSAID 3. History of bladder cancer. 4. Diabetes. 5. Hypertension. 6. History of chronic obstructive pulmonary disease, on chronic home oxygen. 7. History of pneumonia. 8. Small umbilical hernia. 9. Bilateral renal cysts. 10 Hypothyroidism 11. Obesity 12. Anemia 13. urinary incontinence Assessment/Plan - bone scan neg - lumbar brace then PT then Xray - cw lasix -cw Iron supplement - vomiting improved> advance diet - DVT proph with LOVENOX - Gi prophylaxis Protonix - DC planning after Xray to snif Result Diagram: 02/20/19 0528 02/20/19 0528 Results 24hrs Laboratory Tests Test 02/19/19 18:05 02/19/19 21:22 02/20/19 05:28 02/20/19 08:41 Bedside Glucose 179 176 133 White Blood Count 5.8 Red Blood Count 3.34 L Hemoglobin 10.1 L Hematocrit 32.3 L Mean Corpuscular Volume 96.7 Mean Corpuscular 30.2 Hemoglobin Mean Corpuscular 31.3 L Hemoglobin Concent Red Cell Distribution 14.5 Width Platelet Count 208 Mean Platelet Volume 9.4 Immature Granulocytes % 0.700 H Neutrophils % 82.8 H Lymphocytes % 12.5 L Monocytes % 3.5 Eosinophils % 0.2 Basophils % 0.3 Nucleated Red Blood 0.0 Cells % Immature Granulocytes # 0.040 H Neutrophils # 4.8 Lymphocytes # 0.7 L Monocytes # 0.2 L Eosinophils # 0.0 Basophils # 0.0 Nucleated Red Blood 0.0 Cells # Sodium Level 139 Potassium Level 4.8 Chloride Level 96 L Carbon Dioxide Level 38 H Anion Gap 5 Blood Urea Nitrogen 41 H Creatinine 1.07 H Est Glomerular Filtrat Rate mL/min Glucose Level 158 Calcium Level 9.4 Test 02/20/19 12:22 Bedside Glucose 92 Subjective 24 Hr Interval Summary Free Text/Dictation lumbar brace ordered pain better Exam/Review of Systems Exam Vitals Vital Signs Date Temp Pulse Resp B/P (MAP) Pulse Ox O2 O2 Flow FiO2 Time Delivery Rate 02/20/19 96 21 08:50 02/20/19 97.9 79 18 123/58 Room Air 08:00 (79) 02/20/19 2.0 08:00 Intake and Output 02/19/19 02/19/19 02/20/19 1515:00 23:00 07:00 IntakeIntake Total 240 ml 200 ml BalanceBalance 240 ml 200 ml Exam Exam on supp. oxygen Constitutional: alert, oriented Neck: supple Respiratory: clear to auscultation, diminished breath sounds Cardiovascular: regular rate and rhythm Gastrointestinal: soft Musculoskeletal: nl gait and stance, joint tenderness Results Results 24hrs Laboratory Tests Test 02/19/19 18:05 02/19/19 21:22 02/20/19 05:28 02/20/19 08:41 Bedside Glucose 179 176 133 White Blood Count 5.8 Red Blood Count 3.34 L Hemoglobin 10.1 L Hematocrit 32.3 L Mean Corpuscular Volume 96.7 Mean Corpuscular 30.2 Hemoglobin Mean Corpuscular 31.3 L Hemoglobin Concent Red Cell Distribution 14.5 Width Platelet Count 208 Mean Platelet Volume 9.4 Immature Granulocytes % 0.700 H Neutrophils % 82.8 H Lymphocytes % 12.5 L Monocytes % 3.5 Eosinophils % 0.2 Basophils % 0.3 Nucleated Red Blood 0.0 Cells % Immature Granulocytes # 0.040 H Neutrophils # 4.8 Lymphocytes # 0.7 L Monocytes # 0.2 L Eosinophils # 0.0 Basophils # 0.0 Nucleated Red Blood 0.0 Cells # Sodium Level 139 Potassium Level 4.8 Chloride Level 96 L Carbon Dioxide Level 38 H Anion Gap 5 Blood Urea Nitrogen 41 H Creatinine 1.07 H Est Glomerular Filtrat Rate mL/min Glucose Level 158 Calcium Level 9.4 Test 02/20/19 12:22 Bedside Glucose 92 Medications Medication Current Medications Atorvastatin Calcium (Lipitor) 20 mg QHS PO Last administered on 02/19/19 21:18; Admin Dose 20 MG; Start 02/15/19 at 21:00 Gabapentin (Neurontin) 300 mg QAM PO Last administered on 02/20/19 08:58; Admin Dose 300 MG; Start 02/15/19 at 09:00 Metoprolol Tartrate (Lopressor) 12.5 mg BID PO Last administered on 02/20/19 09:00; Admin Dose 12.5 MG; Start 02/14/19 at 23:30 Olopatadine HCl (Pataday) 1 drop DAILY BOTH EYES Last administered on 02/20/19 08:58; Admin Dose 1 DROP; Start 02/15/19 at 09:00 Miscellaneous Information 1 ea NOTE XX ; Start 02/14/19 at 23:30 Glucose (Glutose) 15 gm Q15M PRN PO DECREASED GLUCOSE; Start 02/14/19 at 23:30 Glucose (Glutose) 22.5 gm Q15M PRN PO DECREASED GLUCOSE; Start 02/14/19 at 23:30 Dextrose (D50w Syringe) 25 ml Q15M PRN IV DECREASED GLUCOSE; Start 02/14/19 at 23:30 Dextrose (D50w Syringe) 50 ml Q15M PRN IV DECREASED GLUCOSE; Start 02/14/19 at 23:30 Glucagon (Glucagen) 1 mg Q15M PRN IM DECREASED GLUCOSE; Start 02/14/19 at 23:30 Glucose (Glutose) 15 gm Q15M PRN BUCCAL DECREASED GLUCOSE; Start 02/14/19 at 23:30 Multivitamins Therapeutic (Theragran) 1 tab DAILY PO Last administered on 02/20/19 09:00; Admin Dose 1 TAB; Start 02/15/19 at 09:00 Metoclopramide HCl (Reglan) 5 mg Q6 IV Last administered on 02/20/19 12:26; Admin Dose 5 MG; Start 02/15/19 at 18:00 Acetaminophen (Tylenol Tab) 650 mg Q6H PRN PO MILD PAIN(1-3)OR ELEVATED TEMP Last administered on 02/16/19 05:56; Admin Dose 650 MG; Start 02/16/19 at 06:00 Montelukast Sodium (Singulair) 10 mg QHS PO Last administered on 02/19/19 21:18; Admin Dose 10 MG; Start 02/16/19 at 21:00 Metformin HCl (Glucophage) 850 mg WITH BREAKFAST PO Last administered on 02/20/19 08:59; Admin Dose 850 MG; Start 02/17/19 at 08:00 Nateglinide (Starlix) 120 mg AC MEALS PO Last administered on 02/20/19 12:26; Admin Dose 120 MG; Start 02/16/19 at 17:35 Diagnostic Test (Pha) (Accu-Chek) 1 ea AC MEALS AND BEDTIME XX Last administer ed on 02/17/19 17:47; Admin Dose 1 EA; Start 02/16/19 at 17:35 Diagnostic Test (Pha) (Accu-Chek) 1 ea 02 XX ; Start 02/17/19 at 02:00 Insulin Aspart (Novolog Insulin Pen) NOVOLOG *MILD* ALGORITHM WITH MEALS BEDTIME SC Last administered on 02/19/19 18:11; Admin Dose 1 UNIT; Start 02/16/19 at 18:05 Enoxaparin Sodium (Lovenox) 30 mg DAILY SC Last administered on 02/20/19 09:01; Admin Dose 30 MG; Start 02/16/19 at 16:00 Furosemide (Lasix) 20 mg TID PO Last administered on 02/20/19 12:26; Admin Dose 20 MG; Start 02/16/19 at 21:00 Guaifenesin/ Dextromethorphan (Robitussin Dm Liquid Cup) 5 ml Q6H PRN PO Cough Last administered on 02/18/19 23:49; Admin Dose 5 ML; Start 02/17/19 at 04:30 Albuterol/ Ipratropium (Duoneb) 3 ml Q4H RESP THERAPY HHN Last administered on 02/20/19 05:05; Admin Dose 3 ML; Start 02/17/19 at 09:00 Methylprednisolone (Medrol Dose Pack) ay 1: 24 mg on day 1, administe... STD DOSE PACK PO ; Start 02/18/19 at 07:00; Stop 02/25/19 at 06:59 Methylprednisolone (Medrol) 4 mg AC BREAKFAST PO Last administered on 02/20/19 08:58; Admin Dose 4 MG; Start 02/19/19 at 07:30; Stop 02/23/19 at 07:31 Methylprednisolone (Medrol) 4 mg PC LUNCH PO Last administered on 02/20/19 12:28; Admin Dose 4 MG; Start 02/19/19 at 13:00; Stop 02/21/19 at 13:01 Methylprednisolone (Medrol) 4 mg PC DINNER PO Last administered on 02/19/19 20:09; Admin Dose 4 MG; Start 02/19/19 at 19:05; Stop 02/20/19 at 19:06 Methylprednisolone (Medrol) 4 mg HS PO ; Start 02/20/19 at 21:00; Stop 02/22/19 at 21:01 Polysaccharide Iron Complex (Niferex-150) 1 cap BID PO Last administered on 02/20/19 09:00; Admin Dose 1 CAP; Start 02/18/19 at 21:00 Pantoprazole (Protonix Tab) 40 mg DAILY@06 PO Last administered on 02/20/19 06:25; Admin Dose 40 MG; Start 02/19/19 at 06:00 Polyethylene Glycol (Miralax) 17 gm DAILY PRN PO CONSTIPATION Last administered on 02/18/19 20:24; Admin Dose 17 GM; Start 02/18/19 at 14:00 Bisacodyl (Dulcolax Supp) 10 mg DAILY PRN LA CONSTIPATION Last administered on 02/19/19 16:47; Admin Dose 10 MG; Start 02/18/19 at 14:00 TYLER CALERO MD February 20, 2019 14:30
[2019-02-20] MEDS ORDERED: ALBUTEROL/IPRATROPIUM (NEB) 3 ML AMP HHN PRN (15:30)
--- NOTE | 2019-02-20 15:55 | CONS ---
Assessment/Plan Assessment/Plan Hospital Course (Demo Recall) 88 yo with multiple medical problems, including history of bladder ca on which I have no current info -at present it appears she has no active disease in terms of her bladder ca -bone scan shows no mets nor does CT AP - I have left a msg for her daughter to get more info -only chest hasnt been imaged, check CT chest if negative she is still in remission discussed w/ Dr Mcqueen Consultation Date/Type/Reason Admit Date/Time Feb 14, 2019 at 16:48 Date/Time of Note DATE: 02/20/19 TIME: 15:55 Hx of Present Illness 88-year-old female with COPD, DM, bladder ca, CHF, CAD brought in from shelter for severe back pain. She had CT AP showing: -Mild circumferential bladder wall thickening, at least partially related to under distension. Clinical and laboratory correlation for cystitis is recommended. -Multiple mild compression fracture deformities. There is a mild compression fracture of the L5 vertebral body with lucencies noted within the superior endplate. Findings are suspicious for acute fracture. Correlation with recent trauma is required. Consider MRI for further evaluation. -Severe compression fracture of the L2 vertebral body. MRI lumbar spine showed: -Acute compression fracture of the L5 vertebral body with approximate 30% height loss, less than 2 mm retropulsion of the superior endplate and edema / enhancement throughout the vertebral body. No definite underlying lesion identified. -Chronic compression fracture of the L2 vertebral body with approximately 70% height loss. -Grade 1 anterolisthesis at L4-L5 Bone scan showed no mets: L5 corresponding to the compression fracture seen on MRI and CT consistent with an acute compression fracture. No other focal areas of increased activity suggestive of metastases are seen in the skeleton. We are asked to see her re: bladder ca Pt is a very poor historian and I had to leave [facility] for daughter now she has no pain at present Constitutional: no complaints, improved Eyes: no complaints ENT: no complaints Respiratory: no complaints Cardiovascular: no complaints Gastrointestinal: no complaints; No pain, No blood, No constipation, No decreased appetite, No diarrhea, No flatus, No nausea, No passing stool, No vomiting, No other Musculoskeletal: no complaints Skin: no complaints Neurologic: no complaints Endocrine: no complaints Lymphatic: No no complaints, No adenopathy, No tender nodes, No lymphadema, No other Past Medical History Home Meds Reported Medications Levothyroxine Sodium* (Levothyroxine Sodium*) 50 Mcg Tablet, 50 MCG PO BEFORE BREAKFAST, #30 TAB 02/16/19 Furosemide* (Furosemide*) 20 Mg Tablet, 20 MG PO TID, #30 TAB 02/16/19 Dextran 70/Hypromellose/Pf (ARTIFICIAL TEARS DROPS) 1 Each Droperette, 1 EACH OP QID 02/16/19 Dextran 70/Hypromellose (Artificial Tears) 1 Each Droperette, 1 EACH OP 02/16/19 Docusate Sodium* (Docusate Sodium*) 100 Mg Capsule, 100 MG PO BID, #60 CAP 02/16/19 Bisacodyl* (Bisacodyl*) 5 Mg Tablet.dr, 5 MG PO DAILY for constipation , TAB 02/16/19 Magnesium Hydroxide* (Milk Of Magnesia*) 400 Mg/5 Ml Oral.susp, 30 ML PO DAILY for constipation , ML 02/16/19 Potassium Chloride* (K-Dur*) 10 Meq Tab.prt.sr, 10 MEQ PO DAILY, TAB 02/14/19 Ipratropium-Albuterol (Ipratropium-Albuterol) 0.5-3 Mg/3 Ml Ampul.neb, 3 ML INHALATION Q6, #30 VIAL 02/14/19 Ibuprofen* (Ibuprofen*) 400 Mg Tablet, 400 MG PO Q6H PRN for PAIN, TAB 02/14/19 Acetaminophen* (Acetaminophen*) 325 Mg Tablet, 650 MG PO Q6H PRN for FOR FEVER 101F, #30 TAB 02/14/19 Ondansetron Hcl* (Zofran*) 4 Mg Tab, 4 MG PO Q6H PRN for NAUSEA AND OR VOMITING, TAB 02/14/19 Nateglinide* (Nateglinide*) 120 Mg Tablet, 120 MG PO AC MEALS, TAB 02/14/19 Metoprolol Tartrate* (Lopressor*) 25 Mg Tab, 12.5 MG PO BID, #60 TAB HOLD FOR SBP<110 OR HR<60 02/14/19 Bimatoprost* (Lumigan*) 0.01%-5 Ml Opht Drops, 1 DROP BOTH EYES HS, EA 02/14/19 Atorvastatin Calcium* (Atorvastatin Calcium*) 20 Mg Tablet, 20 MG PO QHS, #30 TAB 02/14/19 Montelukast Sodium* (Montelukast Sodium*) 10 Mg Tablet, 10 MG PO QHS, #30 TAB 02/14/19 Meloxicam* (Mobic*) 15 Mg Tablet, 15 MG PO DAILY, #30 TAB 02/14/19 Olopatadine* (Pataday*) 0.2% - 2.5 Ml Drops, 1 DROP BOTH EYES DAILY, EA 02/14/19 Multivitamin with Minerals (Multivitamins with Minerals) 1 Each Tablet, 1 EACH PO DAILY, TAB 02/14/19 Gabapentin* (Gabapentin*) 300 Mg Capsule, 300 MG PO QAM, #60 CAP 02/14/19 Famotidine* (Famotidine*) 20 Mg Tablet, 20 MG PO DAILY, #30 TAB 02/14/19 Metformin Hcl* (Metformin Hcl*) 850 Mg Tablet, 850 MG PO WITH BREAKFAST, #30 TAB 02/14/19 Prednisone* (Prednisone*) 5 Mg Tab, 5 MG PO DAILY, TAB 02/14/19 Discontinued Reported Medications [Potassium 10 Meq] No Conflict Check, 1 TAB PO DAILY 02/14/19 Acetaminophen* (Acetaminophen*) 325 Mg Tablet, 650 MG PO Q6H PRN for MILD PAIN LEVEL 1-3, #30 TAB AND FOR TEMP.>100F 10/29/17 Ondansetron Hcl* (Zofran*) 4 Mg Tablet, 4 MG PO Q6H PRN for NAUSEA AND OR VOMITING, TAB 10/29/17 Multivitamin with Minerals (Multivitamins with Minerals) 1 Each Tablet, 1 EACH PO DAILY, TAB 10/29/17 Atorvastatin Calcium* (Atorvastatin Calcium*) 20 Mg Tablet, 20 MG PO QHS, #30 TAB 05/07/17 Potassium Chloride* (K-Dur*) 10 Meq Tab.prt.sr, 10 MEQ PO DAILY, TAB 05/07/17 Metoprolol Tartrate* (Lopressor*) 25 Mg Tab, 12.5 MG PO BID, #60 TAB HOLD FOR SBP LOWER THAN 110 OR HR LOWER THAN 60 05/07/17 Furosemide* (Lasix*) 20 Mg Tablet, 20 MG PO BID, TAB 05/07/17 Magnesium Hydroxide* (Milk Of Magnesia*) 400 Mg/5 Ml Oral.susp, 30 ML PO DAILY PRN for CONSTIPATION, ML 05/07/17 Albuterol Sulfate* (Albuterol Sulfate* Neb) 0.083%-3 Ml Neb, 2.5 MG NEB Q6 PRN for WHEEZING AND SOB, #30 VIAL 05/07/17 Insulin Glargine* (Lantus*) 100 Unit/Ml Soln, 15 UNIT SC QHS, #1 VIAL 05/07/17 Montelukast Sodium* (Montelukast Sodium*) 10 Mg Tablet, 10 MG PO QHS, #30 TAB 04/22/16 Gabapentin* (Gabapentin*) 300 Mg Capsule, 300 MG PO TID, CAP 11/07/14 Discontinued Scripts Hydrocodone Bit-Acetaminophen (Hydrocodone Bit-APAP) 5-325MG Tablet, 1 TAB PO Q6H PRN for MODERATE PAIN LEVEL 4-6 for 14 Days, TAB Prov:LEILA SPARKS MD 10/01/16 Famotidine* (Famotidine*) 20 Mg Tablet, 20 MG PO DAILY for 10 Days, TAB Prov:LEILA SPARKS MD 10/01/16 Bisacodyl* (Bisacodyl*) 5 Mg Tablet.dr, 5 MG PO DAILY PRN for CONSTIPATION for 10 Days Prov:ELILA SPARKS MD 10/01/16 Medications Current Medications Atorvastatin Calcium (Lipitor) 20 mg QHS PO Last administered on 02/19/19at 21:18; Admin Dose 20 MG; Start 02/15/19 at 21:00 Gabapentin (Neurontin) 300 mg QAM PO Last administered on 02/20/19at 08:58; Admin Dose 300 MG; Start 02/15/19 at 09:00 Metoprolol Tartrate (Lopressor) 12.5 mg BID PO Last administered on 02/20/19at 09:00; Admin Dose 12.5 MG; Start 02/14/19 at 23:30 Olopatadine HCl (Pataday) 1 drop DAILY BOTH EYES Last administered on 02/20/19at 08:58; Admin Dose 1 DROP; Start 02/15/19 at 09:00 Miscellaneous Information 1 ea NOTE XX ; Start 02/14/19 at 23:30 Glucose (Glutose) 15 gm Q15M PRN PO DECREASED GLUCOSE; Start 02/14/19 at 23:30 Glucose (Glutose) 22.5 gm Q15M PRN PO DECREASED GLUCOSE; Start 02/14/19 at 23:30 Dextrose (D50w Syringe) 25 ml Q15M PRN IV DECREASED GLUCOSE; Start 02/14/19 at 23:30 Dextrose (D50w Syringe) 50 ml Q15M PRN IV DECREASED GLUCOSE; Start 02/14/19 at 23:30 Glucagon (Glucagen) 1 mg Q15M PRN IM DECREASED GLUCOSE; Start 02/14/19 at 23:30 Glucose (Glutose) 15 gm Q15M PRN BUCCAL DECREASED GLUCOSE; Start 02/14/19 at 23:30 Multivitamins Therapeutic (Theragran) 1 tab DAILY PO Last administered on 02/20/19 09:00; Admin Dose 1 TAB; Start 02/15/19 at 09:00 Metoclopramide HCl (Reglan) 5 mg Q6 IV Last administered on 02/20/19 12:26; Admin Dose 5 MG; Start 02/15/19 at 18:00 Acetaminophen (Tylenol Tab) 650 mg Q6H PRN PO MILD PAIN(1-3)OR ELEVATED TEMP Last administered on 02/16/19 05:56; Admin Dose 650 MG; Start 02/16/19 at 06:00 Montelukast Sodium (Singulair) 10 mg QHS PO Last administered on 02/19/19 21:18; Admin Dose 10 MG; Start 02/16/19 at 21:00 Metformin HCl (Glucophage) 850 mg WITH BREAKFAST PO Last administered on 02/20/19 08:59; Admin Dose 850 MG; Start 02/17/19 at 08:00 Nateglinide (Starlix) 120 mg AC MEALS PO Last administered on 02/20/19 12:26; Admin Dose 120 MG; Start 02/16/19 at 17:35 Diagnostic Test (Pha) (Accu-Chek) 1 ea AC MEALS AND BEDTIME XX Last administered on 02/17/19 17:47; Admin Dose 1 EA; Start 02/16/19 at 17:35 Diagnostic Test (Pha) (Accu-Chek) 1 ea 02 XX ; Start 02/17/19 at 02:00 Insulin Aspart (Novolog Insulin Pen) NOVOLOG *MILD* ALGORITHM WITH MEALS BEDTIME SC Last administered on 02/19/19 18:11; Admin Dose 1 UNIT; Start 02/16/19 at 18:05 Enoxaparin Sodium (Lovenox) 30 mg DAILY SC Last administered on 02/20/19 09:01; Admin Dose 30 MG; Start 02/16/19 at 16:00 Furosemide (Lasix) 20 mg TID PO Last administered on 02/20/19 12:26; Admin Dose 20 MG; Start 02/16/19 at 21:00 Guaifenesin/ Dextromethorphan (Robitussin Dm Liquid Cup) 5 ml Q6H PRN PO Cough Last administered on 02/18/19 23:49; Admin Dose 5 ML; Start 02/17/19 at 04:30 Methylprednisolone (Medrol Dose Pack) ay 1: 24 mg on day 1, administe... STD DOSE PACK PO ; Start 02/18/19 at 07:00; Stop 02/25/19 at 06:59 Methylprednisolone (Medrol) 4 mg AC BREAKFAST PO Last administered on 02/20/19 08:58; Admin Dose 4 MG; Start 02/19/19 at 07:30; Stop 02/23/19 at 07:31 Methylprednisolone (Medrol) 4 mg PC LUNCH PO Last administered on 02/20/19 12:28; Admin Dose 4 MG; Start 02/19/19 at 13:00; Stop 02/21/19 at 13:01 Methylprednisolone (Medrol) 4 mg PC DINNER PO Last administered on 02/19/19 20:09; Admin Dose 4 MG; Start 02/19/19 at 19:05; Stop 02/20/19 at 19:06 Methylprednisolone (Medrol) 4 mg HS PO ; Start 02/20/19 at 21:00; Stop 02/22/19 at 21:01 Polysaccharide Iron Complex (Niferex-150) 1 cap BID PO Last administered on 02/20/19 09:00; Admin Dose 1 CAP; Start 02/18/19 at 21:00 Pantoprazole (Protonix Tab) 40 mg DAILY@06 PO Last administered on 02/20/19 06:25; Admin Dose 40 MG; Start 02/19/19 at 06:00 Polyethylene Glycol (Miralax) 17 gm DAILY PRN PO CONSTIPATION Last administered on 02/18/19 20:24; Admin Dose 17 GM; Start 02/18/19 at 14:00 Bisacodyl (Dulcolax Supp) 10 mg DAILY PRN [place] CONSTIPATION Last administered on 5/5/19at 16:47; Admin Dose 10 MG; Start 02/18/19 at 14:00 Albuterol/ Ipratropium (Duoneb) 3 ml Q4H RESP THERAPY PRN HHN SHORTNESS OF BREATH; Start 02/20/19 at 15:30 Allergies: Coded Allergies: No Known Allergy (Unverified , 02/14/19) Past Surgical History Past Surgical Hx: other Social History Smoking Status: Never smoker Exam/Review of Systems Exam Vitals Vital Signs Date Temp Pulse Resp B/P (MAP) Pulse Ox O2 O2 Flow FiO2 Time Delivery Rate 02/20/19 97.9 89 18 115/66 100 Room Air 14:00 (82) 02/20/19 21 08:50 02/20/19 2.0 08:00 Intake and Output 02/19/19 02/19/19 02/20/19 1515:00 23:00 07:00 IntakeIntake Total 240 ml 200 ml BalanceBalance 240 ml 200 ml Constitutional: alert, oriented, well developed Psych: no complaints, nl mood/affect Respiratory: normal air movement Musculoskeletal: nl extremities to inspection, nl gait and stance Results Result Diagram: 02/20/1928 02/20/1928 Results 24hrs Laboratory Tests Test 02/19/19 18:05 02/19/19 21:22 02/20/19 05:28 02/20/19 08:41 Bedside Glucose 179 176 133 White Blood Count 5.8 Red Blood Count 3.34 L Hemoglobin 10.1 L Hematocrit 32.3 L Mean Corpuscular Volume 96.7 Mean Corpuscular 30.2 Hemoglobin Mean Corpuscular 31.3 L Hemoglobin Concent Red Cell Distribution 14.5 Width Platelet Count 208 Mean Platelet Volume 9.4 Immature Granulocytes % 0.700 H Neutrophils % 82.8 H Lymphocytes % 12.5 L Monocytes % 3.5 Eosinophils % 0.2 Basophils % 0.3 Nucleated Red Blood 0.0 Cells % Immature Granulocytes # 0.040 H Neutrophils # 4.8 Lymphocytes # 0.7 L Monocytes # 0.2 L Eosinophils # 0.0 Basophils # 0.0 Nucleated Red Blood 0.0 Cells # Sodium Level 139 Potassium Level 4.8 Chloride Level 96 L Carbon Dioxide Level 38 H Anion Gap 5 Blood Urea Nitrogen 41 H Creatinine 1.07 H Est Glomerular Filtrat Rate mL/min Glucose Level 158 Calcium Level 9.4 Test 5/6/19 12:22 Bedside Glucose 92 Medications Medication Current Medications Atorvastatin Calcium (Lipitor) 20 mg QHS PO Last administered on 02/19/19 21:18; Admin Dose 20 MG; Start 02/15/19 at 21:00 Gabapentin (Neurontin) 300 mg QAM PO Last administered on 02/20/19 08:58; Admin Dose 300 MG; Start 02/15/19 at 09:00 Metoprolol Tartrate (Lopressor) 12.5 mg BID PO Last administered on 02/20/19 09:00; Admin Dose 12.5 MG; Start 02/14/19 at 23:30 Olopatadine HCl (Pataday) 1 drop DAILY BOTH EYES Last administered on 02/20/19 08:58; Admin Dose 1 DROP; Start 02/15/19 at 09:00 Miscellaneous Information 1 ea NOTE XX ; Start 02/14/19 at 23:30 Glucose (Glutose) 15 gm Q15M PRN PO DECREASED GLUCOSE; Start 02/14/19 at 23:30 Glucose (Glutose) 22.5 gm Q15M PRN PO DECREASED GLUCOSE; Start 02/14/19 at 23:30 Dextrose (D50w Syringe) 25 ml Q15M PRN IV DECREASED GLUCOSE; Start 02/14/19 at 23:30 Dextrose (D50w Syringe) 50 ml Q15M PRN IV DECREASED GLUCOSE; Start 02/14/19 at 23:30 Glucagon (Glucagen) 1 mg Q15M PRN IM DECREASED GLUCOSE; Start 02/14/19 at 23:30 Glucose (Glutose) 15 gm Q15M PRN BUCCAL DECREASED GLUCOSE; Start 02/14/19 at 23:30 Multivitamins Therapeutic (Theragran) 1 tab DAILY PO Last administered on 02/20/19 09:00; Admin Dose 1 TAB; Start 02/15/19 at 09:00 Metoclopramide HCl (Reglan) 5 mg Q6 IV Last administered on 02/20/19 12:26; Admin Dose 5 MG; Start 02/15/19 at 18:00 Acetaminophen (Tylenol Tab) 650 mg Q6H PRN PO MILD PAIN(1-3)OR ELEVATED TEMP Last administered on 02/16/19at 05:56; Admin Dose 650 MG; Start 02/16/19 at 06:00 Montelukast Sodium (Singulair) 10 mg QHS PO Last administered on 02/19/19 21:18; Admin Dose 10 MG; Start 02/16/19 at 21:00 Metformin HCl (Glucophage) 850 mg WITH BREAKFAST PO Last administered on 02/20/19 08:59; Admin Dose 850 MG; Start 02/17/19 at 08:00 Nateglinide (Starlix) 120 mg AC MEALS PO Last administered on 02/20/19 12:26; Admin Dose 120 MG; Start 02/16/19 at 17:35 Diagnostic Test (Pha) (Accu-Chek) 1 ea AC MEALS AND BEDTIME XX Last administered on 02/17/19 17:47; Admin Dose 1 EA; Start 02/16/19 at 17:35 Diagnostic Test (Pha) (Accu-Chek) 1 ea 02 XX ; Start 02/17/19 at 02:00 Insulin Aspart (Novolog Insulin Pen) NOVOLOG *MILD* ALGORITHM WITH MEALS BEDTIME SC Last administered on 02/19/19 18:11; Admin Dose 1 UNIT; Start 02/16/19 at 18:05 Enoxaparin Sodium (Lovenox) 30 mg DAILY SC Last administered on 02/20/19 09:01; Admin Dose 30 MG; Start 02/16/19 at 16:00 Furosemide (Lasix) 20 mg TID PO Last administered on 02/20/19 12:26; Admin Dose 20 MG; Start 02/16/19 at 21:00 Guaifenesin/ Dextromethorphan (Robitussin Dm Liquid Cup) 5 ml Q6H PRN PO Cough Last administered on 02/18/19 23:49; Admin Dose 5 ML; Start 02/17/19 at 04:30 Methylprednisolone (Medrol Dose Pack) ay 1: 24 mg on day 1, administe... STD DOSE PACK PO ; Start 02/18/19 at 07:00; Stop 02/25/19 at 06:59 Methylprednisolone (Medrol) 4 mg AC BREAKFAST PO Last administered on 02/20/19 08:58; Admin Dose 4 MG; Start 02/19/19 at 07:30; Stop 02/23/19 at 07:31 Methylprednisolone (Medrol) 4 mg PC LUNCH PO Last administered on 02/20/19 12:28; Admin Dose 4 MG; Start 02/19/19 at 13:00; Stop 02/21/19 at 13:01 Methylprednisolone (Medrol) 4 mg PC DINNER PO Last administered on 02/19/19 20:09; Admin Dose 4 MG; Start 02/19/19 at 19:05; Stop 02/20/19 at 19:06 Methylprednisolone (Medrol) 4 mg HS PO ; Start 02/20/19 at 21:00; Stop 02/22/19 at 21:01 Polysaccharide Iron Complex (Niferex-150) 1 cap BID PO Last administered on 02/20/19 09:00; Admin Dose 1 CAP; Start 02/18/19 at 21:00 Pantoprazole (Protonix Tab) 40 mg DAILY@06 PO Last administered on 02/20/19 06:25; Admin Dose 40 MG; Start 02/19/19 at 06:00 Polyethylene Glycol (Miralax) 17 gm DAILY PRN PO CONSTIPATION Last administered on 02/18/19 20:24; Admin Dose 17 GM; Start 02/18/19 at 14:00 Bisacodyl (Dulcolax Supp) 10 mg DAILY PRN [place] CONSTIPATION Last administered on 02/19/19 16:47; Admin Dose 10 MG; Start 02/18/19 at 14:00 Albuterol/ Ipratropium (Duoneb) 3 ml Q4H RESP THERAPY PRN HHN SHORTNESS OF BREATH; Start 02/20/19 at 15:30 ENMANUEL FREITAS February 20, 2019 15:55
--- NOTE | 2019-02-20 15:59 | CONS ---
Assessment/Plan Assessment/Plan Assessment/Plan (Daily) Assessment/Plan (Daily) Assessment/Plan (Daily) IMPRESSION: 1. Nausea and vomiting. Subsided with the Reglan 2. Constipation. 3. Bladder cancer. 4. Diabetes mellitus. 5. Hypertension. 6. Compression fracture of L2 vertebral body. 7. Small umbilical hernia. 8. Abdominal pain much better Plan Continue PPI and Reglan If abdominal pain or nausea is persistent then will proceed with EGD Continue present care Bone scan is negative for any mets Consultation Date/Type/Reason Admit Date/Time Feb 14, 2019 at 16:48 Initial Consult Date Date/Time of Note DATE: 02/20/19 TIME: 15:58 24 HR Interval Summary Constitutional: no complaints, improved Exam/Review of Systems Exam Vitals Vital Signs Date Temp Pulse Resp B/P (MAP) Pulse Ox O2 O2 Flow FiO2 Time Delivery Rate 02/20/19 97.9 89 18 115/66 100 Room Air 14:00 (82) 02/20/19 21 08:50 02/20/19 2.0 08:00 Intake and Output 02/19/19 02/19/19 02/20/19 1515:00 23:00 07:00 IntakeIntake Total 240 ml 200 ml BalanceBalance 240 ml 200 ml Constitutional: alert, oriented, well developed Psych: no complaints, nl mood/affect Head: normocephalic, atraumatic Eyes: nl conjunctiva, EOMI, nl lids, nl sclera, PERRL ENMT: nl external ears & nose, nl lips & teeth, nl nasal mucosa & septum Neck: supple, non-tender Respiratory: clear to auscultation, normal air movement Cardiovascular: regular rate and rhythm, nl pulses Gastrointestinal: soft, nl liver, spleen, non-tender Musculoskeletal: nl extremities to inspection, nl gait and stance Extremities: normal pulses 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: INSPECTOR LINE II-XII intact, nl mental status, nl speech, nl strength Skin: nl turgor; No rash or lesions Lymph: nl lymph nodes Results Result Diagram: 02/20/1928 02/20/1928 Results 24hrs Laboratory Tests Test 02/19/19 18:05 02/19/19 21:22 02/20/19 05:28 02/20/19 08:41 Bedside Glucose 179 176 133 White Blood Count 5.8 Red Blood Count 3.34 L Hemoglobin 10.1 L Hematocrit 32.3 L Mean Corpuscular Volume 96.7 Mean Corpuscular 30.2 Hemoglobin Mean Corpuscular 31.3 L Hemoglobin Concent Red Cell Distribution 14.5 Width Platelet Count 208 Mean Platelet Volume 9.4 Immature Granulocytes % 0.700 H Neutrophils % 82.8 H Lymphocytes % 12.5 L Monocytes % 3.5 Eosinophils % 0.2 Basophils % 0.3 Nucleated Red Blood 0.0 Cells % Immature Granulocytes # 0.040 H Neutrophils # 4.8 Lymphocytes # 0.7 L Monocytes # 0.2 L Eosinophils # 0.0 Basophils # 0.0 Nucleated Red Blood 0.0 Cells # Sodium Level 139 Potassium Level 4.8 Chloride Level 96 L Carbon Dioxide Level 38 H Anion Gap 5 Blood Urea Nitrogen 41 H Creatinine 1.07 H Est Glomerular Filtrat Rate mL/min Glucose Level 158 Calcium Level 9.4 Test 02/20/19 12:22 Bedside Glucose 92 Medications Medication Current Medications Atorvastatin Calcium (Lipitor) 20 mg QHS PO Last administered on 02/19/19at 21:18; Admin Dose 20 MG; Start 02/15/19 at 21:00 Gabapentin (Neurontin) 300 mg QAM PO Last administered on 02/20/19at 08:58; Admin Dose 300 MG; Start 02/15/19 at 09:00 Metoprolol Tartrate (Lopressor) 12.5 mg BID PO Last administered on 02/20/19at 09:00; Admin Dose 12.5 MG; Start 02/14/19 at 23:30 Olopatadine HCl (Pataday) 1 drop DAILY BOTH EYES Last administered on 02/20/19at 08:58; Admin Dose 1 DROP; Start 02/15/19 at 09:00 Miscellaneous Information 1 ea NOTE XX ; Start 02/14/19 at 23:30 Glucose (Glutose) 15 gm Q15M PRN PO DECREASED GLUCOSE; Start 02/14/19 at 23:30 Glucose (Glutose) 22.5 gm Q15M PRN PO DECREASED GLUCOSE; Start 02/14/19 at 23: 30 Dextrose (D50w Syringe) 25 ml Q15M PRN IV DECREASED GLUCOSE; Start 02/14/19 at 23:30 Dextrose (D50w Syringe) 50 ml Q15M PRN IV DECREASED GLUCOSE; Start 02/14/19 at 23:30 Glucagon (Glucagen) 1 mg Q15M PRN IM DECREASED GLUCOSE; Start 02/14/19 at 23:30 Glucose (Glutose) 15 gm Q15M PRN BUCCAL DECREASED GLUCOSE; Start 02/14/19 at 23:30 Multivitamins Therapeutic (Theragran) 1 tab DAILY PO Last administered on 02/20/19 09:00; Admin Dose 1 TAB; Start 02/15/19 at 09:00 Metoclopramide HCl (Reglan) 5 mg Q6 IV Last administered on 02/20/19 12:26; Admin Dose 5 MG; Start 02/15/19 at 18:00 Acetaminophen (Tylenol Tab) 650 mg Q6H PRN PO MILD PAIN(1-3)OR ELEVATED TEMP Last administered on 02/16/19 05:56; Admin Dose 650 MG; Start 02/16/19 at 06:00 Montelukast Sodium (Singulair) 10 mg QHS PO Last administered on 02/19/19 21:18; Admin Dose 10 MG; Start 02/16/19 at 21:00 Metformin HCl (Glucophage) 850 mg WITH BREAKFAST PO Last administered on 02/20/19 08:59; Admin Dose 850 MG; Start 02/17/19 at 08:00 Nateglinide (Starlix) 120 mg AC MEALS PO Last administered on 02/20/19 12:26; Admin Dose 120 MG; Start 02/16/19 at 17:35 Diagnostic Test (Pha) (Accu-Chek) 1 ea AC MEALS AND BEDTIME XX Last admini stered on 02/17/19 17:47; Admin Dose 1 EA; Start 02/16/19 at 17:35 Diagnostic Test (Pha) (Accu-Chek) 1 ea 02 XX ; Start 02/17/19 at 02:00 Insulin Aspart (Novolog Insulin Pen) NOVOLOG *MILD* ALGORITHM WITH MEALS BEDTIME SC Last administered on 02/19/19 18:11; Admin Dose 1 UNIT; Start 02/16/19 at 18:05 Enoxaparin Sodium (Lovenox) 30 mg DAILY SC Last administered on 02/20/19 09:01; Admin Dose 30 MG; Start 02/16/19 at 16:00 Furosemide (Lasix) 20 mg TID PO Last administered on 02/20/19 12:26; Admin Dose 20 MG; Start 02/16/19 at 21:00 Guaifenesin/ Dextromethorphan (Robitussin Dm Liquid Cup) 5 ml Q6H PRN PO Cough Last administered on 02/18/19at 23:49; Admin Dose 5 ML; Start 02/17/19 at 04:30 Methylprednisolone (Medrol Dose Pack) ay 1: 24 mg on day 1, administe... STD DOSE PACK PO ; Start 02/18/19 at 07:00; Stop 02/25/19 at 06:59 Methylprednisolone (Medrol) 4 mg AC BREAKFAST PO Last administered on 02/20/19at 08:58; Admin Dose 4 MG; Start 02/19/19 at 07:30; Stop 02/23/19 at 07:31 Methylprednisolone (Medrol) 4 mg PC LUNCH PO Last administered on 02/20/19at 12:28; Admin Dose 4 MG; Start 02/19/19 at 13:00; Stop 02/21/19 at 13:01 Methylprednisolone (Medrol) 4 mg PC DINNER PO Last administered on 02/19/19at 20:09; Admin Dose 4 MG; Start 02/19/19 at 19:05; Stop 02/20/19 at 19:06 Methylprednisolone (Medrol) 4 mg HS PO ; Start 02/20/19 at 21:00; Stop 02/22/19 at 21:01 Polysaccharide Iron Complex (Niferex-150) 1 cap BID PO Last administered on 02/20/19 09:00; Admin Dose 1 CAP; Start 02/18/19 at 21:00 Pantoprazole (Protonix Tab) 40 mg DAILY@06 PO Last administered on 02/20/19 06:25; Admin Dose 40 MG; Start 02/19/19 at 06:00 Polyethylene Glycol (Miralax) 17 gm DAILY PRN PO CONSTIPATION Last administered on 02/18/19 20:24; Admin Dose 17 GM; Start 02/18/19 at 14:00 Bisacodyl (Dulcolax Supp) 10 mg DAILY PRN [place] CONSTIPATION Last administered on 02/19/19 16:47; Admin Dose 10 MG; Start 02/18/19 at 14:00 Albuterol/ Ipratropium (Duoneb) 3 ml Q4H RESP THERAPY PRN HHN SHORTNESS OF BREATH; Start 02/20/19 at 15:30 LISA NINA MD February 20, 2019 15:59
[2019-02-20 20:00] VITALS: BP 120/67; PULSE 75; RESP 19
[2019-02-20] MEDS: ATORVASTATIN 20 MG TAB PO SCH (21:08)
[2019-02-20] MEDS: MONTELUKAST 10 MG TAB PO SCH (21:08)
[2019-02-21] MEDS: ACCU-CHEK XX SCH ×5 (01:41→20:37)
[2019-02-21 02:00] VITALS: BP 122/65; PULSE 74; RESP 19
[2019-02-21] MEDS: PANTOPRAZOLE (EC) 40 MG TAB PO SCH (05:19)
[2019-02-21] MEDS: METOCLOPRAMIDE 10 MG INJ IV SCH ×5 (05:21→23:32)
[2019-02-21 08:00] VITALS: BP 142/75; PULSE 84; RESP 18
[2019-02-21] MEDS: INSULIN ASPART [NOVOLOG] 3 ML PEN SC SCH ×4 (08:00→20:27)
[2019-02-21] MEDS: METHYLPREDNISOLONE 4 MG TAB PO SCH ×3 (08:10→20:16)
[2019-02-21] MEDS: POLYSACCHARIDE IRON COMPLEX CAP PO SCH ×2 (08:10→20:17)
[2019-02-21] MEDS: GABAPENTIN 300 MG CAP PO SCH (08:10)
[2019-02-21] MEDS: MULTIVITAMINS THERAPEUTIC TAB PO SCH (08:11)
[2019-02-21] MEDS: metFORMIN 850 MG TAB PO SCH (08:11)
[2019-02-21] MEDS: NATEGLINIDE 120 MG TAB PO SCH ×3 (08:11→17:28)
[2019-02-21] MEDS: OLOPATADINE 0.2% (ONCE A DAY) OPHTH DROP 2.5 ML BOTH EYES SCH (08:12)
[2019-02-21] MEDS: FUROSEMIDE 20 MG TAB PO SCH ×3 (08:12→20:17)
[2019-02-21] MEDS: ENOXAPARIN 30 MG/0.3 ML SYG SC SCH (08:12)
[2019-02-21] MEDS: METOPROLOL 25 MG TAB PO SCH ×2 (08:13→20:17)
--- NOTE | 2019-02-21 13:24 | CONS ---
Assessment/Plan Assessment/Plan Hospital Course (Demo Recall) 88 yo with multiple medical problems, including history of bladder ca on which I have no current info -at present it appears she has no active disease in terms of her bladder ca -bone scan shows no mets nor does CT AP -only chest hasnt been imaged, check CT chest. ordered today if negative she is still in remission Consultation Date/Type/Reason Admit Date/Time Feb 14, 2019 at 16:48 Initial Consult Date 02/20/2019 Type of Consult oncology Reason for Consultation bladder ca Requesting Provider: TYLER CALERO MD Date/Time of Note DATE: 02/21/19 TIME: 13:20 24 HR Interval Summary Free Text/Dictation no acute overnight events. still with abdominal pain Exam/Review of Systems Exam Vitals Vital Signs Date Temp Pulse Resp B/P (MAP) Pulse Ox O2 O2 Flow FiO2 Time Delivery Rate 02/21/19 Nasal 2.0 10:00 Cannula 02/21/19 98.0 84 18 142/75 94 08:00 (97) 02/20/19 21 08:50 Intake and Output 02/20/19 02/20/19 02/21/19 1515:00 23:00 07:00 IntakeIntake Total 700 ml 500 ml BalanceBalance 700 ml 500 ml Constitutional: alert, frail Psych: no complaints, depression Head: normocephalic Eyes: nl conjunctiva ENMT: nl external ears & nose Neck: supple Respiratory: clear to auscultation Cardiovascular: regular rate and rhythm Gastrointestinal: soft Musculoskeletal: nl extremities to inspection Results Result Diagram: 02/20/19 0528 02/21/19 0806 Results 24hrs Laboratory Tests Test 02/20/19 17:05 02/20/19 21:06 02/21/19 01:40 02/21/19 08:06 Bedside Glucose 97 200 142 Sodium Level 139 Potassium Level 4.5 Chloride Level 92 L Carbon Dioxide Level 40 H Anion Gap 7 Blood Urea Nitrogen 56 H Creatinine 1.19 H Est Glomerular Filtrat Rate mL/min Glucose Level 111 # Calcium Level 9.7 Test 02/21/19 08:09 02/21/19 12:03 Bedside Glucose 115 108 Medications Medication Current Medications Atorvastatin Calcium (Lipitor) 20 mg QHS PO Last administered on 02/20/19at 21:08; Admin Dose 20 MG; Start 02/15/19 at 21:00 Gabapentin (Neurontin) 300 mg QAM PO Last administered on 02/21/19at 08:10; Admin Dose 300 MG; Start 02/15/19 at 09:00 Metoprolol Tartrate (Lopressor) 12.5 mg BID PO Last administered on 02/21/19at 08:13; Admin Dose 12.5 MG; Start 02/14/19 at 23:30 Olopatadine HCl (Pataday) 1 drop DAILY BOTH EYES Last administered on 02/21/19at 08:12; Admin Dose 1 DROP; Start 02/15/19 at 09:00 Miscellaneous Information 1 ea NOTE XX ; Start 02/14/19 at 23:30 Glucose (Glutose) 15 gm Q15M PRN PO DECREASED GLUCOSE; Start 02/14/19 at 23:30 Glucose (Glutose) 22.5 gm Q15M PRN PO DECREASED GLUCOSE; Start 02/14/19 at 23:30 Dextrose (D50w Syringe) 25 ml Q15M PRN IV DECREASED GLUCOSE; Start 02/14/19 at 23:30 Dextrose (D50w Syringe) 50 ml Q15M PRN IV DECREASED GLUCOSE; Start 02/14/19 at 23:30 Glucagon (Glucagen) 1 mg Q15M PRN IM DECREASED GLUCOSE; Start 02/14/19 at 23:30 Glucose (Glutose) 15 gm Q15M PRN BUCCAL DECREASED GLUCOSE; Start 02/14/19 at 23:30 Multivitamins Therapeutic (Theragran) 1 tab DAILY PO Last administered on 02/21/19at 08:11; Admin Dose 1 TAB; Start 02/15/19 at 09:00 Metoclopramide HCl (Reglan) 5 mg Q6 IV Last administered on 02/20/19at 17:07; Admin Dose 5 MG; Start 02/15/19 at 18:00 Acetaminophen (Tylenol Tab) 650 mg Q6H PRN PO MILD PAIN(1-3)OR ELEVATED TEMP Last administered on 02/16/19at 05:56; Admin Dose 650 MG; Start 02/16/19 at 06:00 Montelukast Sodium (Singulair) 10 mg QHS PO Last administered on 02/20/19at 21:08; Admin Dose 10 MG; Start 02/16/19 at 21:00 Metformin HCl (Glucophage) 850 mg WITH BREAKFAST PO Last administered on 02/21/19 08:11; Admin Dose 850 MG; Start 02/17/19 at 08:00 Nateglinide (Starlix) 120 mg AC MEALS PO Last administered on 02/21/19 08:11; Admin Dose 120 MG; Start 02/16/19 at 17:35 Diagnostic Test (Pha) (Accu-Chek) 1 ea AC MEALS AND BEDTIME XX Last administered on 02/17/19 17:47; Admin Dose 1 EA; Start 02/16/19 at 17:35 Diagnostic Test (Pha) (Accu-Chek) 1 ea 02 XX ; Start 02/17/19 at 02:00 Insulin Aspart (Novolog Insulin Pen) NOVOLOG *MILD* ALGORITHM WITH MEALS BEDTIME SC Last administered on 02/20/19 21:10; Admin Dose 1 UNIT; Start 02/16/19 at 18:05 Enoxaparin Sodium (Lovenox) 30 mg DAILY SC Last administered on 02/21/19 08:12; Admin Dose 30 MG; Start 02/16/19 at 16:00 Furosemide (Lasix) 20 mg TID PO Last administered on 02/21/19 08:12; Admin Dose 20 MG; Start 02/16/19 at 21:00 Guaifenesin/ Dextromethorphan (Robitussin Dm Liquid Cup) 5 ml Q6H PRN PO Cough Last administered on 02/18/19 23:49; Admin Dose 5 ML; Start 02/17/19 at 04:30 Methylprednisolone (Medrol Dose Pack) ay 1: 24 mg on day 1, administe... STD DOSE PACK PO ; Start 02/18/19 at 07:00; Stop 02/25/19 at 06:59 Methylprednisolone (Medrol) 4 mg AC BREAKFAST PO Last administered on 02/21/19 08:10; Admin Dose 4 MG; Start 02/19/19 at 07:30; Stop 02/23/19 at 07:31 Methylprednisolone (Medrol) 4 mg PC LUNCH PO Last administered on 02/20/19 12:28; Admin Dose 4 MG; Start 02/19/19 at 13:00; Stop 02/21/19 at 13:01 Methylprednisolone (Medrol) 4 mg HS PO Last administered on 02/20/19 21:08; Admin Dose 4 MG; Start 02/20/19 at 21:00; Stop 02/22/19 at 21:01 Polysaccharide Iron Complex (Niferex-150) 1 cap BID PO Last administered on 02/21/19at 08:10; Admin Dose 1 CAP; Start 02/18/19 at 21:00 Pantoprazole (Protonix Tab) 40 mg DAILY@06 PO Last administered on 02/21/19at 05:19; Admin Dose 40 MG; Start 02/19/19 at 06:00 Polyethylene Glycol (Miralax) 17 gm DAILY PRN PO CONSTIPATION Last administered on 02/18/19at 20:24; Admin Dose 17 GM; Start 02/18/19 at 14:00 Bisacodyl (Dulcolax Supp) 10 mg DAILY PRN [place] CONSTIPATION Last administered on 02/19/19at 16:47; Admin Dose 10 MG; Start 02/18/19 at 14:00 Albuterol/ Ipratropium (Duoneb) 3 ml Q4H RESP THERAPY PRN HHN SHORTNESS OF BREATH; Start 02/20/19 at 15:30 LUIS TONG M.D. February 21, 2019 13:24
--- NOTE | 2019-02-21 13:46 | PN ---
Date/Time of Note Date/Time of Note DATE: 02/21/19 TIME: 13:46 Assessment/Plan VTE Prophylaxis Risk score (from Nsg)>0 risk: 8 SCD applied (from Ns): No SCD contraindicated: low risk/ambulating Pharmacological prophylaxis: NA/contraindicated Pharm contraindication: low risk/ambulating Lines/Catheters IV Catheter Type (from Nrsg): Saline Lock Urinary Cath still in place: No Assessment/Plan Hospital Course 1. severe lower back pain, bilateral lower rib pain, extremities pain. CT of the abdomen and pelvis showed mild compression fracture deformities, mild compression fracture L5 vertebral body findings consistent with acute fracture, anterior compression fracture L2 vertebral body.MRI with acute compression fracture of the L5 vertebral body with approximate 30% height loss, less than 2 mm retropulsion of the superior endplate and edema / enhancement throughout the vertebral body. No definite underlying lesion identified. bone scan neg for mets 2. Nausea and vomiting, could be secondary to constipation, urinary tract infection, asthma, rule out underlying peptic ulcer disease. Improved. The patient is also on NSAIDs at home, now off NSAID> improved 3. History of bladder cancer. 4. Diabetes. 5. Hypertension. 6. 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 7. History of pneumonia. 8. Small umbilical hernia. 9. Bilateral renal cysts. 10 Hypothyroidism 11. Obesity 12. Anemia 13. urinary incontinence Assessment/Plan - bone scan neg - lumbary Xray per Ortho - ct chest per onc to check for mets - cw lasix -cw Iron supplement - vomiting improved> advance diet - DVT proph with LOVENOX - Gi prophylaxis Protonix - DC planning after Xray/ct chest to snif Result Diagram: 02/20/19 0528 02/21/19 0806 Results 24hrs Laboratory Tests Test 02/20/19 17:05 02/20/19 21:06 02/21/19 01:40 02/21/19 08:06 Bedside Glucose 97 200 142 Sodium Level 139 Potassium Level 4.5 Chloride Level 92 L Carbon Dioxide Level 40 H Anion Gap 7 Blood Urea Nitrogen 56 H Creatinine 1.19 H Est Glomerular Filtrat Rate mL/min Glucose Level 111 # Calcium Level 9.7 Test 02/21/19 08:09 02/21/19 12:03 Bedside Glucose 115 108 Subjective 24 Hr Interval Summary Free Text/Dictation lumbar xrays pending CT chest ordered per heme pain is controlled Exam/Review of Systems Exam Vitals Vital Signs Date Temp Pulse Resp B/P (MAP) Pulse Ox O2 O2 Flow FiO2 Time Delivery Rate 02/21/19 Nasal 2.0 10:00 Cannula 02/21/19 98.0 84 18 142/75 94 08:00 (97) 02/20/19 08:50 Intake and Output 02/20/19 02/20/19 02/21/19 1515:00 23:00 07:00 IntakeIntake Total 700 ml 500 ml BalanceBalance 700 ml 500 ml Exam on supp. oxygen Constitutional: alert, oriented Neck: supple Respiratory: clear to auscultation, diminished breath sounds Cardiovascular: regular rate and rhythm Gastrointestinal: soft Musculoskeletal: nl gait and stance, joint tenderness Results Results 24hrs Laboratory Tests Test 02/20/19 17:05 02/20/19 21:06 02/21/19 01:40 02/21/19 08:06 Bedside Glucose 97 200 142 Sodium Level 139 Potassium Level 4.5 Chloride Level 92 L Carbon Dioxide Level 40 H Anion Gap 7 Blood Urea Nitrogen 56 H Creatinine 1.19 H Est Glomerular Filtrat Rate mL/min Glucose Level 111 # Calcium Level 9.7 Test 02/21/19 08:09 02/21/19 12:03 Bedside Glucose 115 108 Medications Medication Current Medications Atorvastatin Calcium (Lipitor) 20 mg QHS PO Last administered on 02/20/19at 21:08; Admin Dose 20 MG; Start 02/15/19 at 21:00 Gabapentin (Neurontin) 300 mg QAM PO Last administered on 02/21/19at 08:10; Admin Dose 300 MG; Start 02/15/19 at 09:00 Metoprolol Tartrate (Lopressor) 12.5 mg BID PO Last administered on 02/21/19 08:13; Admin Dose 12.5 MG; Start 02/14/19 at 23:30 Olopatadine HCl (Pataday) 1 drop DAILY BOTH EYES Last administered on 02/21/19at 08:12; Admin Dose 1 DROP; Start 02/15/19 at 09:00 Miscellaneous Information 1 ea NOTE XX ; Start 02/14/19 at 23:30 Glucose (Glutose) 15 gm Q15M PRN PO DECREASED GLUCOSE; Start 02/14/19 at 23:30 Glucose (Glutose) 22.5 gm Q15M PRN PO DECREASED GLUCOSE; Start 02/14/19 at 23:30 Dextrose (D50w Syringe) 25 ml Q15M PRN IV DECREASED GLUCOSE; Start 02/14/19 at 23:30 Dextrose (D50w Syringe) 50 ml Q15M PRN IV DECREASED GLUCOSE; Start 02/14/19 at 23:30 Glucagon (Glucagen) 1 mg Q15M PRN IM DECREASED GLUCOSE; Start 02/14/19 at 23:30 Glucose (Glutose) 15 gm Q15M PRN BUCCAL DECREASED GLUCOSE; Start 02/14/19 at 23:30 Multivitamins Therapeutic (Theragran) 1 tab DAILY PO Last administered on 02/21/19 08:11; Admin Dose 1 TAB; Start 02/15/19 at 09:00 Metoclopramide HCl (Reglan) 5 mg Q6 IV Last administered on 02/21/19 12:04; Admin Dose 5 MG; Start 02/15/19 at 18:00 Acetaminophen (Tylenol Tab) 650 mg Q6H PRN PO MILD PAIN(1-3)OR ELEVATED TEMP Last administered on 02/16/19 05:56; Admin Dose 650 MG; Start 02/16/19 at 06:00 Montelukast Sodium (Singulair) 10 mg QHS PO Last administered on 02/20/19 21:08 ; Admin Dose 10 MG; Start 02/16/19 at 21:00 Metformin HCl (Glucophage) 850 mg WITH BREAKFAST PO Last administered on 02/21/19 08:11; Admin Dose 850 MG; Start 02/17/19 at 08:00 Nateglinide (Starlix) 120 mg AC MEALS PO Last administered on 02/21/19 12:04; Admin Dose 120 MG; Start 02/16/19 at 17:35 Diagnostic Test (Pha) (Accu-Chek) 1 ea AC MEALS AND BEDTIME XX Last administered on 02/17/19 17:47; Admin Dose 1 EA; Start 02/16/19 at 17:35 Diagnostic Test (Pha) (Accu-Chek) 1 ea 02 XX ; Start 02/17/19 at 02:00 Insulin Aspart (Novolog Insulin Pen) NOVOLOG *MILD* ALGORITHM WITH MEALS BEDTIME SC Last administered on 02/20/19 21:10; Admin Dose 1 UNIT; Start 02/16/19 at 18:05 Enoxaparin Sodium (Lovenox) 30 mg DAILY SC Last administered on 02/21/19 08:12; Admin Dose 30 MG; Start 02/16/19 at 16:00 Furosemide (Lasix) 20 mg TID PO Last administered on 02/21/19 12:40; Admin Dose 20 MG; Start 02/16/19 at 21:00 Guaifenesin/ Dextromethorphan (Robitussin Dm Liquid Cup) 5 ml Q6H PRN PO Cough Last administered on 02/18/19 23:49; Admin Dose 5 ML; Start 02/17/19 at 04:30 Methylprednisolone (Medrol Dose Pack) ay 1: 24 mg on day 1, administe... STD DOSE PACK PO ; Start 02/18/19 at 07:00; Stop 02/25/19 at 06:59 Methylprednisolone (Medrol) 4 mg AC BREAKFAST PO Last administered on 02/21/19 08:10; Admin Dose 4 MG; Start 02/19/19 at 07:30; Stop 02/23/19 at 07:31 Methylprednisolone (Medrol) 4 mg HS PO Last administered on 02/20/19 21:08; Admin Dose 4 MG; Start 02/20/19 at 21:00; Stop 02/22/19 at 21:01 Polysaccharide Iron Complex (Niferex-150) 1 cap BID PO Last administered on 02/21/19 08:10; Admin Dose 1 CAP; Start 02/18/19 at 21:00 Pantoprazole (Protonix Tab) 40 mg DAILY@06 PO Last administered on 02/21/19 05:19; Admin Dose 40 MG; Start 02/19/19 at 06:00 Polyethylene Glycol (Miralax) 17 gm DAILY PRN PO CONSTIPATION Last administered on 02/18/19 20:24; Admin Dose 17 GM; Start 02/18/19 at 14:00 Bisacodyl (Dulcolax Supp) 10 mg DAILY PRN [place] CONSTIPATION Last administered on 02/19/19 16:47; Admin Dose 10 MG; Start 02/18/19 at 14:00 Albuterol/ Ipratropium (Duoneb) 3 ml Q4H RESP THERAPY PRN HHN SHORTNESS OF BREATH; Start 02/20/19 at 15:30 TYLER CALERO MD February 21, 2019 13:46
[2019-02-21 14:00] VITALS: BP 118/66; PULSE 78; RESP 19
--- NOTE | 2019-02-21 18:29 | CONS ---
Assessment/Plan Assessment/Plan Assessment/Plan (Daily) Assessment/Plan (Daily) Assessment/Plan (Daily) IMPRESSION: 1. Nausea and vomiting. Subsided with the Reglan 2. Constipation. 3. Bladder cancer. 4. Diabetes mellitus. 5. Hypertension. 6. Compression fracture of L2 vertebral body. Causing severe back pain 7. Small umbilical hernia. 8. Abdominal pain much better Plan Continue PPI and Reglan If abdominal pain or nausea is persistent then will proceed with EGD Continue present care Bone scan is negative for any mets Pain management Consultation Date/Type/Reason Admit Date/Time Feb 14, 2019 at 16:48 Initial Consult Date Requesting Provider: TYLER CALERO MD Date/Time of Note DATE: 02/21/19 TIME: 18:29 24 HR Interval Summary Free Text/Dictation No abdominal pain no nausea no vomiting Constitutional: improved Exam/Review of Systems Exam Vitals Vital Signs Date Temp Pulse Resp B/P (MAP) Pulse Ox O2 O2 Flow FiO2 Time Delivery Rate 02/21/19 97.9 78 19 118/66 94 Nasal 14:00 (83) Cannula 02/21/19 2.0 10:00 02/20/19 21 08:50 Intake and Output 02/20/19 02/20/19 02/21/19 1515:00 23:00 07:00 IntakeIntake Total 700 ml 500 ml BalanceBalance 700 ml 500 ml Constitutional: alert, oriented, well developed Psych: no complaints, nl mood/affect Head: normocephalic, atraumatic Eyes: nl conjunctiva, EOMI, nl lids, nl sclera, PERRL ENMT: nl external ears & nose, nl lips & teeth, nl nasal mucosa & septum Neck: supple, non-tender Respiratory: clear to auscultation, normal air movement Cardiovascular: regular rate and rhythm, nl pulses Gastrointestinal: soft, nl liver, spleen, non-tender Musculoskeletal: nl extremities to inspection, nl gait and stance Extremities: normal pulses 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: SCREEDMAN II-XII intact, nl mental status, nl speech, nl strength Skin: nl turgor; No rash or lesions Lymph: nl lymph nodes Results Result Diagram: 02/20/19 0528 02/21/19 0806 Results 24hrs Laboratory Tests Test 02/20/19 21:06 02/21/19 01:40 02/21/19 08:06 02/21/19 08:09 Bedside Glucose 200 142 115 Sodium Level 139 Potassium Level 4.5 Chloride Level 92 L Carbon Dioxide Level 40 H Anion Gap 7 Blood Urea Nitrogen 56 H Creatinine 1.19 H Est Glomerular Filtrat Rate mL/min Glucose Level 111 # Calcium Level 9.7 Test 02/21/19 12:03 02/21/19 17:26 Bedside Glucose 108 99 Medications Medication Current Medications Atorvastatin Calcium (Lipitor) 20 mg QHS PO Last administered on 02/20/19 21:08; Admin Dose 20 MG; Start 02/15/19 at 21:00 Gabapentin (Neurontin) 300 mg QAM PO Last administered on 02/21/19 08:10; Admin Dose 300 MG; Start 02/15/19 at 09:00 Metoprolol Tartrate (Lopressor) 12.5 mg BID PO Last administered on 02/21/19 08:13; Admin Dose 12.5 MG; Start 02/14/19 at 23:30 Olopatadine HCl (Pataday) 1 drop DAILY BOTH EYES Last administered on 02/21/19 08:12; Admin Dose 1 DROP; Start 02/15/19 at 09:00 Miscellaneous Information 1 ea NOTE XX ; Start 02/14/19 at 23:30 Glucose (Glutose) 15 gm Q15M PRN PO DECREASED GLUCOSE; Start 02/14/19 at 23:30 Glucose (Glutose) 22.5 gm Q15M PRN PO DECREASED GLUCOSE; Start 02/14/19 at 23:30 Dextrose (D50w Syringe) 25 ml Q15M PRN IV DECREASED GLUCOSE; Start 02/14/19 at 23:30 Dextrose (D50w Syringe) 50 ml Q15M PRN IV DECREASED GLUCOSE; Start 02/14/19 at 23:30 Glucagon (Glucagen) 1 mg Q15M PRN IM DECREASED GLUCOSE; Start 02/14/19 at 23:30 Glucose (Glutose) 15 gm Q15M PRN BUCCAL DECREASED GLUCOSE; Start 02/14/19 at 23:30 Multivitamins Therapeutic (Theragran) 1 tab DAILY PO Last administered on 02/21/19 08:11; Admin Dose 1 TAB; Start 02/15/19 at 09:00 Metoclopramide HCl (Reglan) 5 mg Q6 IV Last administered on 02/21/19 17:27; Admin Dose 5 MG; Start 02/15/19 at 18:00 Acetaminophen (Tylenol Tab) 650 mg Q6H PRN PO MILD PAIN(1-3)OR ELEVATED TEMP Last administered on 02/16/19 05:56; Admin Dose 650 MG; Start 02/16/19 at 06:00 Montelukast Sodium (Singulair) 10 mg QHS PO Last administered on 02/20/19 21:08; Admin Dose 10 MG; Start 02/16/19 at 21:00 Metformin HCl (Glucophage) 850 mg WITH BREAKFAST PO Last administered on 08:11; Admin Dose 850 MG; Start 02/17/19 at 08:00 Nateglinide (Starlix) 120 mg AC MEALS PO Last administered on 02/21/19 17:28; Admin Dose 120 MG; Start 02/16/19 at 17:35 Diagnostic Test (Pha) (Accu-Chek) 1 ea AC MEALS AND BEDTIME XX Last administered on 02/17/19 17:47; Admin Dose 1 EA; Start 02/16/19 at 17:35 Diagnostic Test (Pha) (Accu-Chek) 1 ea 02 XX ; Start 02/17/19 at 02:00 Insulin Aspart (Novolog Insulin Pen) NOVOLOG *MILD* ALGORITHM WITH MEALS BEDTIME SC Last administered on 02/20/19 21:10; Admin Dose 1 UNIT; Start 02/16/19 at 18:05 Enoxaparin Sodium (Lovenox) 30 mg DAILY SC Last administered on 02/21/19 08:12; Admin Dose 30 MG; Start 02/16/19 at 16:00 Furosemide (Lasix) 20 mg TID PO Last administered on 02/21/19 12:40; Admin Dose 20 MG; Start 02/16/19 at 21:00 Guaifenesin/ Dextromethorphan (Robitussin Dm Liquid Cup) 5 ml Q6H PRN PO Cough Last administered on 02/18/19 23:49; Admin Dose 5 ML; Start 02/17/19 at 04:30 Methylprednisolone (Medrol Dose Pack) ay 1: 24 mg on day 1, administe... STD DOSE PACK PO ; Start 02/18/19 at 07:00; Stop 02/25/19 at 06:59 Methylprednisolone (Medrol) 4 mg AC BREAKFAST PO Last administered on 02/21/19 08:10; Admin Dose 4 MG; Start 02/19/19 at 07:30; Stop 02/23/19 at 07:31 Methylprednisolone (Medrol) 4 mg HS PO Last administered on 02/20/19 21:08; Admin Dose 4 MG; Start 02/20/19 at 21:00; Stop 02/22/19 at 21:01 Polysaccharide Iron Complex (Niferex-150) 1 cap BID PO Last administered on 02/21/19 08:10; Admin Dose 1 CAP; Start 02/18/19 at 21:00 Pantoprazole (Protonix Tab) 40 mg DAILY@06 PO Last administered on 02/21/19 05:19; Admin Dose 40 MG; Start 02/19/19 at 06:00 Polyethylene Glycol (Miralax) 17 gm DAILY PRN PO CONSTIPATION Last administered on 02/18/19 20:24; Admin Dose 17 GM; Start 02/18/19 at 14:00 Bisacodyl (Dulcolax Supp) 10 mg DAILY PRN [place] CONSTIPATION Last administered on 02/19/19at 16:47; Admin Dose 10 MG; Start 02/18/19 at 14:00 Albuterol/ Ipratropium (Duoneb) 3 ml Q4H RESP THERAPY PRN HHN SHORTNESS OF BREATH; Start 02/20/19 at 15:30 LISA NINA MD February 21, 2019 18:29
[2019-02-21 20:00] VITALS: BP 127/66; PULSE 84; RESP 18
[2019-02-21] MEDS: POLYETHYLENE GLYCOL 17 GM PACKET PO PRN (20:16)
[2019-02-21] MEDS: MONTELUKAST 10 MG TAB PO SCH (20:16)
[2019-02-21] MEDS: GUAIFENESIN/DM 5ML CUP PO PRN (20:17)
[2019-02-21] MEDS: ATORVASTATIN 20 MG TAB PO SCH (20:17)
[2019-02-22] MEDS: ACCU-CHEK XX SCH ×4 (01:24→17:24)
[2019-02-22 02:00] VITALS: BP 129/67; PULSE 80; RESP 18
[2019-02-22] MEDS: PANTOPRAZOLE (EC) 40 MG TAB PO SCH (05:50)
[2019-02-22] MEDS: GUAIFENESIN/DM 5ML CUP PO PRN ×2 (05:50→11:47)
[2019-02-22] MEDS: METOCLOPRAMIDE 10 MG INJ IV SCH ×3 (05:50→17:25)
[2019-02-22] MEDS: GABAPENTIN 300 MG CAP PO SCH (08:13)
[2019-02-22] MEDS: NATEGLINIDE 120 MG TAB PO SCH ×3 (08:13→17:25)
[2019-02-22] MEDS: OLOPATADINE 0.2% (ONCE A DAY) OPHTH DROP 2.5 ML BOTH EYES SCH (08:13)
[2019-02-22] MEDS: MULTIVITAMINS THERAPEUTIC TAB PO SCH (08:14)
[2019-02-22] MEDS: metFORMIN 850 MG TAB PO SCH (08:14)
[2019-02-22] MEDS: ENOXAPARIN 30 MG/0.3 ML SYG SC SCH (08:15)
[2019-02-22] MEDS: INSULIN ASPART [NOVOLOG] 3 ML PEN SC SCH ×3 (08:17→17:25)
[2019-02-22] MEDS: POLYSACCHARIDE IRON COMPLEX CAP PO SCH (08:17)
[2019-02-22] MEDS: METHYLPREDNISOLONE 4 MG TAB PO SCH (08:17)
[2019-02-22] MEDS: METOPROLOL 25 MG TAB PO SCH (08:18)
[2019-02-22] MEDS: FUROSEMIDE 20 MG TAB PO SCH ×2 (08:18→13:57)
[2019-02-22 10:07] VITALS: BP 142/80; PULSE 83; RESP 18
--- NOTE | 2019-02-22 10:19 | CONS ---
Assessment/Plan Assessment/Plan Hospital Course (Demo Recall) 88 yo female: Interval hx: No nausea or vomiting. Per pt no pain in abd. RN states she c/o intermittent abd pain but not often. Tolerating PO diet. No bm since 02/19. 1. Nausea and vomiting. Subsided with the Reglan 2. Constipation. 3. Bladder cancer. 4. Diabetes mellitus. 5. Hypertension. 6. Compression fracture of L2 vertebral body. Causing severe back pain 7. Small umbilical hernia. 8. Abdominal pain much better Plan Amitiza 24 mcg bid PO Miralax 17 gm qd po dulcolax 20 mg po x1 Continue PPI and Reglan If abdominal pain or nausea is persistent then will proceed with EGD Continue present care Bone scan is negative for any mets Pain management Pt examined and plan of care discussed with Dr. Lloyd Consultation Date/Type/Reason Admit Date/Time Feb 14, 2019 at 16:48 Initial Consult Date Requesting Provider: TYLER CALERO MD Date/Time of Note DATE: 02/22/19 TIME: 10:06 Exam/Review of Systems Exam Vitals Vital Signs Date Temp Pulse Resp B/P (MAP) Pulse Ox O2 O2 Flow FiO2 Time Delivery Rate 02/22/19 Nasal 2.0 09:09 Cannula 02/22/19 97.9 80 18 129/67 97 02:00 (87) 02/20/19 21 08:50 Intake and Output 02/21/19 02/21/19 02/22/19 1414:59 22:59 06:59 IntakeIntake Total 1140 ml 600 ml BalanceBalance 1140 ml 600 ml Constitutional: alert, oriented Psych: no complaints Head: normocephalic Eyes: PERRL Respiratory: normal air movement Cardiovascular: regular rate and rhythm Gastrointestinal: soft, non-tender, bowel sounds Musculoskeletal: nl extremities to inspection Extremities: normal pulses 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: nl mental status Results Result Diagram: 02/20/19 0528 02/21/19 0806 Results 24hrs Laboratory Tests Test 02/21/19 12:03 02/21/19 17:26 02/21/19 20:24 02/22/19 08:13 Bedside Glucose 108 99 107 150 Medications Medication Current Medications Atorvastatin Calcium (Lipitor) 20 mg QHS PO Last administered on 02/21/19at 20:17; Admin Dose 20 MG; Start 02/15/19 at 21:00 Gabapentin (Neurontin) 300 mg QAM PO Last administered on 02/22/19 08:13; Admin Dose 300 MG; Start 02/15/19 at 09:00 Metoprolol Tartrate (Lopressor) 12.5 mg BID PO Last administered on 02/22/19 08:18; Admin Dose 12.5 MG; Start 02/14/19 at 23:30 Olopatadine HCl (Pataday) 1 drop DAILY BOTH EYES Last administered on 02/22/19 08:13; Admin Dose 1 DROP; Start 02/15/19 at 09:00 Miscellaneous Information 1 ea NOTE XX ; Start 02/14/19 at 23:30 Glucose (Glutose) 15 gm Q15M PRN PO DECREASED GLUCOSE; Start 02/14/19 at 23:30 Glucose (Glutose) 22.5 gm Q15M PRN PO DECREASED GLUCOSE; Start 02/14/19 at 23:30 Dextrose (D50w Syringe) 25 ml Q15M PRN IV DECREASED GLUCOSE; Start 02/14/19 at 23:30 Dextrose (D50w Syringe) 50 ml Q15M PRN IV DECREASED GLUCOSE; Start 02/14/19 at 23:30 Glucagon (Glucagen) 1 mg Q15M PRN IM DECREASED GLUCOSE; Start 02/14/19 at 23:30 Glucose (Glutose) 15 gm Q15M PRN BUCCAL DECREASED GLUCOSE; Start 02/14/19 at 23:30 Multivitamins Therapeutic (Theragran) 1 tab DAILY PO Last administered on 02/22/19at 08:14; Admin Dose 1 TAB; Start 02/15/19 at 09:00 Metoclopramide HCl (Reglan) 5 mg Q6 IV Last administered on 02/21/19 17:27; Admin Dose 5 MG; Start 02/15/19 at 18:00 Acetaminophen (Tylenol Tab) 650 mg Q6H PRN PO MILD PAIN(1-3)OR ELEVATED TEMP Last administered on 02/16/19at 05:56; Admin Dose 650 MG; Start 02/16/19 at 06:00 Montelukast Sodium (Singulair) 10 mg QHS PO Last administered on 02/21/19at 20:16; Admin Dose 10 MG; Start 02/16/19 at 21:00 Metformin HCl (Glucophage) 850 mg WITH BREAKFAST PO Last administered on 02/22 08:14; Admin Dose 850 MG; Start 02/17/19 at 08:00 Nateglinide (Starlix) 120 mg AC MEALS PO Last administered on 02/22/19 08:13; Admin Dose 120 MG; Start 02/16/19 at 17:35 Diagnostic Test (Pha) (Accu-Chek) 1 ea AC MEALS AND BEDTIME XX Last administered on 02/17/19 17:47; Admin Dose 1 EA; Start 02/16/19 at 17:35 Diagnostic Test (Pha) (Accu-Chek) 1 ea 02 XX ; Start 02/17/19 at 02:00 Insulin Aspart (Novolog Insulin Pen) NOVOLOG *MILD* ALGORITHM WITH MEALS BEDTIME SC Last administered on 02/22/19 08:17; Admin Dose 1 UNIT; Start 02/16/19 at 18:05 Enoxaparin Sodium (Lovenox) 30 mg DAILY SC Last administered on 02/22/19 08:15; Admin Dose 30 MG; Start 02/16/19 at 16:00 Furosemide (Lasix) 20 mg TID PO Last administered on 02/22/19 08:18; Admin Dose 20 MG; Start 02/16/19 at 21:00 Guaifenesin/ Dextromethorphan (Robitussin Dm Liquid Cup) 5 ml Q6H PRN PO Cough Last administered on 02/22/19 05:50; Admin Dose 5 ML; Start 02/17/19 at 04:30 Methylprednisolone (Medrol Dose Pack) ay 1: 24 mg on day 1, administe... STD DOSE PACK PO ; Start 02/18/19 at 07:00; Stop 02/25/19 at 06:59 Methylprednisolone (Medrol) 4 mg AC BREAKFAST PO Last administered on 02/22/19 08:17; Admin Dose 4 MG; Start 02/19/19 at 07:30; Stop 02/23/19 at 07:31 Methylprednisolone (Medrol) 4 mg HS PO Last administered on 02/21/19 20:16; Admin Dose 4 MG; Start 02/20/19 at 21:00; Stop 02/22/19 at 21:01 Polysaccharide Iron Complex (Niferex-150) 1 cap BID PO Last administered on 02/22/19 08:17; Admin Dose 1 CAP; Start 02/18/19 at 21:00 Pantoprazole (Protonix Tab) 40 mg DAILY@06 PO Last administered on 02/22/19at 05:50; Admin Dose 40 MG; Start 02/19/19 at 06:00 Polyethylene Glycol (Miralax) 17 gm DAILY PRN PO CONSTIPATION Last administered on 02/21/19at 20:16; Admin Dose 17 GM; Start 02/18/19 at 14:00 Bisacodyl (Dulcolax Supp) 10 mg DAILY PRN [place] CONSTIPATION Last administered on 02/19/19at 16:47; Admin Dose 10 MG; Start 02/18/19 at 14:00 Albuterol/ Ipratropium (Duoneb) 3 ml Q4H RESP THERAPY PRN HHN SHORTNESS OF BREATH; Start 02/20/19 at 15:30 DEEPAK DUNCAN February 22, 2019 10:18
[2019-02-22] MEDS ORDERED: BISACODYL (EC) 5 MG TAB PO ONE (10:30)
[2019-02-22 14:36] VITALS: BP 110/56; PULSE 77; RESP 18
--- NOTE | 2019-02-22 14:39 | CONS ---
Assessment/Plan Assessment/Plan Hospital Course (Demo Recall) 88 yo with multiple medical problems, including history of bladder ca on which I have no current info -at present it appears she has no active disease in terms of her bladder ca -bone scan, and CT C/A/P show CAR if negative she is still in remission Consultation Date/Type/Reason Admit Date/Time Feb 14, 2019 at 16:48 Initial Consult Date 02/20/2019 Type of Consult oncology Reason for Consultation bladder cancer Requesting Provider: TYLER CALERO MD Date/Time of Note DATE: 02/22/19 TIME: 14:38 24 HR Interval Summary Free Text/Dictation CT Chest reveals evidence of pulmonary fibrosis but no evidence of malignancy Exam/Review of Systems Exam Vitals Vital Signs Date Temp Pulse Resp B/P (MAP) Pulse Ox O2 O2 Flow FiO2 Time Delivery Rate 02/22/19 97.7 77 18 110/56 97 Room Air 14:36 (74) 02/22/19 2.0 09:09 02/20/19 21 08:50 Intake and Output 02/21/19 02/21/19 02/22/19 1515:00 23:00 07:00 IntakeIntake Total 1140 ml 600 ml BalanceBalance 1140 ml 600 ml Constitutional: alert, frail Head: normocephalic Eyes: nl conjunctiva ENMT: nl external ears & nose Neck: supple Respiratory: clear to auscultation Cardiovascular: regular rate and rhythm Gastrointestinal: soft Musculoskeletal: nl extremities to inspection Results Result Diagram: 02/20/19 0528 02/21/19 0806 Results 24hrs Laboratory Tests Test 02/21/19 17:26 02/21/19 20:24 02/22/19 08:13 02/22/19 11:55 Bedside Glucose 99 107 150 103 Medications Medication Current Medications Atorvastatin Calcium (Lipitor) 20 mg QHS PO Last administered on 02/21/19at 20:17; Admin Dose 20 MG; Start 02/15/19 at 21:00 Gabapentin (Neurontin) 300 mg QAM PO Last administered on 02/22/19at 08:13; Admin Dose 300 MG; Start 02/15/19 at 09:00 Metoprolol Tartrate (Lopressor) 12.5 mg BID PO Last administered on 02/22/19at 08:18; Admin Dose 12.5 MG; Start 02/14/19 at 23:30 Olopatadine HCl (Pataday) 1 drop DAILY BOTH EYES Last administered on 02/22/19 08:13; Admin Dose 1 DROP; Start 02/15/19 at 09:00 Miscellaneous Information 1 ea NOTE XX ; Start 02/14/19 at 23:30 Glucose (Glutose) 15 gm Q15M PRN PO DECREASED GLUCOSE; Start 02/14/19 at 23:30 Glucose (Glutose) 22.5 gm Q15M PRN PO DECREASED GLUCOSE; Start 02/14/19 at 23:30 Dextrose (D50w Syringe) 25 ml Q15M PRN IV DECREASED GLUCOSE; Start 02/14/19 at 23:30 Dextrose (D50w Syringe) 50 ml Q15M PRN IV DECREASED GLUCOSE; Start 02/14/19 at 23:30 Glucagon (Glucagen) 1 mg Q15M PRN IM DECREASED GLUCOSE; Start 02/14/19 at 23:30 Glucose (Glutose) 15 gm Q15M PRN BUCCAL DECREASED GLUCOSE; Start 02/14/19 at 23:30 Multivitamins Therapeutic (Theragran) 1 tab DAILY PO Last administered on 02/22/19 08:14; Admin Dose 1 TAB; Start 02/15/19 at 09:00 Metoclopramide HCl (Reglan) 5 mg Q6 IV Last administered on 02/21/19 17:27; Admin Dose 5 MG; Start 02/15/19 at 18:00 Acetaminophen (Tylenol Tab) 650 mg Q6H PRN PO MILD PAIN(1-3)OR ELEVATED TEMP Last administered on 02/16/19 05:56; Admin Dose 650 MG; Start 02/16/19 at 06:00 Montelukast Sodium (Singulair) 10 mg QHS PO Last administered on 02/21/19 20:16; Admin Dose 10 MG; Start 02/16/19 at 21:00 Metformin HCl (Glucophage) 850 mg WITH BREAKFAST PO Last administered on 02/22/19 08:14; Admin Dose 850 MG; Start 02/17/19 at 08:00 Nateglinide (Starlix) 120 mg AC MEALS PO Last administered on 02/22/19 11:56; Admin Dose 120 MG; Start 02/16/19 at 17:35 Diagnostic Test (Pha) (Accu-Chek) 1 ea AC MEALS AND BEDTIME XX Last administered on 02/17/19 17:47; Admin Dose 1 EA; Start 02/16/19 at 17:35 Diagnostic Test (Pha) (Accu-Chek) 1 ea 02 XX ; Start 02/17/19 at 02:00 Insulin Aspart (Novolog Insulin Pen) NOVOLOG *MILD* ALGORITHM WITH MEALS BEDTIME SC Last administered on 02/22/19 08:17; Admin Dose 1 UNIT; Start 02/16/19 at 18:05 Enoxaparin Sodium (Lovenox) 30 mg DAILY SC Last administered on 02/22/19 08:15; Admin Dose 30 MG; Start 02/16/19 at 16:00 Furosemide (Lasix) 20 mg TID PO Last administered on 02/22/19 13:57; Admin Dose 20 MG; Start 02/16/19 at 21:00 Guaifenesin/ Dextromethorphan (Robitussin Dm Liquid Cup) 5 ml Q6H PRN PO Cough Last administered on 02/22/19 11:47; Admin Dose 5 ML; Start 02/17/19 at 04:30 Methylprednisolone (Medrol Dose Pack) ay 1: 24 mg on day 1, administe... STD DOSE PACK PO ; Start 02/18/19 at 07:00; Stop 02/25/19 at 06:59 Methylprednisolone (Medrol) 4 mg AC BREAKFAST PO Last administered on 02/22/19 08:17; Admin Dose 4 MG; Start 02/19/19 at 07:30; Stop 02/23/19 at 07:31 Methylprednisolone (Medrol) 4 mg HS PO Last administered on 02/21/19 20:16; Admin Dose 4 MG; Start 02/20/19 at 21:00; Stop 02/22/19 at 21:01 Polysaccharide Iron Complex (Niferex-150) 1 cap BID PO Last administered on 02/22/19 08:17; Admin Dose 1 CAP; Start 02/18/19 at 21:00 Pantoprazole (Protonix Tab) 40 mg DAILY@06 PO Last administered on 02/22/19 0 5:50; Admin Dose 40 MG; Start 02/19/19 at 06:00 Polyethylene Glycol (Miralax) 17 gm DAILY PRN PO CONSTIPATION Last administered on 5/7/19at 20:16; Admin Dose 17 GM; Start 02/18/19 at 14:00 Bisacodyl (Dulcolax Supp) 10 mg DAILY PRN [place] CONSTIPATION Last administered on 02/19/19at 16:47; Admin Dose 10 MG; Start 02/18/19 at 14:00 Albuterol/ Ipratropium (Duoneb) 3 ml Q4H RESP THERAPY PRN HHN SHORTNESS OF BREATH; Start 02/20/19 at 15:30 Lubiprostone (Amitiza) 24 mcg BID PO ; Start 02/22/19 at 21:00 Polyethylene Glycol (Miralax) 17 gm DAILY PO ; Start 02/23/19 at 09:00 LUIS TONG M.D. February 22, 2019 14:39
--- NOTE | 2019-02-22 16:53 | PDOCDIS ---
Discharge Instructions DIAGNOSIS Discharge Diagnosis Lumbar fracture CONDITION [id number] Patient Condition: [id number] Fair HOME CARE INSTRUCTIONS: [id number] Diet Instructions: [id number] Low Fat /Cholesterol ACTIVITY: [id number] Activity Restrictions: [id number] Slowly Increase Activity Rest between Activity Avoid heavy lifting FOLLOW UP/APPOINTMENTS Follow-up Plan f/u Dr Manning in 2 weeks TYLER CALERO MD February 22, 2019 16:53
--- NOTE | 2019-02-22 17:02 | QN ---
Documentation Comment see dc summary TYLER CALERO MD February 22, 2019 17:02
[2019-02-22] MEDS ORDERED: LUBIPROSTONE 24 MCG CAP PO SCH (21:00)
--- NOTE | 2019-02-23 07:08 | DS ---
DATE OF ADMISSION: 02/14/2019 DATE OF DISCHARGE: 02/22/2019 HISTORY OF PRESENT ILLNESS AND HOSPITAL COURSE: An 82-year-old female with the past medical history of COPD, status post bladder cancer, pulmonary fibrosis, congestive heart failure, diabetes, coronary artery disease, pulmonary hypertension, SVT, anemia who resides at [facility]. She was brought in for severe back pain for the last one month. There was no history of any fall. The patient was also having some bilateral leg pain for the past one month. The patient was also having some episode of nausea and vomiting and was brought into ER for further evaluation. The patient was noted to hav e questionable hematuria. On arrival, vital signs were within normal limit, BUN of 24, creatinine 0. 97, lipase of 56. She had a CT of the abdomen and pelvis that showed no acute intra-abdominal abnorm ality, mild circumferential bladder wall thickening, bilateral renal cysts, colonic diverticulosis, s mall fat containing mild hernia, mild compression fracture of L5 vertebral body and compression fract ure of L2 vertebral body. The patient was admitted to med/surg unit, had pain control. The patient also had a lumbar spine MRI that showed acute compression fracture of L5 with a 35% loss, less than 2 mm retropulsion, chronic compression fracture L2, grade I anterolisthesis multilevel degenerative di sease, at least moderate left foraminal stenosis at L5-S1. The patient also was seen by ortho consul tation with Dr. Manning. She was started on Medrol Dosepak for pain control. Per Dr. Manning, it could be p athological fracture; however, the patient had mild tenderness lumbosacral junction, tenderness ____ trochanteric bursa. Straight leg testing seemed have been positive. The patient wanted to check if there is any pathological fracture. The patient had a bone scan done which was focal increased activ ity at L5 corresponding to compression fracture, with an acute compression fracture. No other focal areas of increased ____ activities such as a metastatic disease. Since there were a question of poss ible metastatic disease, oncology consultation was also obtained. The patient had a CT of the chest that did not show any evidence of any metastatic disease. The patient is feeling better, had pain co ntrol. The patient was also seen by Dr. Lloyd for abdominal pain, nausea and vomiting. Had a UA th at was negative. Abdominal pain was resolved, so EGD was not indicated. The patient was continued o n a PPI and Reglan. Currently, the patient is seen by PT after the lumbar brace had been put in and is stable to be discharged back to rehab with followup with Dr. Manning as outpatient in two weeks. FINAL DISCHARGE DIAGNOSES: 1. L2-L5 fracture. 2. Diffuse bony demineralization. 3. Grade I anterolisthesis at L4, L5, and S1. 4. Abdominal pain, nausea and vomiting, resolved, could be secondary to constipation. 5. History of bladder cancer. No evidence of metastatic disease. 6. Diabetes. 7.. Hypertension 8. Chronic hypoxia and history of chronic obstructive pulmonary disease, on chronic home oxygen. 9. History of pneumonia. 10. Small umbilical hernia. 11. Bilateral renal cysts. 12. Obesity. 13. Anemia. DISCHARGE CONDITION: Stable. DISCHARGE MEDICATIONS: Continue with all home medications. The patient was started on Medrol Dosepa k. The patient was also continued on: 1. Lasix 20 t.i.d. 2. Gabapentin 300 q.a.m. 3. Albuterol. 4. Atorvastatin 20. 5. Bisacodyl. 6. Lovenox 30. 7. Guaifenesin. 8. Amitiza. 9. Metformin 850 b.i.d. 10. Reglan. 11. Metoprolol 12.5 b.i.d. 12. Montelukast. 13. Multivitamins. 14. Starlix 120. 15. Protonix. The patient was instructed to follow up with Dr. Manning in about two weeks. The case was also discussed with the daughter who is presents on the bed side. Dictated By: TYLER MORENO/LEONARD Conf#: [id number] DID#: [id number]
[2019-02-23] MEDS ORDERED: POLYETHYLENE GLYCOL 17 GM PACKET PO SCH (09:00)
== END 2019-02-22 19:24 | DRG 543 ==
LOC: E/R 11:17 → PP2 16:48
PROVIDERS: ADMIT Internal Medicine; ATTEND Internal Medicine
DX: M48.56XA Collapsed vertebra, not elsewhere classified, lumbar region, initial encounter for fracture (principal); I50.30 Unspecified diastolic (congestive) heart failure; E11.43 Type 2 diabetes mellitus with diabetic autonomic (poly)neuropathy; K31.84 Gastroparesis; C67.9 Malignant neoplasm of bladder, unspecified; M70.62 Trochanteric bursitis, left hip; M70.61 Trochanteric bursitis, right hip; R31.9 Hematuria, unspecified; R11.2 Nausea with vomiting, unspecified; K59.00 Constipation, unspecified; M54.9 Dorsalgia, unspecified; I10 Essential (primary) hypertension; E78.5 Hyperlipidemia, unspecified; J44.9 Chronic obstructive pulmonary disease, unspecified; R09.02 Hypoxemia; R32 Unspecified urinary incontinence; I11.0 Hypertensive heart disease with heart failure
CPT/HCPCS: 36415; 71250; 72100; 72149; 74177; 78306; 80048; 80053; 81003; 82962; 83036; 83690; 85025; 94640; 94664; 96361; 96374; 96375; 96376; 97162; A9503; C9113; J1650; J1815; J2270; J2405; J2765; J7030; J7509; J7512; Q9967